=== PATIENT | male | born 1950 | race Caucasian/White ===

== ENCOUNTER 2016-07-26 00:59 | Inpatient (IN) | payer MEDICARE, MEDICAID ==
[~2016-07-26] VITALS: Ht 170.2 cm; Wt 59.5 kg
[~2016-07-26 00:59] MED LIST: COUMADIN2.5 MG PO; LASIX40 MG PO; LISINOPRIL10 MG PO; VALIUM5 MG PO; ZANTAC150 MG PO
[2016-07-26 04:19] VITALS: BMI 18.8
[2016-07-26 08:40] VITALS: BP 116/77
[2016-07-26 12:38] VITALS: BP 106/83
--- NOTE | 2016-07-26 13:19 | NUR ---
RATIONALE FOR SCD'S EXPLAINED. REFUSED SCD'S
--- NOTE | 2016-07-26 13:34 | NUR ---
RESTING QUIETLY. FAMILY AT BEDSIDE.
[2016-07-26 14:22] VITALS: Ht 170.2 cm; Wt 59.5 kg
--- NOTE | 2016-07-26 15:21 | NUR ---
PATEINT SI RESTING QUIETLY WITH EYES CLOSED. FEMALE VISITOR AT THE BEDSIDE. IVF INFUSING PER ORDERS. NO EVIDENCE OF DISTRESS/ NEEDS. CALL LIGHT IS WITHOUT DISTRESS.
[2016-07-26 16:07] VITALS: BP 107/75
--- NOTE | 2016-07-26 19:14 | NUR ---
PATIENT IS UP AD SOLOMON. MEDICATIONS REVIEWED WITH HE AND .
--- NOTE | 2016-07-26 21:18 | NUR ---
PHARMACOMETRICIAN NOTIFIED ME THAT PT HR 151 ST/FLUTTER AT THIS TIME CHECKED TELEMETRY STRIP AND READING WAS ST WENT TO PT ROOM AND ASSESSED RADIL PULSE MANUAL RADIAL PULSE CHECK 96 NOTIFIED TECHNICAL COMMUNICATION TEACHER OF MANUAL PULSE AND VERIFIED BOX NUMBER CORRECT BOX IN PLACE AND TELEMETRY STILL SHOWING 131 ST AT THIS TIME REASSED RADIAL PULSE AND MANUAL PULSE 76 10 MIN LATER CHECKED LEAD PLACEMENT AND NOTIFIED TECHNICAL COMMUNICATION TEACHER WILL MONITOR PT
[2016-07-26 22:30] VITALS: BP 135/89
[2016-07-27 02:50] VITALS: BP 127/99
--- NOTE | 2016-07-27 07:28 | NUR ---
PT SITTING UP IN BED RECEIVING BREATHING TX. DENIES NEEDS AT THIS TIME WILL CONTINUE TO MONITOR.
--- NOTE | 2016-07-27 08:12 | NUR ---
PT IS CURRENTLY IN AFIB 160S. PT FEELS OK BUT DOES FEEL THE PALPITATIONS. OBED ALEMAN CURRENTLY HERE. TALKED WITH HERE SHE IS ORDERING SOMETHING.
[2016-07-27 08:21] VITALS: BP 175/82
[2016-07-27 12:04] VITALS: BP 108/62
--- NOTE | 2016-07-27 12:58 | NUR ---
PT HAS BEEN IN AFIB WITH RVR. NOW HE IS IN FLUTTER. TRIED MULTIPLE TIMES TO GET A HOLD OF CARDIO, WILL KEEP TRYING. PT IS ALERT AND ORIENTED AND FEELS FINE.
--- NOTE | 2016-07-27 13:19 | NUR ---
TALKED WITH OBED SHE SAID SHE WAS OK WITH PT STATUS. IF PT DOESNT IMPROVE THROUGHOUT THE NIGHT AND HIS HEARTRATE GOES ABOVE 130S THEN TO GIVE THEM A CALL WILL PASS ON TO IT HELP DESK MANAGER.
[2016-07-27 15:45] VITALS: BP 120/75
--- NOTE | 2016-07-27 15:48 | NUR ---
PT SITTING UP IN BED WITH AT BEDSIDE. PT HAS BEEN IN SR UNTIL THIS AM WHEN HE CONVERTED TO UNCON AFIB WITH RVR TALKED WITH OBED ALEMAN APN THIS AM AND STARTED ON BETAPACE AND DIG. PT CONVERTED TO AFIV CONTROLLED. PT STAYED THIS WAY UNTIL AROUND 1200 WHEN HE BECAME UNCONTROLLED AGAIN, AGAIN GAVE DIG. RATE CAME BACK DOWN. THEN PT WENT INTO A FLUTTER. BOUNCING FROM 70S-140S. CALLED OBED AND LET HER KNOW ABOUT PT STATUS AND SHE SAID IT WAS OK. PT IS NOW CURRENTLY BACK IN SINUS RHYTHM. PT DENIES NEEDS AT THIS TIME. WILL CONTINUE TO MONITOR.
--- NOTE | 2016-07-27 19:35 | NUR ---
RECEIVED REPORT, CALL LIGHT IN REACH, BED IS LOW, SRX2, LFA-SL, DENIES ANY NEEDS AT THIS TIME
[2016-07-27 20:00] VITALS: BP 128/110
[2016-07-28] VITALS: BP 125/97
--- NOTE | 2016-07-28 00:28 | NUR ---
LADLE PULLER AT BEDSIDE TO OBTAIN VITALS, CALL LIGHT IN REACH. WILL CONTINUE WITH PLAN OF CARE.
--- NOTE | 2016-07-28 02:04 | NUR ---
AWAKE, DENIES ANY NEEDS, FAMILY AT BEDSIDE, CALL LIGHT IN REACH
[2016-07-28 04:00] VITALS: BP 132/101
[2016-07-28 06:18] LABS: BASOPHILS 0.1 % (0.0-2.0); EOSINOPHILS 0 % (0-7); HEMATOCRIT 43.7 % (42.0-54.0); HEMOGLOBIN 14.1 g/dL (13.5-17.5); IMMATURE GRANULOCYTES 0.4 % (0-5); LYMPHOCYTES 6.7 % (15-50); MCH 29.4 pg (26.0-34.0); MCHC 32.3 g/dL (31.0-37.0); MEAN PLATELET VOLUME 11.6 fL (7.4-10.4); NEUTROPHILS 89.8 % (40-80); RDW 15.9 % (11.5-14.5)
[2016-07-28 06:30] LABS: PLATELET COUNT 209 10x3/uL (130-400)
[2016-07-28 06:38] LABS: ANION GAP 11.1 mmol/L (8-16); CALCIUM 9.3 mg/dL (8.5-10.1); CREATININE - SERUM 1.5 mg/dL (0.6-1.3); POTASSIUM - SERUM 4.1 mmol/L (3.5-5.1)
--- NOTE | 2016-07-28 07:09 | NUR ---
PT SITTING UP IN BED SLEEPING EASY TO ARROUSE IN FLOOR ASLEEP. PT DENIES NEEDS AT THIS TIME WILL CONTINUE TO MONITOR.
[2016-07-28 08:05] VITALS: BP 131/90
[2016-07-28 12:19] VITALS: BP 107/77
--- NOTE | 2016-07-28 14:19 | NUR ---
Nutrition Follow Up: Chart reviewed. Diet: AHA PO Intake: 100% x 3 meals I>O No BM since admit Labs noted - BUN, Cr elevated Meds: Lasix, Solumedrol Pt with excellent po intake. Rec continue current diet. RD following.
--- NOTE | 2016-07-28 15:04 | NUR ---
PT PIV IN LEFT FA INFILTRATED. DC WITH CATHETER TIP INTACT. RESITED TO R FA 22G X1 STICK.
[2016-07-28 15:39] VITALS: BP 128/83
--- NOTE | 2016-07-28 18:04 | NUR ---
Patient Name: Mitzi MCCLURE Admission Status: ER Accout number: [id number] Admission Date: 07-26-2016 : 1950 Admission Diagnosis:SHORTNESS OF BREATH Attending: KAYE Current LOS: 2 Anticipated DC Date: Planned Disposition: Home Primary Insurance: [employer]ARE ADV Discharge Planning Comments: * Is the patient Alert and Oriented? Yes 0 * How many steps to enter\exit or inside your home? 2 0 * PCP DR. SALCEDO IN [place] 0 * Pharmacy [facility] IN [place] 0 * Preadmission Environment Home with Family 0 * ADLs Independent 0 * Equipment None 0 * Other Equipment NO MEDICAL EQUIPMENT PROVIDER PREFERENCE 0 * List name and contact numbers for known caregivers / representatives who currently or will assist patient after discharge: RADHA MCCLURE, SPOUSE, 0 * Community resources currently utilized None 0 * Please name any agencies selected above. NONE 0 * Additional services required to return to the preadmission environment? No 0 * Can the patient safely return to the preadmission environment? Yes 0 * Has this patient been hospitalized within the prior 30 days at any hospital? No 0 CM MET WITH PT IN ROOM TO DISCUSS DISCHARGE PLANNING AND NEEDS. PT REPORTS LIVING AT HOME INDEPENDENTLY WITH HIS SPOUSE IN AN APPROXIMATELY [address] [facility] TRAILOR. PT HAS NO MEDICAL EQUIPMENT AND NO OUTSIDE SERVICES ASSISTING IN THE HOME. CM DISCUSSED AVAILABILITY OF HOME HEALTH, REHAB SERVICES AND MEDICAL EQUIPMENT. PT THINKS HE WILL NEED OXYGEN FOR DISCHARGE, REPORTS HIS FAMILY WILL PICK HIM UP FOR DISCHARGE HOME. PT BELIEVES HE WILL NEED OXYGEN FOR DISCHARGE HOME. QUALIFYING OXYGEN TESTING WILL NEED TO BE PERFORMED WITHIN 48 HOURS OF DISCHARGE FOR CM TO ARRANGE ANY HOME OXYGEN, IF PT QUALIFIES. Garden Machinery Mechanic: Froilan Sharma
--- NOTE | 2016-07-28 19:35 | NUR ---
RECEIVED REPORT, UP TO RESTROOM, FAMILY AT BEDSIDE, DENIES ANY NEEDS
[2016-07-28 20:00] VITALS: BP 148/117
[2016-07-29] VITALS: BP 124/88
--- NOTE | 2016-07-29 00:32 | NUR ---
SLEEPING, FAMILY AT BEDSIDE, CALL LIGHT IN REACH
--- NOTE | 2016-07-29 01:12 | NUR ---
PT RESTING SOUNDLY WITHOUT C/O OR DISTRESS NOTED. CALL LIGHT IS WITHIN REACH. NO NEEDS VOICED. WILL MONITOR.
[2016-07-29 04:00] VITALS: BP 140/99
--- NOTE | 2016-07-29 06:58 | NUR ---
RECEIVED REPORT FROM COMMERCIAL GLAZIER NURSE, FRANCISCO WHITE. PT IN BED, REQUESTED A CUP OF ICE WATER, WILL PROVIDED PT WITH ICE WATER. PT DENIES ANY OTHER NEEDS AT THIS TIME. CALL LIGHT IN REACH, FAMILY AT BEDSIDE, SLEEPING. ASSESSMENT DONE AT THIS TIME, NAD NOTED, WILL CONTINUE TO MONITOR.
[2016-07-29 07:34] VITALS: BP 134/91
[2016-07-29 08:30] LABS: BASOPHILS 0.1 % (0.0-2.0); EOSINOPHILS 0.3 % (0-7); HEMATOCRIT 47.9 % (42.0-54.0); HEMOGLOBIN 15.6 g/dL (13.5-17.5); IMMATURE GRANULOCYTES 0.5 % (0-5); LYMPHOCYTES 14.6 % (15-50); MCH 29.5 pg (26.0-34.0); MCHC 32.6 g/dL (31.0-37.0); MCV 90.7 fL (80.0-100.0); MEAN PLATELET VOLUME 11.5 fL (7.4-10.4); NEUTROPHILS 77.5 % (40-80); PLATELET COUNT 203 10x3/uL (130-400); RBC 5.28 10x6/uL (4.20-6.10); RDW 15.8 % (11.5-14.5); WBC 15.4 10x3/uL (4.8-10.8)
[2016-07-29 08:52] LABS: ANION GAP 10.6 mmol/L (8-16); CALCIUM 9.4 mg/dL (8.5-10.1); CARBON DIOXIDE 35.3 mmol/L (21.0-32.0); CREATININE - SERUM 1.6 mg/dL (0.6-1.3); POTASSIUM - SERUM 3.9 mmol/L (3.5-5.1)
--- NOTE | 2016-07-29 09:18 | NUR ---
ADMINISTERED MORNING MEDICATIONS, PT IN BED, DENIES ANY NEEDS AT THIS TIME. CALL LIGHT IN REACH, NAD NOTED, WILL CONTINUE TO MONITOR
[2016-07-29 12:13] VITALS: BP 130/95
[2016-07-29 16:19] VITALS: BP 148/105
--- NOTE | 2016-07-29 19:20 | NUR ---
RECEIVED VERBAL ORDERS FROM DR. JARRETT TO PLACE AN ORDER FOR PT TO GET LOVENOX 40MG BID. ORDER HIM EZPAP WITH HIS BREATHING TREATMENTS. ORDER PUT IN FOR LOVENOX AND NURSING MSG FOR EZPAP.
--- NOTE | 2016-07-29 19:45 | NUR ---
RECEIVED REPORT, PT A&O, [id number], O2-2L, IV-RFA-SL, DENIES ANY NEEDS, CALL LIGHT IN REACH, BED IS LOW, SRX2, FAMILY AT BED SIDE
[2016-07-29 20:49] VITALS: BP 149/108
--- NOTE | 2016-07-30 00:14 | NUR ---
PT RESTING WITH EYES CLOSED. RESP EVEN AND REGULAR. SR UP X2, CALL LIGHT WITHIN REACH.
[2016-07-30 00:36] VITALS: BP 128/80
[2016-07-30 04:39] VITALS: BP 131/90
[2016-07-30 06:51] LABS: BASOPHILS 0.1 % (0.0-2.0); EOSINOPHILS 0 % (0-7); HEMATOCRIT 47.6 % (42.0-54.0); HEMOGLOBIN 15.4 g/dL (13.5-17.5); IMMATURE GRANULOCYTES 0.4 % (0-5); LYMPHOCYTES 10.4 % (15-50); MCH 29.2 pg (26.0-34.0); MCHC 32.4 g/dL (31.0-37.0); MCV 90.2 fL (80.0-100.0); MEAN PLATELET VOLUME 11.2 fL (7.4-10.4); MONOCYTES 4.3 % (2-11); NEUTROPHILS 84.8 % (40-80); PLATELET COUNT 222 10x3/uL (130-400); RBC 5.28 10x6/uL (4.20-6.10); RDW 15.5 % (11.5-14.5); WBC 14.7 10x3/uL (4.8-10.8)
[2016-07-30 07:02] LABS: ANION GAP 7.6 mmol/L (8-16); CALCIUM 8.8 mg/dL (8.5-10.1); CARBON DIOXIDE 35.9 mmol/L (21.0-32.0); CREATININE - SERUM 1.4 mg/dL (0.6-1.3)
[2016-07-30 07:04] LABS: POTASSIUM - SERUM 4.5 mmol/L (3.5-5.1)
--- NOTE | 2016-07-30 07:10 | NUR ---
RECEIVED REPORT FROM SENIOR LABORATORY TECHNICIAN NURSE, PT IN BED, STATES THAT HE FEELS MUCH BETTER TODAY. DENIES ANY NEEDS AT THIS TIME. CALL LIGHT IN REACH, FAMILY AT BEDSIDE, NAD NOTED, WILL CONTINUE TO MONITOR.
--- NOTE | 2016-07-30 09:00 | NUR ---
ADMINISTERED MORNING MEDICATIONS, PT IN BED, ASSESSMENT DONE AT THIS TIME. PT DENIES ANY NEEDS AT THIS TIME. FAMILY AT BEDSIDE, CALL LIGHT IN REACH, NAD NOTED, WILL CONTINUE TO MONITOR.
[2016-07-30 09:31] VITALS: BP 140/96
[2016-07-30 12:55] VITALS: BP 106/78
--- NOTE | 2016-07-30 14:00 | NUR ---
WRAPPED PT'S IV, SO PT COULD GET IN THE SHOWER, LINEN CHANGE WHILE PT WAS IN THE SHOWER. PT DENIES ANY OTHER NEEDS AT THIS TIME. CALL LIGHT IN REACH, NAD NOTED, WILL CONTINUE TO MONITOR.
[2016-07-30 16:59] VITALS: BP 140/93
--- NOTE | 2016-07-30 18:07 | NUR ---
ADMINISTERED 40MG OF LASIX SCHEDULE. PT IN BED, DENIES ANY NEEDS AT THIS TIME. RESP THERAPY AT BEDSIDE TO DO UPDRAFT. PT DENIES ANY NEEDS AT THIS TIME. CALL LIGHT IN REACH, NAD NOTED, WILL CONTINUE TO MONITOR.
[2016-07-30 21:36] VITALS: BP 154/109
--- NOTE | 2016-07-31 01:51 | NUR ---
NURSE ROUNDS 21:00 - PT AWAKE, ALERT, ORIENTED, FAMILY AT BEDSIDE ASKING SEVERAL QUESTIONS ABOUT THEIR FATHERS HEALTH CARE AND TEST RESULTS. I REVIEWED THE PHYSICIANS DOCUMENTATION AND EXPLAINED IN GREAT DETAIL THE PTS DX, THE TX PLAN, AND THE PTS PROGRESS, WELL THE MEDICATIONS AND WHAT THEY ARE FOR. FAMILY STATED THEY WERE SATISFIED AND DENIED ANY MORE QUESTIONS. PTS 2100 MEDICATIONS WERE GIVEN, ALONG WITH HIS REQUESTED PRN VALIUM FOR ANXIETY AND SLEEP. PT STATED HE WAS FEELING BETTER SINCE BEING ADMITTED. CONTINUE TO MONITOR CLOSELY.
[2016-07-31 02:34] VITALS: BP 107/74
[2016-07-31 04:44] VITALS: BP 109/72
--- NOTE | 2016-07-31 06:18 | NUR ---
PT LYING IN BED, EYES CLOSED, RESPIRATIONS EVEN AND UNLABORED. PT IS EASILY ROUSABLE TO VERBAL STIMULI, DENIES ANY NEEDS. PT STATES HE SLEPT BETTER THIS SHIFT. CONTINUE TO MONITOR.
[2016-07-31 06:53] LABS: BASOPHILS 0.1 % (0.0-2.0); EOSINOPHILS 1.1 % (0-7); HEMATOCRIT 47.3 % (42.0-54.0); HEMOGLOBIN 15.1 g/dL (13.5-17.5); IMMATURE GRANULOCYTES 0.9 % (0-5); LYMPHOCYTES 27.7 % (15-50); MCH 29.1 pg (26.0-34.0); MCHC 31.9 g/dL (31.0-37.0); MCV 91.1 fL (80.0-100.0); MEAN PLATELET VOLUME 11.1 fL (7.4-10.4); MONOCYTES 9.2 % (2-11); PLATELET COUNT 221 10x3/uL (130-400); RBC 5.19 10x6/uL (4.20-6.10); RDW 15.5 % (11.5-14.5); WBC 12.7 10x3/uL (4.8-10.8)
[2016-07-31 07:08] LABS: ANION GAP 6.1 mmol/L (8-16); CARBON DIOXIDE 38.6 mmol/L (21.0-32.0); CREATININE - SERUM 1.6 mg/dL (0.6-1.3)
[2016-07-31 07:21] LABS: POTASSIUM - SERUM 3.7 mmol/L (3.5-5.1)
--- NOTE | 2016-07-31 07:30 | NUR ---
RECIEVED REPORT ON PATIENT, PATIENT IS ALERT AND ORIENTED AT THIS TIME. PATIENT HAS A R FA IV THAT IS SL AT THIS TIME. PATIENT IS SB ON MONITOR WITH A RATE OF 55. FAMILY IS AT BEDSIDE. PATIENT DENIES ANY NEEDS OR COMPLAINTS AT THIS TIME. BED LOW AND LOCKED. CALL LIGHT IN REACH. CPOC
[2016-07-31 08:00] VITALS: BP 104/70
--- NOTE | 2016-07-31 09:30 | NUR ---
LEAVING FLOOR, ROQUE WALKER TO RESUME CARE
--- NOTE | 2016-07-31 10:14 | NUR ---
PATIENT AMBULATING IN HALLWAY WITH OUT DISTRESS. RESP WITH EASE.
[2016-07-31 11:08] VITALS: BP 124/88
--- NOTE | 2016-07-31 13:30 | NUR ---
RETURNED TO FLOOR, RESUME CARE OF PATIENT. PATIENT IS SITTING UP IN BED, DENIES ANY NEEDS OR PAIN AT THIS TIME. WILL CONT TO MONITOR PATIENT. CPOC
--- NOTE | 2016-07-31 13:35 | NUR ---
RETURNED TO RESUME CARE, PATIENT IS ALERT AND ORIENTED. FAMILY AT BEDSIDE. PATIENT DENIES ANY NEEDS. CPOC
[2016-07-31 15:09] VITALS: BP 132/87
--- NOTE | 2016-07-31 16:00 | NUR ---
PATIENT AMBULATING AROUND ROOM. DENIES ANY NEEDS AT THIS TIME. WILL CONT TO MONITOR. CPOC
--- NOTE | 2016-07-31 18:00 | NUR ---
PATIENT SITTING UP IN BED EATING DINNER. DENIES ANY NEEDS. CPOC
--- NOTE | 2016-07-31 19:30 | NUR ---
ASSESSMENT COMPLETE, DENIES NEEDS AT THIS TIME. HOB UP SR UP X2, C/L IN REACH. TELEMETRY SHOWING HR SR UP AD SOLOMON W/O DIFF. MULTIPLE VISITORS AT BEDSIDE. CONTINUE TO MONITOR.
[2016-07-31 21:31] VITALS: BP 145/89
--- NOTE | 2016-07-31 23:18 | NUR ---
EYES CLOSED, RESP UNLAB WITH O2 @ 2L NC IN PLACE. NO S/S OF ACUTE DISTRESS NOTED. AT BEDSIDE FOR NIGHT. C/L IN REACH.
[2016-08-01 00:11] VITALS: BP 142/83
[2016-08-01 06:33] VITALS: BP 129/70
[2016-08-01 06:33] LABS: BASOPHILS 0.1 % (0.0-2.0); EOSINOPHILS 0.3 % (0-7); HEMATOCRIT 43.8 % (42.0-54.0); HEMOGLOBIN 14.4 g/dL (13.5-17.5); IMMATURE GRANULOCYTES 0.7 % (0-5); LYMPHOCYTES 17.3 % (15-50); MCH 29.3 pg (26.0-34.0); MCHC 32.9 g/dL (31.0-37.0); MCV 89.2 fL (80.0-100.0); MEAN PLATELET VOLUME 11.3 fL (7.4-10.4); MONOCYTES 7.3 % (2-11); NEUTROPHILS 74.3 % (40-80); PLATELET COUNT 212 10x3/uL (130-400); RBC 4.91 10x6/uL (4.20-6.10); RDW 15.3 % (11.5-14.5); WBC 15.1 10x3/uL (4.8-10.8)
[2016-08-01 06:51] LABS: CALCIUM 8.3 mg/dL (8.5-10.1); CARBON DIOXIDE 37.7 mmol/L (21.0-32.0); CREATININE - SERUM 1.3 mg/dL (0.6-1.3); POTASSIUM - SERUM 3.7 mmol/L (3.5-5.1)
[2016-08-01 07:54] VITALS: BP 138/98
--- NOTE | 2016-08-01 08:20 | NUR ---
PATIENT IS RESTING QUIETLY WITH RESPIRATIONS DEEP AND EVEN. DID NOT AWAKEN HIM
--- NOTE | 2016-08-01 09:45 | NUR ---
PATIENT AWOKE EASILY TO TAKE MEDICATIONS. HE STATES THAT HE TAKES THE VALIUM TO HELP HIM RELAX AT NIGHT. DENIES NEED THIS MORNING. NICOTINE PATCH TO THE RIGHT UPPER ARM. LOVENOX IN THE RIGHT LOQ.
[2016-08-01 12:01] VITALS: BP 114/79
--- NOTE | 2016-08-01 12:47 | NUR ---
PATIENT SITTING UP IN BED, HI FOWLERS.
--- NOTE | 2016-08-01 14:57 | NUR ---
PATIENT UP AMBULATING AROUND ROOM AD SOLOMON.
[2016-08-01 16:01] VITALS: BP 125/87
[2016-08-01 21:39] VITALS: BP 112/80
[2016-08-02 04:00] VITALS: BP 113/57
[2016-08-02 06:15] LABS: BASOPHILS 0.1 % (0.0-2.0); EOSINOPHILS 0.7 % (0-7); HEMATOCRIT 46.6 % (42.0-54.0); HEMOGLOBIN 14.8 g/dL (13.5-17.5); IMMATURE GRANULOCYTES 1.4 % (0-5); LYMPHOCYTES 23.7 % (15-50); MCH 28.8 pg (26.0-34.0); MCHC 31.8 g/dL (31.0-37.0); MCV 90.8 fL (80.0-100.0); NEUTROPHILS 67.1 % (40-80); PLATELET COUNT 210 10x3/uL (130-400); RBC 5.13 10x6/uL (4.20-6.10); RDW 15.4 % (11.5-14.5); WBC 14.1 10x3/uL (4.8-10.8)
[2016-08-02 06:59] LABS: CALCIUM 8.4 mg/dL (8.5-10.1); CREATININE - SERUM 1.3 mg/dL (0.6-1.3); MAGNESIUM - SERUM 2.2 mg/dL (1.8-2.4); PHOSPHOROUS 3.9 mg/dL (2.5-4.9); POTASSIUM - SERUM 3.3 mmol/L (3.5-5.1)
[2016-08-02 07:00] LABS: ANION GAP 6.3 mmol/L (8-16)
[2016-08-02 09:21] VITALS: BP 111/77
--- NOTE | 2016-08-02 10:00 | NUR ---
Lying quietly in bed, alert and oriented, respirations easy. No distress. Call light within reach.
[2016-08-02 12:28] VITALS: BP 102/65
[2016-08-02] MEDS ORDERED: DALIRESP500 MCG PO (14:22)
[2016-08-02] MEDS ORDERED: XOPENEX 0.0.63 MG/3 UPD (14:22)
[2016-08-02] MEDS ORDERED: K-DUR20 MEQ PO (14:22)
[2016-08-02] MEDS ORDERED: MUCINEX600 MG PO (14:22)
[2016-08-02] MEDS ORDERED: ATROVENT 0.02%2.5 ML UPD (14:22)
[2016-08-02] MEDS ORDERED: SINGULAIR10 MG PO (14:22)
[2016-08-02] MEDS ORDERED: SYMBICORT 16010.2 GM INH (14:25)
[2016-08-02] MEDS ORDERED: PREDNISONE20 MG PO (14:30)
--- NOTE | 2016-08-02 15:50 | NUR ---
DISCHARGE INSTRUCTIONS GIVEN TO PATIENT AND FAMILY. WAITING ON O2 T BE DELIVERED.
--- NOTE | 2016-08-02 16:13 | NUR ---
Patient Name: Mitzi MCCLURE Encounter No: [id number] : 1950 Primary Insurance: [employer] MEDICARE ADV Anticipated DC Date: 08-02-2016 Planned Disposition: Home DCP follow-up note: CM RECEIVED CALL FROM [facility], , WHO REPORTED THAT THEY WILL DELIVER THE NEBULIZER BUT WILL HAVE TO GET PREAUTH FROM PT'S INSURANCE FOR PORTABLE OXYGEN. PHILLIP HAS DISCUSSED THIS WITH PT AND WILL DELIVER THE OXYGEN TO PT'S HOME TOMORROW IF PT'S INSURANCE AUTHORIZES IT. DIANE SPOKE TO PT IN ROOM WHO WOULD LIKE TO DISCHARGE HOME TODAY, REPORTS HAVING A HOME OXYGEN UNIT AT HOME THAT BELONGS TO HIS THAT HE WILL USE NEEDED UNTIL THE INSURANCE IS APPROVED. CM ADVISED PT TO FOLLOW UP WITH DR. BARBOZA'S OFFICE IF HIS INSURANCE DENIES PAYING FOR PORTABLE OXYGEN. PT STATED UNDERSTANDING, DENIES FURHTER DISCHARGE NEEDS AND REPORTS HIS WILL PICK HIM UP LATER THIS AFTERNOON. BEDSIDE NURSE NOTIFIED. KRISTIN TO DELIVER NEBULIZER TO PT'S ROOM FOR DISCHARGE HOME TODAY. [facility] WILL DELIVER PORTABLE OXYGEN TO PT'S HOME TOMORROW IF APPROVED BY PT'S INSURANCE. Froilan Sharma, CASE MANAGEMENT
--- NOTE | 2016-08-03 16:23 | EC ---
PATIENT:Mitzi MCCLURE DATE OF SERVICE: 07/26/16 SEX: M MEDICAL RECORD: [id number] DATE OF : [birth year] LOCATION:D.M2 D.214 AGE OF PATIENT: 65 ADMISSION DATE: 07/26/16 REFERRING PHYSICIAN: INTERPRETING PHYSICIAN: AMY LAKE MD ECHOCARDIOGRAM REPORT ECHO CHARGES 4 ECHO COMPLETE CLINICAL DIAGNOSIS: CHF HX OF STENT IN THE LEGS/HTN ECHOCARDIOGRAPHIC MEASUREMENTS (adult normal given) AC root (d.<3.7cm) 3.9 LV Septum d (<1.2 cm> 1.3 Valve Excursion 1.9 LV Septum (systole) 1.4 Left Atria (s.<4.0cm> 4.2 LVPW d(<1.2cm) 1.0 RV (d.<2.3cm) 3.7 LVPW (sytole) 1.3 LV diastole(<5.6CM) 4.9 MV E-F(>70mm/sec) LV systole 3.7 LVOT Diameter 1.5 MV exc.(>10mm) 1.5 Est.ejection fraction (50-75%) Pericardial Effusion N DOPPLER: LVIT A 118 E LA RVSP 26 LVOT 98 AOP1/2T Asc. Ao 143 RVOT 78 RA PA 121 AV Gradient Peak 8.19 AV Mean 5.26 AV Area 1.9 MV Gradient Peak 10.77 MV Mean 2.93 MV Area COMMENTS: Acid Extractor: Dale MOODY Branch Retail Executive:Kathy Lake TAPE# PACS DATE OF SERVICE: 07/27/2016 Echocardiogram FINDINGS: 1. Left ventricular chamber size is within normal limits. Left ventricular systolic function is mild to moderately reduced, overall ejection fraction of 35% to 40%. 2. Left atrium is enlarged at 4.2 cm. Right atrium and right ventricle chamber sizes are as well mildly dilated. ECHOCARDIOGRAM REPORT [id number] Mitzi MCCLURE 3. Valvular structures have normal structure and motion. 4. Doppler interrogation reveals mild mitral regurgitation, mild tricuspid regurgitation. No other valvular insufficiency or stenosis. 5. No evidence of pericardial effusion or left ventricular thrombus. TRANSINT:[id number] Voice Confirmation ID: [id number] DOCUMENT ID: [id number] AMY LAKE MD at 1998 CC: [id number] DICTATION DATE: 07/28/16 1212 FISH AND WILDLIFE TECHNICIAN: 07/28/16 1306 DIS IN 08/02/16 [place] [id number] [place] [id number]
--- NOTE | 2016-08-23 09:12 | CN ---
PATIENT NAME:Mitzi GRIMM MEDICAL RECORD: [id number] : [birth year] LOCATION:Daryl D.2140 ADMIT DATE: 07/26/16 ACCOUNT: [id number] CONSULTING PHYSICIAN: GERONIMO BARBOZA MD REFERRING PHYSICIAN: EDUARDA JARRETT M.D. DATE OF CONSULTATION: 07/26/2016 CONSULT REQUESTING PHYSICIAN: Dr. Eduarda Jarrett. REASON FOR CONSULTATION: Acute exacerbation of chronic obstructive pulmonary disease and shortness of breath. HISTORY OF PRESENT ILLNESS: Mr. Grimm is a 65-year-old gentleman who is a smoker, was admitted to the ER with worsening shortness of breath. According to the patient, for the last 3-4 days, he has shortness of breath with mild exertion. He has orthopnea and PND. Denies any swelling of the leg. There is no chest pain. He has a severe spasmodic cough. His chest wall hurts when he coughs. There is no associated hemoptysis. He did notice white yellowish color sputum production. Denies any sore throat. REVIEW OF SYSTEMS: As in history of present illness. PAST MEDICAL HISTORY: 1. COPD. 2. Peripheral vascular disease. 3. History of pneumonia. 4. Hypertension. 5. History of multiple myeloma. 6. Perforated peptic ulcer. PAST SURGICAL HISTORY: He had a laparotomy for perforated gastric ulcer. ALLERGIES: There are no known drug allergies. MEDICATIONS: He is on ranitidine, furosemide, and diazepam. PERSONAL AND SOCIAL HISTORY: The patient still continues to smoke more than a pack a day for more than 50 years. He is a nondrinker. FAMILY HISTORY: Significant for cardiovascular disease and cancer. PHYSICAL EXAMINATION: GENERAL: Now, the patient is lying comfortably. He is not in acute distress. VITAL SIGNS: The blood pressure is 106/83, pulse is 103, respiration is 22, temperature 98.2, SPO2 is 95% on 2 liters nasal cannula. HEENT: Conjunctivae pink, sclerae nonicteric. NECK: Supple, no JVD. CHEST: The chest excursion is minimal on both sides. There are bilateral crackles, wheeze on forceful expiration. HEART: Rhythm regular, normal sound, no murmur. ABDOMEN: Soft. Bowel sounds present. No hepatosplenomegaly. RECTAL: Deferred. EXTREMITIES: No cyanosis, no clubbing, no pedal edema. CONSULT REPORT [id number] Mitzi GRIMM SKIN: Warm, normal turgor. CENTRAL NERVOUS SYSTEM: The patient is awake and alert. There is no obvious cranial nerve abnormality. The gait was not tested. IMAGING: Chest radiograph, there is hyperinflation, there is increased interstitial markings. OTHER LABORATORY DATA: CBC: WBC 10.3, hemoglobin 13.8, hematocrit 41.6. The platelet count 158. Chemistry: Sodium 139, potassium 5.3, bicarb is 34, BUN is 21, creatinine 1.3, glucose 96. The BNP is 3538. Albumin is 3.3. IMPRESSION: 1. Acute exacerbation of chronic obstructive pulmonary disease. 2. Acute hypoxic respiratory failure. 3. Tracheobronchitis. 4. Pulmonary edema. 5. Congestive heart failure, possible diastolic dysfunction. 6. Peripheral vascular disease. 7. Smoking, nicotine dependence. RECOMMENDATION: 1. Albuterol/ipratropium nebulizer q. 6 hourly, Brovana/budesonide nebulizer b.i.d., methylprednisolone IV. Continue present antibiotic, Zithromax and Rocephin. 2. Consult Dr. Lake for cardiac evaluation. 3. Check a cardiac echo. 4. Follow up chest x-ray and labs in the morning. Dr. Jarrett, once again thanks for involving me in the care of Mr. Grimm. TRANSINT:[id number] Voice Confirmation ID: [id number] DOCUMENT ID: [id number] GERONIMO BARBOZA MD at 0912 CC: [id number] DICTATION DATE: 07/26/161718 RICE FIELD WORKER: 07/26/164 DIS IN 08/02/[address] [place] [facility] [place] [address]
--- NOTE | 2016-10-02 12:39 | DS ---
PATIENT:Mitzi MCCLURE :[birth year] MEDICAL RECORD: [id number] DISCHARGE SUMMARY ADMISSION DATE: 07/26/16 DISCHARGE DATE: 08/02/16 ADMISSION DATE: 07/26/2016 DISCHARGE DATE: 08/02/2016 DISCHARGE DIAGNOSES: 1. Acute exacerbation of chronic obstructive pulmonary disease. 2. Shortness of breath. 3. Acute hypoxic respiratory failure. 4. Pulmonary edema. 5. Congestive heart failure. 6. Peripheral vascular disease. 7. Nicotine dependency. 8. Atrial fibrillation. 9. Pneumonia. CONSULTS: 1. Dr. Miller. 2. Dr. Lake. OPERATIVE PROCEDURES OR TESTS: 2D echo, EF is 35% to 40% with right atrial and ventricular chamber size mildly dilated. There is mild MR, TR, no evidence of effusion or ventricular rupture. HOSPITAL COURSE: The full H&P is listed elsewhere on the chart for this 65-year-old patient, who was admitted with shortness of breath, cough and leukocytosis. He was noted to have pneumonia as well as acute exacerbation of COPD and was admitted to the inpatient setting. The patient was started on antibiotics with Zithromax and Rocephin. Cardiology consult was obtained. The patient underwent a 2D echo, see those findings above. The patient was started on some gentle IV diuretics for mild pulmonary edema. Aggressive pulmonary toilet was instituted with DuoNeb updrafts as well as IV steroids. The patient did have some atrial fibrillation with RVR, digoxin was added for rate control along with sotalol. The repeat echo as above. The patient's clinical condition improved with antibiotics and aggressive pulmonary toilet. The patient's antibiotics were deescalated. The patient did ambulate in the halls without complications and was thought to be stable for discharge, to follow up in the outpatient setting. See med rec. TRANSINT:[id number] Voice Confirmation ID: [id number] DOCUMENT ID: [id number] Dictated By: OBED ALEMAN I have interviewed/examined the above patient and agree with these documented findings. at 0843 at 1238 CC: [id number] DICTATION DATE: 09/27/16 0844 LINING PARTS SEWER: 09/27/16 2231 DIS IN 08/02/16 [facility] [address] [place] [address]
== END 2016-08-02 16:41 | disposition home or self-care (01) | DRG 190 ==
LOC: D.ER 00:59 → D.M2 02:31
PROVIDERS: Internal Medicine Pulmonary Disease; ADMIT Family Medicine
DX: J44.0 Chronic obstructive pulmonary disease with (acute) lower respiratory infection (principal); J18.9 Pneumonia, unspecified organism; J96.01 Acute respiratory failure with hypoxia; I50.23 Acute on chronic systolic (congestive) heart failure; F17.203 Nicotine dependence unspecified, with withdrawal; I13.0 Hypertensive heart and chronic kidney disease with heart failure and stage 1 through stage 4 chronic kidney disease, or unspecified chronic kidney disease; J44.1 Chronic obstructive pulmonary disease with (acute) exacerbation; I73.9 Peripheral vascular disease, unspecified; I48.91 Unspecified atrial fibrillation; J20.9 Acute bronchitis, unspecified; N18.9 Chronic kidney disease, unspecified; I08.1 Rheumatic disorders of both mitral and tricuspid valves

== ENCOUNTER → 2016-08-31 14:27 | Outpatient (CLI) | payer MEDICARE, MEDICAID ==
[2016-07-26 14:22] VITALS: BMI 18.8
[~2016-08-31 14:27] MED LIST changes: +ATROVENT 0.02%2.5 ML UPD; +BAYER CHEWABLE81 MG PO; +BETAPACE 80 MG80 MG PO; +DALIRESP500 MCG PO; +K-DUR20 MEQ PO; +MUCINEX600 MG PO; +PLAVIX75 MG PO; +PREDNISONE20 MG PO; +SINGULAIR10 MG PO; +SYMBICORT 16010.2 GM INH; +XOPENEX 0.0.63 MG/3 UPD
== END | disposition home or self-care (01) ==
LOC: D.RAD 14:27
DX: J44.9 Chronic obstructive pulmonary disease, unspecified (principal)

== ENCOUNTER 2016-08-31 16:40 | Emergency (ER) | payer MEDICARE, MEDICAID ==
[2016-07-26 14:22] VITALS: BMI 18.8
[~2016-08-31 16:40] MED LIST changes: -BAYER CHEWABLE81 MG PO; -BETAPACE 80 MG80 MG PO; -PLAVIX75 MG PO
== END 2016-08-31 18:37 | disposition home or self-care (01) ==
LOC: D.ER 16:40
DX: S93.602A Unspecified sprain of left foot, initial encounter (principal); W19.XXXA Unspecified fall, initial encounter; Y93.89 Activity, other specified; Y92.019 Unspecified place in single-family (private) house as the place of occurrence of the external cause; J44.9 Chronic obstructive pulmonary disease, unspecified

== ENCOUNTER → 2016-10-09 10:13 | Outpatient (CLI) | payer MEDICARE, MEDICAID ==
[2016-07-26 14:22] VITALS: BMI 18.8
[~2016-10-09 10:13] MED LIST changes: +BAYER CHEWABLE81 MG PO; +BETAPACE 80 MG80 MG PO; +PLAVIX75 MG PO
== END | disposition home or self-care (01) ==
LOC: D.RT 10:13
DX: J44.9 Chronic obstructive pulmonary disease, unspecified (principal)

== ENCOUNTER 2016-10-15 20:13 | Observation (INO) | payer MEDICARE, MEDICAID ==
[~2016-10-15] VITALS: Ht 170.2 cm; Wt 61.1 kg
--- NOTE | ~2016-10-15 | HEMODYNAMI ---
PATIENT:YARELY MCCLURE MEDICAL RECORD: [id number] : 46 [id number] ADMISSION DATE: 10/16/16 Generatedon:10/16/201616:44 Patient name: YARELY MCCLURE Patient #: [id number] SSN: : Date of study: 10/16/2016 Page: Of Hemodynamic Procedure Report Patient Data Patient Demographics Procedure consent was obtained First Name: YARELY Gender: Male Last Name: KAMI : 1950 Patient #: [id number] Age: 66 year(s) Race: Unknown Additional ID: [id number] Contact details Address: [place] [address] State: [place] City: [place] Zip code: [address] Past Medical History Allergies: No known allergies Admission Admission Data Admission Date: 10/16/2016 Admission Time: 0:54 Room #: [facility] Procedure Procedure Types Cath Procedure Diagnostic Procedure LHC LHC w/Coronaries FFR/IVUS Intra-Coronary IVUS Initial PCI Procedure Coronary Stent Initial Miscellaneous Procedures Moderate Sedation up to 30 minutes Procedure Description Procedure Date Procedure Date: 10/16/2016 Procedure Start Time: 16:09 Procedure End Time: 16:29 Procedure Staff Name Function Ethan Lake MD Performing Physician Zhao Antonio RT Monitor Rohini Howard RN Nurse Alessandra You RT Scrub Procedure Data Cath Procedure Fluoroscopy Diagnostic fluoroscopy Total fluoroscopy Time: 0 time: 0 min min Diagnostic fluoroscopy Total fluoroscopy dose: 589 dose: 589 mGy mGy Contrast Material Contrast Material Type Amount (ml) Isovue 300 85 Entry Location Entry Primary Successful Side Size Upsize Upsize Entry Closure Succes sful Closure Location (Fr) 1 (Fr) 2 (Fr) Remarks Device Remarks Femoral Left 5 Fr 6 Fr artery Short Diagnostic catheters Device Type Used For End Catheter Placement Cordis 5Fr Pigtail LV Angiography Catheter (MP) Cordis 5Fr JL 4.0 Left Coronary Catheter (MP) Angiography Cordis 5Fr 3DRC Catheter Right Coronary (MP) Angiography Procedure Complications No complications Procedure Medications Medication Administration Route Dosage Oxygen NC 2 l/min Lidocaine 2% added to field 20 Heparin Flush Bag added to field 2 bags (1000units/500ml NS) 0.9% NaCl I.V. 100 ml/hr Versed I.V. 1 mg Fentanyl I.V. 50 mcg Versed I.V. 1 mg Fentanyl I.V. 50 mcg Fentanyl I.V. 50 mcg Versed I.V. 1 mg Heparin Bolus I.V. 4000 units Integrilin (Bolus I.V. 5.6 ml 2mg/ml) Plavix P.O. 600 mg Hemodynamics Rest Heart Rate: 79 (bpm) Snapshots Pre Cath Intra NCS Post Cath Vital Signs Time Heart Resp SPO2 etCO2 [id number] NIBP (mmHg) Rhythm Pain Status Eufemia tion Rate (ipm) (%) (mmHg) (mmHg) Level (bpm) 16:03:10 75 14 99 0 0 120/83(98) NSR 5 (11) , 10(A ) Very distressing 16:07:10 77 15 100 0 0 116/93(101) NSR 5 (11) , 10(A ) Very distressing 16:11:10 74 16 100 0 0 115/84(93) NSR 0 (11) , No 9(A) pain 16:15:09 73 16 99 0 0 114/82(92) NSR 0 (11) , No 9(A) pain 16:19:09 71 17 99 0 0 120/85(94) NSR 0 (11) , No 9(A) pain 16:23:13 72 15 100 0 0 110/76(90) NSR 0 (11) , No 9(A) pain 16:27:12 70 16 100 0 0 106/78(86) NSR 0 (11) , No 9(A) pain 16:33:41 70 16 100 0 0 117/86(104) NSR 0 (11) , No 10(A ) pain Medications Time Medication Route Dose Verified Delivered Reason Notes Effectiveness by by 15:59:48 Oxygen NC 2 Ethan Nova used for l/min Aleksandra Howard slot floorperson 16:00:42 Lidocaine 2% added 20ml Ethan Long for local to vial Aleksandra Lake MD anesthetic field 16:00:47 Heparin Flush added 2 Ethan Long used for Bag to bags Aleksandra Lake MD procedure (1000units/500ml field NS) 16:00:56 0.9% NaCl I.V. 100 Ethan Nova Per physician ml/hr Aleksandra Howard RN 16:04:49 Versed I.V. 1 mg Ethan Nova for sedation Aleksandra Howard RN 16:05:02 Fentanyl I.V. 50 Ethan Nova for sedation mcg Aleksandra Howard RN 16:09:00 Versed I.V. 1 mg Ethan Nova for sedation Aleksandra Howard RN 16:09:04 Fentanyl I.V. 50 Ethan Nova for sedation mcg Aleksandra Howard RN 16:15:16 Fentanyl I.V. 50 Ethan Nova for sedation mcg Aleksandra Howard RN 16:15:28 Versed I.V. 1 mg Ethan Nova for sedation Aleksandra Howard RN 16:16:26 Heparin Bolus I.V. 4000 Ethan Nova for verifi ed units Aleksandra Howard RN anticoagulation with dr lake 16:21:25 Integrilin I.V. 5.6 Ethan Nova for wasted (Bolus 2mg/ml) ml Aleksandra Howard RN antiplatelet 4.4 ml therapy of vial 16:32:02 Plavix P.O. 600 Ethan Nova for mg Aleksandra Howard RN antiplatelet therapy Procedure Log Time Note 15:30:22 Rohini Howard RN sent for patient. Start room use. 15:59:48 Oxygen 2 l/min NC was administered by Rohini Howard RN; used for procedure; 16:00:17 ACC Patient presents with Unstable Angina CCS Anginal Class 3--Marked limitation of physical activity, angina occurs with ordinary activity.. 16:00:19 Diagnostic Cath status Urgent 16:00:37 Time tracking: Regular hours 16:00:42 Lidocaine 2% 20ml vial added to field was administered by Ethan Lake MD; for local anesthetic; 16:00:43 Plan of Care:Hemodynamics will remain stable., Cardiac rhythm will remain stable., Comfort level will be maintained., Respiratory function will remain adequate., Patient/ family verbilizes understanding of procedure., Procedure tolerated without complication., Recovers from procedure without complications.. 16:00:47 Heparin Flush Bag (1000units/500ml NS) 2 bags added to field was administered by Ethan Lake MD; used for procedure; 16:00:50 Patient received from PCU to CCL 1 Alert and oriented. Tansferred to table in Supine position. 16:00:51 Warm blankets applied, and noris hugger turned on for patient comfort. 16:00:51 Correct patient and procedure confirmed by team. 16:00:53 Signed procedure consent form obtained from patient. 16:00:54 Baseline sample Acquired. 16:00:54 ECG and BP/O2 sat monitors applied to patient. 16:00:54 Vital chart was started 16:00:56 0.9% NaCl 100 ml/hr I.V. was administered by Rohini Howard RN; Per physician; 16:00:58 Rhythm: sinus rhythm 16:00:59 Full Disclosure recording started 16:01:05 H&P Date Dictated: 10/15/2016 Within 30 days and on chart.. 16:01:05 Pre-procedure instructions explained to patient. 16:01:06 Pre-op teaching completed and patient verbalized understanding. 16:01:08 Family in patients room. 16:01:09 Patient NPO since Midnight. 16:01:14 Patient allergic to No known allergies 16:01:19 Is the patient allergic to Iodine/contrast media? No. 16:01:26 Is patient on blood thinner?No 16:01:27 Patient diabetic? No. 16:01:28 ----Pre-sedation anethsthesia assessment.---- 16:01:30 Previous problem with sedation/anesthesia? No ? 16:01:31 Snore? Yes 16:01:32 Sleep apnea? No 16:01:34 Deviated septum? No 16:01:36 Opens mouth fully? Yes 16:01:39 Sticks out tongue? Yes 16:01:42 Airway obstruction? No ? 16:01:45 Dentures? No ? 16:01:49 Pre procedure: right dorsailis pedis pulse 1+ Palpable, but thready & weak; easily obliterated 16:01:59 Patient pain scale 5/10 cp. 16:02:05 IV patent on arrival in right antecubital with 0.9% NaCl at 10ml/hr. 16:02:12 Right groin area was prepped with chlora-prep and draped in sterile fashion 16:02:13 Alarms reviewed by RMarta NMarta 16:02:13 Sharps counted by scrub and verified by R.N. 16::42 --------ALL STOP TIME OUT------ 16::42 Final Timeout: patient, procedure, and site verified with staff and physician. All members of the team are in agreement. 16:03:44 Right groin site verified by team. 16:03:48 Physical assessment completed. ASA score P 2 - A patient with mild systemic disease as per Ethan Lake MD. 16:03:52 Sedation plan: IV Moderate Sedation Versed, Fentanyl 16:03:54 Zero performed for pressure channel P1 16:04:49 Versed 1 mg I.V. was administered by Rohini Howard RN; for sedation; 16:05:02 Fentanyl 50 mcg I.V. was administered by Rohini Howard RN; for sedation; 16:08:48 Use device set Femoral Dx 16:08:49 Acist Syringe opened to sterile field. 16:08:49 Bag Decanter opened to sterile field. 16:08:49 Medline Cath Pack opened to sterile field. 16:08:50 Terumo 5Fr Cullom Sheath opened to sterile field. 16:08:50 St Keith 260cm J .035 wire opened to sterile field. 16:08:52 Acist Hand Control opened to sterile field. 16:08:52 Acist Manifold opened to sterile field. 16:08:53 Diagnostic Infinity 5Fr Multipack catheter opened to sterile field. 16:08:55 Tegaderm 4 x 4 opened to sterile field. 16:09:00 Versed 1 mg I.V. was administered by Rohini Howard RN; for sedation; 16:09:04 Procedure started. 16:09:04 Fentanyl 50 mcg I.V. was administered by Rohini Howard RN; for sedation; 16:09:05 LFA WAS PREPPED DO TO STENTS IN THE RFA 16:09:17 Local anesthetic to left femerol artery with Lidocaine 2% by Ethan Lake MD.INITIAL ACCESS ONLY 16:09:18 A 5 Fr sheath was inserted into the Left Femoral artery 16:11:12 A Cordis 5Fr Pigtail Catheter (MP) was advanced over the wire and used for LV Angiography. 16:11:19 LV angiography performed. 16:11:21 LV gram done using CAMERON 16:11:32 EF : 50 % 16:11:34 Catheter removed. 16:11:39 A Cordis 5Fr JL 4.0 Catheter (MP) was advanced over the wire and used for Left Coronary Angiography. 16:11:58 LCA angiography performed. 16:12:13 Catheter removed. 16:13:33 A Cordis 5Fr 3DRC Catheter (MP) was advanced over the wire and used for Right Coronary Angiography. 16:13:36 RCA angiography performed. 16:14:07 Terumo 6Fr Cullom Sheath opened to sterile field. 16:14:08 Walker Whisper J 300cm 0.014 guide wire opened to sterile field. 16:14:08 eKonnektixCompak Inflation Kit opened to sterile field. 16:15:16 Fentanyl 50 mcg I.V. was administered by Rohini Howard RN; for sedation; 16:15:28 Versed 1 mg I.V. was administered by Rohini Howard RN; for sedation; 16:16:26 Heparin Bolus 4000 units I.V. was administered by Rohini Howard RN; for anticoagulation; verified with dr lake 16:16:28 Catheter removed. 16:16:40 Cordis 6FR XBLAD 3.5 guide catheter opened to sterile field. 16:16:53 Paxton [place] Eagleye IVUS Catheter opened to sterile field. 16:17:49 Sheath upsized to a 6 Fr Short. 16:18:00 6 Fr XBLAD 3.5 guide catheter was inserted over the wire 16:18:04 WHISPER wire advanced. 16:18:08 FFR/IVUS 16:18:08 IVUS catheter advanced over wire. 16:18:10 IVUS pass to Circ lesion performed. 16:21:25 Integrilin (Bolus 2mg/ml) 5.6 ml I.V. was administered by Rohini Howard RN; for antiplatelet therapy; wasted 4.4 ml of vial 16:22:30 IVUS catheter removed over wire. 16:22:34 Wire removed. 16:22:44 WHISPER wire advanced. 16:22:58 RAMUS 16:23:43 Inflation Number: 1 A Adhysteriatronic Integrity 3.0 X 15 stent was prepped and advanced across the Lat ramus. The stent was deployed at 17 RACHID for 0:08 (min:sec). 16:24:03 Stent catheter was removed intact over wire. 16:24:20 Procedure type changed to Cath procedure, Diagnostic procedure, LHC, LHC w/Coronaries, FFR/IVUS, Intra-Coronary IVUS Initial, PCI procedure, Coronary Stent Initial, Miscellaneous Procedures, Moderate Sedation up to 30 minutes 16:24:46 ACC PCI Site: Ramus has 80% stenosis. 16:26:01 Inflation Number: 2 A Adhysteriatronic Integrity 2.75 X 12 stent was prepped and advanced across the Lat ramus. The stent was deployed at 13 RACHID for 0:14 (min:sec). 16:26:43 Stent catheter was removed intact over wire. 16::43 Wire removed. 16::44 Guide catheter removed. 16:26:46 ACC Post-intervention DAYSI Flow is 3. 16:26:51 Contrast amount:Isovue 300 85ml. 16:27:33 Vascade 6/7 Fr Closure Device opened to sterile field. 16:27:34 Procedure ended.(Physican Out) 16:27:55 Fluoroscopy time 00.00 minutes. 16:28:15 Fluoroscopy dose: 589 mGy 16:28:15 Flurop Dose total: 589 16:28:17 Sharps counted by scrub and verified by R.N. 16:28:18 Insertion/operative site no bleeding no hematoma. 16:28:20 Post-op/insertion site Left Femoral artery dressed using a 4 x 4 and Tegaderm. 16:28:27 Post left femerol artery:stable 16:28:35 Post procedure rhythm: sinus rhythm 16:28:37 Post procedure instruction explained to patient.Patient verbalizes understanding. 16:29:12 Post Procedure Pulses reassessed and unchanged 16:29:14 Post procedure: left dorsailis pedis pulse 1+ Palpable, but thready & weak; easily obliterated. 16:29:16 Procedure and supply charges have been captured, reviewed, submitted and are correct. 16:29:27 Procedure Complication : No complications 16:29:30 Vital chart was stopped 16:29:30 See physician's report for complete and final results. 16::39 Report given to PCU. 16::43 Patient transfered to PCU with Bed. 16:29:45 Procedure ended. 16:29:45 Full Disclosure recording stopped 16:29:52 ACC-PCI Only Patient was given prescriptions, or instructed by Ethan Lake MD to start/continue the following medications upon discharge: Plavix 16:29:53 End room use (Document Last) 16:32:02 Plavix 600 mg P.O. was administered by Rohini Howard RN; for antiplatelet therapy; Intervention Summary Intervention Notes Time ActionType Lesion and Equipment Action# Pressure Duration Attributes Used 16:23:43 Place stent Lat ramus Medtronic 1 17 00:08 Integrity 3.0 X 15 stent 16:26:01 Place stent Lat ramus Medtronic 2 13 00:14 Integrity 2.75 X 12 stent Device Usage Item Name Manufacture Quantity Catalog Hospital Part Current Minima l Lot# / Number Charge Number Stock Stock Serial# Code Acist Acist 1 62448 308051 668752 328806 20 Syringe Medical Systems Inc Bag Microtek 1 2002S 177680 37758 074200 5 Huan Xiong. Medline Cardinal 1 [id number] 628223 44820 976531 5 Cath Pack Health Terumo 5Fr Terumo 1 BEJ205 974454 682161 466333 [address] Keith 1 680231 008104 526767 312848 30 260cm J .035 wire Acist Hand Acist 1 73616 091265 290342 344578 5 Control Medical Systems Inc Acist Acist 1 32792 594584 468584 872858 5 Somnus Therapeutics Medical Systems Inc Diagnostic Cardinal 1 [id number] 153954 72738 047834 30 Infinity Health 5Fr Multipack catheter Tegaderm 4 3M 1 1626W 800426 143842 009675 5 x 4 Cordis 5Fr Cardinal 1 152042 5 Pigtail Health Catheter (MP) Cordis 5Fr Cardinal 1 220267 5 JL 4.0 Health Catheter (MP) Cordis 5Fr Cardinal 1 478145 5 3DRC Health Catheter (MP) Terumo 6Fr Terumo 1 BEJ312 412313 918338 672938 40 Cullom Sheath Walker Walekr 1 [id number] 466820 440256 281214 5 Whisper J Vascular 300cm 0.014 guide wire Merit Merit 1 HA5837 862824 647127 396030 15 PeerPong Medical Inflation Kit Cordis 6FR Cardinal 1 [id number] 656643 972486 859377 10 XBLAD 3.5 Health guide catheter Sha Dalton 1 [id number] 179883 638103 536224 8 [place] Eagleye IVUS Catheter Medtronic Medtronic 1 [id number] 486835 366775 106275 0 [id number] Integrity 3.0 X 15 stent Medtronic Medtronic 1 [id number] 760732 399305 3 [id number] Integrity 2.75 X 12 stent Vascade 6/7 Cardiva 1 [id number] 989591 051871 516478 5 Fr Closure Medical, Device Inc. Signature Audit [place] Stage Time Signature Unsigned Intra-Procedure 10/16/2016 Zhao Antonio 4:44:38 PM RT(R) Signatures Monitor : Zhao Antonio RT Signature : Date : Time : [place] [id number] [place] [address]
[~2016-10-15 20:13] MED LIST changes: -BAYER CHEWABLE81 MG PO; -BETAPACE 80 MG80 MG PO; -PLAVIX75 MG PO
[2016-10-15 21:35] LABS: BASOPHILS 0.5 % (0.0-2.0); EOSINOPHILS 1.7 % (0-7); HEMATOCRIT 44.2 % (42.0-54.0); HEMOGLOBIN 14.6 g/dL (13.5-17.5); IMMATURE GRANULOCYTES 0.2 % (0-5); LYMPHOCYTES 19.8 % (15-50); MCH 29.1 pg (26.0-34.0); MCV 88.2 fL (80.0-100.0); MEAN PLATELET VOLUME 10.8 fL (7.4-10.4); MONOCYTES 12.9 % (2-11); NEUTROPHILS 64.9 % (40-80); PLATELET COUNT 195 10x3/uL (130-400); RBC 5.01 10x6/uL (4.20-6.10); RDW 16.4 % (11.5-14.5); WBC 10.7 10x3/uL (4.8-10.8)
[2016-10-15 21:52] LABS: ALBUMIN 3.8 g/dL (3.4-5.0); ALKALINE PHOSPHATASE 137 U/L (46-116); ALT (SGPT) 36 U/L (10-68); BILIRUBIN - TOTAL 1.18 mg/dL (0.2-1.3); CALC OSMOLALITY 271 mosm/kg (275-300); CARBON DIOXIDE 30.8 mmol/L (21.0-32.0); CHLORIDE - SERUM 96 mmol/L (98-107); GLUCOSE 136 mg/dL (74-106); SODIUM 132 mmol/L (136-145); UREA NITROGEN 26 mg/dL (7-18); eGFR NON AFRICAN AMERICAN 35 mL/min (90-120)
[2016-10-15 22:01] LABS: CKMB 2.7 U/L (0.0-3.6); CREATINE KINASE 142 UL (21-232)
[2016-10-16 00:58] LABS: PHOSPHOROUS 3.3 mg/dL (2.5-4.9)
--- NOTE | 2016-10-16 02:25 | NUR ---
PT ARRIVED VIA W/C FROM ER AT 0210 HRS. DENIES ANY DISCOMFORT AT THIS TIME. SRER CM HR 74. WILL CONTINUE TO MONITOR.
[2016-10-16 02:36] VITALS: BP 140/83; Ht 170.2 cm; Wt 61.1 kg
--- NOTE | 2016-10-16 03:11 | NUR ---
ADMISSION ASSESSMENT AND HISTORY COMPLETED. PT UNSURE OF MEDS AND DOSAGE. NEED TO CALL THE [facility] IN AM. IV TO LAC WITH NS AT 100CC/HR AND MORPHINE CAR SALTER 1MG Q 10 MINUTES WITH NO LOCKOUT. PT INSTRUCTED IN USE OF CAR SALTER. AND SON AT BEDSIDE. SR UP X2, CALL LIGHT WITHIN REACH.
--- NOTE | 2016-10-16 04:23 | NUR ---
PT RESTING WITH EYES CLOSED. RESP EVEN AND REGULAR. SR UP X2, CALL LIGHT WITHIN REACH.
--- NOTE | 2016-10-16 06:41 | NUR ---
VSS THIS AM. SR PER CM. PT DENIES ANY DISOCMFORT. NEEDS MET;WILL CONTINUE TO MONITOR.
[2016-10-16 06:57] LABS: CKMB 2.8 U/L (0.0-3.6); CREATINE KINASE 115 UL (21-232)
--- NOTE | 2016-10-16 07:53 | NUR ---
RESTING QUIETLY NAD NOTED
[2016-10-16 07:59] VITALS: BP 156/90
--- NOTE | 2016-10-16 11:02 | NUR ---
ASSESSMENT COMPLETED. TELEMERTY SHOWS SR. RIGHT AC IV WITH NS AT 100 JAVA TECH LEAD PUMP WITH MORPHINE AT 1MG Q 1O MIN. FAMILY AT BEDSIDE. DENIES ANY NEEDS
[2016-10-16 11:56] VITALS: BP 149/92
[2016-10-16 12:44] LABS: CKMB 2.1 U/L (0.0-3.6); CREATINE KINASE 113 UL (21-232); TROPONIN-I 0.036 ng/mL (0.000-0.060)
[2016-10-16 13:02] LABS: BASOPHILS 0.8 % (0.0-2.0); HEMOGLOBIN 12.5 g/dL (13.5-17.5); IMMATURE GRANULOCYTES 0.2 % (0-5); LYMPHOCYTES 33.5 % (15-50); MCH 28.5 pg (26.0-34.0); MCHC 32.1 g/dL (31.0-37.0); MEAN PLATELET VOLUME 11.4 fL (7.4-10.4); MONOCYTES 12.9 % (2-11); NEUTROPHILS 49.6 % (40-80); PLATELET COUNT 178 10x3/uL (130-400); RBC 4.38 10x6/uL (4.20-6.10); RDW 16.8 % (11.5-14.5)
[2016-10-16 13:03] LABS: ANION GAP 10.6 mmol/L (8-16); CALCIUM 7.7 mg/dL (8.5-10.1); CARBON DIOXIDE 29.4 mmol/L (21.0-32.0)
[2016-10-16 13:04] LABS: CREATININE - SERUM 1.4 mg/dL (0.6-1.3)
[2016-10-16 16:27] VITALS: BP 171/98
--- NOTE | 2016-10-16 17:04 | NUR ---
BACK FROM STORAGE BATTERY CHARGER. V/S STABLE . RIGHT GROIN SOFT WITH WITH DRSG DRY AND INTACT. PPP. TELEMERTY SHOWS SR. WILL MONITOR
[2016-10-16 18:30] LABS: CREATINE KINASE 114 UL (21-232); TROPONIN-I 0.036 ng/mL (0.000-0.060)
--- NOTE | 2016-10-16 18:33 | NUR ---
LYING QUIETLY. LEFT GROIN SOFT WITH DRSG DRY AND INTACT. DENIES ANY NEEDS.
[2016-10-16 21:40] VITALS: BP 150/102
[2016-10-17 02:00] VITALS: BP 160/89
[2016-10-17 08:07] VITALS: BP 180/109
--- NOTE | 2016-10-17 08:12 | NUR ---
ASSESSMENT COMPLETED. TELEMERTY SHOWS SR. RIGHT AC IV. DRSG TO LEFT GROIN DRY AND INTACT. DENIES ANY NEEDS. CALL LIGHT IN REACH WITH SR UP
--- NOTE | 2016-10-17 10:29 | NUR ---
RESTING QUIETLY NAD NOTED
[2016-10-17] MEDS ORDERED: PLAVIX75 MG PO (10:43)
[2016-10-17] MEDS ORDERED: BAYER CHEWABLE81 MG PO (10:44)
[2016-10-17 12:22] VITALS: BP 165/74
[2016-10-17 13:37] LABS: ANION GAP 12.6 mmol/L (8-16); CALCIUM 7.7 mg/dL (8.5-10.1); CARBON DIOXIDE 26.5 mmol/L (21.0-32.0); CREATININE - SERUM 1.1 mg/dL (0.6-1.3); POTASSIUM - SERUM 4.1 mmol/L (3.5-5.1)
--- NOTE | 2016-10-17 14:32 | NUR ---
NE DISCHARGED. IV DCD WITH TIP INTACT. INSTRUCTIONS GIVEN TO PT AND FAMILY. TO PRIVATE CAR PER WHEEL CHAIR
--- NOTE | 2016-10-24 14:37 | CN ---
PATIENT NAME:YARELY MCCLURE MEDICAL RECORD: [id number] : 46 LOCATION:. D.2125 ADMIT DATE: 10/16/16 ACCOUNT: [id number] CONSULTING PHYSICIAN: AMY BLACK MD REFERRING PHYSICIAN: MIKALA NICK DO DATE OF CONSULTATION: 10/16/2016 Cardiology Consultation ADMITTING DIAGNOSES: 1. Angina, unstable. 2. Peripheral vascular disease. 3. Smoking history. 4. Family history of coronary artery disease. 5. Hypertension. 6. Hyperlipidemia. HISTORY OF PRESENT ILLNESS: This is a gentleman with a past history of peripheral vascular disease and peripheral stents, but no cardiac stents, who began having chest pain, Sunday; his troponin is upper limits of normal, but not quite elevated. His EKG has T-wave inversions anteriorly. He continues to have episodes of chest pain. PHYSICAL EXAMINATION: GENERAL APPEARANCE: Well-nourished, well-developed, appears stated age. Level of distress, comfortable. PSYCHIATRIC: Mental status, alert, normal affect. Orientation, oriented to time, place and person. EYES: Lids and conjunctiva, noninjected. No discharge, no pallor. ENT: Lips, teeth, gums, normal dentition. Oropharynx, no cyanosis, no pallor. NECK: Carotid arteries, bilateral normal upstroke, no bruits, no thrills. JUGULAR VEINS: No jugular venous pressure or distention. CERVICAL LYMPH NODES: Nontender, nonenlarged. THYROID: Not enlarged. Nontender. No nodules. LUNGS: Respiratory effort, unlabored. CHEST: Normal curvature. No thoracic deformity. No chest wall tenderness. Percussion, resonant. Auscultation, clear. No wheezes, no rales, no rhonchi. CARDIOVASCULAR: Precordial exam, nondisplaced. No heaves or pericardial thrills. Rate and rhythm, regular. Heart sounds, normal S1, normal S2. No S3, no gallop, no rub. Systolic murmur, not heard. Diastolic murmur, not heard. EXTREMITIES: No cyanosis, no edema. Peripheral pulses, full and equal in all extremities, except as noted. No bruits appreciated. ABDOMEN: Soft, nondistended. Normal aorta. No bruit. Nontender. No masses. Liver, nontender, no hepatomegaly. Spleen, nontender, no splenomegaly. MUSCULOSKELETAL: No joint tenderness. No joint swelling. No erythema. NEUROLOGICAL: Normal gait, normal strength, normal tone. SKIN: Warm and dry. REVIEW OF SYSTEMS: The patient reports easy bruising but reports no swollen glands. The patient reports no fever, no night sweats, no significant weight gain, no significant weight loss. No significant exercise tolerance. The patient reports no dry eyes, no irritation, no vision change. Patient reports no difficulty hearing and no ear pain. Patient reports no frequent nose bleeds or nose and sinus problems. Patient reports on arm pain on exertion. No shortness of breath while lying down. No history of heart murmur. Patient CONSULT REPORT [id number] [place] reports no cough, no wheezing or coughing up blood. Patient reports no abdominal pain, no vomiting. Normal appetite. No diarrhea and not vomiting blood. No nausea and no constipation. Patient reports no incontinence. No difficulty urinating. No hematuria. No increased frequency. Patient reports no muscle aches. No weakness, no arthralgias, no back pain. No swelling of the extremities. Patient reports no abnormal mole, no jaundice, no rashes. Reports no loss of consciousness. No weakness and no numbness. No seizures, dizziness, or headaches. The patient reports no depression, no sleep disturbance, feeling safe in a relationship and no alcohol abuse. Patient reports on fatigue. Reports no runny nose or sinus pressure. No itching, no hives, and no frequent sneezing. OVERALL IMPRESSIONS: Chest pain, abnormal ECG, mild elevation of his troponin. No doubt he has hemodynamically significant coronary artery disease. We will proceed with coronary angiography. Further care depends upon findings of the angiography. TRANSINT:[id number] Voice Confirmation ID: [id number] DOCUMENT ID: [id number] AMY BLACK MD at 1437 CC: [id number] DICTATION DATE: 10/16/16 1248 ILLUSIONIST: 10/16/16 1639 DIS IN 10/17/16 [place] [id number] [place] [id number]
--- NOTE | 2016-10-24 14:37 | OP ---
PATIENT NAME: YARELY MCCLURE MEDICAL RECORD: [id number] :46 LOCATION:D.M2 D.2125 ADMISSION DATE:10/16/16 SURGEON: AMY BLACK MD DATE OF OPERATION: 10/16/2016 PROCEDURES: 1. PTCA stent of ramus intermedius. 2. Left heart catheterization. 3. Selective coronary angiography. 4. Left ventriculogram. 5. Intravascular ultrasound. INDICATION: Unstable angina and coronary artery disease. PROCEDURE PERFORMED: After informed consent was obtained and after detailed, explanation of risks, benefits as well as alternative therapies, patient elected to proceed with angiogram and angioplasty. The left femoral area was prepped and draped in normal sterile fashion. Left femoral artery was cannulated via modified Seldinger technique with placement of 6-Arabic sheath. All catheters exchanged through this sheath. FINDINGS: A left ventriculogram was performed in standard 30-degree CAMERON view reveals good cardiac wall motion throughout all segments. Overall ejection fraction estimated at 60%. SELECTIVE CORONARY ANGIOGRAPHY: 1. Left main showed no significant angiographic disease. 2. Left anterior descending has moderate irregularities, but no flow-limiting stenosis. 3. The left circumflex shows questionable area of stenosis in the mid vessel; however, this is only superficial calcium, there is no significant stenosis. The ramus intermedius, however, has 75% and 80% stenosis. 4. Right coronary has moderate irregularities, but no flow-limiting stenosis. PTCA STENT OF THE RAMUS INTERMEDIUS: The stent used was a 3.0 x 15 and 2.75 x 12, both Integrity stents. Result was 0% residual stenosis. OVERALL IMPRESSION: Successful percutaneous transluminal coronary angioplasty stent of the left circumflex, ramus intermedius going from 80% initial stenosis to 0% residual. TRANSINT:[id number] Voice Confirmation ID: [id number] DOCUMENT ID: [id number] AMY BLACK MD at 1437 CC: [id number] DICTATION DATE: 10/16/16 163 STRETCHING PRESS OPERATOR: 10/16/162134 DIS IN 10/17/16 [place] [address]
== END 2016-10-17 15:11 | disposition home or self-care (01) ==
LOC: D.M2 → D.ER 20:13 → D.M2 10-16 00:54 → OBSVTIME 10-16 00:54 → D.M2 10-16 00:54
PROVIDERS: Family Medicine; Internal Medicine Interventional Cardiology; Surgery; ADMIT Family Medicine
DX: I25.110 Atherosclerotic heart disease of native coronary artery with unstable angina pectoris (principal); I73.9 Peripheral vascular disease, unspecified; I10 Essential (primary) hypertension; E78.5 Hyperlipidemia, unspecified; D64.9 Anemia, unspecified; N17.9 Acute kidney failure, unspecified; J44.9 Chronic obstructive pulmonary disease, unspecified; R79.89 Other specified abnormal findings of blood chemistry; R94.31 Abnormal electrocardiogram [ECG] [EKG]; Z82.49 Family history of ischemic heart disease and other diseases of the circulatory system; Z87.891 Personal history of nicotine dependence

== ENCOUNTER 2016-10-24 14:10 | Observation (INO) | payer MEDICARE, MEDICAID ==
[~2016-10-24] VITALS: Ht 170.2 cm; Wt 59.1 kg
[~2016-10-24 14:10] MED LIST changes: +BAYER CHEWABLE81 MG PO; +PLAVIX75 MG PO
[2016-10-24 14:56] LABS: BASOPHILS 0.2 % (0.0-2.0); EOSINOPHILS 0.5 % (0-7); HEMATOCRIT 41.6 % (42.0-54.0); HEMOGLOBIN 13.4 g/dL (13.5-17.5); IMMATURE GRANULOCYTES 0.5 % (0-5); LYMPHOCYTES 15.7 % (15-50); MCH 28.6 pg (26.0-34.0); MCHC 32.2 g/dL (31.0-37.0); MCV 88.9 fL (80.0-100.0); MEAN PLATELET VOLUME 10.7 fL (7.4-10.4); MONOCYTES 6.2 % (2-11); NEUTROPHILS 76.9 % (40-80); RBC 4.68 10x6/uL (4.20-6.10); RDW 15.9 % (11.5-14.5); WBC 14.5 10x3/uL (4.8-10.8)
[2016-10-24 15:20] LABS: ALBUMIN 3.1 g/dL (3.4-5.0); ALKALINE PHOSPHATASE 104 U/L (46-116); ALT (SGPT) 21 U/L (10-68); CALC OSMOLALITY 278 mosm/kg (275-300); CARBON DIOXIDE 28.5 mmol/L (21.0-32.0); CHLORIDE - SERUM 98 mmol/L (98-107); CREATININE - SERUM 1.5 mg/dL (0.6-1.3); GLUCOSE 150 mg/dL (74-106); PLATELET COUNT 239 10x3/uL (130-400); POTASSIUM - SERUM 3.7 mmol/L (3.5-5.1); PROTEIN - SERUM 7.3 g/dL (6.4-8.2); SODIUM 136 mmol/L (136-145); UREA NITROGEN 23 mg/dL (7-18); eGFR NON AFRICAN AMERICAN 49 mL/min (90-120)
[2016-10-24 15:32] LABS: CHOL - HDL RATIO 4.8 ratio (2.3-4.9); CHOLESTEROL, TOTAL 159 mg/dL (0-200); CKMB 1.2 U/L (0.0-3.6); CREATINE KINASE 44 UL (21-232); HDL CHOLESTEROL 33 mg/dL (32-96); LDL CHOLESTEROL 114 mg/dL (0-100); LDL-HDL RATIO 3.5 ratio (1.5-3.5); TRIGLYCERIDE 62 mg/dL (30-200)
--- NOTE | 2016-10-24 21:30 | NUR ---
RECEIVED PT TO ROOM 2119, ALERT O X3 WITH FAMILY AT BEDSIDE. ASSESS AND HISTORY COMPLETE. MEDS REVIEWED FROM LAST WEEK WITH NO CHANGES. ORIENTED TO ROOM AND CALL LIGHT. WILL CONT TO MONITOR.
[2016-10-24 23:40] VITALS: Ht 170.2 cm; Wt 59.1 kg
[2016-10-25] VITALS: BP 112/70
[2016-10-25 04:00] VITALS: BP 101/63
[2016-10-25 07:57] VITALS: BP 117/71
[2016-10-25] MEDS ORDERED: BETAPACE 80 MG80 MG PO (09:19)
--- NOTE | 2016-10-25 10:14 | NUR ---
D/C PTS L.FA PIV WITH CATHETER TIP FULLY INTACT. PT BEING DISCHARGED. DISCHARGE INSTRUCTIONS TAUGHT AND PAPERS SIGNED. TELEMETRY RETURNED TO Giving Assistant [facility]. NEW PRESCRIPTION PROVIDED FOR SOTALOL 80MG BID AND MED TEACHING PROVIDED. PT READY TO LEAVE WITH FAMILY NO FURTHER NEEDS.
--- NOTE | 2016-10-26 08:41 | DS ---
PATIENT:YARELY GRIMM :46 MEDICAL RECORD: [id number] DISCHARGE SUMMARY ADMISSION DATE: 10/24/16 DISCHARGE DATE: 10/25/16 DISCHARGE DIAGNOSES: 1. Paroxysmal atrial fibrillation. 2. Coronary artery disease. 3. Recent percutaneous transluminal coronary angioplasty stent. 4. Chronic obstructive pulmonary disease. 5. Smoking history. HOSPITAL COURSE: Mr. Grimm presents with the increasing palpitations, shortness of breath, found to be going in and out of atrial fibrillation and was placed on sotalol, had no further atrial fibrillation, discharged home on sotalol 80 b.i.d., to keep his cardiac followup ____. TRANSINT:[id number] Voice Confirmation ID: [id number] DOCUMENT ID: [id number] AMY BLACK MD at 0841 CC: [id number] DICTATION DATE: 10/25/16 08 PACKAGE CENTER SUPERVISOR: 10/26/16 0049 DIS IN 10/25/16 [address] [place] [address]
--- NOTE | 2016-10-26 08:41 | HP ---
PATIENT: YARELY GRIMM MEDICAL RECORD: [id number] ACCOUNT: [id number] LOCATION:[address] : 46 ADMISSION DATE: 10/24/16 HISTORY AND PHYSICAL EXAMINATION ADMITTING DIAGNOSES: 1. Chest pain. 2. Paroxysmal atrial fibrillation. 3. Coronary artery disease. 4. Recent percutaneous transluminal coronary angioplasty stent. 5. Chronic obstructive pulmonary disease. HISTORY OF PRESENT ILLNESS: Mr. Grimm presents with increasing chest pain, increasing shortness of breath, dyspnea on exertion and found to be in atrial fibrillation. Supposedly, he was in sinus rhythm when he initially presented here, then went into atrial fibrillation. He is status post PTCA stent of the ramus intermedius last week. This is the only significant blockage he had. He does have quite severe COPD and continues to smoke. He is currently in atrial fibrillation, 110 beats per minute. PHYSICAL EXAMINATION: GENERAL APPEARANCE: Well-nourished, well-developed, appears stated age. Level of distress, comfortable. PSYCHIATRIC: Mental status, alert, normal affect. Orientation, oriented to time, place and person. EYES: Lids and conjunctiva, noninjected. No discharge, no pallor. ENT: Lips, teeth, gums, normal dentition. Oropharynx, no cyanosis, no pallor. NECK: Carotid arteries, bilateral normal upstroke, no bruits, no thrills. JUGULAR VEINS: No jugular venous pressure or distention. CERVICAL LYMPH NODES: Nontender, nonenlarged. THYROID: Not enlarged. Nontender. No nodules. LUNGS: Respiratory effort, unlabored. CHEST: Normal curvature. No thoracic deformity. No chest wall tenderness. Percussion, resonant. Auscultation, clear. No wheezes, no rales, no rhonchi. CARDIOVASCULAR: Precordial exam, nondisplaced. No heaves or pericardial thrills. Rate and rhythm, regular. Heart sounds, normal S1, normal S2. No S3, no gallop, no rub. Systolic murmur, not heard. Diastolic murmur, not heard. EXTREMITIES: No cyanosis, no edema. Peripheral pulses, full and equal in all extremities, except as noted. No bruits appreciated. ABDOMEN: Soft, nondistended. Normal aorta. No bruit. Nontender. No masses. Liver, nontender, no hepatomegaly. Spleen, nontender, no splenomegaly. MUSCULOSKELETAL: No joint tenderness. No joint swelling. No erythema. NEUROLOGICAL: Normal gait, normal strength, normal tone. SKIN: Warm and dry. REVIEW OF SYSTEMS: The patient reports easy bruising but reports no swollen glands. The patient reports no fever, no night sweats, no significant weight gain, no significant weight loss. No significant exercise tolerance. The patient reports no dry eyes, no irritation, no vision change. Patient reports no difficulty hearing and no ear pain. Patient reports no frequent nose bleeds or nose and sinus problems. Patient reports on arm pain on exertion. No shortness of breath while lying down. No history of heart murmur. Patient reports no cough, no wheezing or coughing up blood. Patient reports no abdominal pain, no vomiting. Normal appetite. No diarrhea and not vomiting blood. No nausea and no constipation. Patient reports no incontinence. No HISTORY AND PHYSICAL [id number] [place] difficulty urinating. No hematuria. No increased frequency. Patient reports no muscle aches. No weakness, no arthralgias, no back pain. No swelling of the extremities. Patient reports no abnormal mole, no jaundice, no rashes. Reports no loss of consciousness. No weakness and no numbness. No seizures, dizziness, or headaches. The patient reports no depression, no sleep disturbance, feeling safe in a relationship and no alcohol abuse. Patient reports on fatigue. Reports no runny nose or sinus pressure. No itching, no hives, and no frequent sneezing. OVERALL IMPRESSION: Most likely, symptomatology is from the atrial fibrillation, combined with the chronic obstructive pulmonary disease. He does not need repeat cardiac catheterization. He is being compliant with Plavix according to the patient and family and he has no acute changes on EKG. We will start him on sotalol 80 mg b.i.d. Hopefully, this will restore sinus rhythm and keep him in sinus rhythm. TRANSINT:[id number] Voice Confirmation ID: [id number] DOCUMENT ID: [id number] AMY BLACK MD at 0841 CC: [id number] DICTATION DATE: 10/24/161936 SOIL FIELD TECHNICIAN: 10/24/162006 DIS IN 10/25/16 [id number] [place] [address]
== END 2016-10-25 10:16 | disposition home or self-care (01) ==
LOC: D.ER 14:10 → OBSVTIME 18:46 → D.M2 18:46
PROVIDERS: Emergency Medicine; ADMIT Internal Medicine Interventional Cardiology
DX: I48.0 Paroxysmal atrial fibrillation (principal); I25.10 Atherosclerotic heart disease of native coronary artery without angina pectoris; Z95.5 Presence of coronary angioplasty implant and graft; J44.9 Chronic obstructive pulmonary disease, unspecified; Z72.0 Tobacco use

== ENCOUNTER 2017-04-10 18:11 | Inpatient (IN) | payer MEDICARE, MEDICAID ==
[~2017-04-10] VITALS: Ht 170.2 cm; Wt 58.2 kg
[~2017-04-10 18:11] MED LIST changes: +BETAPACE 80 MG80 MG PO
[2017-04-10 18:31] LABS: BASOPHILS 0.3 % (0-2); HEMATOCRIT 44.6 % (42.0-54.0); HEMOGLOBIN 14.6 g/dL (13.5-17.5); IMMATURE GRANULOCYTES 0.2 % (0-5); LYMPHOCYTES 20.2 % (15-50); MCH 29.9 pg (26.0-34.0); MCHC 32.7 g/dL (31.0-37.0); MCV 91.2 fL (80.0-100.0); MEAN PLATELET VOLUME 10.7 fL (7.4-10.4); MONOCYTES 11.6 % (2-11); NEUTROPHILS 66.7 % (40-80); RBC 4.89 10x6/uL (4.20-6.10); RDW 15.9 % (11.5-14.5); WBC 11.5 10x3/uL (4.8-10.8)
[2017-04-10 18:32] LABS: PLATELET COUNT 191 10x3/uL (130-400)
[2017-04-10 18:44] LABS: ALBUMIN 3.7 g/dL (3.4-5.0); ANION GAP 12.5 mmol/L (8-16); BILIRUBIN - TOTAL 0.6 mg/dL (0.2-1.3); CARBON DIOXIDE 30.2 mmol/L (21.0-32.0); CREATININE - SERUM 1.6 mg/dL (0.6-1.3); POTASSIUM - SERUM 4.7 mmol/L (3.5-5.1); PROTEIN - SERUM 8.2 g/dL (6.4-8.2)
[2017-04-10 18:51] LABS: TROPONIN-I 0.023 ng/mL (0.000-0.060)
--- NOTE | 2017-04-10 22:50 | NUR ---
RECIEVED TO ROOM 2122 FROM ER VIA . PT A&O. 02 AT 2 LITER VIA PR. VITALS STABLE. PTS AT BED SIDE. PT ASKING FOR PAIN MEDICATION, INFORMED HIM THAT I WILL HAVE TO CALL HIS DOCOTOR TO OBTAIN AN ORDER.
[2017-04-10] MEDS ORDERED: NORCO 7.5/325 T1 TA1 PO (23:00)
--- NOTE | 2017-04-10 23:11 | NUR ---
PAGE PLACED TO [facility] TO ASK FOR PAIN MEDS.
[2017-04-10 23:19] VITALS: BMI 18.0
--- NOTE | 2017-04-10 23:23 | NUR ---
NORCO 1 TAB GIVEN FOR C/O PAIN TO NECK AND BACK, RATES PAIN AT A 6 ON PAIN SCALE. FAMILY AT BED SIDE, BED LOW, CLIN REACH.
--- NOTE | 2017-04-10 23:30 | NUR ---
ASSESSMENT COMPLETE AT THIS TIME PT DENIES ANY NEEDS OR DISCOMFORT WILL CONTINUE TO MONITOR AT BEDSIDE
[2017-04-11] VITALS: BP 99/56
--- NOTE | 2017-04-11 02:57 | NUR ---
RESTING WITH EYES CLOSED, RESPERATIONS EVEN, NO S/S DISTRESS NOTED.
[2017-04-11 04:37] VITALS: BP 115/78
--- NOTE | 2017-04-11 07:25 | NUR ---
ASSESSMENT DONE. DENIES NEEDS.
[2017-04-11 08:42] VITALS: BP 135/83
[2017-04-11 12:40] VITALS: BP 151/67
[2017-04-11 13:03] VITALS: Ht 170.2 cm; Wt 58.2 kg
--- NOTE | 2017-04-11 16:20 | NUR ---
ALERT AND ORIENTED X4. SITTING UP IN BED. FAMILY AT BEDSIDE. LT HAND INFUSING NS @ 50mL/HR. SINUS RHTHYM ON TELEMETRY. CHRISTOPHER LAKHANI RESUME PLAN OF CARE. SCDs ON. CONTINUE SAFETY PRECAUTIONS.
--- NOTE | 2017-04-11 17:53 | NUR ---
WITHOUT CHANGES OR DISTRESS NOTED AT THIS TIME. DENIES NEEDS.
--- NOTE | 2017-04-11 19:47 | NUR ---
ASSESSMENT COMPLETE, A&O. 02 AT 2 LITER VIA NC. IV TO LEFT FOREARM WITH NS AT 25 CC/HR. SITE CLEAN AND DRY. PT DENIES PAIN AT THIS TIME. LARGE CUP OF FRESH ICE WATER GIVEN AT PT REQUEST. BED LOW, CL IN REACH. WILL CONT TO MONITOR.
[2017-04-11 20:00] VITALS: BP 121/84
--- NOTE | 2017-04-11 20:00 | NUR ---
VITALS OBTAINED BY NURSE, VITALS SIGNS STABLE.
--- NOTE | 2017-04-11 21:06 | NUR ---
HS MEDS GIVEN WITH FRESH ICE WATER, NORCO 1 TAB GIVEN FOR C/O PAIN TO BACK AND NECK. RATES PAIN AT AN 6 ON PAIN SCALE. MULTIPLE FAMILY MEMBERS AT BED SIDE. BED LOW, CL IN REACH.
--- NOTE | 2017-04-11 21:33 | NUR ---
VALIUM 5 MG TAB GIVEN AT PT REQUEST TO ASSIST WITH SLEEP.
--- NOTE | 2017-04-11 21:50 | NUR ---
VITALS OBTAIN BY NURSE, VITAL SIGNS STABLE.
[2017-04-12] VITALS: BP 115/75
--- NOTE | 2017-04-12 00:20 | NUR ---
COIL WINDER STRAP AT BEDSIDE TO OBTAIN VITALS, CALL LIGHT IN REACH. WILL CONTINUE TO MONITOR.
--- NOTE | 2017-04-12 03:23 | NUR ---
RESTING WITH EYES CLOSED, RESPERATIONS EVEN, NO S/S DISTRESS NOTED.
[2017-04-12 04:00] VITALS: BP 155/72
[2017-04-12 06:17] LABS: BASOPHILS 0.1 % (0-2); EOSINOPHILS 0.4 % (0-7); IMMATURE GRANULOCYTES 0.3 % (0-5); LYMPHOCYTES 18.6 % (15-50); MCH 29.9 pg (26.0-34.0); MCHC 32.8 g/dL (31.0-37.0); MCV 91.2 fL (80.0-100.0); MEAN PLATELET VOLUME 10.6 fL (7.4-10.4); MONOCYTES 10.1 % (2-11); NEUTROPHILS 70.5 % (40-80); PLATELET COUNT 177 10x3/uL (130-400); RDW 16.1 % (11.5-14.5); WBC 11.8 10x3/uL (4.8-10.8)
[2017-04-12 06:18] LABS: HEMATOCRIT 35.1 % (42.0-54.0); HEMOGLOBIN 11.5 g/dL (13.5-17.5); RBC 3.85 10x6/uL (4.20-6.10)
[2017-04-12 06:46] LABS: ALKALINE PHOSPHATASE 79 U/L (46-116); ALT (SGPT) 18 U/L (10-68); BILIRUBIN - TOTAL 0.31 mg/dL (0.2-1.3); CALC OSMOLALITY 285 mosm/kg (275-300); CARBON DIOXIDE 31.2 mmol/L (21.0-32.0); CHLORIDE - SERUM 103 mmol/L (98-107); CREATININE - SERUM 1.8 mg/dL (0.6-1.3); GLUCOSE 92 mg/dL (74-106); MAGNESIUM - SERUM 1.7 mg/dL (1.8-2.4); PROTEIN - SERUM 6.4 g/dL (6.4-8.2); SODIUM 139 mmol/L (136-145); UREA NITROGEN 36 mg/dL (7-18); eGFR NON AFRICAN AMERICAN 40 mL/min (90-120)
[2017-04-12 07:00] LABS: ALBUMIN 2.7 g/dL (3.4-5.0); POTASSIUM - SERUM 3.8 mmol/L (3.5-5.1); TROPONIN-I < 0.017 ng/mL (0.000-0.060)
--- NOTE | 2017-04-12 07:20 | NUR ---
ASSESSMENT COMPLETED. DENIES ANY NEEDS. TELEMERTY SHOWS SR. 02 AT 2 L/M PER NC. IV TO LEFT FA WITH NS AT 25. CALL LIGHT IN REACH WITH SR UP. WILL MONITOR
[2017-04-12 07:47] VITALS: BP 120/80
--- NOTE | 2017-04-12 08:12 | NUR ---
EATING BREAFAST DENIES ANY NEEDS AT THIS TIME NAD NOTED
[2017-04-12 11:42] VITALS: BP 101/73
--- NOTE | 2017-04-12 13:10 | NUR ---
Nutrition Consult: Consult received. Full Nutrition Assmt is in Process Intervention. Pt reported that he has not had teeth in 30 years. He said that he can eat everything just fine and [facility]. RD encouraged pt to adrian staff aware should he change his mind. Pt likes Ensure and stated he will drink if ordered. Thank you for the consult. Rec continue current diet. Will send Ensure with meals. RD following.
[2017-04-12 15:15] VITALS: BP 103/70
--- NOTE | 2017-04-12 19:50 | NUR ---
NURSE AT BED SIDE TO OBTAIN VITALS, VITAL SIGNS STABLE.
[2017-04-12 20:12] VITALS: BP 147/77
--- NOTE | 2017-04-12 22:28 | NUR ---
HS MEDS GIVEN WITH FRESH ICE WATER. NORCO 1 TAB GIVEN FOR C/O PAIN, VALIUM 5 MG GIVEN AT PT REQUEST TO ASSIST WITH SLEEP. ASLEEP AT BED SIDE, BED LOW, CL IN REACH.
--- NOTE | 2017-04-13 01:22 | NUR ---
RESTING WITH EYES CLOSED, RESPERATIONS EVEN, NO S/S DISTRESS NOTED.
--- NOTE | 2017-04-13 07:00 | NUR ---
ASSESSMENT COMPLETED. ALERT AND ORIENTED. TELEMERTY SHOWS SR. O2 AT 3 L/M PER NS AT 25CC HR TO LEFT FA. DENIES ANY NEEDS. WILL MONITOR
[2017-04-13 08:57] VITALS: BP 124/86
[2017-04-13 09:16] LABS: IMMUNOGLOBULIN E 266 IU/mL (0-100)
[2017-04-13 12:12] VITALS: BP 113/79
[2017-04-13 19:00] VITALS: BP 116/87
[2017-04-14] VITALS: BP 119/84
[2017-04-14 04:00] VITALS: BP 132/81
--- NOTE | 2017-04-14 05:15 | NUR ---
RESTING WELL THIS SHIFT WITHOUT C/O OR DISTRESS NOTED. NO NEEDS VOICED. RESP EVEN AND UNLABORED. CALL LIGHT WITHIN REACH. WILL CONT TO MONITOR.
--- NOTE | 2017-04-14 07:14 | NUR ---
AM ROUNDS- PT IN BED, A/O DENIES ANY NEEDS AT THIS TIME. RESP EVEN AND UNLABORTED. LT FA INFUSING NS AT 20CC/HR. BED LOW AND WHEEL LOCKED, BEDSIDE RAILS X2, CALL LIGHT IN REACH, FAMILY AT BEDSIDE, NAD NOTED, WILL CONTINUE TO MONITOR.
--- NOTE | 2017-04-14 09:19 | NUR ---
AM MEDS GIVEN AT THIS TIME. THE SCANNER NOT WORKING SO I WAS NOT ABLE TO SCAN MEDS. ALL MEDS DOUBLE CHECKED WITH MAR. PT IN BED, DENIES ANY NEEDS AT THIS TIME. CALL LIGHT IN REACH, NAD NOTED, WILL CONTINUE TO MONITOR.
[2017-04-14 09:48] VITALS: BP 124/82
[2017-04-14] MEDS ORDERED: Levaquin PO (12:12)
[2017-04-14] MEDS ORDERED: PREDNISONE10 MG PO (12:12)
[2017-04-14] MEDS ORDERED: FLORAJEN3 CAPS460 MG PO (12:12)
[2017-04-14] MEDS ORDERED: BENZONATATE200 MG PO (12:12)
[2017-04-14] MEDS ORDERED: MUCINEX DM ER1 EAC1 PO (12:12)
[2017-04-14] MEDS ORDERED: NICODERM C1 PATCH .1 TRANSDERM (12:12)
[2017-04-14 12:29] VITALS: BP 126/83
[2017-04-14] MEDS ORDERED: LEVAQUIN500 MG PO (12:44)
--- NOTE | 2017-04-14 13:13 | NUR ---
PROVIDED VERBAL AND WRITTEN DISCHARGE TEACHING TO PT. PT VERBALIZED UNDERSTANDING REGARDING TEACHING. D/C LT FA IV, TIP INTACT. PT DENIES ANY NEEDS AT THIS TIME. WAITING FOR PRESCRIPTION SCRIPS FROM DOCTOR. NAD NOTED, WILL CONTINUE TO MONITOR.
--- NOTE | 2017-04-14 15:03 | NUR ---
PT LEFT UNIT VIA WHEELCHIAR, ACCOMPANIED BY FAMILY, NAD NOTED.
== END 2017-04-14 15:05 | disposition home or self-care (01) | DRG 191 ==
LOC: D.ER 18:11 → OBSVTIME 21:01 → D.M2 21:01
PROVIDERS: Emergency Medicine; Internal Medicine Pulmonary Disease; ADMIT Family Medicine Adult Medicine
DX: J44.1 Chronic obstructive pulmonary disease with (acute) exacerbation (principal); F17.203 Nicotine dependence unspecified, with withdrawal; I13.0 Hypertensive heart and chronic kidney disease with heart failure and stage 1 through stage 4 chronic kidney disease, or unspecified chronic kidney disease; I50.22 Chronic systolic (congestive) heart failure; N18.3 Chronic kidney disease, stage 3 (moderate); K27.9 Peptic ulcer, site unspecified, unspecified as acute or chronic, without hemorrhage or perforation; K21.9 Gastro-esophageal reflux disease without esophagitis; I25.10 Atherosclerotic heart disease of native coronary artery without angina pectoris; I08.1 Rheumatic disorders of both mitral and tricuspid valves; I48.0 Paroxysmal atrial fibrillation; I73.9 Peripheral vascular disease, unspecified; Z85.79 Personal history of other malignant neoplasms of lymphoid, hematopoietic and related tissues

== ENCOUNTER 2017-04-15 05:57 | Inpatient (IN) | payer MEDICARE, MEDICAID ==
[~2017-04-15 05:57] MED LIST changes: +BENZONATATE200 MG PO; +FLORAJEN3 CAPS460 MG PO; +LEVAQUIN500 MG PO; +Levaquin PO; +MUCINEX DM ER1 EAC1 PO; +NICODERM C1 PATCH .1 TRANSDERM; +NORCO 7.5/325 T1 TA1 PO; +PREDNISONE10 MG PO
[2017-04-15 06:34] LABS: BASOPHILS 0.1 % (0-2); EOSINOPHILS 0 % (0-7); HEMATOCRIT 41.4 % (42.0-54.0); HEMOGLOBIN 13.3 g/dL (13.5-17.5); IMMATURE GRANULOCYTES 0.9 % (0-5); LYMPHOCYTES 10.3 % (15-50); MCH 29.7 pg (26.0-34.0); MCHC 32.1 g/dL (31.0-37.0); MCV 92.4 fL (80.0-100.0); MEAN PLATELET VOLUME 10.3 fL (7.4-10.4); MONOCYTES 5.5 % (2-11); NEUTROPHILS 83.2 % (40-80); PLATELET COUNT 216 10x3/uL (130-400); RBC 4.48 10x6/uL (4.20-6.10); WBC 16.9 10x3/uL (4.8-10.8)
[2017-04-15 06:49] LABS: ALBUMIN 3.2 g/dL (3.4-5.0); ANION GAP 9.4 mmol/L (8-16); BILIRUBIN - TOTAL 0.39 mg/dL (0.2-1.3); CALCIUM 8.6 mg/dL (8.5-10.1); CARBON DIOXIDE 34.5 mmol/L (21.0-32.0); CREATININE - SERUM 1.6 mg/dL (0.6-1.3); PROTEIN - SERUM 7.3 g/dL (6.4-8.2)
[2017-04-15 06:51] LABS: POTASSIUM - SERUM 4.9 mmol/L (3.5-5.1)
[2017-04-15 06:56] LABS: TROPONIN-I 0.034 ng/mL (0.000-0.060)
--- NOTE | 2017-04-15 07:50 | NUR ---
RECEIVED TO FLOOR FROM ER, ORIENTED TO ROOM, BED LOWEST POSITION, CALL LIGHT IN REACH, DENIES NEEDS, NO DISTRESS NOTED, WILL CONTINUE TO MONITOR
[2017-04-15 09:42] VITALS: BP 169/101
[2017-04-15 11:55] VITALS: BP 134/90
[2017-04-15 14:01] VITALS: BP 169/101; BMI 20.1
[2017-04-15 15:53] VITALS: BP 131/91
[2017-04-15 20:00] VITALS: BP 145/86
--- NOTE | 2017-04-15 22:28 | NUR ---
TJ, BODY BUMPER INFORMED OF x2 IV ABX AND IV STEROID FOR PATIENT. AWATING FOR HER TO PULL THEM.
--- NOTE | 2017-04-16 02:07 | NUR ---
PT SLEEPING. RESP EVEN, UNLABORED. NO DISTRESS NOTED. CONTINUE CREWMAN MAIN BATTLE TANK'S PLAN OF CARE.
[2017-04-16 02:16] VITALS: BP 127/100
[2017-04-16 04:00] VITALS: BP 123/81
[2017-04-16 06:00] LABS: BASOPHILS 0.1 % (0-2); EOSINOPHILS 0 % (0-7); HEMATOCRIT 44.5 % (42.0-54.0); HEMOGLOBIN 14.3 g/dL (13.5-17.5); IMMATURE GRANULOCYTES 0.8 % (0-5); LYMPHOCYTES 7.8 % (15-50); MCH 29.4 pg (26.0-34.0); MCHC 32.1 g/dL (31.0-37.0); MCV 91.6 fL (80.0-100.0); MEAN PLATELET VOLUME 10.5 fL (7.4-10.4); NEUTROPHILS 89.3 % (40-80); PLATELET COUNT 237 10x3/uL (130-400); RBC 4.86 10x6/uL (4.20-6.10); WBC 13.7 10x3/uL (4.8-10.8)
[2017-04-16 06:18] LABS: ALBUMIN 3.5 g/dL (3.4-5.0); ANION GAP 6.6 mmol/L (8-16); BILIRUBIN - TOTAL 0.5 mg/dL (0.2-1.3); CALCIUM 8.9 mg/dL (8.5-10.1); CARBON DIOXIDE 33.7 mmol/L (21.0-32.0); CREATININE - SERUM 1.5 mg/dL (0.6-1.3); POTASSIUM - SERUM 4.3 mmol/L (3.5-5.1); PROTEIN - SERUM 7.3 g/dL (6.4-8.2)
--- NOTE | 2017-04-16 07:16 | NUR ---
DEPUTY REGISTER OF DEEDS TJ NOTIFIED MULTIPLE TIMES ABOUT PATIENT NEEDING IV DOXICYCLINE THROUGHOUT THE COMMUTATOR V RING ASSEMBLER. NONE WAS BROUGHT UP FOR THE PATIENT. CHARTED TO START THE NEXT DOSE SINCE FIRST DOSE WAS UNABLE TO BE GIVEN AT ORDERED TIME.
--- NOTE | 2017-04-16 07:20 | NUR ---
REPORT RECEIVED FROM NURSE. CALL LIGHT IN REACH.
--- NOTE | 2017-04-16 07:30 | NUR ---
PATIENT IN BED AT THIS TIME WITH NO COMPLAINTS OR SIGNS OF DISTRESS. IV INTACT. CALL LIGHT WITHIN REACH.
[2017-04-16 08:31] VITALS: BP 137/99
--- NOTE | 2017-04-16 09:52 | NUR ---
ASSESSMENT COMPLETED. AM MEDS ADMINISTERED WITH NORCO PO. EMERGENCY CONTACT INFO OBTAINED AND PLACED IN COMPUTER. IV TUBING TAGGED PER HOSPITAL POLICY. URINAL GIVEN TO PATIENT FOR MEASUREMENT OF URINE. SPUTUM CUP GIVEN TO PATIENT FOR SAMPLE. IN ROOM. SCDs TO BLE. CALL LIGHT IN REACH. WILL CONTINUE WITH PLAN OF CARE.
--- NOTE | 2017-04-16 10:55 | NUR ---
SPUTUM SAMPLE COLLECTED AND SENT TO LAB. TO [facility]IA .
[2017-04-16 11:28] LABS: CKMB 0.7 U/L (0.0-3.6); CREATINE KINASE 34 UL (21-232); TROPONIN-I 0.017 ng/mL (0.000-0.060)
--- NOTE | 2017-04-16 11:37 | NUR ---
VIBRAMYCIN IVPB. ROHIT PO. CALL LIGHT IN REACH.
--- NOTE | 2017-04-16 13:30 | NUR ---
NO NEEDS VOICED AT THIS TIME. CALL LIGHT IN REACH.
--- NOTE | 2017-04-16 15:20 | NUR ---
DENIES NEEDS OR PAIN. CALL LIGHT IN REACH.
[2017-04-16 15:59] LABS: CKMB 0.7 U/L (0.0-3.6); CREATINE KINASE 36 UL (21-232); TROPONIN-I 0.027 ng/mL (0.000-0.060)
[2017-04-16 16:38] VITALS: BP 122/75
--- NOTE | 2017-04-16 17:56 | NUR ---
ARCELIA BOO AND [id number] IV. CALL LIGHT IN REACH.
--- NOTE | 2017-04-16 19:00 | NUR ---
NO CHANGES IN INITIAL ASSESSMENT. CALL LIGHT IN REACH. WILL CONTINUE WITH PLAN OF CARE.
--- NOTE | 2017-04-16 20:14 | NUR ---
ASSESSMENT PER FLOWSHEET. O2 ON 2L/M PER NC. BILATERAL WHEEZES NOTED. IV PATENT LEFT AC SALINE LOCK. SITE CLEAR. IN ROOM.
--- NOTE | 2017-04-16 22:00 | NUR ---
MEDS GIVEN PER MAR.
[2017-04-16 23:06] LABS: CREATINE KINASE 31 UL (21-232); TROPONIN-I 0.031 ng/mL (0.000-0.060)
--- NOTE | 2017-04-17 | NUR ---
RESTING QUIETLY DENIES NEEDS. SR UP X2 CALL LIGHT WITHIN REACH VOIDS WELL IN URINAL.
--- NOTE | 2017-04-17 02:00 | NUR ---
EYES CLOSED RESPIRATIONS WITH EASE AND UNLABORED.
[2017-04-17 04:00] VITALS: BP 123/72
--- NOTE | 2017-04-17 04:25 | NUR ---
NO CJHANGES IN ASSESSMENT.
--- NOTE | 2017-04-17 06:00 | NUR ---
MEDS GIVEN PER MAR.
--- NOTE | 2017-04-17 07:30 | NUR ---
ASSESSMENT COMPLETE. SL TO L AC PATENT. O2 2L NC IN USE. FAMILY AT BEDSIDE. DENIES ANY NEEDS AT THIS TIME.
[2017-04-17 07:39] LABS: BASOPHILS 0.1 % (0-2); EOSINOPHILS 0 % (0-7); HEMATOCRIT 39.5 % (42.0-54.0); HEMOGLOBIN 13.2 g/dL (13.5-17.5); LYMPHOCYTES 8.3 % (15-50); MCH 29.7 pg (26.0-34.0); MCHC 33.4 g/dL (31.0-37.0); MEAN PLATELET VOLUME 10.8 fL (7.4-10.4); MONOCYTES 3.1 % (2-11); NEUTROPHILS 87.5 % (40-80); PLATELET COUNT 241 10x3/uL (130-400); RBC 4.44 10x6/uL (4.20-6.10); RDW 15.7 % (11.5-14.5)
[2017-04-17 07:54] LABS: WBC 18.9 10x3/uL (4.8-10.8)
[2017-04-17 08:11] LABS: ALBUMIN 2.8 g/dL (3.4-5.0); ANION GAP 6.3 mmol/L (8-16); BILIRUBIN - TOTAL 0.5 mg/dL (0.2-1.3); CALCIUM 8.8 mg/dL (8.5-10.1); CARBON DIOXIDE 31.8 mmol/L (21.0-32.0); CREATININE - SERUM 1.4 mg/dL (0.6-1.3); POTASSIUM - SERUM 4.1 mmol/L (3.5-5.1); PROTEIN - SERUM 6.1 g/dL (6.4-8.2)
[2017-04-17 08:50] VITALS: BP 137/101
--- NOTE | 2017-04-17 11:00 | NUR ---
VISITING WITH FAMILY. DENIES ANY NEEDS AT THIS TIME.
[2017-04-17 12:03] VITALS: BP 120/90
--- NOTE | 2017-04-17 13:30 | NUR ---
COMPLAINING OF PAIN UP ARM WHILE DOXYCYCLINE INFUSING. STATES THAT SAME THING HAPPENED LAST NIGHT BUT WENT AWAY WHEN RATE WAS DECREASED. NO SWELLING OR REDNESS NOTED TO IV. OFFERED TO RESITE IV. STATES HE WILL WAIT.
[2017-04-17 16:21] VITALS: BP 118/89
--- NOTE | 2017-04-17 17:30 | NUR ---
COMPLAINING OF NOSE FEELING DRY. HUMIDIFICATION ADDED TO OXYGEN. O2 SAT 93-94% ON 2L NC.
[2017-04-17 19:00] VITALS: BP 121/79
--- NOTE | 2017-04-17 20:00 | NUR ---
ASSESSMENT PER FLOWSHEET. O2 ON 2L/M PER NC. IV PATENT LEFT AC SALINE LOCK. IN ROOM. BILATERAL EXPIRATORY WHEEZES NOTED. NO DISTRESS. HOB UP 40 DEGRESS. SR UP X2 CALL LIGHT WITHIN REACH.
--- NOTE | 2017-04-17 21:15 | NUR ---
MEDS GIVEN PER MAR.
--- NOTE | 2017-04-17 23:30 | NUR ---
IV LEAKING RESITED TO RT WRIST #20G ANGIOCATH X1 ATTEMPT RESUMED IV FLUIDS.
[2017-04-18] VITALS: BP 117/82
--- NOTE | 2017-04-18 | NUR ---
EYES CLOSED RESPIRATIONS WITH EASE AND UNLABORED.
[2017-04-18 04:00] VITALS: BP 128/86
[2017-04-18 05:47] LABS: HEMATOCRIT 39.3 % (42.0-54.0); MCH 29.2 pg (26.0-34.0); MCHC 33.1 g/dL (31.0-37.0); MCV 88.3 fL (80.0-100.0); MEAN PLATELET VOLUME 10.5 fL (7.4-10.4); PLATELET COUNT 231 10x3/uL (130-400); RBC 4.45 10x6/uL (4.20-6.10); RDW 15.8 % (11.5-14.5); WBC 22.7 10x3/uL (4.8-10.8)
[2017-04-18 06:04] LABS: ALBUMIN 2.7 g/dL (3.4-5.0); BILIRUBIN - TOTAL 0.5 mg/dL (0.2-1.3); CALCIUM 8.6 mg/dL (8.5-10.1); CARBON DIOXIDE 29.3 mmol/L (21.0-32.0); CREATININE - SERUM 1.4 mg/dL (0.6-1.3); POTASSIUM - SERUM 4.3 mmol/L (3.5-5.1); PROTEIN - SERUM 5.8 g/dL (6.4-8.2)
[2017-04-18 06:47] LABS: ANISOCYTOSIS OCC; LYMPHOCYTES 9 % (15-50); MONOCYTES 4 % (2-11); NEUTROPHILS 83 % (40-80); PLATELET ESTIMATE NORMAL
--- NOTE | 2017-04-18 07:30 | NUR ---
RECIEVED PT DURING WALKING ROUNDS. PT RESTING IN BED WITH NO COMPLAINTS OF PAIN OR DISCOMFORT AT THIS TIME. ASSESSMENT DONE PER FLOWSHEET. BED IN LOW POSITION AND CALL LIGHT WITHIN REACH. WILL CONTINUE TO MONITOR.
[2017-04-18 08:19] VITALS: BP 109/76
[2017-04-18 10:20] LABS: ANA REFLEX - DIRECT Negative (Negative)
--- NOTE | 2017-04-18 14:35 | NUR ---
Patient Name: YARELY GRIMM Admission Status: ER Accout number: [id number] Admission Date: 04-16-2017 : 1950 Admission Diagnosis:CHRONIC OBSTRUCTIVE PULMONARY DISEASE W (ACUTE) EXACERB Attending: MOI ZAMARRIPA Current LOS: 2 Anticipated DC Date: Planned Disposition: Home with Home Health Primary Insurance: [employer] ADV Discharge Planning Comments: CM met with patient to assess discharge planning needs. Patient lives with his (kassie) where he plans to return at discharge. He states that it is safe to return home too. Patient has Oxygen, nebulizer & cane at home. He would like home health set up when he is discharged and BRE signed with [facility]. CM will send referral over. CM will continue to assist with discharge planning needs. PCP: Dewayne kam [place] [facility] Kassie () Incubator Operator: [place] * Is the patient Alert and Oriented? Yes 0 * How many steps to enter\exit or inside your home? 0 0 * PCP Dewayne in [facility] 0 * Pharmacy [facility] 0 * Preadmission Environment Home with Family 0 * ADLs Independent 0 * Equipment Cane Nebulizer Oxygen 0 * List name and contact numbers for known caregivers / representatives who currently or will assist patient after discharge: Kassie- Yarelis Grimm (daughter) [phone] 0 * Community resources currently utilized None 0 * Additional services required to return to the preadmission environment? Yes 0 * Can the patient safely return to the preadmission environment? Yes 0 * Has this patient been hospitalized within the prior 30 days at any hospital? No 0 Grand Total: 0
[2017-04-18 19:00] VITALS: BP 132/93
--- NOTE | 2017-04-18 20:00 | NUR ---
ASSESSMENT PER FLOWSHEET. IV PATENT RT WRIST SALINE LOCKED. FAMILY MEMBERS AT BEDSIDE. O2 ON 2L/M PER NC. HOB UP 40 DEGREES. NO DISTRESS. BREATH SOUNDS IMPROVING. DENIES NEEDS.
[2017-04-19 04:00] VITALS: BP 149/99
[2017-04-19 05:10] LABS: BASOPHILS 0.2 % (0-2); EOSINOPHILS 0.1 % (0-7); HEMATOCRIT 39.5 % (42.0-54.0); HEMOGLOBIN 13.1 g/dL (13.5-17.5); IMMATURE GRANULOCYTES 5.7 % (0-5); LYMPHOCYTES 6.8 % (15-50); MCH 29.3 pg (26.0-34.0); MCHC 33.2 g/dL (31.0-37.0); MCV 88.4 fL (80.0-100.0); MEAN PLATELET VOLUME 10.4 fL (7.4-10.4); NEUTROPHILS 83.2 % (40-80); PLATELET COUNT 226 10x3/uL (130-400); RBC 4.47 10x6/uL (4.20-6.10); WBC 18.2 10x3/uL (4.8-10.8)
[2017-04-19 05:31] LABS: ALBUMIN 2.8 g/dL (3.4-5.0); ANION GAP 11.7 mmol/L (8-16); BILIRUBIN - TOTAL 0.7 mg/dL (0.2-1.3); CALCIUM 8.6 mg/dL (8.5-10.1); CREATININE - SERUM 1.5 mg/dL (0.6-1.3); POTASSIUM - SERUM 4.7 mmol/L (3.5-5.1)
[2017-04-19 09:46] VITALS: BP 189/99
[2017-04-19] MEDS ORDERED: VIBRAMYCIN 100100 MG PO (10:05)
[2017-04-19] MEDS ORDERED: NICODERM C1 PATCH .3 TRANSDERM (10:05)
[2017-04-19] MEDS ORDERED: ELIQUIS5 MG PO (10:07)
[2017-04-19] MEDS ORDERED: MUCINEX600 MG PO (10:08)
[2017-04-19] MEDS ORDERED: FLORAJEN3 CAPS460 MG PO (10:08)
[2017-04-19] MEDS ORDERED: PREDNISONE10 MG PO (10:08)
[2017-04-19 10:19] LABS: ANTITHROMBIN III ANTIGEN 99 % (72-124)
--- NOTE | 2017-04-19 11:09 | NUR ---
REFERRAL SENT TO [facility] AND SPOKE WITH WM PATIENT BEING DISCHARGED TODAY
--- NOTE | 2017-04-19 11:21 | NUR ---
30 DAY FREE TRIAL CARD FOR ELIQUIS GIVEN TO PT
--- NOTE | 2017-04-19 12:07 | NUR ---
IV REMOVED AND DISCHARGE INSTRUCTIONS GIVEN. PT DISCHARGED TO HOME VIA WHEELCHAIR.
[2017-04-19 13:18] LABS: PROTEIN S - FREE 127 % (57-157); PROTEIN S - FUNCTIONAL 130 % (63-140); PROTEIN S - TOTAL 149 % (60-150)
== END 2017-04-19 12:08 | disposition home health service (06) | DRG 190 ==
LOC: D.ER 05:57 → D.MS 06:48
PROVIDERS: Emergency Medicine; Family Medicine; Internal Medicine Pulmonary Disease; ADMIT Family Medicine Adult Medicine
DX: J44.1 Chronic obstructive pulmonary disease with (acute) exacerbation (principal); I26.99 Other pulmonary embolism without acute cor pulmonale; I13.0 Hypertensive heart and chronic kidney disease with heart failure and stage 1 through stage 4 chronic kidney disease, or unspecified chronic kidney disease; F17.213 Nicotine dependence, cigarettes, with withdrawal; I50.22 Chronic systolic (congestive) heart failure; N17.9 Acute kidney failure, unspecified; F17.203 Nicotine dependence unspecified, with withdrawal; J96.10 Chronic respiratory failure, unspecified whether with hypoxia or hypercapnia; Z99.81 Dependence on supplemental oxygen; N18.3 Chronic kidney disease, stage 3 (moderate); K21.9 Gastro-esophageal reflux disease without esophagitis; I73.9 Peripheral vascular disease, unspecified; I08.1 Rheumatic disorders of both mitral and tricuspid valves; F12.10 Cannabis abuse, uncomplicated; Z85.820 Personal history of malignant melanoma of skin; F41.9 Anxiety disorder, unspecified; D64.9 Anemia, unspecified

== ENCOUNTER 2017-05-07 15:15 | Inpatient (IN) | payer MEDICARE, MEDICAID ==
[~2017-05-07 15:15] MED LIST changes: +ELIQUIS5 MG PO; +NICODERM C1 PATCH .3 TRANSDERM; +VIBRAMYCIN 100100 MG PO
[2017-05-07 19:57] LABS: BASOPHILS 0.2 % (0-2); EOSINOPHILS 0.9 % (0-7); HEMATOCRIT 35.9 % (42.0-54.0); HEMOGLOBIN 11.5 g/dL (13.5-17.5); IMMATURE GRANULOCYTES 0.9 % (0-5); LYMPHOCYTES 15.3 % (15-50); MCH 29.9 pg (26.0-34.0); MCV 93.2 fL (80.0-100.0); MEAN PLATELET VOLUME 9.4 fL (7.4-10.4); MONOCYTES 7.6 % (2-11); NEUTROPHILS 75.1 % (40-80); PLATELET COUNT 181 10x3/uL (130-400); RBC 3.85 10x6/uL (4.20-6.10); RDW 17.1 % (11.5-14.5); WBC 8.6 10x3/uL (4.8-10.8)
--- NOTE | 2017-05-07 20:00 | NUR ---
PT IN BED WITH HOB UP FOR COMFORT. WATCHING TV. 02 @ 2L VIA N/C. LEFT FA SL. CONSUELO ALARM. URINAL. BED IN LOWEST POSITON AND CALL LIGHT WITHIN REACH.
[2017-05-07 20:06] LABS: ANION GAP 9.9 mmol/L (8-16); CALCIUM 7.9 mg/dL (8.5-10.1); CREATININE - SERUM 1.5 mg/dL (0.6-1.3); POTASSIUM - SERUM 3.9 mmol/L (3.5-5.1)
--- NOTE | 2017-05-07 20:48 | NUR ---
NANDO CARRILLO TO DO ASSESSMENT.
--- NOTE | 2017-05-07 23:00 | NUR ---
TO SIGN PAPERWORK.
[2017-05-07 23:06] VITALS: BP 116/92
[2017-05-07 23:27] VITALS: BMI 19.7
--- NOTE | 2017-05-07 23:35 | NUR ---
ADMISSION ASSESSMENT COMPLETE. SLEEPING IN BED WITH PATIENT.
--- NOTE | 2017-05-08 01:45 | NUR ---
WENT INTO PT'S ROOM. PT STATED. "I CAN'T BREATHE." PULSE OX 02 IS 97%. PAGED JEANINE RESPIRATORY THERAPIST. I NOTICED A TISSUE WITH BLOOD ON IT I ASKED WHAT HAPPENED. PT STATED, "I HAD A LITTLE NOSE BLEED. THAT HAPPENS PRETTY OFTEN. I THINK ITS WHEN MY NOSE GETS TOO DRY."
[2017-05-08 05:05] LABS: BASOPHILS 0.1 % (0-2); EOSINOPHILS 0.7 % (0-7); HEMATOCRIT 33.9 % (42.0-54.0); HEMOGLOBIN 10.8 g/dL (13.5-17.5); IMMATURE GRANULOCYTES 0.7 % (0-5); LYMPHOCYTES 14.2 % (15-50); MCH 29.3 pg (26.0-34.0); MCHC 31.9 g/dL (31.0-37.0); MCV 91.9 fL (80.0-100.0); MEAN PLATELET VOLUME 9.1 fL (7.4-10.4); MONOCYTES 7.5 % (2-11); NEUTROPHILS 76.8 % (40-80); PLATELET COUNT 180 10x3/uL (130-400); RBC 3.69 10x6/uL (4.20-6.10); RDW 16.8 % (11.5-14.5); WBC 8.6 10x3/uL (4.8-10.8)
[2017-05-08 05:18] LABS: INR 1.99 (0.85-1.17); PROTIME 22.7 SECONDS (11.6-15.0)
[2017-05-08 05:19] LABS: ANION GAP 12.6 mmol/L (8-16); CALCIUM 7.7 mg/dL (8.5-10.1); CARBON DIOXIDE 28.6 mmol/L (21.0-32.0); CREATININE - SERUM 1.3 mg/dL (0.6-1.3); POTASSIUM - SERUM 4.2 mmol/L (3.5-5.1)
--- NOTE | 2017-05-08 05:45 | NUR ---
PT LYING IN BED WITH . EYES CLOSED. CHEST RISING AND FALLING. BED IN LOWEST POSITION AND CALL LIGHT WITHIN REACH.
--- NOTE | 2017-05-08 07:30 | NUR ---
SITTING UP IN BED WATCHING MORNING NEWS. ALERT AND ORIENTED X3. NO S/SX OF DISTRESS. CONTINUES ON 2L OF O2 VIA NC. CALL LIGHT WITHIN REACH, BED LOW AND ALARM ON. WILL CONTINUE TO MONITOR
[2017-05-08 08:00] VITALS: BP 137/92
--- NOTE | 2017-05-08 08:01 | NUR ---
PT EATING BREAKFAST, DENIES NEEDS. WCTM.
[2017-05-08] MEDS ORDERED: BROVANA15 MCG/2 M INH (10:06)
[2017-05-08] MEDS ORDERED: PULMICORT0.5 MG/21 INH (10:08)
[2017-05-08] MEDS ORDERED: BUMEX 1 MG TAB1 MG PO (10:09)
[2017-05-08] MEDS ORDERED: PEPCID20 MG PO (10:11)
[2017-05-08] MEDS ORDERED: ATROVENT 0.02%2.5 ML UPD (10:12)
[2017-05-08] MEDS ORDERED: XOPENEX 0.0.63 MG/3 UPD (10:13)
[2017-05-08] MEDS ORDERED: LOPRESSOR25 MG PO (10:14)
[2017-05-08] MEDS ORDERED: REMERON30 MG PO (10:15)
[2017-05-08] MEDS ORDERED: FLINTSTONE1 TAB.CHEW PO (10:16)
[2017-05-08] MEDS ORDERED: PROTONIX40 MG PO (10:17)
[2017-05-08] MEDS ORDERED: MIRALAX17 GM PO (10:17)
[2017-05-08] MEDS ORDERED: PROPAFENONE HC225 MG PO (10:18)
[2017-05-08] MEDS ORDERED: CARAFATE1 G PO (10:19)
[2017-05-08] MEDS ORDERED: ULTRAM50 MG PO (10:20)
[2017-05-08] MEDS ORDERED: COUMADIN3 MG PO (10:20)
--- NOTE | 2017-05-08 10:58 | NUR ---
SITTING UP IN WHEELCHAIR IN ROOM. DENIES ANY NEEDS OR PAIN. CALL LIGHT WITHIN REACH. NO S/SX OF ACUTE DISTRESS. WILL CONTINUE TO MONITOR
--- NOTE | 2017-05-08 11:36 | NUR ---
PATIENT ADMITTED TO REHAB FROM ACUTE FLOOR. DR. SALCEDO IS PATIENT PCP, HE USES [facility]. DME AT HOME: CANE, NEBULIZER AND O2. HE IS A CLIENT OF [facility] AND THEY WILL RESUME CARE WHEN DISCHARGED FROM REHAB. WILL CONTINUE TO FOLLOW WITH PATIENT AND WILL ASSIST WITH DISCHARGE NEEDS.
[2017-05-08 13:52] VITALS: BMI 19.7
--- NOTE | 2017-05-08 15:21 | NUR ---
IN THERAPY GYM WITH PHYSICAL THERAPY. DENIES ANY NEEDS OR PAIN. DC LEFT FOREARM SL IV CATHETER INTACT. NO S/SX OF INFECTION. 2X2 GAUZE PRESSURE BANDAGE APPLIED. WILL CONTINUE TO MONITOR
--- NOTE | 2017-05-08 19:45 | NUR ---
EMPTY URINAL 300ML.
--- NOTE | 2017-05-08 20:26 | NUR ---
PT. IN BED WITH HOB UP FOR COMFORT WITH EYES CLOSED AND RESP. EVEN. CALL LIGHT WITHIN REACH.
[2017-05-08 22:53] VITALS: BP 120/77
--- NOTE | 2017-05-09 03:07 | NUR ---
REST IN BED, EYE CLOSE, CALL LIGHT IN REACH.
[2017-05-09 06:03] LABS: BASOPHILS 0.1 % (0-2); EOSINOPHILS 0.8 % (0-7); HEMATOCRIT 33.9 % (42.0-54.0); HEMOGLOBIN 10.8 g/dL (13.5-17.5); IMMATURE GRANULOCYTES 0.6 % (0-5); LYMPHOCYTES 16.7 % (15-50); MCH 29.3 pg (26.0-34.0); MCHC 31.9 g/dL (31.0-37.0); MCV 92.1 fL (80.0-100.0); MEAN PLATELET VOLUME 9.4 fL (7.4-10.4); MONOCYTES 6.9 % (2-11); NEUTROPHILS 74.9 % (40-80); PLATELET COUNT 180 10x3/uL (130-400); RBC 3.68 10x6/uL (4.20-6.10); RDW 16.2 % (11.5-14.5)
[2017-05-09 06:24] LABS: ANION GAP 9.7 mmol/L (8-16); CARBON DIOXIDE 27.3 mmol/L (21.0-32.0); CREATININE - SERUM 1.3 mg/dL (0.6-1.3)
[2017-05-09 06:29] LABS: INR 1.76 (0.85-1.17); PROTIME 20.5 SECONDS (11.6-15.0)
--- NOTE | 2017-05-09 08:10 | NUR ---
PT RESTING IN BED EATING BREAKFAST AT BEDSIDE CALL LIGHT IN REACH WILL MONITER
[2017-05-09 08:24] VITALS: BP 118/70
--- NOTE | 2017-05-09 12:27 | NUR ---
PT RESTING IN BED WITH EYES OPEN EATING LUNCH AT BEDSIDE WILL MONITER
--- NOTE | 2017-05-09 16:08 | NUR ---
PT RESTING IN BED WITH EYES OPEN CALL LIGHT IN REACH WILL MONITER
--- NOTE | 2017-05-09 18:15 | NUR ---
RESTING QUIETLY IN BED.CL IN REACH.
--- NOTE | 2017-05-09 19:35 | NUR ---
PT. IN BED WITH HOB UP FOR COMFORT AND IS WATCHING TV. PRESENT IN ROOM AND WILL BE STAYING THE NIGHT ALSO. ASSESSMENT COMPLETED. CALL LIGHT WITHIN REACH.
[2017-05-09 20:00] VITALS: BP 127/68
--- NOTE | 2017-05-09 23:10 | NUR ---
PT. IN BED WITH HOB UP FOR COMFORT WITH EYES CLOSED AND RESP. EVEN. IN BED ASLEEP ALSO. CALL LIGHT WITHIN REACH.
--- NOTE | 2017-05-10 03:01 | NUR ---
PT. IN BED WITH HOB UP FOR COMFORT. O2 AT 2L/MIN VIA N/C WITHOUT ANY S/S DISTRESS. EYES CLOSED AND RESP. EVEN. IN BED W/PT. AND IS ALSO ASLEEP. CALL LIGHT WITHIN REACH.
[2017-05-10 05:46] LABS: INR 1.7 (0.85-1.17)
[2017-05-10 08:00] VITALS: BP 119/83
--- NOTE | 2017-05-10 08:06 | NUR ---
PT RESTING IN BED WITH EYES OPEN CALL LIGHT IN REACH IN ROOM EATING BREAKFAST CALL LIGHT IN REACH NO PROBLEMS WILL MONITER
--- NOTE | 2017-05-10 14:51 | RHP ---
PATIENT: YARELY MCCLURE MEDICAL RECORD: [id number] ACCOUNT: [id number] LOCATION:[facility]1114 : 46 ADMISSION DATE: 05/07/17 REHABILITATION HISTORY AND PHYSICAL EXAMINATION POST ADMISSION PHYSICIAN EXAMINATION DATE OF ADMISSION TO THE REHAB: 05/07/2017. ADMITTING DIAGNOSIS: Severe exacerbation of chronic obstructive pulmonary disease. HISTORY OF PRESENT ILLNESS: The patient admitted to inpatient rehab for pulmonary reason secondary to severe exacerbation of COPD. This is a 66-year-old gentleman who was discharged from [facility] on 04/19/2017 with COPD and new onset bilateral pulmonary embolism. He got home 6-8 hours later and developed a smothering sensation and presented back to the Emergency Room. He was found to be in atrial fibrillation with rapid ventricular response. He was subsequently admitted, placed on telemetry. Cardiology was consulted. He was placed on propafenone, has gotten back to sinus rhythm. His breathing is somewhat improved and he has continued to be followed by the pulmonary doctor. He had a melanotic stool with guaiac positive stool and has been followed by gastroenterology and treated for stress gastritis. He has transfused 2 units of packed red blood cells for decreases H&H. He is slowly improving. He continues on O2 at 2 liters via nasal cannula. The patient continues on telemetry and will continue it upon admission to the acute rehab and continue to follow his heart rate while participating in therapy. The patient lives at home with his and was independent with ADLs and mobility prior to this recent acute hospitalization. He is currently standby assist to moderate assist with ADLs and standby assist to minimal assist for safety and mobility. Plan is to return home at his prior level of functioning or better. COMORBIDITIES: In this patient include severe COPD, chronic hypoxic respiratory failure, bilateral pulmonary embolism, acute atrial fib, GI bleed, leucocytosis, acute renal failure, atherosclerotic cerebrovascular disease, paroxysmal atrial fibrillation with rapid ventricular response, gastrointestinal bleed, acute blood loss anemia, peripheral arterial disease, chronic kidney disease, history of tobacco use, hyperglycemia, deconditioning, leg pain, and anorexia. PAST MEDICAL HISTORY: Significant for coronary artery disease, hypertension, hyperlipidemia, severe obstructive pulmonary disease, peripheral vascular disease, COPD, chronic hypoxic respiratory failure, and peripheral vascular disease. PAST SURGICAL HISTORY: Includes angioplasty and stent placement. ALLERGIES: No known drug allergies. CURRENT MEDICATIONS: Include Coumadin 3 mg daily, tramadol 50 mg q.6 hours p.r.n., Carafate 1 g q.a.c. and q.h.s., propafenone 225 mg t.i.d., Atrovent updrafts 0.5 mg q.6 hours p.r.n., Daliresp 500 mcg daily, potassium 20 mEq daily, Protonix 40 mg b.i.d., multivitamin daily, Floranex 460 mg daily, Bumex 1 mg daily, polyethylene glycol 17 grams in 8 ounces of water daily. He is on Singulair 10 mg q.h.s., Remeron 30 mg q.h.s., Lopressor 25 mg t.i.d., Xopenex 0.6mg q.i.d. He is on Mucinex 1200 mg b.i.d., Pepcid 20 mg b.i.d., budesonide 0.5 mg b.i.d., Tessalon Perles 200 mg t.i.d., and Brovana 15 mcg b.i.d. HISTORY AND PHYSICAL [id number] YARELY MCCLURE HABITS: Does have a history of tobacco use. FAMILY HISTORY: Noncontributory. SOCIAL HISTORY: The patient hopes to return back home with his . REVIEW OF SYSTEMS: GENERAL: Does complain of weakness and fatigue. HEENT: Does complain of some cold, cough, and congestion. CARDIOVASCULAR: Denies any chest pain. LUNGS: Does complain of shortness of breath. PHYSICAL EXAMINATION: VITAL SIGNS: Stable, afebrile. GENERAL: A thin gentleman in no acute distress, alert upon exam. HEENT: Normocephalic and atraumatic. Mucosa moist. NECK: Supple. No lymphadenopathy. LUNGS: Decreased breath sounds in both bases. CARDIOVASCULAR: Regular rate and rhythm. ABDOMEN: Benign. EXTREMITIES: No clubbing, cyanosis or edema. NEUROLOGIC: Intact. LABORATORY DATA: His white count is 8.6, H&H of 11 and 34, and platelet count is 180. His INR is 1.99. Sodium 141, potassium 4.2, BUN and creatinine of 22 and 1.3, and blood sugar was noted to be 92. ASSESSMENT: This is a 66-year-old gentleman admitted to the rehab with a working diagnosis of severe deconditioning secondary to severe exacerbation of COPD. The patient has potential to make improvement. We instituted the following multidisciplinary therapies including to, but not limited to physical, occupational, respiratory, speech, nutritional services, prosthetics and orthotics. Given his complex condition and risk for more complications, rehabilitation services cannot be provided at a lower level of care such as a penitentiary facility. PLAN: 1. Admit to [facility] rehab for intensive inpatient therapy to include the following disciplines: A. Physical therapy to improve gait, all transfer skills and bed mobility to a modified independent level. B. Occupational therapy to improve activities of daily living to a modified independent level. C. Case management to assist with discharge planning and placement options. D. Nutrition to assist with nutritional needs. E. Rehabilitation nursing to assist in monitoring the patient's underlying medical conditions and to assist with any type of bowel or bladder management. 2. The patient's current medication and medical care will be continued. 3. The patient will be placed on standard fall precautions. 4. The patient's estimated length of stay is approximately 7-10 days. 5. Discuss this patient during care team staff meeting this week. TRANSINT:[id number] Voice Confirmation ID: [id number] DOCUMENT ID: [id number] HISTORY AND PHYSICAL [id number] YARELY MCCLURE notes whether there has been none or any medical/functional change since admission: - ОЛЕГ attests patient continues to be appropriate for IRF: - EVER MERCHANT MD at 1451 CC: [id number] DICTATION DATE: 05/08/17 1245 ENGINEERING PROGRAM ANALYST: 05/08/17 1309 ADM IN [place] [address] [place] [address]
--- NOTE | 2017-05-10 17:00 | NUR ---
RESTING QUIETLY IN BED.
--- NOTE | 2017-05-10 18:23 | NUR ---
PT RESTING IN BED WITH EYES OPEN CALL LIGHT IN REACH WILL MONITER
--- NOTE | 2017-05-10 19:30 | NUR ---
PT IS RESTING IN BED WITH EYES OPEN. ALERT AND ORIENTED X 3. DENIES ACUTE PAIN OR DISCOMFORT AT THIS TIME. VSS. 02 IS ON @ 2LPM PER NC. SPOUSE IS AT BEDSIDE. SR'S ARE UP X 3 IN BED. CALL LIGHT AND BEDSIDE TABLE ARE WITHIN EASY REACH.
--- NOTE | 2017-05-10 21:50 | NUR ---
PT IS RESTING QUIETLY IN BED WITH EYES CLOSED. RESPS ARE EVEN AND UNLABORED. NO ACUTE DISTRESS NOTED.
--- NOTE | 2017-05-11 01:32 | NUR ---
RESTING IN BED WITH EYES CLOSED.
--- NOTE | 2017-05-11 02:50 | NUR ---
RESTING IN BED WITH EYES CLOSED.
--- NOTE | 2017-05-11 06:30 | NUR ---
PT RESTING IN BED WITH EYES CLOSED.
[2017-05-11 07:17] LABS: INR 1.75 (0.85-1.17); PROTIME 20.4 SECONDS (11.6-15.0)
--- NOTE | 2017-05-11 07:37 | NUR ---
SITTING UP IN BED.COMPANY AT BEDSIDE.
--- NOTE | 2017-05-11 08:25 | NUR ---
PT RESTING IN BED WITH EYES OPEN CALL LIGHT IN REACH NO PROBLEMS WILL MONITER
[2017-05-11 09:37] VITALS: BP 123/71
--- NOTE | 2017-05-11 13:20 | NUR ---
PATIENT DISCHARGING HOME WITH FAMILY. [facility] WILL RESUME CARE OF PATIENT. NO NEW DME NEEDED AT THIS TIME. DR. SALCEDO 05/22/17 @ 2:30, DR. WARD 06/27/17 @ 9:30, DR. BARBOZA 07/04/17 @ 4:00, DR. HARRISON OFFICE REQUEST THAT PATIENT PCP DEND REFERRAL FOR FOLLOW UP APPOINTMENT. PATIENT CHOICE FOR HOME HEALTH AND [facility] FORM SIGNED, EXPLAINED AND FILED IN CHART. ORDER HAVE BEEN FAXED WITH CONFORMATION RECIEVED
--- NOTE | 2017-05-11 13:45 | NUR ---
PT DISCHARGED TO HOME VIA WHEELCHAIR PT DISCHARGE MEDS AND SUMMARY REVIEWED WITH PT AND ALL MEDS CALLED TO [facility]
--- NOTE | 2017-05-15 11:25 | NUR ---
LATE ENTRY: DISCHARGE CLINICALS FAXED TO [facility] , AUTH. # [id number] WITH CONFORMATION RECIEVED
== END 2017-05-11 15:09 | disposition home health service (06) | DRG 190 ==
LOC: D.REHAB 15:15
PROVIDERS: ADMIT Emergency Medicine
DX: J44.1 Chronic obstructive pulmonary disease with (acute) exacerbation (principal); I26.99 Other pulmonary embolism without acute cor pulmonale; J96.11 Chronic respiratory failure with hypoxia; D62 Acute posthemorrhagic anemia; K92.2 Gastrointestinal hemorrhage, unspecified; N17.9 Acute kidney failure, unspecified; I12.9 Hypertensive chronic kidney disease with stage 1 through stage 4 chronic kidney disease, or unspecified chronic kidney disease; N18.9 Chronic kidney disease, unspecified; I48.0 Paroxysmal atrial fibrillation; D72.829 Elevated white blood cell count, unspecified; I73.9 Peripheral vascular disease, unspecified; R63.0 Anorexia; R73.9 Hyperglycemia, unspecified; Z87.891 Personal history of nicotine dependence

== ENCOUNTER 2017-05-18 19:16 | Inpatient (IN) | payer MEDICARE, MEDICAID ==
[~2017-05-18 19:16] MED LIST changes: +BROVANA15 MCG/2 M INH; +BUMEX 1 MG TAB1 MG PO; +CARAFATE1 G PO; +COUMADIN3 MG PO; +FLINTSTONE1 TAB.CHEW PO; +LOPRESSOR25 MG PO; +MIRALAX17 GM PO; +PEPCID20 MG PO; +PROPAFENONE HC225 MG PO; +PROTONIX40 MG PO; +PULMICORT0.5 MG/21 INH; +REMERON30 MG PO; +ULTRAM50 MG PO
[2017-05-18 19:51] LABS: BASOPHILS 0.8 % (0-2); EOSINOPHILS 0 % (0-7); HEMATOCRIT 35.1 % (42.0-54.0); HEMOGLOBIN 11.1 g/dL (13.5-17.5); IMMATURE GRANULOCYTES 0.6 % (0-5); LYMPHOCYTES 22.9 % (15-50); MCH 28.7 pg (26.0-34.0); MCHC 31.6 g/dL (31.0-37.0); MCV 90.7 fL (80.0-100.0); MEAN PLATELET VOLUME 9.2 fL (7.4-10.4); MONOCYTES 10.1 % (2-11); NEUTROPHILS 65.6 % (40-80); RBC 3.87 10x6/uL (4.20-6.10); RDW 15.1 % (11.5-14.5); WBC 7.8 10x3/uL (4.8-10.8)
[2017-05-18 20:04] LABS: ALBUMIN 2.6 g/dL (3.4-5.0); ANION GAP 12.8 mmol/L (8-16); BILIRUBIN - TOTAL 0.34 mg/dL (0.2-1.3); CALCIUM 9.1 mg/dL (8.5-10.1); CARBON DIOXIDE 27.3 mmol/L (21.0-32.0); CREATININE - SERUM 1.7 mg/dL (0.6-1.3); POTASSIUM - SERUM 4.1 mmol/L (3.5-5.1); PROTEIN - SERUM 7.5 g/dL (6.4-8.2)
[2017-05-18 20:07] LABS: PLATELET COUNT 314 10x3/uL (130-400)
[2017-05-18 20:48] LABS: APPEARANCE CLEAR (CLEAR); BILIRUBIN NEGATIVE (NEGATIVE); COLOR YELLOW (YELLOW); GLUCOSE NEGATIVE (NEGATIVE); KETONE NEGATIVE (NEGATIVE); NITRITE NEGATIVE (NEGATIVE); PROTEIN NEGATIVE (NEGATIVE); SPECIFIC GRAVITY 1.015 (1.005-1.020); UROBILINOGEN NORMAL (NORMAL)
--- NOTE | 2017-05-19 00:20 | NUR ---
PT ARRIVED ON UNIT VIA STRETCHER ESCORTED BY ER NURSE AND FAMILY MEMBER. POSITIONED IN BED FOR COMFORT. ORIENTED TO ROOM AND CALL LIGHT. WILL MONITOR FOR NEEDS.
--- NOTE | 2017-05-19 00:30 | NUR ---
PROVIDED PT WITH [facility] [employer] SODA AND WATER.
[2017-05-19 00:35] VITALS: BP 90/67; BMI 19.4
--- NOTE | 2017-05-19 00:47 | NUR ---
ADMISSION ASSESSMENT AND HISTORY COMPLETE. HOME MEDICATIONS RECONCILIATION COMPLETE.
--- NOTE | 2017-05-19 08:00 | NUR ---
ASSESSMENT COMPLETE. SL TO L WRIST. O2 2L NC IN USE. DENIES ANY NEEDS AT THIS TIME. DENIES ANY NAUSEA AT THIS TIME. FAMILY AT BEDSIDE.
[2017-05-19 08:11] VITALS: BP 97/61
[2017-05-19 10:55] VITALS: BMI 19.4
[2017-05-19 12:37] VITALS: BP 91/69
--- NOTE | 2017-05-19 13:00 | NUR ---
RESTING QUIETLY IN BED. DENIES ANY NEEDS AT THIS TIME. FAMILY AT BEDSIDE.
[2017-05-19 16:18] VITALS: BP 108/70
--- NOTE | 2017-05-19 19:00 | NUR ---
REPORT RECEIVED AND CARE OF PT ASSUMED. PT LYING IN SUPINE POSITION WATCHING TV. IV IN LEFT FA SALINE LOCKED. BED ALARM IN USE. WILL MONITOR CLOSELY FOR NEEDS.
--- NOTE | 2017-05-19 19:15 | NUR ---
PT OFF FLOOR FOR VQ SCAN.
--- NOTE | 2017-05-19 19:45 | NUR ---
PT RETURNED FROM RADIOLOGY. POSITIONED IN BED FOR COMFORT.
[2017-05-19 20:00] VITALS: BP 126/82
--- NOTE | 2017-05-19 20:34 | NUR ---
HS MEDICAITONS GIVEN. WILL CONTINUE TO MONITOR FOR NEEDS.
--- NOTE | 2017-05-19 20:45 | NUR ---
GAVE CHICKEN BROOTH FOR HS SNACK.
--- NOTE | 2017-05-19 23:25 | NUR ---
SCHEDULED PROTONIX GIVEN. PT RESTING IN SUPINE POSITION WITH UNLABORED BREATHING. FAMILY MEMBER IS AT BEDSIDE.
[2017-05-20] VITALS: BP 114/68
[2017-05-20 05:34] LABS: BASOPHILS 0.4 % (0-2); EOSINOPHILS 0.6 % (0-7); HEMATOCRIT 33.7 % (42.0-54.0); HEMOGLOBIN 10.5 g/dL (13.5-17.5); IMMATURE GRANULOCYTES 0.7 % (0-5); LYMPHOCYTES 24.2 % (15-50); MCH 28.5 pg (26.0-34.0); MCHC 31.2 g/dL (31.0-37.0); MCV 91.6 fL (80.0-100.0); MEAN PLATELET VOLUME 9.3 fL (7.4-10.4); MONOCYTES 10.9 % (2-11); NEUTROPHILS 63.2 % (40-80); PLATELET COUNT 287 10x3/uL (130-400); RBC 3.68 10x6/uL (4.20-6.10); RDW 15.5 % (11.5-14.5); WBC 8.9 10x3/uL (4.8-10.8)
[2017-05-20 05:45] LABS: INR 1.55 (0.85-1.17); PROTIME 18.5 SECONDS (11.6-15.0)
[2017-05-20 06:08] LABS: ALBUMIN 2.2 g/dL (3.4-5.0); ALKALINE PHOSPHATASE 84 U/L (46-116); ALT (SGPT) 29 U/L (10-68); BILIRUBIN - TOTAL 0.28 mg/dL (0.2-1.3); CALC OSMOLALITY 282 mosm/kg (275-300); CALCIUM 7.9 mg/dL (8.5-10.1); CARBON DIOXIDE 28.6 mmol/L (21.0-32.0); CHLORIDE - SERUM 104 mmol/L (98-107); CKMB 0.4 U/L (0.0-3.6); CREATININE - SERUM 1.6 mg/dL (0.6-1.3); GLUCOSE 122 mg/dL (74-106); POTASSIUM - SERUM 3.4 mmol/L (3.5-5.1); PRO BNP 4541 pg/mL (0-125); PROTEIN - SERUM 6.6 g/dL (6.4-8.2); SODIUM 140 mmol/L (136-145); TROPONIN-I < 0.017 ng/mL (0.000-0.060); UREA NITROGEN 22 mg/dL (7-18); eGFR NON AFRICAN AMERICAN 46 mL/min (90-120)
--- NOTE | 2017-05-20 07:55 | NUR ---
ASSESSMENT COMPLETE. SL TO L FA. O2 2L NC IN USE. CONSUELO MAT IN USE. FAMILY AT BEDSIDE. DENIES ANY NEEDS AT THIS TIME.
[2017-05-20 08:43] VITALS: BP 114/82
[2017-05-20 12:10] VITALS: BP 113/67
--- NOTE | 2017-05-20 13:00 | NUR ---
NO CHANGES NOTED AT PRESENT. FAMILY AT BEDSIDE.
--- NOTE | 2017-05-20 14:30 | NUR ---
CALLED TO ROOM BY FAMILY. PATIENT HAD BOWEL MOVEMENT AND WAS CONCERNED THAT STOOL WAS BLOODY. NO NATHAN BLOOD NOTED IN TOILET. NALLELY NOEL ON FLOOR NOTIFIED. ORDER RECIEVED FOR OCCULT BLOOD.
[2017-05-20 16:20] VITALS: BP 122/86
--- NOTE | 2017-05-20 19:00 | NUR ---
REPORT RECEIVED AND CARE OF PT ASSUMED. PT LYING IN SUPINE POSITION WATCHING TV. IV IN ELFT FA SALINE LOCKED. O2 IN USE VIA NC AT 2L. WILL MONITOR FOR NEEDS.
[2017-05-20 19:30] VITALS: BP 139/73
--- NOTE | 2017-05-20 21:05 | NUR ---
HS MEDICATIONS GIVEN. WILL CONTINUE TO MONITOR FOR NEEDS. FAMILY MEMBER IS AT BEDSIDE.
[2017-05-20 23:30] VITALS: BP 125/80
--- NOTE | 2017-05-20 23:49 | NUR ---
PT RESTING IN SUPINE POSITION WITH EYES CLOSED AND UNLABORED BREATHING. WILL CONTINUE TO MONITOR FOR NEEDS.
[2017-05-21 04:00] VITALS: BP 126/83
--- NOTE | 2017-05-21 07:40 | NUR ---
A&O, DENIES NEEDS, BED LOWEST POSITION, NO DISTRESS NOTED, CALL LIGHT IN REACH, WILL CONTINUE TO MONITOR
[2017-05-21 08:48] VITALS: BP 132/76
[2017-05-21 09:59] LABS: BASOPHILS 0.3 % (0-2); EOSINOPHILS 0.3 % (0-7); HEMATOCRIT 32.5 % (42.0-54.0); IMMATURE GRANULOCYTES 0.8 % (0-5); LYMPHOCYTES 23.4 % (15-50); MCH 28.3 pg (26.0-34.0); MCHC 30.8 g/dL (31.0-37.0); MCV 92.1 fL (80.0-100.0); MEAN PLATELET VOLUME 9.1 fL (7.4-10.4); MONOCYTES 9.3 % (2-11); NEUTROPHILS 65.9 % (40-80); PLATELET COUNT 269 10x3/uL (130-400); RBC 3.53 10x6/uL (4.20-6.10); RDW 15.5 % (11.5-14.5); WBC 8.6 10x3/uL (4.8-10.8)
[2017-05-21 10:15] LABS: ANION GAP 9.6 mmol/L (8-16); BILIRUBIN - TOTAL 0.18 mg/dL (0.2-1.3); CALCIUM 8.1 mg/dL (8.5-10.1); CREATININE - SERUM 1.5 mg/dL (0.6-1.3); POTASSIUM - SERUM 3.6 mmol/L (3.5-5.1); PROTEIN - SERUM 6.3 g/dL (6.4-8.2)
[2017-05-21 11:55] VITALS: BP 130/72
--- NOTE | 2017-05-21 19:23 | NUR ---
PT IS LYING ON RT SIDE, EYES ARE CLOSED EVEN RISE AND FALL OF CHEST, NO SIGNS OF DISTRESS. BED IN LOW POSITION, CALL LIGHT IN REACH
--- NOTE | 2017-05-21 21:15 | NUR ---
ADMIN 2100 MEDS, STARTED IV TO RUN ROCEPHIN AND PT STATED IV SITE IS BURNING, TRIED TO FLUSH AND NO BLOOD RETURN, TURNED OFF IV AND ADVISED WILL NEED TO START NEW IV. PT STATED VERY HARD STICK, WILL ASK CO WORKER TO TRY
[2017-05-21 22:08] VITALS: BP 136/75
[2017-05-22] VITALS (7 sets, daily range): BP systolic 112–139; BP diastolic 62–83
--- NOTE | 2017-05-22 02:50 | NUR ---
PT IN BED WITH NO DISTRESS. RESPIRATIONS EVEN AND UNLABORED. VISITOR AT BEDSIDE. SIDE RAILS X 2. BED LOW. CALL LIGHT IN REACH.
[2017-05-22 06:05] LABS: EOSINOPHILS 0.8 % (0-7); HEMATOCRIT 31.4 % (42.0-54.0); HEMOGLOBIN 9.7 g/dL (13.5-17.5); IMMATURE GRANULOCYTES 1.2 % (0-5); LYMPHOCYTES 29.5 % (15-50); MCH 28.4 pg (26.0-34.0); MCHC 30.9 g/dL (31.0-37.0); MCV 91.8 fL (80.0-100.0); MEAN PLATELET VOLUME 9.4 fL (7.4-10.4); MONOCYTES 12.1 % (2-11); NEUTROPHILS 55.4 % (40-80); PLATELET COUNT 273 10x3/uL (130-400); RBC 3.42 10x6/uL (4.20-6.10); RDW 15.4 % (11.5-14.5); WBC 7.3 10x3/uL (4.8-10.8)
[2017-05-22 06:20] LABS: ALBUMIN 1.9 g/dL (3.4-5.0); ANION GAP 10.7 mmol/L (8-16); BILIRUBIN - TOTAL 0.2 mg/dL (0.2-1.3); CALCIUM 8.4 mg/dL (8.5-10.1); CARBON DIOXIDE 27.4 mmol/L (21.0-32.0); CREATININE - SERUM 1.5 mg/dL (0.6-1.3); POTASSIUM - SERUM 4.1 mmol/L (3.5-5.1)
--- NOTE | 2017-05-22 07:40 | NUR ---
SLEEPING, NO DISTRESS NOTED, BREATHING EVEN, AT BEDSIDE, IV RESTARTED TO LFA, CALL LIGHT IN REACH, BED LOWEST POSITION, WILL CONTINEU TO ANDI
--- NOTE | 2017-05-22 11:15 | NUR ---
Patient Name: YARELY MCCLURE Admission Status: ER Accout number: [id number] Admission Date: 05-19-2017 : 1950 Admission Diagnosis:CHRONIC OBSTRUCTIVE PULMONARY DISEASE W (ACUTE) EXACERB Attending: EDUARDA JARRETT Current LOS: 3 Anticipated DC Date: 05-22-2017 Planned Disposition: Home with Home Health Primary Insurance: [employer] ADV Discharge Planning Comments: CM MET WITH PATIENT AND ([facility]) REGARDING D/C NEEDS AND PLANS. PATIENTS STATED SHE OR FAMILY WILL DRIVE PATIENT HOME AT DISCHARGE. PATIENT HAS 1 STEP TO ENTER HOME AND NO STAIRS INSIDE. PATIENTS PCP IS DR. SALCEDO IN [place] AND PHARMACY IS [facility] IN [place]. PATIENT STATED HE IS INDEPENDENT WITH HIS CARE AND HAS A CANE, OXYGEN (2L), PORTABLE O2, AND NEBULIZER AT HOME. PATIENT IS CURRENT WITH [facility]. CM WILL CONTINUE TO FOLLOW PATIENT WITH D/C NEEDS AND PLANS. PCP [facility]- [phone] [facility] () [phone] Telecommunication Engineer: Zandra Leal Is the patient Alert and Oriented? Yes 0 * How many steps to enter\exit or inside your home? 1 0 * PCP DR. SALCEDO IN [place] 0 * Pharmacy [facility] [place] 0 * Preadmission Environment Home with Family 0 * ADLs Partial Dependent 0 * Partial ADLs (Assistance needed) Medication Management 0 * Equipment Cane Nebulizer Oxygen 0 * Other Equipment PORTABLE O2 (2L) 0 * List name and contact numbers for known caregivers / representatives who currently or will assist patient after discharge: [facility] () [phone] 0 * Community resources currently utilized Home Health 0 * Please name any agencies selected above. [facility] [place] 0 * Additional services required to return to the preadmission environment? Yes 0 * Can the patient safely return to the preadmission environment? Yes 0 * Has this patient been hospitalized within the prior 30 days at any hospital? Yes 0 Grand Total: 0
--- NOTE | 2017-05-22 12:32 | EC ---
PATIENT:YARELY MCCLURE DATE OF SERVICE: 05/19/17 SEX: M MEDICAL RECORD: [id number] DATE OF : [birth year] LOCATION:[facility] AGE OF PATIENT: 66 ADMISSION DATE: 05/19/17 REFERRING PHYSICIAN: INTERPRETING PHYSICIAN: FELIX LEE MD ECHOCARDIOGRAM REPORT ECHO CHARGES 5 ECHO LIMITED 1 DOPPLER ECHO COLOR FLOW 2 DOPPLER ECHO PULSE CLINICAL DIAGNOSIS: SOB ECHOCARDIOGRAPHIC MEASUREMENTS (adult normal given) AC root (d.<3.7cm) 0 cm LV Septum d (<1.2 cm> 0 cm Valve Excursion 0 cm LV Septum (systole) 0 cm Left Atria (s.<4.0cm> 0 cm LVPW d(<1.2cm) 0 cm RV (d.<2.3cm) 0 cm LVPW (sytole) 0 cm LV diastole(<5.6CM) 0 cm MV E-F(>70mm/sec) 0 cm LV systole 0 cm LVOT Diameter 0 cm MV exc.(>10mm) 0 cm Est.ejection fraction (50-75%) 0 % Pericardial Effusion N DOPPLER: LVIT 0 cm/sec A 0 cm/sec E 0 cm/sec LA 0 cm/sec RVSP 39.3 mmHg LVOT 0 cm/sec AOP1/2T 0 m/s Asc. Ao 0 cm/sec RVOT 0 cm/sec RA 0 cm/sec PA 0 cm/sec AV Gradient Peak 0 mmHg AV Mean 0 mmHg AV Area 0 cm MV Gradient Peak 0 mmHg MV Mean 0 mmHg MV Area 0 cm COMMENTS: LIMITED STUDY (2-D,COLOR,DOPPLER) COMPLETE ECHO DONE ON 04/21/17 AND A LIMITED ECHO DONE ON 04/29/17 Counter Cutter: 1 BRAVO SINOE Clinical Exercise Physiologist: 3 Dr. Esposito TAPE# PACS DATE OF SERVICE: 05/21/2017 Limited study includes 2D, color flow. LVH present. LV internal dimensions are normal. 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 Aortic valve appears tricuspid with adequate excursion. Left atrium grossly appears normal. Mitral valve shows no prolapse. Moderate MR. Right-sided chambers appear grossly normal. Mild TR. Again, this is a technically limited study. TRANSINT:[id number] Voice Confirmation ID: [id number] DOCUMENT ID: [id number] ECHOCARDIOGRAM REPORT [id number] YARELY MCCLURE GREGORY A MD at 1232 CC: [id number] DICTATION DATE: 05/21/17 111 EXCAVATING SUPERVISOR: 05/21/17 1217 ADM IN [facility] [address] [place] [address]
--- NOTE | 2017-05-22 13:34 | NUR ---
NUTRITION F/U CHART REVIEWED. PT VISIT.PT REPORTS IMPROVED PO INTAKE. NO COMPLAINTS. FAMILY AT BEDSIDE. WILL CONTINUE TO PROVIDE DIET, HONOR FOOD PREFERENCES. RD FOLLOWING
--- NOTE | 2017-05-22 16:01 | NUR ---
PT LAYING IN BED WITH NO VISABLE SIGNS OF PAIN OR DISCOMFORT AT THIS TIME. BED IN LOW POSITION AND CALL LIGHT WITHIN REACH. WILL CONTINUE TO MONITOR.
--- NOTE | 2017-05-22 17:20 | NUR ---
PT SEEN. NO COMPLAINTS AT PRESENT. EATING PIZZA BROUGHT IN FROM FAMILY. CALL LIGHT IN REACH.
--- NOTE | 2017-05-22 19:30 | NUR ---
RECEIVED PT IN BED AAOX4 RESP UNLABORED SKIN W/D COLOR WNL NAD NOTED PT DENIES ANY NEEDS OR DISCOMFORT AT THIS TIME
[2017-05-23 04:00] VITALS: BP 130/84
[2017-05-23 05:55] LABS: BASOPHILS 0.8 % (0-2); EOSINOPHILS 0.7 % (0-7); HEMATOCRIT 30.1 % (42.0-54.0); HEMOGLOBIN 9.3 g/dL (13.5-17.5); IMMATURE GRANULOCYTES 1.6 % (0-5); LYMPHOCYTES 23.3 % (15-50); MCH 28.4 pg (26.0-34.0); MCHC 30.9 g/dL (31.0-37.0); MCV 91.8 fL (80.0-100.0); MEAN PLATELET VOLUME 9.6 fL (7.4-10.4); MONOCYTES 9.4 % (2-11); NEUTROPHILS 64.2 % (40-80); RBC 3.28 10x6/uL (4.20-6.10); RDW 15.3 % (11.5-14.5)
[2017-05-23 05:58] LABS: PLATELET COUNT 329 10x3/uL (130-400); WBC 10.1 10x3/uL (4.8-10.8)
[2017-05-23 06:11] LABS: INR 1.73 (0.85-1.17); PROTIME 20.3 SECONDS (11.6-15.0)
[2017-05-23 06:56] LABS: ANION GAP 12.4 mmol/L (8-16); BILIRUBIN - TOTAL 0.2 mg/dL (0.2-1.3); CALCIUM 8.4 mg/dL (8.5-10.1); CARBON DIOXIDE 27.8 mmol/L (21.0-32.0); CREATININE - SERUM 1.4 mg/dL (0.6-1.3); POTASSIUM - SERUM 4.2 mmol/L (3.5-5.1); PROTEIN - SERUM 6.3 g/dL (6.4-8.2)
--- NOTE | 2017-05-23 07:41 | NUR ---
SLEEPING, AT BEDSIDE, NO DISTRESS NOTED, AT BEDSIDE, CALL LIGHT IN REACH, BED LOWEST POSITION, WILL CONTINUE TO MONITOR
[2017-05-23 07:50] VITALS: BP 137/80
--- NOTE | 2017-05-23 10:36 | NUR ---
1CC OF EPINEPHRENINE INJECTED TO CONTROL BLEEDING AVM.
--- NOTE | 2017-05-23 10:39 | NUR ---
BURNED AVM ON 30 JOULES SOFT COAG ALSO.
--- NOTE | 2017-05-23 11:09 | NUR ---
RECEIVED TO FLOOR FROM D, A&O, DRINKING WATER, DENIES NEEDS, WILL CONTINUE TO MONTITOR
--- NOTE | 2017-05-23 12:25 | NUR ---
SITTING UP IN BED EATING LUNCH, DENIES NEEDS, CALL LIGHT IN REACH, WILL CONTINUE TO MONITOR
--- NOTE | 2017-05-23 13:18 | NUR ---
ALERT AND ORIENTED WITH RESPIRATIONS EVEN AND NON LABORED. DENIES NEEDS AT THIS TIME. CALL LIGHT IN REACH, WILL CONTINUE WITH PLAN OF CARE.
[2017-05-23 19:30] VITALS: BP 103/66
[2017-05-23 23:30] VITALS: BP 123/72
[2017-05-24 04:00] VITALS: BP 108/68
[2017-05-24 05:22] LABS: EOSINOPHILS 0.6 % (0-7); HEMATOCRIT 30.4 % (42.0-54.0); HEMOGLOBIN 9.5 g/dL (13.5-17.5); IMMATURE GRANULOCYTES 2.9 % (0-5); LYMPHOCYTES 23.8 % (15-50); MCH 28.6 pg (26.0-34.0); MCHC 31.3 g/dL (31.0-37.0); MCV 91.6 fL (80.0-100.0); MEAN PLATELET VOLUME 9.4 fL (7.4-10.4); MONOCYTES 11.7 % (2-11); PLATELET COUNT 326 10x3/uL (130-400); RBC 3.32 10x6/uL (4.20-6.10); RDW 15.2 % (11.5-14.5)
[2017-05-24 05:57] LABS: ALBUMIN 1.9 g/dL (3.4-5.0); ANION GAP 11.2 mmol/L (8-16); BILIRUBIN - TOTAL 0.3 mg/dL (0.2-1.3); CALCIUM 8.1 mg/dL (8.5-10.1); CARBON DIOXIDE 26.7 mmol/L (21.0-32.0); CREATININE - SERUM 1.3 mg/dL (0.6-1.3); POTASSIUM - SERUM 3.9 mmol/L (3.5-5.1)
--- NOTE | 2017-05-24 08:00 | NUR ---
REC'D IN BED AWAKE AND ALERT. RESP EVEN AND UNLABORED WITH NO DISTRESS NOTED. CAN EXPRESS NEEDS AND WANTS. HAS O2 IN USE VIA N/S @ 2 L/M. NO C/O NOTED OR VOICED. ASSESSMENT COMPLETED. C/L IN REACH AT BEDSIDE.
[2017-05-24 08:30] VITALS: BP 124/73
[2017-05-24 12:13] VITALS: BP 117/65
[2017-05-24] MEDS ORDERED: KEFLEX500 MG PO (13:07)
--- NOTE | 2017-05-24 14:06 | NUR ---
CM REASSESSMENT NOTE; PATIENT DISCHARGING HOME TODAY/ DRIVING/CURRENT WITH [facility]/HAS HIS PORTABLE O2 HERE FOR DISCHARGE.
--- NOTE | 2017-05-24 14:30 | NUR ---
PT IV WAS DISCONTINUED AT THIS TIME . D/C INSTRUCTION WAS GIVEN TO PT WELL RX. PT VOICED UNDERSTANDING AT THIS TIME. FAMILY AT BEDSIDE. C/L IN REACH AT BEDSIDE.
== END 2017-05-24 14:35 | disposition home health service (06) | DRG 291 ==
LOC: D.ER 19:16 → OBSVTIME 23:32 → D.MS 23:32
PROVIDERS: Emergency Medicine; Family Medicine; Internal Medicine Gastroenterology; ADMIT Family Medicine
PROC: 0D598ZZ Destruction of Duodenum, Via Natural or Artificial Opening Endoscopic (ICD-10-PCS; 2017-05-23)
PROC: 3E0G8GC Introduction of Other Therapeutic Substance into Upper GI, Via Natural or Artificial Opening Endoscopic (ICD-10-PCS; principal; 2017-05-23 10:30)
DX: I50.23 Acute on chronic systolic (congestive) heart failure (principal); K31.811 Angiodysplasia of stomach and duodenum with bleeding; J44.1 Chronic obstructive pulmonary disease with (acute) exacerbation; I13.0 Hypertensive heart and chronic kidney disease with heart failure and stage 1 through stage 4 chronic kidney disease, or unspecified chronic kidney disease; N18.3 Chronic kidney disease, stage 3 (moderate); Z99.81 Dependence on supplemental oxygen; R79.89 Other specified abnormal findings of blood chemistry; I08.1 Rheumatic disorders of both mitral and tricuspid valves; K20.9 Esophagitis, unspecified

== ENCOUNTER 2017-06-28 12:40 | Emergency (ER) | payer MEDICARE, MEDICAID ==
[~2017-06-28 12:40] MED LIST changes: +KEFLEX500 MG PO
[2017-06-28 13:47] LABS: BASOPHILS 0.4 % (0-2); EOSINOPHILS 1.1 % (0-7); HEMATOCRIT 31.8 % (42.0-54.0); HEMOGLOBIN 9.4 g/dL (13.5-17.5); IMMATURE GRANULOCYTES 0.3 % (0-5); LYMPHOCYTES 21.9 % (15-50); MCH 25.8 pg (26.0-34.0); MCHC 29.6 g/dL (31.0-37.0); MCV 87.1 fL (80.0-100.0); MEAN PLATELET VOLUME 9.4 fL (7.4-10.4); MONOCYTES 7.8 % (2-11); NEUTROPHILS 68.5 % (40-80); PLATELET COUNT 288 10x3/uL (130-400); RBC 3.65 10x6/uL (4.20-6.10); RDW 15.4 % (11.5-14.5); WBC 10.8 10x3/uL (4.8-10.8)
[2017-06-28 14:02] LABS: ALBUMIN 3.2 g/dL (3.4-5.0); ANION GAP 11.1 mmol/L (8-16); CALCIUM 8.6 mg/dL (8.5-10.1); CARBON DIOXIDE 26.7 mmol/L (21.0-32.0); CREATININE - SERUM 1.4 mg/dL (0.6-1.3); POTASSIUM - SERUM 3.8 mmol/L (3.5-5.1)
[2017-06-28 14:17] LABS: BILIRUBIN - TOTAL 0.37 mg/dL (0.2-1.3)
[2017-06-28 14:37] LABS: APTT 31.2 SECONDS (22.8-39.4); INR 1.05 (0.85-1.17); PROTIME 13.3 SECONDS (11.6-15.0)
== END 2017-06-28 15:55 | disposition home or self-care (01) ==
LOC: D.ER 12:40
PROVIDERS: Emergency Medicine
DX: I73.9 Peripheral vascular disease, unspecified (principal); M79.662 Pain in left lower leg; J44.9 Chronic obstructive pulmonary disease, unspecified; F17.200 Nicotine dependence, unspecified, uncomplicated

== ENCOUNTER 2017-07-04 06:33 | Inpatient (IN) | payer MEDICARE, MEDICAID ==
[~2017-07-04] VITALS: Ht 170.2 cm; Wt 59.0 kg
[2017-07-04 07:46] LABS: BASOPHILS 0.1 % (0-2); EOSINOPHILS 0.4 % (0-7); HEMATOCRIT 29.6 % (42.0-54.0); HEMOGLOBIN 8.7 g/dL (13.5-17.5); IMMATURE GRANULOCYTES 0.3 % (0-5); LYMPHOCYTES 12.6 % (15-50); MCH 25.1 pg (26.0-34.0); MCHC 29.4 g/dL (31.0-37.0); MCV 85.5 fL (80.0-100.0); MONOCYTES 2.5 % (2-11); NEUTROPHILS 84.1 % (40-80); PLATELET COUNT 253 10x3/uL (130-400); RBC 3.46 10x6/uL (4.20-6.10); RDW 15.8 % (11.5-14.5); WBC 13.9 10x3/uL (4.8-10.8)
[2017-07-04 08:10] LABS: MAGNESIUM - SERUM 2.1 mg/dL (1.8-2.4)
--- NOTE | 2017-07-04 10:16 | NUR ---
PATIENT TO ROOM AT THIS TIME. ADMITTED AND ASSESSED. IV INTACT. O2 ON AT 2 LNC. FAMILY AT BEDSIDE. ASKED TO BRING LIST OF MEDS WHEN SHE COMES BACK FROM HOME. VERBALIZED UNDERSTANDING. PATIENT ORIENTED TO ROOM AND CALL LIGHT. CALL LIGHT WITHIN REACH.
[2017-07-04 10:22] VITALS: BP 163/84; BMI 20.4
[2017-07-04 16:23] VITALS: BP 118/68
[2017-07-04 18:52] LABS: ALBUMIN 2.9 g/dL (3.4-5.0); BILIRUBIN - TOTAL 0.31 mg/dL (0.2-1.3); CALCIUM 8.5 mg/dL (8.5-10.1); CARBON DIOXIDE 31.2 mmol/L (21.0-32.0); CREATININE - SERUM 2.1 mg/dL (0.6-1.3); POTASSIUM - SERUM 5.2 mmol/L (3.5-5.1); PROTEIN - SERUM 6.8 g/dL (6.4-8.2)
--- NOTE | 2017-07-04 18:59 | NUR ---
PATIENT IN BED WITH NO COMPLAINTS AT THIS TIME. IV INTACT. CALL LIGHT WITHIN REACH. FAMILY AT BEDSIDE.
[2017-07-04 19:29] LABS: INR 1.13 (0.85-1.17); PROTIME 14.1 SECONDS (11.6-15.0)
[2017-07-04 20:00] VITALS: BP 109/68
--- NOTE | 2017-07-04 20:25 | NUR ---
UP ON SIDE OF BED. NO DISTRESS NOTED. O2 AT 3 L PER NC ON. NON PRODUCTIVE COUGH NOTED.. NO COMPLAINTS VOICED. CL IN REACH
[2017-07-05] VITALS: BP 117/55
--- NOTE | 2017-07-05 02:00 | NUR ---
PT IN BED WITH NO DISTRESS. RESPIRATIONS EVEN AND UNLABORED. SIDE RAILS X 2. BED LOW. CALL LIGHT IN REACH.
--- NOTE | 2017-07-05 02:10 | NUR ---
RESTING QUIETLY. NO DISTRESS NOTED. CL IN REACH
[2017-07-05 04:00] VITALS: BP 140/69
[2017-07-05 04:31] LABS: BASOPHILS 0.1 % (0-2); EOSINOPHILS 0.1 % (0-7); HEMATOCRIT 27.4 % (42.0-54.0); HEMOGLOBIN 8.1 g/dL (13.5-17.5); IMMATURE GRANULOCYTES 0.3 % (0-5); MCH 25.2 pg (26.0-34.0); MCHC 29.6 g/dL (31.0-37.0); MCV 85.1 fL (80.0-100.0); MEAN PLATELET VOLUME 9.9 fL (7.4-10.4); MONOCYTES 11.7 % (2-11); NEUTROPHILS 69.8 % (40-80); PLATELET COUNT 258 10x3/uL (130-400); RBC 3.22 10x6/uL (4.20-6.10); RDW 15.8 % (11.5-14.5)
[2017-07-05 04:32] LABS: WBC 10.3 10x3/uL (4.8-10.8)
[2017-07-05 04:51] LABS: INR 1.08 (0.85-1.17); PROTIME 13.6 SECONDS (11.6-15.0)
[2017-07-05 04:57] LABS: ALBUMIN 2.7 g/dL (3.4-5.0); ANION GAP 9.6 mmol/L (8-16); BILIRUBIN - TOTAL 0.18 mg/dL (0.2-1.3); CALCIUM 8.4 mg/dL (8.5-10.1); CARBON DIOXIDE 32.1 mmol/L (21.0-32.0); CREATININE - SERUM 1.7 mg/dL (0.6-1.3); MAGNESIUM - SERUM 2.1 mg/dL (1.8-2.4); PHOSPHOROUS 3.8 mg/dL (2.5-4.9); POTASSIUM - SERUM 4.7 mmol/L (3.5-5.1); PROTEIN - SERUM 6.7 g/dL (6.4-8.2); THYROID STIMULATING HORMONE 0.41 uIU/mL (0.36-3.74)
[2017-07-05 05:38] LABS: % SATURATION 4 % (15-55); IRON 15 ug/dl (35-150); TOTAL IRON BIND CAPACITY 356 ug/dl (260-445); UNSAT IRON BIND CAPACITY 341 ug/dl (150-375)
--- NOTE | 2017-07-05 05:50 | NUR ---
RESTING QUIETLY. NO DISTRESS NOTED. CL IN REACH
--- NOTE | 2017-07-05 08:32 | NUR ---
AWAKE AND ALERT. ORIENTED X3. NO C/O AT THIS TIME. LUNGS HAVE CRACKLES AND WHEEZES THROUGOUT. DENIES COUGH. SKIN IS INTACT WITHOUT REDNESS. SL TO RIGHT FOREARM IS PATENT WITHOUT REDNESS AT INSERTION SITE. ATE ALL OF BREAKFAST. DENIES NEEDS.
[2017-07-05 08:38] VITALS: BP 124/63
--- NOTE | 2017-07-05 10:00 | NUR ---
RESTING QUIETLY IN BED. AT BEDSIDE. DENIES NEEDS.
[2017-07-05 11:10] VITALS: Ht 170.2 cm; Wt 59.0 kg
--- NOTE | 2017-07-05 11:22 | NUR ---
Patient Name: YARELY MCCLURE Admission Status: ER Accout number: [id number] Admission Date: 07-04-2017 : 1950 Admission Diagnosis:PNEUMONIA, UNSPECIFIED ORGANISM Attending: Hans Chapa Current LOS: 1 Anticipated DC Date: 07-10-2017 Planned Disposition: Home with Home Health Primary Insurance: [employer]ICARE ADV Discharge Planning Comments: CM MET WITH PATIENT AND ([facility]) REGARDING D/C NEEDS AND PLANS. PATIENTS STATED THERE ARE ABOUT 2 STEPS W/RAILS TO ENTER HOME AND NO STAIRS INSIDE. PATIENT IS INDEPENDENT WITH HIS CARE AND HIS HELPS WITH MEDICATIONS. PATIENT HAS A SHOWER CHAIR, CANE, NEBULIZER, PORTABLE O2 (OUT OF OXYGEN AT HOME) FOR EMERGENCIES. [facility] IS THE SUPPLIER. PATIENT WILL NEED A WALK TEST IF OXYGEN IS NEEDED 19/02. PATIENTS PCP IS DR. SALCEDO IN [place] AND USES [facility] IN [place]. PATIENT IS CURRENT WITH [facility]. CM WILL CONTINUE TO FOLLOE PATIENT WITH D/C NEEDS AND PLANS. PCP DR. SALCEDO [facility] [phone] [facility] () [phone] [facility] [phone] FAX [phone] Grades 1 Through 6 Teacher: Zandra Leal Is the patient Alert and Oriented? Yes 0 * How many steps to enter\exit or inside your home? 2 0 * PCP DR. SALCEDO 0 * Pharmacy [facility] [place] 0 * Preadmission Environment Home with Family 0 * ADLs Independent 0 * Equipment Cane Nebulizer Oxygen Shower Chair 0 * Other Equipment [facility] ([phone]) 0 * List name and contact numbers for known caregivers / representatives who currently or will assist patient after discharge: [facility] () [phone] 0 * Community resources currently utilized Home Health 0 * Please name any agencies selected above. [facility] 0 * Additional services required to return to the preadmission environment? Yes 0 * Can the patient safely return to the preadmission environment? Yes 0 * Has this patient been hospitalized within the prior 30 days at any hospital? No 0 Grand Total: 0
--- NOTE | 2017-07-05 12:58 | NUR ---
ATE ALL OF LUNCH. DENIES NEEDS.
[2017-07-05 12:59] VITALS: BP 113/65
[2017-07-05 15:52] VITALS: BP 116/67
[2017-07-05 21:49] VITALS: BP 154/75
[2017-07-06 01:03] VITALS: BP 149/73
[2017-07-06 04:04] LABS: BASOPHILS 0 % (0-2); EOSINOPHILS 0 % (0-7); HEMATOCRIT 27.2 % (42.0-54.0); IMMATURE GRANULOCYTES 1.2 % (0-5); LYMPHOCYTES 10.5 % (15-50); MCH 25.2 pg (26.0-34.0); MCHC 29.4 g/dL (31.0-37.0); MCV 85.5 fL (80.0-100.0); MEAN PLATELET VOLUME 9.9 fL (7.4-10.4); MONOCYTES 4.6 % (2-11); NEUTROPHILS 83.7 % (40-80); PLATELET COUNT 225 10x3/uL (130-400); RBC 3.18 10x6/uL (4.20-6.10); RDW 15.5 % (11.5-14.5)
[2017-07-06 04:05] LABS: WBC 13.1 10x3/uL (4.8-10.8)
[2017-07-06 04:23] LABS: ALBUMIN 2.7 g/dL (3.4-5.0); ANION GAP 10.8 mmol/L (8-16); BILIRUBIN - TOTAL 0.16 mg/dL (0.2-1.3); CALCIUM 8.1 mg/dL (8.5-10.1); CARBON DIOXIDE 29.8 mmol/L (21.0-32.0); CREATININE - SERUM 1.4 mg/dL (0.6-1.3); MAGNESIUM - SERUM 2.1 mg/dL (1.8-2.4); PHOSPHOROUS 3.2 mg/dL (2.5-4.9); POTASSIUM - SERUM 4.6 mmol/L (3.5-5.1); PROTEIN - SERUM 6.6 g/dL (6.4-8.2)
[2017-07-06 05:24] VITALS: BP 155/77
--- NOTE | 2017-07-06 08:25 | NUR ---
AWAKE AND ALERT. ORIENTED X3. NO C/O VOICED. LUNGS HAVE BOTH INSPIRATORY AND EXPIRATORY WHEEZES THROUGHOUT LUNG MATHIAS. NO COUGH NOTED. SKIN IS INTACT WITHOUT REDNESS. SL TO RIGHT FOREARM IS PATENT WITHOUT REDNESS AT ISNERTION SITE. SCD'S IN PLACE. DENIES NEEDS. SITTING UP IN BED EATING BREAKFAST.
[2017-07-06 08:26] VITALS: BP 144/67
[2017-07-06 09:17] LABS: FOLATE (FOLIC ACID) - SERUM 16.2 ng/mL (>3.0)
[2017-07-06 10:18] LABS: HAPTOGLOBIN 187 mg/dL (34-200)
[2017-07-06 11:17] LABS: ERYTHROPOIETIN 47.9 mIU/mL (2.6-18.5)
--- NOTE | 2017-07-06 12:30 | NUR ---
ATE ALL OF LUNCH DENIES NEEDS.
[2017-07-06 13:03] VITALS: BP 139/83
[2017-07-06 16:05] VITALS: BP 135/72
[2017-07-06 20:00] VITALS: BP 167/79
[2017-07-07] VITALS: BP 141/64
[2017-07-07 04:00] VITALS: BP 153/79
[2017-07-07 04:41] LABS: BASOPHILS 0.1 % (0-2); EOSINOPHILS 0 % (0-7); HEMOGLOBIN 8.1 g/dL (13.5-17.5); IMMATURE GRANULOCYTES 1.2 % (0-5); LYMPHOCYTES 8.3 % (15-50); MCH 24.8 pg (26.0-34.0); MCHC 28.9 g/dL (31.0-37.0); MCV 85.6 fL (80.0-100.0); MEAN PLATELET VOLUME 10.6 fL (7.4-10.4); MONOCYTES 3.2 % (2-11); NEUTROPHILS 87.2 % (40-80); PLATELET COUNT 244 10x3/uL (130-400); RBC 3.27 10x6/uL (4.20-6.10); RDW 15.5 % (11.5-14.5); WBC 16.2 10x3/uL (4.8-10.8)
[2017-07-07 05:08] LABS: ANION GAP 9.1 mmol/L (8-16); CALCIUM 8.4 mg/dL (8.5-10.1); CARBON DIOXIDE 30.1 mmol/L (21.0-32.0); CREATININE - SERUM 1.4 mg/dL (0.6-1.3); POTASSIUM - SERUM 4.2 mmol/L (3.5-5.1)
--- NOTE | 2017-07-07 07:44 | NUR ---
PATIENT RESTING IN BED. PATIENT IS AWAKE, ALERT, AND ORIENTED X4. WATCHING T.V. PATIENT DENIES ANY NEEDS AT PRESENT TIME. CALL LIGHT IN PATIENT'S REACH. WILL MONITOR PATIENT.
[2017-07-07 10:52] VITALS: BP 158/71
[2017-07-07 12:53] VITALS: BP 146/72
[2017-07-07 20:00] VITALS: BP 145/70
--- NOTE | 2017-07-07 20:16 | NUR ---
REST IN BED, CALL LIGHT IN REACH.
[2017-07-08] VITALS: BP 123/75
--- NOTE | 2017-07-08 00:49 | NUR ---
REST IN BED, HOB 30 DEGREE, CALL LIGHT IN REACH.
[2017-07-08 04:00] VITALS: BP 117/76
[2017-07-08 05:45] LABS: ALBUMIN 2.6 g/dL (3.4-5.0); ANION GAP 10.9 mmol/L (8-16); BILIRUBIN - TOTAL 0.2 mg/dL (0.2-1.3); CALCIUM 8.5 mg/dL (8.5-10.1); CREATININE - SERUM 1.5 mg/dL (0.6-1.3); PROTEIN - SERUM 6.3 g/dL (6.4-8.2)
[2017-07-08 05:47] LABS: POTASSIUM - SERUM 4.9 mmol/L (3.5-5.1)
--- NOTE | 2017-07-08 07:16 | NUR ---
PATIENT RESTING IN BED. PATIENT IS AWAKE, ALERT, AND ORIENTED X4. PATIENT RECEIVING A BREATHING TREATMENT. PATIENT DENIES ANY NEEDS AT PRESENT TIME. CALL LIGHT IN PATIENT'S REACH. WILL MONITOR PATIENT.
[2017-07-08 11:04] VITALS: BP 113/77
[2017-07-08] MEDS ORDERED: Levaquin PO (12:25)
[2017-07-08] MEDS ORDERED: PREDNISONE10 MG PO (12:29)
--- NOTE | 2017-07-08 12:41 | NUR ---
PATIENT SITTING UP IN BED AND EATING LUNCH. PATIENT DENIES ANY NEEDS AT PRESENT TIME. CALL LIGHT IN PATIENT'S REACH. WILL MONITOR PATIENT.
[2017-07-08 13:32] VITALS: BP 112/78
--- NOTE | 2017-07-08 14:28 | NUR ---
SALINE LOCK DC'D WITH THE CATHETER TIP STILL INTACT. BANDAID APPLIED. PATIENT TOLERATED WELL. PATIENT TO BE DISCHARGED HOME TODAY.
--- NOTE | 2017-07-08 14:50 | NUR ---
FAMILY HERE TO DRIVE PATIENT HOME. DISCHARGE INSTRUCTIONS VERBALIZED TO PATIENT. PATIENT VERBALIZED UNDERSTANDING AND SIGNED DISCHARGE INSTRUCTIONS. LEVAQUIN PRESCRIPTION GIVEN TO PATIENT.
--- NOTE | 2017-07-08 14:53 | NUR ---
PATIENT DISCHARGED VIA WHEELCHAIR TO PRIVATE VEHICLE.
--- NOTE | 2017-07-09 12:59 | DS ---
PATIENT:YARELY MCCLURE :46 MEDICAL RECORD: [id number] DISCHARGE SUMMARY ADMISSION DATE: 07/04/17 DISCHARGE DATE: 07/08/17 DATE OF ADMISSION: 07/04/2017 DATE OF DISCHARGE: 07/08/2017 ADMISSION DIAGNOSES: Pneumonia, chronic obstructive pulmonary disease exacerbation, anemia of chronic disease, peptic ulcer disease, chronic obstructive pulmonary disease. DISCHARGE DIAGNOSES: Pneumonia, chronic obstructive pulmonary disease exacerbation, peptic ulcer disease, anemia of unclear etiology, chronic. CONSULTS: Pulmonology and Hematology. HOSPITAL COURSE: The patient had an uneventful hospital course. Chest x-ray showed signs of pneumonia. Cultures obtained, started on antibiotics. Significant clearing of infiltrate on plain films. The patient is feeling much better, tolerating a regular diet and feels back to his baseline. He is anxious to go home. He has home O2 at home. He is supplemental oxygen dependent, has all his medications. He will follow up with his primary care physician next week, will follow up with hematology and follow up with pulmonology as well. PHYSICAL EXAMINATION: VITAL SIGNS: On discharge, temperature 98.2, blood pressure 113/77, heart rate 70, respirations 19, O2 saturations 98%. GENERAL: He is alert, oriented, no acute distress. HEART: Regular. LUNGS: Clear. Breathing is nonlabored. ABDOMEN: Soft. EXTREMITIES: Present times 4. NEUROLOGIC: Intact. LABORATORY DATA: Chemistry on discharge, sodium 144, potassium 4.9, chloride 107, bicarbonate 31, BUN 33, creatinine 1.5, glucose 134. Correction on the med rec inadvertently restarted his Coumadin, this will be discontinued. He is to have repeat ultrasounds for his DVT and with his gastrointestinal bleed, will discuss anticoagulant therapy with his television analyzer and his primary care physician this week. See chart for further details. TRANSINT:[id number] Voice Confirmation ID: [id number] DOCUMENT ID: [id number] LEANNA WHITAKER DO at 1259 CC: [id number] DICTATION DATE: 07/08/17 1238 ROVING DEPARTMENT END FINDER: 07/09/17 0838 DIS IN 07/08/17 [place] [address]
[2017-07-09 15:20] LABS: SPE - A/G RATIO 0.9 (0.7-1.7); SPE - ALPHA-1 GLOBULIN 0.3 g/dL (0.0-0.4); SPE - ALPHA-2 GLOBULIN 0.8 g/dL (0.4-1.0); SPE - GAMMA GLOBULIN 1.2 g/dL (0.4-1.8); SPE - M-SPIKE Not Observed g/dL (Not Observed); SPE - TOTAL PROTEIN 6.3 g/dL (6.0-8.5)
[2017-07-09 16:11] LABS: IMMUNOFIXATION Note: (()); IMMUNOGLOBULIN A 306 mg/dL (61-437); IMMUNOGLOBULIN G 1109 mg/dL (700-1600); IMMUNOGLOBULIN M 106 mg/dL (20-172)
== END 2017-07-08 14:53 | disposition home health service (06) | DRG 177 ==
LOC: D.ER 06:33 → D.MS 09:46
PROVIDERS: Emergency Medicine; Family Medicine; Nurse Practitioner Family; ADMIT Family Medicine
DX: J15.6 Pneumonia due to other Gram-negative bacteria (principal); I50.23 Acute on chronic systolic (congestive) heart failure; J44.0 Chronic obstructive pulmonary disease with (acute) lower respiratory infection; J44.1 Chronic obstructive pulmonary disease with (acute) exacerbation; I13.0 Hypertensive heart and chronic kidney disease with heart failure and stage 1 through stage 4 chronic kidney disease, or unspecified chronic kidney disease; J13 Pneumonia due to Streptococcus pneumoniae; N18.9 Chronic kidney disease, unspecified; I08.1 Rheumatic disorders of both mitral and tricuspid valves; I48.0 Paroxysmal atrial fibrillation; D50.9 Iron deficiency anemia, unspecified

== ENCOUNTER 2017-07-18 09:49 | Inpatient (IN) | payer MEDICARE, MEDICAID ==
[~2017-07-18] VITALS: Ht 170.2 cm; Wt 61.4 kg
--- NOTE | ~2017-07-18 | DS ---
PATIENT:YARELY MCCLURE :46 MEDICAL RECORD: [id number] DISCHARGE SUMMARY ADMISSION DATE: 07/18/17 DISCHARGE DATE: 07/25/17 This is a discharge dated 07/25/2017 from the inpatient hospital. DISCHARGE DIAGNOSES: 1. COPD exacerbation. 2. Dmkxr-ib-cdcaklr hypoxic respiratory failure. 3. Byqkk-kw-cnjkekn systolic congestive heart failure. 4. Right lower lobe pneumonia. 5. Guaiac positive stools. 6. Acute kidney injury on chronic kidney disease stage III. 7. Iron deficiency anemia. 8. Hemorrhagic AVM and mild distal esophagitis and mild gastritis. 9. Gastroesophageal reflux disease. 10. Peripheral vascular disease. 11. Hypertension. 12. Coronary artery disease. 13. Atrial fibrillation. 14. Hypokalemia. 15. Depression/anxiety. 16. History of multiple myeloma. 17. History of bilateral pulmonary embolism. 18. Angina. CONSULTS THIS HOSPITALIZATION: 1. Cardiology with Dr. Esposito. 2. Pulmonary with Dr. Sepulveda. 3. Renal with Dr. Hernandez. 4. GI with Dr. Porter. PROCEDURES THIS HOSPITALIZATION: 1. Echocardiogram with an EF of 45% to 50%. 2. EGD on 07/24/[address] Garcia with photocoagulation of hemorrhagic AVM and mild distal esophagitis with mild gastritis. HOSPITAL COURSE: Full H&P is located elsewhere on the chart on this 67-year-old male who was admitted for evaluation of chest pain and shortness of breath. It was felt that he was in COPD exacerbation. Imaging was consistent with right lower lobe pneumonia. He was continued on supplemental oxygen and started updrafts for respiratory support. He was placed on telemetry. Cardiac enzymes were done. He was on IV fluids for hydration. Dr. Esposito was consulted with cardiology who felt that he had some demand ischemia related to anemia. He was transfused. Stool guaiacs were positive. Echocardiogram was done with findings as listed above. Pulmonary was consulted. He was seen by Dr. Sepulveda. He was on Maxipime and vancomycin for antibiotic coverage to continue for 7 days. Nebulized treatments included Xopenex, ipratropium, budesonide, and Brovana. His steroids were tapered from IV to p.o. He was seen by speech therapy without signs and symptoms of aspiration on a bedside swallow study. Electrolytes were managed by protocol. He was seen by physical therapy for strengthening and ambulation. Nephrology was consulted. He was seen by Dr. Hernandez. Renal ultrasound with left renal cyst and medical renal disease of the left kidney. GI was consulted. He was seen by Dr. Porter. Protonix was increased to twice a day, aspirin was on hold. EGD was done to evaluate guaiac positive DISCHARGE SUMMARY REPORT [id number] COGBURN,LD stool. Findings of EGD are listed above. He had significant improvement in symptoms as well as clinical improvement. He completed his 7 days of Maxipime and vancomycin. He was considered stable for discharge on 07/25/2017. DISCHARGE MEDICATIONS: As per discharge medication reconciliation. DISCHARGE DISPOSITION: The patient is discharged home. He will continue his current diet and level of activity. He will follow up with primary care and specialists as directed and will have home health for half-way care. At least 30 minutes was spent in this discharge activity. TRANSINT:[id number] Voice Confirmation ID: [id number] DOCUMENT ID: [id number] Dictated By: BETZAIDA GREEN I have interviewed/examined the above patient and agree with these documented findings. EDNA VERA MD at 1436 at 1437 CC: [id number] DICTATION DATE: 09/02/17 1626 FINANCE CONTROLLER: 09/03/17 1101 DIS IN 07/25/17 [address] [place] [address]
--- NOTE | ~2017-07-18 | EC ---
PATIENT:YARELY MCCLURE DATE OF SERVICE: 07/18/17 SEX: M MEDICAL RECORD: [id number] DATE OF : 46 LOCATION:D.M2 D.213 AGE OF PATIENT: 66 ADMISSION DATE: 07/18/17 REFERRING PHYSICIAN: INTERPRETING PHYSICIAN: FELIX LEE MD ECHOCARDIOGRAM REPORT ECHO CHARGES 4 ECHO COMPLETE CLINICAL DIAGNOSIS: CHF HX OF CAD/STENTS/HTN ECHOCARDIOGRAPHIC MEASUREMENTS (adult normal given) AC root (d.<3.7cm) 3.5 cm LV Septum d (<1.2 cm> 1.1 cm Valve Excursion 1.1 cm LV Septum (systole) 1.3 cm Left Atria (s.<4.0cm> 3.4 cm LVPW d(<1.2cm) 1.1 cm RV (d.<2.3cm) 3.5 cm LVPW (sytole) 1.7 cm LV diastole(<5.6CM) 4.8 cm MV E-F(>70mm/sec) cm LV systole 2.9 cm LVOT Diameter 1.7 cm MV exc.(>10mm) 1.3 cm Est.ejection fraction (50-75%) % Pericardial Effusion N DOPPLER: LVIT cm/sec A 114 cm/sec E cm/sec LA cm/sec RVSP 35 mmHg LVOT 103 cm/sec AOP1/2T m/s Asc. Ao 185 cm/sec RVOT 68 cm/sec RA cm/sec PA 164 cm/sec AV Gradient Peak 13.74mmHg AV Mean 7.41 mmHg AV Area 1.4 cm MV Gradient Peak 10.21mmHg MV Mean 4.06 mmHg MV Area cm COMMENTS: Medical Secretary: 2 JOANNE MOODY Avionics System Engineer: 3 Dr. Esposito TAPE# PACA DATE OF SERVICE: 07/19/2017 Adequate 2D echo, color flow, spectral Doppler, and M-mode. No LVH. LV internal dimensions are normal. LV is mildly globally hypofunction, lower limits of normal reduced to 45% to 50%. Aortic valve sclerosis without stenosis. Doppler interrogation: Left atrium is normal at 3.4 cm. Mitral valve has no prolapse. Mild MR. Right-sided chamber is normal. Mild TR. ECHOCARDIOGRAM REPORT [id number] YARELY MCCLURE TRANSINT:[id number] Voice Confirmation ID: [id number] DOCUMENT ID: [id number] FELIX LEE MD at 1331 CC: [id number] DICTATION DATE: 07/19/17 1337 UAT TESTER: 07/19/17 1400 ADM IN [facility] [address] [id number]
[2017-07-18 10:23] LABS: BASOPHILS 0.1 % (0-2); EOSINOPHILS 0.3 % (0-7); HEMATOCRIT 29.7 % (42.0-54.0); HEMOGLOBIN 8.7 g/dL (13.5-17.5); IMMATURE GRANULOCYTES 1.5 % (0-5); LYMPHOCYTES 8.1 % (15-50); MCH 24.5 pg (26.0-34.0); MCHC 29.3 g/dL (31.0-37.0); MCV 83.7 fL (80.0-100.0); MEAN PLATELET VOLUME 9.1 fL (7.4-10.4); PLATELET COUNT 256 10x3/uL (130-400); RBC 3.55 10x6/uL (4.20-6.10); RDW 16.9 % (11.5-14.5); WBC 19.9 10x3/uL (4.8-10.8)
[2017-07-18 10:45] LABS: ALBUMIN 2.9 g/dL (3.4-5.0); ANION GAP 10.8 mmol/L (8-16); BILIRUBIN - TOTAL 0.58 mg/dL (0.2-1.3); CALCIUM 8.5 mg/dL (8.5-10.1); CARBON DIOXIDE 29.9 mmol/L (21.0-32.0); CREATININE - SERUM 1.5 mg/dL (0.6-1.3); POTASSIUM - SERUM 4.7 mmol/L (3.5-5.1); PROTEIN - SERUM 6.9 g/dL (6.4-8.2)
[2017-07-18 10:52] LABS: TROPONIN-I 0.048 ng/mL (0.000-0.060)
[2017-07-18 17:58] VITALS: BMI 22.6
[2017-07-18 18:00] LABS: CKMB 2.1 U/L (0.0-3.6); CREATINE KINASE 39 UL (21-232); TROPONIN-I 0.029 ng/mL (0.000-0.060)
[2017-07-18] MEDS ORDERED: NORCO 7.5/325 T1 TA1 PO (18:05)
[2017-07-18 23:30] LABS: CREATINE KINASE 35 UL (21-232)
[2017-07-19] VITALS: BP 112/60
[2017-07-19 05:01] LABS: BASOPHILS 0.1 % (0-2); EOSINOPHILS 0 % (0-7); HEMATOCRIT 26.1 % (42.0-54.0); HEMOGLOBIN 7.6 g/dL (13.5-17.5); IMMATURE GRANULOCYTES 1.5 % (0-5); LYMPHOCYTES 9.7 % (15-50); MCH 24.2 pg (26.0-34.0); MCHC 29.1 g/dL (31.0-37.0); MCV 83.1 fL (80.0-100.0); MEAN PLATELET VOLUME 9.3 fL (7.4-10.4); MONOCYTES 9.2 % (2-11); NEUTROPHILS 79.5 % (40-80); PLATELET COUNT 252 10x3/uL (130-400); RBC 3.14 10x6/uL (4.20-6.10)
[2017-07-19 05:17] LABS: WBC 13.6 10x3/uL (4.8-10.8)
[2017-07-19 05:32] LABS: ALBUMIN 2.3 g/dL (3.4-5.0); ALKALINE PHOSPHATASE 93 U/L (46-116); ALT (SGPT) 63 U/L (10-68); BILIRUBIN - TOTAL 0.27 mg/dL (0.2-1.3); CARBON DIOXIDE 32.4 mmol/L (21.0-32.0); CHLORIDE - SERUM 105 mmol/L (98-107); CKMB 1.9 U/L (0.0-3.6); CREATINE KINASE 37 UL (21-232); CREATININE - SERUM 1.8 mg/dL (0.6-1.3); POTASSIUM - SERUM 4.3 mmol/L (3.5-5.1); PROTEIN - SERUM 5.9 g/dL (6.4-8.2); SODIUM 141 mmol/L (136-145); TROPONIN-I 0.027 ng/mL (0.000-0.060); UREA NITROGEN 33 mg/dL (7-18); eGFR NON AFRICAN AMERICAN 40 mL/min (90-120)
[2017-07-19 05:38] LABS: CALC OSMOLALITY 289 mosm/kg (275-300); GLUCOSE 130 mg/dL (74-106)
[2017-07-19 05:55] VITALS: BP 121/81
[2017-07-19 08:51] VITALS: BP 131/86
[2017-07-19 11:28] LABS: UDS - AMPHET NEGATIVE QUAL (NEGATIVE); UDS - BARB NEGATIVE QUAL (NEGATIVE); UDS - BENZO NEGATIVE QUAL (NEGATIVE); UDS - COCAINE NEGATIVE QUAL (NEGATIVE); UDS - OPIATE NEGATIVE QUAL (NEGATIVE); UDS - PCP NEGATIVE QUAL (NEGATIVE); UDS - THC NEGATIVE QUAL (NEGATIVE)
[2017-07-19 11:52] LABS: APPEARANCE CLEAR (CLEAR); BILIRUBIN NEGATIVE (NEGATIVE); COLOR STRAW (YELLOW); GLUCOSE NEGATIVE (NEGATIVE); KETONE NEGATIVE (NEGATIVE); NITRITE NEGATIVE (NEGATIVE); PROTEIN NEGATIVE (NEGATIVE); UROBILINOGEN NORMAL (NORMAL)
[2017-07-19 11:53] LABS: BACTERIA FEW /hpf (NONE SEEN); EPITHELIAL CELLS 0-5 /hpf (0-5); HYALINE CAST RARE /lpf (NONE SEEN); MUCUS >1+ /lpf (NONE SEEN); WHITE CELLS - URINE 0-5 /hpf (0-5)
[2017-07-19 12:30] VITALS: BP 104/74
[2017-07-19 13:05] VITALS: BMI 22.0
[2017-07-19 16:00] VITALS: BP 111/74
[2017-07-19 20:00] VITALS: BP 116/85
[2017-07-20] VITALS: BP 137/94
[2017-07-20 04:00] VITALS: BP 132/81
[2017-07-20 06:03] LABS: BASOPHILS 0.1 % (0-2); EOSINOPHILS 0 % (0-7); HEMATOCRIT 30.7 % (42.0-54.0); HEMOGLOBIN 9.5 g/dL (13.5-17.5); IMMATURE GRANULOCYTES 1.5 % (0-5); LYMPHOCYTES 4.9 % (15-50); MCH 25.6 pg (26.0-34.0); MCHC 30.9 g/dL (31.0-37.0); MCV 82.7 fL (80.0-100.0); MEAN PLATELET VOLUME 9.3 fL (7.4-10.4); MONOCYTES 4.5 % (2-11); PLATELET COUNT 243 10x3/uL (130-400); RBC 3.71 10x6/uL (4.20-6.10); RDW 16.7 % (11.5-14.5); WBC 20.5 10x3/uL (4.8-10.8)
[2017-07-20 06:21] LABS: ALBUMIN 2.5 g/dL (3.4-5.0); ANION GAP 9.2 mmol/L (8-16); BILIRUBIN - TOTAL 0.71 mg/dL (0.2-1.3); CALCIUM 8.4 mg/dL (8.5-10.1); CARBON DIOXIDE 32.2 mmol/L (21.0-32.0); CREATININE - SERUM 1.7 mg/dL (0.6-1.3); POTASSIUM - SERUM 4.4 mmol/L (3.5-5.1); PROTEIN - SERUM 6.2 g/dL (6.4-8.2)
[2017-07-20 08:32] VITALS: BP 127/80
[2017-07-20 12:05] VITALS: BP 115/86
[2017-07-20 20:00] VITALS: BP 140/98
[2017-07-21] VITALS: BP 124/50
[2017-07-21 04:00] VITALS: BP 147/100
[2017-07-21 05:56] LABS: BASOPHILS 0.1 % (0-2); EOSINOPHILS 0 % (0-7); HEMATOCRIT 35.9 % (42.0-54.0); HEMOGLOBIN 10.7 g/dL (13.5-17.5); IMMATURE GRANULOCYTES 0.9 % (0-5); LYMPHOCYTES 5.9 % (15-50); MCH 25.4 pg (26.0-34.0); MCHC 29.8 g/dL (31.0-37.0); MEAN PLATELET VOLUME 9.5 fL (7.4-10.4); MONOCYTES 2.6 % (2-11); NEUTROPHILS 90.5 % (40-80); PLATELET COUNT 275 10x3/uL (130-400); RBC 4.22 10x6/uL (4.20-6.10); RDW 17.3 % (11.5-14.5); WBC 19.9 10x3/uL (4.8-10.8)
[2017-07-21 05:58] LABS: MCV 85.1 fL (80.0-100.0)
[2017-07-21 06:23] LABS: ALBUMIN 2.9 g/dL (3.4-5.0); BILIRUBIN - TOTAL 0.5 mg/dL (0.2-1.3); CARBON DIOXIDE 32.4 mmol/L (21.0-32.0); PROTEIN - SERUM 6.9 g/dL (6.4-8.2)
[2017-07-21 06:25] LABS: ANION GAP 10.8 mmol/L (8-16); CREATININE - SERUM 2.3 mg/dL (0.6-1.3); POTASSIUM - SERUM 5.2 mmol/L (3.5-5.1)
[2017-07-21 07:51] VITALS: BP 138/94
[2017-07-21 11:12] VITALS: BP 126/93
[2017-07-21 15:22] VITALS: Ht 170.2 cm; Wt 61.4 kg
[2017-07-21 15:28] VITALS: BP 121/78
[2017-07-21 19:00] VITALS: BP 145/95
[2017-07-22] VITALS: BP 119/74
[2017-07-22 04:00] VITALS: BP 131/86
[2017-07-22 06:00] LABS: BASOPHILS 0.1 % (0-2); EOSINOPHILS 0 % (0-7); HEMATOCRIT 33.4 % (42.0-54.0); HEMOGLOBIN 9.9 g/dL (13.5-17.5); IMMATURE GRANULOCYTES 0.9 % (0-5); MCH 25.3 pg (26.0-34.0); MCHC 29.6 g/dL (31.0-37.0); MCV 85.4 fL (80.0-100.0); MEAN PLATELET VOLUME 9.5 fL (7.4-10.4); MONOCYTES 2.6 % (2-11); NEUTROPHILS 91.4 % (40-80); PLATELET COUNT 220 10x3/uL (130-400); RBC 3.91 10x6/uL (4.20-6.10); RDW 17.8 % (11.5-14.5); WBC 19.9 10x3/uL (4.8-10.8)
[2017-07-22 06:21] LABS: INR 1.08 (0.85-1.17); PROTIME 13.6 SECONDS (11.6-15.0)
[2017-07-22 06:37] LABS: ALBUMIN 2.6 g/dL (3.4-5.0); ANION GAP 9.4 mmol/L (8-16); BILIRUBIN - TOTAL 0.46 mg/dL (0.2-1.3); CALCIUM 8.5 mg/dL (8.5-10.1); CARBON DIOXIDE 35.4 mmol/L (21.0-32.0); CREATININE - SERUM 2.2 mg/dL (0.6-1.3); POTASSIUM - SERUM 4.8 mmol/L (3.5-5.1); PROTEIN - SERUM 6.4 g/dL (6.4-8.2); VANCOMYCIN - RANDOM 13.9 ug/mL (10.0-20.0)
[2017-07-22 07:35] VITALS: BP 130/75
[2017-07-22 11:55] VITALS: BP 94/61
[2017-07-22 13:24] LABS: APPEARANCE CLEAR (CLEAR); BILIRUBIN NEGATIVE (NEGATIVE); COLOR YELLOW (YELLOW); GLUCOSE NEGATIVE (NEGATIVE); KETONE NEGATIVE (NEGATIVE); NITRITE NEGATIVE (NEGATIVE); PROTEIN NEGATIVE (NEGATIVE); SPECIFIC GRAVITY 1.015 (1.005-1.020); UROBILINOGEN NORMAL (NORMAL)
[2017-07-22 13:50] LABS: PRO/CRE RATIO URINE 0.5 mg/g; PROTEIN - URINE 15.9 mg/dL (0.0-11.9)
[2017-07-22 15:09] VITALS: BP 124/66
[2017-07-22 20:36] VITALS: BP 130/78
[2017-07-23] VITALS (7 sets, daily range): BP systolic 110–141; BP diastolic 57–91
[2017-07-23 06:08] LABS: BASOPHILS 0.1 % (0-2); EOSINOPHILS 0 % (0-7); HEMATOCRIT 32.1 % (42.0-54.0); HEMOGLOBIN 9.4 g/dL (13.5-17.5); IMMATURE GRANULOCYTES 1.1 % (0-5); LYMPHOCYTES 6.2 % (15-50); MCH 24.9 pg (26.0-34.0); MCHC 29.3 g/dL (31.0-37.0); MCV 85.1 fL (80.0-100.0); MEAN PLATELET VOLUME 9.3 fL (7.4-10.4); MONOCYTES 2.4 % (2-11); NEUTROPHILS 90.2 % (40-80); PLATELET COUNT 198 10x3/uL (130-400); RBC 3.77 10x6/uL (4.20-6.10); RDW 17.5 % (11.5-14.5)
[2017-07-23 06:29] LABS: ALBUMIN 2.5 g/dL (3.4-5.0); BILIRUBIN - TOTAL 0.45 mg/dL (0.2-1.3); CALCIUM 8.3 mg/dL (8.5-10.1); CARBON DIOXIDE 37.7 mmol/L (21.0-32.0); CREATININE - SERUM 1.8 mg/dL (0.6-1.3); POTASSIUM - SERUM 4.7 mmol/L (3.5-5.1); PROTEIN - SERUM 5.9 g/dL (6.4-8.2)
[2017-07-24 04:00] VITALS: BP 139/81
[2017-07-24 06:00] LABS: BASOPHILS 0.1 % (0-2); EOSINOPHILS 0 % (0-7); HEMATOCRIT 33.2 % (42.0-54.0); HEMOGLOBIN 9.7 g/dL (13.5-17.5); IMMATURE GRANULOCYTES 0.8 % (0-5); LYMPHOCYTES 6.7 % (15-50); MCH 25.1 pg (26.0-34.0); MCHC 29.2 g/dL (31.0-37.0); MCV 85.8 fL (80.0-100.0); MEAN PLATELET VOLUME 9.8 fL (7.4-10.4); MONOCYTES 1.3 % (2-11); NEUTROPHILS 91.1 % (40-80); PLATELET COUNT 208 10x3/uL (130-400); RBC 3.87 10x6/uL (4.20-6.10); RDW 17.9 % (11.5-14.5); WBC 14.3 10x3/uL (4.8-10.8)
[2017-07-24 06:16] LABS: ALBUMIN 2.6 g/dL (3.4-5.0); BILIRUBIN - DIRECT 0.14 mg/dL (0.00-0.30); BILIRUBIN - INDIRECT 0.35 mg/dL (0.00-1.00); BILIRUBIN - TOTAL 0.49 mg/dL (0.2-1.3); CALCIUM 8.5 mg/dL (8.5-10.1); CARBON DIOXIDE 37.9 mmol/L (21.0-32.0); CREATININE - SERUM 1.8 mg/dL (0.6-1.3); POTASSIUM - SERUM 4.9 mmol/L (3.5-5.1); PROTEIN - SERUM 5.7 g/dL (6.4-8.2); VANCOMYCIN - RANDOM 15.8 ug/mL (10.0-20.0)
[2017-07-24 08:31] VITALS: BP 130/84
[2017-07-24 12:00] VITALS: BP 140/90
[2017-07-24 19:00] VITALS: BP 136/76
[2017-07-25 04:00] VITALS: BP 136/74
[2017-07-25 05:35] LABS: BASOPHILS 0 % (0-2); EOSINOPHILS 0 % (0-7); HEMOGLOBIN 9.9 g/dL (13.5-17.5); LYMPHOCYTES 6.1 % (15-50); MCH 25.6 pg (26.0-34.0); MCV 85.3 fL (80.0-100.0); MEAN PLATELET VOLUME 9.9 fL (7.4-10.4); MONOCYTES 1.7 % (2-11); NEUTROPHILS 91.2 % (40-80); PLATELET COUNT 196 10x3/uL (130-400); RBC 3.87 10x6/uL (4.20-6.10); RDW 17.6 % (11.5-14.5)
[2017-07-25 06:04] LABS: ANION GAP 8.8 mmol/L (8-16); CARBON DIOXIDE 35.5 mmol/L (21.0-32.0); CREATININE - SERUM 1.6 mg/dL (0.6-1.3); POTASSIUM - SERUM 4.3 mmol/L (3.5-5.1)
[2017-07-25 08:11] VITALS: BP 152/96
[2017-07-25 11:13] LABS: SPE - A/G RATIO 1.1 (0.7-1.7); SPE - ALPHA-1 GLOBULIN 0.2 g/dL (0.0-0.4); SPE - ALPHA-2 GLOBULIN 0.8 g/dL (0.4-1.0); SPE - BETA GLOBULIN 0.9 g/dL (0.7-1.3); SPE - GAMMA GLOBULIN 0.7 g/dL (0.4-1.8); SPE - M-SPIKE Not Observed g/dL (Not Observed); SPE - TOTAL PROTEIN 5.7 g/dL (6.0-8.5)
[2017-07-25 12:29] VITALS: BP 159/96
[2017-07-25] MEDS ORDERED: MUCINEX DM ER1 EAC1 PO (14:48)
[2017-07-25] MEDS ORDERED: PREDNISONE10 MG PO (14:55)
[2017-07-25 16:11] VITALS: BP 176/99
== END 2017-07-25 17:09 | disposition home or self-care (01) | DRG 177 ==
LOC: D.ER 09:49 → D.M2 13:58
PROVIDERS: Emergency Medicine; Internal Medicine Gastroenterology; Internal Medicine Nephrology
PROC: 0DB78ZX Excision of Stomach, Pylorus, Via Natural or Artificial Opening Endoscopic, Diagnostic (ICD-10-PCS; 2017-07-24)
PROC: 0DB58ZX Excision of Esophagus, Via Natural or Artificial Opening Endoscopic, Diagnostic (ICD-10-PCS; 2017-07-24)
PROC: 0D568ZZ Destruction of Stomach, Via Natural or Artificial Opening Endoscopic (ICD-10-PCS; 2017-07-24)
PROC: 0DB98ZX Excision of Duodenum, Via Natural or Artificial Opening Endoscopic, Diagnostic (ICD-10-PCS; principal; 2017-07-24 13:00)
DX: J15.6 Pneumonia due to other Gram-negative bacteria (principal); I50.23 Acute on chronic systolic (congestive) heart failure; K55.21 Angiodysplasia of colon with hemorrhage; J44.1 Chronic obstructive pulmonary disease with (acute) exacerbation; J44.0 Chronic obstructive pulmonary disease with (acute) lower respiratory infection; F17.203 Nicotine dependence unspecified, with withdrawal; I13.0 Hypertensive heart and chronic kidney disease with heart failure and stage 1 through stage 4 chronic kidney disease, or unspecified chronic kidney disease; N17.9 Acute kidney failure, unspecified; I24.8 Other forms of acute ischemic heart disease; J15.212 Pneumonia due to Methicillin resistant Staphylococcus aureus; N18.3 Chronic kidney disease, stage 3 (moderate); I25.119 Atherosclerotic heart disease of native coronary artery with unspecified angina pectoris; I48.0 Paroxysmal atrial fibrillation; F41.9 Anxiety disorder, unspecified; F32.9 Major depressive disorder, single episode, unspecified; R94.31 Abnormal electrocardiogram [ECG] [EKG]; Z99.81 Dependence on supplemental oxygen; K20.9 Esophagitis, unspecified; K29.70 Gastritis, unspecified, without bleeding; K29.80 Duodenitis without bleeding; N28.1 Cyst of kidney, acquired; I08.1 Rheumatic disorders of both mitral and tricuspid valves; D50.9 Iron deficiency anemia, unspecified; F12.10 Cannabis abuse, uncomplicated; J30.9 Allergic rhinitis, unspecified; Z95.5 Presence of coronary angioplasty implant and graft

== ENCOUNTER 2017-10-10 22:00 | Inpatient (IN) | payer MEDICARE, MEDICAID ==
[~2017-10-10] VITALS: Ht 170.2 cm; Wt 68.0 kg
[2017-10-10 23:48] LABS: APPEARANCE CLEAR (CLEAR); BILIRUBIN NEGATIVE (NEGATIVE); COLOR YELLOW (YELLOW); GLUCOSE NEGATIVE (NEGATIVE); KETONE NEGATIVE (NEGATIVE); NITRITE NEGATIVE (NEGATIVE); PROTEIN NEGATIVE (NEGATIVE); SPECIFIC GRAVITY 1.015 (1.005-1.020); UROBILINOGEN NORMAL (NORMAL)
[2017-10-11 00:08] LABS: HEMATOCRIT 37.4 % (42.0-54.0); HEMOGLOBIN 11.6 g/dL (13.5-17.5); LYMPHOCYTES 22.6 % (15-50); MCH 26.5 pg (26.0-34.0); MCV 85.4 fL (80.0-100.0); MEAN PLATELET VOLUME 9.9 fL (7.4-10.4); NEUTROPHILS 67.6 % (40-80); PLATELET COUNT 175 10x3/uL (130-400); RBC 4.38 10x6/uL (4.20-6.10); RDW 19.2 % (11.5-14.5); WBC 11.1 10x3/uL (4.8-10.8)
[2017-10-11 00:30] LABS: ALBUMIN 2.8 g/dL (3.4-5.0); ANION GAP 12.5 mmol/L (8-16); BILIRUBIN - TOTAL 0.63 mg/dL (0.2-1.3); CALCIUM 8.8 mg/dL (8.5-10.1); CARBON DIOXIDE 28.3 mmol/L (21.0-32.0); CREATININE - SERUM 2.5 mg/dL (0.6-1.3); POTASSIUM - SERUM 3.8 mmol/L (3.5-5.1); PROTEIN - SERUM 7.2 g/dL (6.4-8.2)
[2017-10-11 02:02] LABS: INR 1.2 (0.85-1.17); PROTIME 14.7 SECONDS (11.6-15.0)
[2017-10-11 08:27] LABS: BASOPHILS 0.3 % (0-2); EOSINOPHILS 1.8 % (0-7); HEMATOCRIT 37.8 % (42.0-54.0); HEMOGLOBIN 11.4 g/dL (13.5-17.5); IMMATURE GRANULOCYTES 0.2 % (0-5); LYMPHOCYTES 26.6 % (15-50); MCH 26.9 pg (26.0-34.0); MCHC 30.2 g/dL (31.0-37.0); MEAN PLATELET VOLUME 10.2 fL (7.4-10.4); MONOCYTES 13.4 % (2-11); NEUTROPHILS 57.7 % (40-80); PLATELET COUNT 189 10x3/uL (130-400); RBC 4.24 10x6/uL (4.20-6.10); WBC 8.9 10x3/uL (4.8-10.8)
[2017-10-11 08:30] LABS: MCV 89.2 fL (80.0-100.0)
[2017-10-11 08:31] LABS: ALBUMIN 2.8 g/dL (3.4-5.0); ANION GAP 10.8 mmol/L (8-16); BILIRUBIN - TOTAL 0.61 mg/dL (0.2-1.3); CALCIUM 8.3 mg/dL (8.5-10.1); CARBON DIOXIDE 30.3 mmol/L (21.0-32.0); CREATININE - SERUM 2.3 mg/dL (0.6-1.3); POTASSIUM - SERUM 4.1 mmol/L (3.5-5.1); PROTEIN - SERUM 6.2 g/dL (6.4-8.2)
[2017-10-11] MEDS ORDERED: VALIUM5 MG PO (20:38)
[2017-10-11] MEDS ORDERED: FERROUS SULFAT140 MG PO (20:38)
[2017-10-11 21:06] VITALS: BP 107/64
[2017-10-12 00:58] VITALS: BP 98/55
[2017-10-12 04:00] VITALS: BP 106/55
[2017-10-12 07:00] LABS: BASOPHILS 0.3 % (0-2); EOSINOPHILS 0.4 % (0-7); HEMATOCRIT 31.9 % (42.0-54.0); HEMOGLOBIN 9.4 g/dL (13.5-17.5); IMMATURE GRANULOCYTES 0.1 % (0-5); LYMPHOCYTES 19.5 % (15-50); MCH 26.2 pg (26.0-34.0); MCHC 29.5 g/dL (31.0-37.0); MCV 88.9 fL (80.0-100.0); MEAN PLATELET VOLUME 10.4 fL (7.4-10.4); MONOCYTES 12.6 % (2-11); NEUTROPHILS 67.1 % (40-80); RBC 3.59 10x6/uL (4.20-6.10); WBC 7.8 10x3/uL (4.8-10.8)
[2017-10-12 07:10] LABS: ANION GAP 13.7 mmol/L (8-16); CALCIUM 7.9 mg/dL (8.5-10.1); CARBON DIOXIDE 24.3 mmol/L (21.0-32.0); CREATININE - SERUM 1.7 mg/dL (0.6-1.3)
[2017-10-12 07:24] LABS: PLATELET COUNT 150 10x3/uL (130-400)
[2017-10-12 08:34] VITALS: BP 111/57
[2017-10-12 11:47] VITALS: BP 113/62
[2017-10-12 12:36] VITALS: Ht 170.2 cm; Wt 68.0 kg
[2017-10-12 16:15] VITALS: BP 120/60
[2017-10-12 20:26] VITALS: BP 112/70
[2017-10-13 00:34] VITALS: BP 117/68
[2017-10-13 04:00] VITALS: BP 110/74
[2017-10-13 04:12] LABS: BASOPHILS 0.2 % (0-2); EOSINOPHILS 1.2 % (0-7); HEMATOCRIT 31.9 % (42.0-54.0); HEMOGLOBIN 9.4 g/dL (13.5-17.5); IMMATURE GRANULOCYTES 0.1 % (0-5); LYMPHOCYTES 22.4 % (15-50); MCH 26.5 pg (26.0-34.0); MCHC 29.5 g/dL (31.0-37.0); MCV 89.9 fL (80.0-100.0); MEAN PLATELET VOLUME 9.6 fL (7.4-10.4); MONOCYTES 9.9 % (2-11); NEUTROPHILS 66.2 % (40-80); PLATELET COUNT 152 10x3/uL (130-400); RBC 3.55 10x6/uL (4.20-6.10); RDW 18.7 % (11.5-14.5); WBC 8.3 10x3/uL (4.8-10.8)
[2017-10-13 04:44] LABS: ANION GAP 15.8 mmol/L (8-16); CALCIUM 8.1 mg/dL (8.5-10.1); CREATININE - SERUM 1.3 mg/dL (0.6-1.3); POTASSIUM - SERUM 3.8 mmol/L (3.5-5.1)
[2017-10-13 08:38] VITALS: BP 140/94
[2017-10-13 10:43] VITALS: BP 136/91
[2017-10-13 15:34] VITALS: BP 132/84
[2017-10-13 20:30] VITALS: BP 145/85
[2017-10-14 00:30] VITALS: BP 148/76
[2017-10-14 04:30] VITALS: BP 143/90
[2017-10-14 06:07] LABS: BASOPHILS 0.2 % (0-2); EOSINOPHILS 0.6 % (0-7); HEMATOCRIT 32.4 % (42.0-54.0); HEMOGLOBIN 9.8 g/dL (13.5-17.5); IMMATURE GRANULOCYTES 0.4 % (0-5); LYMPHOCYTES 16.8 % (15-50); MCH 26.8 pg (26.0-34.0); MCHC 30.2 g/dL (31.0-37.0); MCV 88.5 fL (80.0-100.0); MEAN PLATELET VOLUME 10.2 fL (7.4-10.4); MONOCYTES 7.4 % (2-11); NEUTROPHILS 74.6 % (40-80); PLATELET COUNT 176 10x3/uL (130-400); RBC 3.66 10x6/uL (4.20-6.10); RDW 18.6 % (11.5-14.5)
[2017-10-14 06:26] LABS: ANION GAP 15.2 mmol/L (8-16); CALCIUM 8.2 mg/dL (8.5-10.1); CARBON DIOXIDE 21.3 mmol/L (21.0-32.0); CREATININE - SERUM 1.3 mg/dL (0.6-1.3); POTASSIUM - SERUM 3.5 mmol/L (3.5-5.1)
[2017-10-14 08:22] VITALS: BP 132/68
[2017-10-14 11:55] VITALS: BP 133/81
[2017-10-14] MEDS ORDERED: FLAGYL500 MG PO (13:46)
[2017-10-14 15:42] VITALS: BP 130/73
[2017-10-14 21:53] VITALS: BP 127/80
[2017-10-15 02:40] VITALS: BP 123/85
[2017-10-15 06:27] LABS: BASOPHILS 0.1 % (0-2); EOSINOPHILS 1.1 % (0-7); HEMATOCRIT 31.8 % (42.0-54.0); HEMOGLOBIN 9.6 g/dL (13.5-17.5); IMMATURE GRANULOCYTES 0.4 % (0-5); LYMPHOCYTES 17.2 % (15-50); MCH 26.5 pg (26.0-34.0); MCHC 30.2 g/dL (31.0-37.0); MCV 87.8 fL (80.0-100.0); MEAN PLATELET VOLUME 9.9 fL (7.4-10.4); MONOCYTES 8.9 % (2-11); NEUTROPHILS 72.3 % (40-80); PLATELET COUNT 196 10x3/uL (130-400); RBC 3.62 10x6/uL (4.20-6.10); RDW 18.6 % (11.5-14.5); WBC 9.3 10x3/uL (4.8-10.8)
[2017-10-15 06:42] LABS: ANION GAP 14.3 mmol/L (8-16); CARBON DIOXIDE 22.2 mmol/L (21.0-32.0); CREATININE - SERUM 1.3 mg/dL (0.6-1.3); POTASSIUM - SERUM 3.5 mmol/L (3.5-5.1)
[2017-10-15 06:44] VITALS: BP 136/90
[2017-10-15 10:17] VITALS: BP 140/70
[2017-10-15 12:33] VITALS: BP 137/81
== END 2017-10-15 15:14 | disposition home or self-care (01) | DRG 372 ==
LOC: D.ER 22:00 → D.M2 10-11 03:06 → D.EDHOLD 10-11 03:06 → D.M2 10-11 19:25
PROVIDERS: Family Medicine; Internal Medicine Nephrology
DX: A04.72 Enterocolitis due to Clostridium difficile, not specified as recurrent (principal); K55.9 Vascular disorder of intestine, unspecified; N17.9 Acute kidney failure, unspecified; I13.0 Hypertensive heart and chronic kidney disease with heart failure and stage 1 through stage 4 chronic kidney disease, or unspecified chronic kidney disease; F17.203 Nicotine dependence unspecified, with withdrawal; I42.9 Cardiomyopathy, unspecified; K56.7 Ileus, unspecified; A08.4 Viral intestinal infection, unspecified; I71.4 Abdominal aortic aneurysm, without rupture; N18.3 Chronic kidney disease, stage 3 (moderate); E78.5 Hyperlipidemia, unspecified; I48.91 Unspecified atrial fibrillation; I50.9 Heart failure, unspecified; J44.9 Chronic obstructive pulmonary disease, unspecified; Z79.01 Long term (current) use of anticoagulants; I25.10 Atherosclerotic heart disease of native coronary artery without angina pectoris; N40.0 Benign prostatic hyperplasia without lower urinary tract symptoms; D64.9 Anemia, unspecified; Z86.711 Personal history of pulmonary embolism; Z95.5 Presence of coronary angioplasty implant and graft

== ENCOUNTER → 2018-06-26 06:56 | Outpatient (CLI) | payer MEDICARE, MEDICAID ==
[2017-10-12 12:36] VITALS: BMI 21.9
[~2018-06-26 06:56] MED LIST changes: +FERROUS SULFAT140 MG PO; +FLAGYL500 MG PO
[2018-06-26 07:29] LABS: BASOPHILS 0.6 % (0-2); EOSINOPHILS 2.8 % (0-7); HEMATOCRIT 37.2 % (42.0-54.0); HEMOGLOBIN 11.2 g/dL (13.5-17.5); IMMATURE GRANULOCYTES 0.3 % (0-5); LYMPHOCYTES 35.8 % (15-50); MCH 24.6 pg (26.0-34.0); MCHC 30.1 g/dL (31.0-37.0); MCV 81.8 fL (80.0-100.0); MEAN PLATELET VOLUME 9.8 fL (7.4-10.4); MONOCYTES 8.1 % (2-11); NEUTROPHILS 52.4 % (40-80); PLATELET COUNT 161 10x3/uL (130-400); RBC 4.55 10x6/uL (4.20-6.10); WBC 6.9 10x3/uL (4.8-10.8)
== END | disposition home or self-care (01) ==
LOC: D.LAB 06:56 → D.RAD 08:00
PROVIDERS: Internal Medicine Gastroenterology
DX: R19.5 Other fecal abnormalities (principal)

== ENCOUNTER 2019-05-11 15:08 | Emergency (ER) | payer MEDICARE, MEDICAID ==
[~2019-05-11] VITALS: Ht 170.2 cm; Wt 68.2 kg
[2019-05-11 15:13] VITALS: Ht 170.2 cm; Wt 68.2 kg
[2019-05-11 15:44] LABS: BASOPHILS 0.2 % (0-2); EOSINOPHILS 0.4 % (0-7); HEMATOCRIT 42.8 % (42.0-54.0); HEMOGLOBIN 13.1 g/dL (13.5-17.5); LYMPHOCYTES 28.3 % (15-50); MCHC 30.6 g/dL (31.0-37.0); MCV 81.8 fL (80.0-100.0); MEAN PLATELET VOLUME 9.9 fL (7.4-10.4); MONOCYTES 7.4 % (2-11); NEUTROPHILS 62.7 % (40-80); PLATELET COUNT 251 10x3/uL (130-400); RBC 5.23 10x6/uL (4.20-6.10); RDW 17.7 % (11.5-14.5); WBC 11.4 10x3/uL (4.8-10.8)
[2019-05-11 15:55] LABS: INR 1.06 (0.85-1.17); PROTIME 13.3 SECONDS (11.6-15.0)
[2019-05-11 16:01] LABS: ALKALINE PHOSPHATASE 112 U/L (46-116); ALT (SGPT) 34 U/L (10-68); BILIRUBIN - TOTAL 0.35 mg/dL (0.2-1.3); CALC OSMOLALITY 285 mosm/kg (275-300); CALCIUM 8.9 mg/dL (8.5-10.1); CHLORIDE - SERUM 102 mmol/L (98-107); CREATININE - SERUM 1.6 mg/dL (0.6-1.3); GLUCOSE 91 mg/dL (74-106); POTASSIUM - SERUM 4.3 mmol/L (3.5-5.1); PROTEIN - SERUM 7.4 g/dL (6.4-8.2); SODIUM 139 mmol/L (136-145); UREA NITROGEN 35 mg/dL (7-18); eGFR NON AFRICAN AMERICAN 46 mL/min (90-120)
[2019-05-11 16:13] LABS: CKMB 1.1 U/L (0.0-3.6); CREATINE KINASE 41 UL (21-232); PRO BNP 1775 pg/mL (0-125)
[2019-05-11 16:14] LABS: TROPONIN-I 0.017 ng/mL (0.000-0.060)
[2019-05-11] MEDS ORDERED: PREDNISONE20 MG PO (18:55)
[2019-05-11 19:30] VITALS: BP 137/88
== END 2019-05-11 19:30 | disposition home or self-care (01) ==
LOC: D.ER 15:08
PROVIDERS: Emergency Medicine
DX: J44.1 Chronic obstructive pulmonary disease with (acute) exacerbation (principal); F17.210 Nicotine dependence, cigarettes, uncomplicated; I10 Essential (primary) hypertension

== ENCOUNTER 2019-06-04 12:48 | Inpatient (IN) | payer MEDICARE, MEDICAID ==
[~2019-06-04] VITALS: Ht 170.2 cm; Wt 63.5 kg
[2019-06-04] VITALS (7 sets, daily range): BP systolic 147–210; BP diastolic 85–116; BMI 21.9
[2019-06-04 14:14] LABS: CALC OSMOLALITY 278 mosm/kg (275-300); CALCIUM 9.3 mg/dL (8.5-10.1); CARBON DIOXIDE 23.7 mmol/L (21.0-32.0); CHLORIDE - SERUM 97 mmol/L (98-107); CREATININE - SERUM 1.6 mg/dL (0.6-1.3); GLUCOSE 85 mg/dL (74-106); POTASSIUM - SERUM 4.3 mmol/L (3.5-5.1); SODIUM 136 mmol/L (136-145); UREA NITROGEN 34 mg/dL (7-18); eGFR NON AFRICAN AMERICAN 46 mL/min (90-120)
[2019-06-04 14:22] LABS: BASOPHILS 0.3 % (0-2); EOSINOPHILS 0 % (0-7); HEMATOCRIT 36.1 % (42.0-54.0); HEMOGLOBIN 11.2 g/dL (13.5-17.5); IMMATURE GRANULOCYTES 0.5 % (0-5); LYMPHOCYTES 12.4 % (15-50); MCH 25.9 pg (26.0-34.0); MCV 83.6 fL (80.0-100.0); MEAN PLATELET VOLUME 9.5 fL (7.4-10.4); MONOCYTES 6.8 % (2-11); RBC 4.32 10x6/uL (4.20-6.10); RDW 18.9 % (11.5-14.5); WBC 13.4 10x3/uL (4.8-10.8)
[2019-06-04 14:23] LABS: APTT 37.9 SECONDS (22.8-39.4); INR 1.22 (0.85-1.17); PROTIME 14.8 SECONDS (11.6-15.0)
[2019-06-04 14:26] LABS: PLATELET COUNT 312 10x3/uL (130-400)
[2019-06-04 15:53] LABS: ALBUMIN 2.6 g/dL (3.4-5.0); ALKALINE PHOSPHATASE 120 U/L (46-116); ALT (SGPT) 28 U/L (10-68); BILIRUBIN - TOTAL 0.68 mg/dL (0.2-1.3); CKMB 2.3 U/L (0.0-3.6); CREATINE KINASE 68 UL (21-232); PRO BNP 3414 pg/mL (0-125); PROTEIN - SERUM 7.8 g/dL (6.4-8.2)
[2019-06-04 16:02] LABS: TROPONIN-I 0.067 ng/mL (0.000-0.060)
--- NOTE | 2019-06-04 18:22 | NUR ---
AMB PT WITH 2L NC. PT AMB APPROX 100 FT AND HR ELEVATED TO 119-128 BPM, RESP 24-30, AND SATS 89-92%, BP WHEN BACK IN BED 210/116. RONNI BURCH ND, DR NOTIFIED.
--- NOTE | 2019-06-04 18:45 | NUR ---
I have reviewed this patient and I concur with the Shift Assessment completed by the Licensed Practical Nurse today this shift.
--- NOTE | 2019-06-04 19:28 | NUR ---
BEDSIDE REPORT HANDED OFF VIA SBAR FROM NANDO LUNA.
[2019-06-05 01:18] VITALS: BP 151/80
[2019-06-05 01:53] LABS: CKMB 3.4 U/L (0.0-3.6); CREATINE KINASE 93 UL (21-232); TROPONIN-I 0.028 ng/mL (0.000-0.060)
[2019-06-05 04:22] VITALS: BP 140/76
[2019-06-05 06:54] LABS: BASOPHILS 0.3 % (0-2); EOSINOPHILS 0 % (0-7); HEMATOCRIT 36.2 % (42.0-54.0); HEMOGLOBIN 11.1 g/dL (13.5-17.5); IMMATURE GRANULOCYTES 0.8 % (0-5); LYMPHOCYTES 11.4 % (15-50); MCH 25.3 pg (26.0-34.0); MCHC 30.7 g/dL (31.0-37.0); MCV 82.6 fL (80.0-100.0); MEAN PLATELET VOLUME 9.9 fL (7.4-10.4); MONOCYTES 0.8 % (2-11); NEUTROPHILS 86.7 % (40-80); PLATELET COUNT 311 10x3/uL (130-400); RBC 4.38 10x6/uL (4.20-6.10); RDW 18.9 % (11.5-14.5)
[2019-06-05 06:56] LABS: WBC 6.2 10x3/uL (4.8-10.8)
[2019-06-05 07:30] LABS: CALC OSMOLALITY 288 mosm/kg (275-300); CALCIUM 9.1 mg/dL (8.5-10.1); CARBON DIOXIDE 24.5 mmol/L (21.0-32.0); CHLORIDE - SERUM 102 mmol/L (98-107); CKMB 3.8 U/L (0.0-3.6); CREATINE KINASE 66 UL (21-232); CREATININE - SERUM 1.8 mg/dL (0.6-1.3); MAGNESIUM - SERUM 2.1 mg/dL (1.8-2.4); PHOSPHOROUS 4.7 mg/dL (2.5-4.9); POTASSIUM - SERUM 4.2 mmol/L (3.5-5.1); SODIUM 138 mmol/L (136-145); TROPONIN-I 0.033 ng/mL (0.000-0.060); UREA NITROGEN 42 mg/dL (7-18); eGFR NON AFRICAN AMERICAN 40 mL/min (90-120)
[2019-06-05 07:33] LABS: GLUCOSE 130 mg/dL (74-106)
[2019-06-05 09:22] VITALS: BP 177/94
[2019-06-05 12:28] VITALS: BP 186/99
[2019-06-05 12:44] LABS: CKMB 3.5 U/L (0.0-3.6); CREATINE KINASE 61 UL (21-232)
[2019-06-05 13:34] VITALS: BMI 21.9
[2019-06-05 16:20] VITALS: Ht 170.2 cm; Wt 63.5 kg
--- NOTE | 2019-06-05 18:49 | NUR ---
I have reviewed this patient and I concur with the Shift Assessment completed by the Licensed Practical Nurse today this shift.
--- NOTE | 2019-06-05 20:00 | NUR ---
A/O WITH NO SIGNS OF DISTRESS. IV TO THE RT AC WITH NO REDNESS OR SWELLING. NC @2L. DENIES NO OTHER NEEDS AT THIS TIME. CONTINUE PLAN OF CARE.
[2019-06-05 22:29] LABS: APPEARANCE CLEAR (CLEAR); COLOR YELLOW (YELLOW); GLUCOSE NEGATIVE (NEGATIVE); KETONE NEGATIVE (NEGATIVE); NITRITE NEGATIVE (NEGATIVE); PROTEIN TRACE mg/dL (NEGATIVE)
[2019-06-05 22:30] LABS: BILIRUBIN NEGATIVE (NEGATIVE); UROBILINOGEN NORMAL (NORMAL)
[2019-06-05 22:34] LABS: RED CELLS - URINE NONE SEEN /hpf (0-5); WHITE CELLS - URINE 0-5 /hpf (NEGATIVE)
[2019-06-05 22:35] LABS: BACTERIA FEW /hpf (NEGATIVE); EPITHELIAL CELLS NSEEN /hpf (0-5)
[2019-06-05 22:41] LABS: UDS - AMPHET NEGATIVE QUAL (NEGATIVE); UDS - BARB NEGATIVE QUAL (NEGATIVE); UDS - BENZO POSITIVE QUAL (NEGATIVE); UDS - COCAINE NEGATIVE QUAL (NEGATIVE); UDS - OPIATE NEGATIVE QUAL (NEGATIVE); UDS - PCP NEGATIVE QUAL (NEGATIVE); UDS - THC NEGATIVE QUAL (NEGATIVE)
--- NOTE | 2019-06-06 00:35 | NUR ---
CALLED RODOLFO FOR BP OF 148/100. PRN BP MED ORDERED. WILL CONTINUE TO MONITOR.
[2019-06-06 00:37] VITALS: BP 148/104
[2019-06-06 04:48] VITALS: BP 174/98
[2019-06-06 06:43] LABS: BASOPHILS 0.1 % (0-2); EOSINOPHILS 0 % (0-7); HEMATOCRIT 33.5 % (42.0-54.0); HEMOGLOBIN 10.2 g/dL (13.5-17.5); IMMATURE GRANULOCYTES 1.2 % (0-5); LYMPHOCYTES 5.4 % (15-50); MCH 25.1 pg (26.0-34.0); MCHC 30.4 g/dL (31.0-37.0); MCV 82.5 fL (80.0-100.0); MEAN PLATELET VOLUME 9.9 fL (7.4-10.4); MONOCYTES 2.5 % (2-11); NEUTROPHILS 90.8 % (40-80); PLATELET COUNT 385 10x3/uL (130-400); RBC 4.06 10x6/uL (4.20-6.10); RDW 18.6 % (11.5-14.5); WBC 20.8 10x3/uL (4.8-10.8)
[2019-06-06 06:48] LABS: ANION GAP 13.9 mmol/L (8-16); CALCIUM 8.6 mg/dL (8.5-10.1); CARBON DIOXIDE 26.1 mmol/L (21.0-32.0); MAGNESIUM - SERUM 1.8 mg/dL (1.8-2.4); PHOSPHOROUS 4.5 mg/dL (2.5-4.9)
[2019-06-06 08:25] VITALS: BP 135/75
--- NOTE | 2019-06-06 09:00 | NUR ---
ALERT AND ORIENTED X4 WITH O2 2L N/C. BREATH SOUNDS DIMINISHED X4 ANTERIOR WITH CAP REFILL<3 SEC. TELEMETRY INTACT. IVF INFUSING AT PRESCRIBED RATE. ENCOURAGED TO USE CALL LIGHT FOR ASSIST.
[2019-06-06 12:46] VITALS: BP 151/79
[2019-06-06 15:53] VITALS: BP 116/64
--- NOTE | 2019-06-06 21:30 | NUR ---
AWAKE,ALERT.RESP EVEN AND UNALBORED. NO DISTRESS NOTE. IV TO RAC WIHTOUT REDNESS OR EDEMA NOTED. AT BEDSIDE. CL IN REACH
[2019-06-07 00:46] VITALS: BP 114/81
[2019-06-07 05:31] VITALS: BP 180/84
[2019-06-07 05:31] LABS: HEMATOCRIT 31.3 % (42.0-54.0); HEMOGLOBIN 9.6 g/dL (13.5-17.5); MCH 25.3 pg (26.0-34.0); MCHC 30.7 g/dL (31.0-37.0); MCV 82.4 fL (80.0-100.0); MEAN PLATELET VOLUME 9.4 fL (7.4-10.4); PLATELET COUNT 360 10x3/uL (130-400); RDW 18.6 % (11.5-14.5); WBC 23.7 10x3/uL (4.8-10.8)
[2019-06-07 05:44] LABS: ANION GAP 11.9 mmol/L (8-16); CALCIUM 8.5 mg/dL (8.5-10.1); CARBON DIOXIDE 28.8 mmol/L (21.0-32.0); MAGNESIUM - SERUM 1.6 mg/dL (1.8-2.4); PHOSPHOROUS 3.5 mg/dL (2.5-4.9); POTASSIUM - SERUM 3.7 mmol/L (3.5-5.1)
[2019-06-07 05:57] LABS: LYMPHOCYTES 7 % (15-50); MONOCYTES 6 % (2-11); NEUTROPHILS 81 % (40-80); PLATELET ESTIMATE NORMAL
[2019-06-07 08:20] VITALS: BP 114/80
--- NOTE | 2019-06-07 10:12 | NUR ---
ALERT AND ORIENTED X4 WITH O2 2L N/C. BREATH SOUNDS CLEAR BUT DIMINISHED X4 ANTERIOR WITH NO DYSPNEA NOTED AT THIS TIME. TELEMETRY INTACT AND DENEIS ANY PAIN OR DISCOMFORT AT THIS TIME. ENCOURAGWED TO USE CALL LIGHT FOR ASSIST.
[2019-06-07 12:21] VITALS: BP 103/71
[2019-06-07 17:29] VITALS: BP 127/86
[2019-06-07 20:00] VITALS: BP 113/79
--- NOTE | 2019-06-07 20:10 | NUR ---
RESTING QUEITLY WITH NO DISTRESS NOTED. RESP UNLABORED. O2 AT 2L PER NC ON. IV TO LEFT FOREARM INTACT WITHOUT REDNESS OR EDEMA NOTE. NO COMPLAITNS VOICED. CL IN REACH
[2019-06-08 04:00] VITALS: BP 114/84
--- NOTE | 2019-06-08 04:37 | NUR ---
I have reviewed this patient and I concur with the Shift Assessment completed by the Licensed Practical Nurse today this shift.
[2019-06-08 05:49] LABS: ANION GAP 11.1 mmol/L (8-16); CALCIUM 8.4 mg/dL (8.5-10.1); CARBON DIOXIDE 29.3 mmol/L (21.0-32.0); CREATININE - SERUM 2.2 mg/dL (0.6-1.3); MAGNESIUM - SERUM 1.7 mg/dL (1.8-2.4); PHOSPHOROUS 3.5 mg/dL (2.5-4.9); POTASSIUM - SERUM 3.4 mmol/L (3.5-5.1)
[2019-06-08 05:58] LABS: BASOPHILS 0.8 % (0-2); EOSINOPHILS 0 % (0-7); HEMATOCRIT 29.7 % (42.0-54.0); HEMOGLOBIN 8.9 g/dL (13.5-17.5); IMMATURE GRANULOCYTES 13.5 % (0-5); LYMPHOCYTES 11.5 % (15-50); MCH 24.8 pg (26.0-34.0); MCV 82.7 fL (80.0-100.0); MEAN PLATELET VOLUME 9.6 fL (7.4-10.4); MONOCYTES 7.5 % (2-11); NEUTROPHILS 66.7 % (40-80); PLATELET COUNT 357 10x3/uL (130-400); RBC 3.59 10x6/uL (4.20-6.10); RDW 18.9 % (11.5-14.5); WBC 20.1 10x3/uL (4.8-10.8)
[2019-06-08 08:40] VITALS: BP 114/82
[2019-06-08 13:22] VITALS: BP 126/80
[2019-06-08 16:46] VITALS: BP 110/73
[2019-06-08 20:11] VITALS: BP 119/78
--- NOTE | 2019-06-08 20:45 | NUR ---
WQATCHING TV WITH NO COMPALITNS VOICED. RESP UNALBORED. NO DISTRESS NOTED. O2 @ 2L PER NC ON. IV TO LFA INTACT WITHOUT REDNESS OR EDEMA NOTED. CL IN REACH. AT BEDSIDE.
[2019-06-09 00:52] VITALS: BP 135/79
[2019-06-09 05:19] VITALS: BP 126/84
--- NOTE | 2019-06-09 06:20 | NUR ---
I have reviewed this patient and I concur with the Shift Assessment completed by the Licensed Practical Nurse today this shift.
[2019-06-09 07:59] VITALS: BP 120/80
--- NOTE | 2019-06-09 08:43 | MORECARE ---
CASE MANAGEMENT DISCHARGE SUMMARY PATIENT: YARELY MCCLURE UNIT: [id number] ADM DATE: 06/04/19 AGE: 68 : 48 SEX: M ROOM/BED: D.2235 AUTHOR: DEBORA BAILEY PHYSICIAN: REFERRING PHYSICIAN: FELIX DOE MD DATE OF SERVICE: 06/09/19 Discharge Plan Patient Name: YARELY MCCLURE Facility: [facility]:[place] : 1950 Planned Disposition: Home with Home Health Anticipated Discharge Date: Discharge Date: Expected LOS: Initial Reviewer: [email or web address] Initial Review Date: 06/09/2019 Generated: 06/09/19 9:43 am DCPIA - Discharge Planning Initial Assessment Updated by [email or web address]: Korin Teague on 06/09/19 8:41 am * Is the patient Alert and Oriented? Yes * How many steps to enter\exit or inside your home? 2/2 * PCP Dr. Buchanan * Pharmacy [facility] in [place] * Preadmission Environment Home with Family * ADLs Partial Dependent * Partial ADLs (Assistance needed) Medication Management * Equipment Cane Nebulizer Other Oxygen Shower Chair Walker * Other Equipment Portable oxygen * List name and contact numbers for known caregivers / representatives who currently or will assist patient after discharge: Kassie Sanchez [facility] - [phone] * Verbal permission to speak to the caregivers and representatives has been obtained from the patient. Yes * Community resources currently utilized Home Health * Please name any agencies selected above. [facility] Private [facility] 3 hours a day * Additional services required to return to the preadmission environment? No * Can the patient safely return to the preadmission environment? Yes * Has this patient been hospitalized within the prior 30 days at any hospital? Yes Patient Name: YARELY MCCLURE Page [id number] at 0843 All edits/amendments must be made on the electronic document DICTATION DATE: 06/09/19841 AIRCRAFT ENGINE MECHANIC SUPERVISOR: JOHN 06/09/19841 RPT#: [id number] DC DATE: STATUS: ADM IN [facility] [address] [place] [address] END OF REPORT
--- NOTE | 2019-06-09 08:57 | MORECARE ---
CASE MANAGEMENT DISCHARGE SUMMARY PATIENT: YARELY MCCLURE UNIT: [id number] ADM DATE: 06/04/19 AGE: 68 : 48 SEX: M ROOM/BED: D.2235 AUTHOR: LEODOC PHYSICIAN: REFERRING PHYSICIAN: FELIX DOE MD DATE OF SERVICE: 06/09/19 Discharge Plan Patient Name: YARELY MCCLURE Facility: [facility]:[place] : 1950 Planned Disposition: Home with Home Health Anticipated Discharge Date: Discharge Date: Expected LOS: Initial Reviewer: [email or web address] Initial Review Date: 06/09/2019 Generated: 06/09/19 9:57 am Comments DCP- Discharge Planning Updated by [email or web address]: Korin Teague on 06/09/19 7:[address] Patient Name: YARELY MCCLURE Admission Status: ER Accout number: [id number] Admission Date: 06-04-2019 : 1950 Admission Diagnosis: Attending: FELIX DOE Current LOS: 5 Anticipated DC Date: Planned Disposition: Home with Home Health Primary Insurance: [facility] MEDICARE SOLUTIONS Discharge Planning Comments: CM met with patient to discuss discharge planning/needs, his is present in the room. Verbal permission to discuss discharge planning with present. He lives with his . States his sets up his medication, otherwise he is independent. States he does have an aide that assists him with personal care, she comes for 3 hours a day. States aide is from [facility]. He has oxygen and portable and a nebulizer, DME is [employer]. CM discussed the availability of home health, rehab, SNF and additional DME. States they would like to resume HHS on discharge and feel like they could use a nurse visit. I called [facility] in [place] and spoke with Jenelle, referral sent. CM will continue to follow and assist with discharge planning/needs. Plisse Machine Operator: Korin Teague DCPIA - Discharge Planning Initial Assessment Updated by [email or web address]: Korin Teague on 06/09/19 8:41 am * Is the patient Alert and Oriented? Yes * How many steps to enter\exit or inside your home? 2/2 * PCP Dr. Dewayne * Pharmacy [facility] in [place] * Preadmission Environment Home with Family * ADLs Partial Dependent * Partial ADLs (Assistance needed) Medication Management * Equipment Cane Nebulizer Other Oxygen Shower Chair Walker * Other Equipment Portable oxygen * List name and contact numbers for known caregivers / representatives who currently or will assist patient after discharge: Kassie hayes - [phone] * Verbal permission to speak to the caregivers and representatives has been obtained from the patient. Yes * Community resources currently utilized Home Health * Please name any agencies selected above. [facility] 3 hours a day * Additional services required to return to the preadmission environment? No * Can the patient safely return to the preadmission environment? Yes * Has this patient been hospitalized within the prior 30 days at any hospital? Yes External Providers External Provider: Vignesh [facility] Next Contact Date: Service Request Date: Service Type: Resolution: Reviewer: Comments: Coverage Notice Reviewer: [email or web address] Laura Teague Notice Issued Date-Time: 06/09/2019 8:55 Notice Type: Patient Choice Letter Notice Delivered To: Patient Relationship to Patient: Self Division Chair Name: Delivery Method: HAND - Hand Delivered Laura Days: Prior Verbal Notification: Recipient Understood Notice: Yes Recipient Signature: Yes Med Rec Note Co-signed by Attending: Coverage Notice Comment: [facility] for [facility] in [place] and [facility] in [facility] Last DP export: 06/09/19 7:43 Patient Name: YARELY MCCLURE Page [id number] at 0857 All edits/amendments must be made on the electronic document DICTATION DATE: 06/09/19856 RESIDENTIAL MORTGAGE MANAGER: JOHN 06/09/19 08 RPT#: [id number] DC DATE: STATUS: ADM IN [facility] [address] [place] [address] END OF REPORT
--- NOTE | 2019-06-09 09:00 | NUR ---
PT SITTING UP IN BED. RESP EVEN AND UNLABORED. O2 @ 2L NC IN PLACE. DENIES PAIN AT THIS TIME. IV TO LEFT FOREARM WITH NS @ KVO INFUSING VIA PUMP. SITE WITHOUT REDNESS OR EDEMA. DENIES FURTHER NEEDS AT THIS TIME. CL WITHIN REACH. ENCOURAGED TO CALL WITH NEEDS. CONTINUE POC
[2019-06-09 11:36] LABS: BASOPHILS 1.1 % (0-2); EOSINOPHILS 0.2 % (0-7); HEMATOCRIT 30.9 % (42.0-54.0); HEMOGLOBIN 9.2 g/dL (13.5-17.5); IMMATURE GRANULOCYTES 16.7 % (0-5); MCH 24.9 pg (26.0-34.0); MCHC 29.8 g/dL (31.0-37.0); MCV 83.7 fL (80.0-100.0); MEAN PLATELET VOLUME 9.3 fL (7.4-10.4); MONOCYTES 4.9 % (2-11); NEUTROPHILS 65.1 % (40-80); PLATELET COUNT 307 10x3/uL (130-400); RBC 3.69 10x6/uL (4.20-6.10); RDW 19.1 % (11.5-14.5); WBC 15.9 10x3/uL (4.8-10.8)
[2019-06-09 12:14] LABS: ALBUMIN 2.4 g/dL (3.4-5.0); ANION GAP 11.4 mmol/L (8-16); BILIRUBIN - TOTAL 0.34 mg/dL (0.2-1.3); CALCIUM 8.6 mg/dL (8.5-10.1); CARBON DIOXIDE 30.5 mmol/L (21.0-32.0); POTASSIUM - SERUM 3.9 mmol/L (3.5-5.1); PROTEIN - SERUM 6.8 g/dL (6.4-8.2)
[2019-06-09 12:17] LABS: CREATININE - SERUM 1.6 mg/dL (0.6-1.3)
[2019-06-09] MEDS ORDERED: NICODERM C1 PATCH .1 TRANSDERM (16:01)
[2019-06-09] MEDS ORDERED: ISOSORBIDE MONO30 M1 PO (16:02)
[2019-06-09] MEDS ORDERED: METOPROLOL TART50 MG PO (16:02)
[2019-06-09] MEDS ORDERED: CATAPRES0.1 MG PO (16:03)
[2019-06-09] MEDS ORDERED: FLORAJEN3 CAPS460 MG PO (16:04)
[2019-06-09] MEDS ORDERED: PREDNISONE10 MG PO (16:06)
[2019-06-09] MEDS ORDERED: OMNICEF300 MG PO (16:06)
[2019-06-09] MEDS ORDERED: Tessalon Perle PO (16:06)
--- NOTE | 2019-06-09 16:40 | MORECARE ---
CASE MANAGEMENT DISCHARGE SUMMARY PATIENT: YARELY MCCLURE UNIT: [id number] ADM DATE: 06/04/19 AGE: 68 : 48 SEX: M ROOM/BED: D.2235 AUTHOR: DEBORA BAILEY PHYSICIAN: REFERRING PHYSICIAN: FELIX DOE MD DATE OF SERVICE: 06/09/19 Discharge Plan Patient Name: YARELY MCCLURE Facility: [facility]:[place] : 1950 Planned Disposition: Home with Home Health Anticipated Discharge Date: Discharge Date: Expected LOS: Initial Reviewer: [email or web address] Initial Review Date: 06/09/2019 Generated: 06/09/19 5:40 pm Comments DCP- Discharge Planning Updated by [email or web address]: Korin Teague on 06/09/19 3:[address] Received discharge orders. I spoke with Jenelle with [facility] in [place] and they will see him tomorrow or Sunday. Patient and in agreement to plan. I also notified [facility] personal care that he was going home today and spoke to Barbie. Home today with [facility] DCP- Discharge Planning Updated by [email or web address]: Korin Teague on 06/09/19 7:[address] Patient Name: YARELY MCCLURE Admission Status: ER Accout number: [id number] Admission Date: 06-04-2019 : 1950 Admission Diagnosis: Attending: FELIX DOE Current LOS: 5 Anticipated DC Date: Planned Disposition: Home with Home Health Primary Insurance: [facility] MEDICARE SOLUTIONS Discharge Planning Comments: CM met with patient to discuss discharge planning/needs, his is present in the room. Verbal permission to discuss discharge planning with present. He lives with his . States his sets up his medication, otherwise he is independent. States he does have an aide that assists him with personal care, she comes for 3 hours a day. States aide is from [facility]. He has oxygen and portable and a nebulizer, DME is [employer]. CM discussed the availability of home health, rehab, SNF and additional DME. States they would like to resume HHS on discharge and feel like they could use a nurse visit. I called [facility] in [place] and spoke with Jeenlle, referral sent. CM will continue to follow and assist with discharge planning/needs. Cad Technician: Korin Teague DCPIA - Discharge Planning Initial Assessment Updated by [id number]: Korin Teague on 06/09/19 8:41 am * Is the patient Alert and Oriented? Yes * How many steps to enter\exit or inside your home? 2/2 * PCP Dr. Buchanan * Pharmacy [facility] in [place] * Preadmission Environment Home with Family * ADLs Partial Dependent * Partial ADLs (Assistance needed) Medication Management * Equipment Cane Nebulizer Other Oxygen Shower Chair Walker * Other Equipment Portable oxygen * List name and contact numbers for known caregivers / representatives who currently or will assist patient after discharge: Kassie hayes - [phone] * Verbal permission to speak to the caregivers and representatives has been obtained from the patient. Yes * Community resources currently utilized Home Health * Please name any agencies selected above. [facility] 3 hours a day * Additional services required to return to the preadmission environment? No * Can the patient safely return to the preadmission environment? Yes * Has this patient been hospitalized within the prior 30 days at any hospital? Yes Coverage Notice Reviewer: [email or web address] Laura Teague Notice Issued Date-Time: 06/09/2019 8:55 Notice Type: Patient Choice Letter Notice Delivered To: Patient Relationship to Patient: Self Aws Architect Name: Delivery Method: HAND - Hand Delivered Laura Days: Prior Verbal Notification: Recipient Understood Notice: Yes Recipient Signature: Yes Med Rec Note Co-signed by Attending: Coverage Notice Comment: [facility] for [facility] in [place] and [facility] in [facility] Reviewer: [email or web address] Laura Teague Notice Issued Date-Time: 06/09/2019 16:37 Notice Type: IM Discharge Notice Notice Delivered To: Patient Relationship to Patient: Self Aws Architect Name: Delivery Method: HAND - Hand Delivered Laura Days: Prior Verbal Notification: Recipient Understood Notice: Yes Recipient Signature: Yes Med Rec Note Co-signed by Attending: Coverage Notice Comment: IMM explained, signed, given, copy placed in Mr Last DP export: 06/09/19 7:57 Patient Name: YARELY MCCLURE Page [id number] at 1640 All edits/amendments must be made on the electronic document DICTATION DATE: 06/09/19 1640 NURSE TRANSITION: DM 06/09/19 1640 RPT#: [id number] DC DATE: STATUS: ADM IN [facility] [address] [place] [address] END OF REPORT
--- NOTE | 2019-06-11 10:41 | EC ---
PATIENT:YARELY MCCLURE DATE OF SERVICE: 06/04/19 SEX: M MEDICAL RECORD: [id number] DATE OF : [birth year] LOCATION:D.MS [place] AGE OF PATIENT: 68 ADMISSION DATE: 06/04/19 REFERRING PHYSICIAN: INTERPRETING PHYSICIAN: AMY LAKE MD ECHOCARDIOGRAM REPORT ECHO CHARGES 4 ECHO COMPLETE Date: 06/05/19 CLINICAL DIAGNOSIS: CHF ECHOCARDIOGRAPHIC MEASUREMENTS (adult normal given) AC root (d.<3.7cm) 3.5 cm LV Septum d (<1.2 cm> 1.4 cm Valve Excursion 1.5 cm LV Septum (systole) 1.6 cm Left Atria (s.<4.0cm> 3.1 cm LVPW d(<1.2cm) 1.2 cm RV (d.<2.3cm) 1.8 cm LVPW (sytole) 1.8 cm LV diastole(<5.6CM) 5.3 cm MV E-F(>70mm/sec) cm LV systole 3.8 cm LVOT Diameter cm MV exc.(>10mm) cm Est.ejection fraction (50-75%) % DOPPLER: LVIT cm/sec A 77.0 cm/sec E 54.0 cm/sec LA cm/sec RVSP mmHg LVOT cm/sec AOP1/2T m/s Asc. Ao cm/sec RVOT 76.0 cm/sec RA cm/sec PA 86.0 cm/sec AV Gradient Peak mmHg AV Mean mmHg AV Area cm MV Gradient Peak 4.5 mmHg MV Mean 1.3 mmHg MV Area cm COMMENTS: Radio Artist: 1 BRAVO SINOE Pre Sales Technical Engineer: 1 Dr. Lake TAPE# PACS Pericardial Effusion N DATE OF SERVICE: FINDINGS: 1. Left ventricular chamber size is upper limits of normal. Left ventricular systolic function is moderately reduced at 30%. 2. Left atrium, right atrium, and right ventricular chamber sizes are within normal limits. 3. Valvular structures have normal structure and motion. 4. Doppler interrogation reveals trace mitral regurgitation. No other valvular insufficiency or stenosis. ECHOCARDIOGRAM REPORT [id number] YARELY MCCLURE 5. No evidence of pericardial effusion or left ventricular thrombus. TRANSINT:[id number] Voice Confirmation ID: [id number] DOCUMENT ID: [id number] AMY LAKE MD at 1041 CC: [id number] DICTATION DATE: 06/06/19810 DIRECTOR DATA: 06/06/19820 DIS IN 06/09/19 [id number] [place] [address]
--- NOTE | 2019-06-11 11:42 | MORECARE ---
CASE MANAGEMENT DISCHARGE SUMMARY PATIENT: YARELY MCCLURE UNIT: [id number] ADM DATE: 06/04/19 AGE: 68 : 48 SEX: M ROOM/BED: D.2235 AUTHOR: DEBORA BAILEY PHYSICIAN: REFERRING PHYSICIAN: FELIX DOE MD DATE OF SERVICE: 06/11/19 Discharge Plan Patient Name: YARELY MCCLURE Facility: [facility]:[place] : 1950 Planned Disposition: Home with Home Health Anticipated Discharge Date: Discharge Date: 06/09/2019 Expected LOS: 0 Initial Reviewer: [email or web address] Initial Review Date: 06/09/2019 Generated: 06/11/19 12:41 pm Comments DCP- Discharge Planning Updated by [id number]: Korin Teague on 06/09/19 3:[address] Received discharge orders. I spoke with Jenelle with [facility] in [place] and they will see him tomorrow or Sunday. Patient and in agreement to plan. I also notified [facility] personal care that he was going home today and spoke to Home today with [facility] DCP- Discharge Planning Updated by [id number]: Korin Teague on 06/09/19 7:[address] Patient Name: YARELY MCCLURE Admission Status: ER Accout number: [id number] Admission Date: 06-04-2019 : 1950 Admission Diagnosis: Attending: FELIX DOE Current LOS: 5 Anticipated DC Date: Planned Disposition: Home with Home Health Primary Insurance: [facility] MEDICARE SOLUTIONS Discharge Planning Comments: CM met with patient to discuss discharge planning/needs, his is present in the room. Verbal permission to discuss discharge planning with present. He lives with his . States his sets up his medication, otherwise he is independent. States he does have an aide that assists him with personal care, she comes for 3 hours a day. States aide is from [facility]. He has oxygen and portable and a nebulizer, DME is [employer]. CM discussed the availability of home health, rehab, SNF and additional DME. States they would like to resume HHS on discharge and feel like they could use a nurse visit. I called [facility] in [place] and spoke with Jenelle, referral sent. CM will continue to follow and assist with discharge planning/needs. Fringing Machine Operator: Korin Teague ARPIA - Discharge Planning Initial Assessment Updated by [email or web address]: Korin Teague on 06/09/19 8:41 am * Is the patient Alert and Oriented? Yes * How many steps to enter\exit or inside your home? 2/2 * PCP Dr. Buchanan * Pharmacy [facility] in [place] * Preadmission Environment Home with Family * ADLs Partial Dependent * Partial ADLs (Assistance needed) Medication Management * Equipment Cane Nebulizer Other Oxygen Shower Chair Walker * Other Equipment Portable oxygen * List name and contact numbers for known caregivers / representatives who currently or will assist patient after discharge: Kassie Sanchez spouse - [phone] * Verbal permission to speak to the caregivers and representatives has been obtained from the patient. Yes * Community resources currently utilized Home Health * Please name any agencies selected above. [facility] Private [facility] 3 hours a day * Additional services required to return to the preadmission environment? No * Can the patient safely return to the preadmission environment? Yes * Has this patient been hospitalized within the prior 30 days at any hospital? Yes Coverage Notice Reviewer: [id number] Laura Teague Notice Issued Date-Time: 06/09/2019 8:55 Notice Type: Patient Choice Letter Notice Delivered To: Patient Relationship to Patient: Self Commercial Real Estate Assistant Name: Delivery Method: HAND - Hand Delivered Laura Days: Prior Verbal Notification: Recipient Understood Notice: Yes Recipient Signature: Yes Med Rec Note Co-signed by Attending: Coverage Notice Comment: BRE for [facility] in [place] and [facility] in [facility] Reviewer: [id number] Laura Teague Notice Issued Date-Time: 06/09/2019 16:37 Notice Type: IM Discharge Notice Notice Delivered To: Patient Relationship to Patient: Self Commercial Real Estate Assistant Name: Delivery Method: HAND - Hand Delivered Laura Days: Prior Verbal Notification: Recipient Understood Notice: Yes Recipient Signature: Yes Med Rec Note Co-signed by Attending: Coverage Notice Comment: IMM explained, signed, given, copy placed in Mr Last DP export: 06/09/19 3:40 Patient Name: YARELY MCCLURE Page [id number] at 1142 All edits/amendments must be made on the electronic document DICTATION DATE: 06/11/19 1141 EARLY CHILDHOOD SPECIALIST: JOHN 06/11/19 1141 RPT#: [id number] DC DATE:06/09/19 STATUS: DIS IN [facility] [address] [place] [address] END OF REPORT
== END 2019-06-09 17:55 | disposition home health service (06) | DRG 291 ==
LOC: D.ER 12:48 → D.MS 19:14
PROVIDERS: Emergency Medicine; ADMIT Internal Medicine Nephrology; ATTEND Internal Medicine Nephrology
DX: I13.0 Hypertensive heart and chronic kidney disease with heart failure and stage 1 through stage 4 chronic kidney disease, or unspecified chronic kidney disease (principal); J96.01 Acute respiratory failure with hypoxia; J18.9 Pneumonia, unspecified organism; I50.23 Acute on chronic systolic (congestive) heart failure; F17.213 Nicotine dependence, cigarettes, with withdrawal; N17.9 Acute kidney failure, unspecified; J43.9 Emphysema, unspecified; D64.9 Anemia, unspecified; K21.9 Gastro-esophageal reflux disease without esophagitis; I25.10 Atherosclerotic heart disease of native coronary artery without angina pectoris; M19.90 Unspecified osteoarthritis, unspecified site; G89.29 Other chronic pain; G47.33 Obstructive sleep apnea (adult) (pediatric); Z99.81 Dependence on supplemental oxygen; N18.9 Chronic kidney disease, unspecified; F41.8 Other specified anxiety disorders; E78.5 Hyperlipidemia, unspecified; I48.0 Paroxysmal atrial fibrillation; I73.9 Peripheral vascular disease, unspecified; I25.5 Ischemic cardiomyopathy

== ENCOUNTER 2019-06-28 21:27 | Inpatient (IN) | payer MEDICARE, MEDICAID ==
[~2019-06-28] VITALS: Ht 170.2 cm; Wt 64.6 kg
--- NOTE | ~2019-06-28 | HEMODYNAMI ---
PATIENT:YARELY MCCLURE MEDICAL RECORD: [id number] : 46 [facility] AD[facility]ION DATE: 06/28/19 Generatedon:07/10/201913:59 Patient name: YARELY MCCLURE Patient #: [id number] SSN: : Date of study: 07/10/2019 Page: Of Hemodynamic Procedure Report Patient Data Patient Demographics Procedure consent was obtained First Name: YARELY Gender: Male Last Name: KAMI : 1950 Middle Initial: D Age: 68 year(s) Patient #: [id number] Race: Additional ID: [id number] Contact details Address: [address] [place] [address] State: [place] City: [place] Zip code: [address] Admission Admission Data Admission Date: 06/28/2019 Admission Time: 23:23 Admit Source: Other Room #: D.1211 Procedure Procedure Types Cath Procedure Diagnostic Procedure SOPHIE Procedure Description Procedure Date Procedure Date: 07/10/2019 Procedure Start Time: 12:49 Procedure Staff Name Function Jose Angel Mejias MD Performing Physician Leroy Antonio RT Monitor Rohini Howard RN Nurse Martinez Welch Jr, CRNA Additional personnel Chaim Calvin Family Medicine Resident Procedure Data Procedure Complications No complications Procedure Medications Medication Administration Route Dosage Oxygen etCO2 Nasal cannula 2 l/min Hurricaine [place] P.O. 1 Sprays Refer to Anesthesia Notes for Sedation Medications Hemodynamics Rest Heart Rate: 84 (bpm) Snapshots Pre Cath Intra NCS Post Cath Vital Signs Time Heart Resp SPO2 etCO2 NIBP (mmHg) Rhythm Pain Sedation Rate (ipm) (%) (mmHg) Status Level (bpm) 13:13:54 99 14 99 0 154/113(144) A-Fib 0 (11) 10(A) , No pain 13:18:10 95 21 99 0 166/106(142) A-Fib 0 (11) 10(A) , No pain 13:22:32 96 16 99 0 152/108(128) A-Fib 0 (11) 10(A) , No pain 13:26:48 105 19 98 0 161/110(145) A-Fib 0 (11) 10(A) , No pain 13:30:56 89 14 99 0 153/105(131) A-Fib 0 (11) 10(A) , No pain 13:35:10 92 13 99 0 141/110(133) A-Fib 0 (11) 10(A) , No pain 13:39:20 93 18 99 0 155/118(136) A-Fib 0 (11) 10(A) , No pain 13:43:42 98 16 98 0 153/89(109) A-Fib 0 (11) 10(A) , No pain 13:48:00 112 24 99 0 164/124(136) A-Fib 0 (11) 9(A) , No pain 13:52:23 108 18 99 0 135/90(106) A-Fib 0 (11) 10(A) , No pain Medications Time Medication Route Dose Verified Delivered Reason Notes Effecti veness by by 13:31:27 Oxygen etCO2 2 Jose Angel Nova used for Nasal l/min St Emerson Howard computer game tester cannula 13:31:46 Hurricaine P.O. 1 Jose Angel Nova for local [place] Sprays St Emerson Howard RN anesthetic 13:31:50 Refer to Jose Angel Nova Anesthesia St Emerson Howard RN Notes for MD Sedation Medications Procedure Log Time Note 13:11:26 Admit Source: Other 13:12:09 Procedure Status SOPHIE. 13:12:11 Leroy Antonio RT(R) sent for patient. Start room use. 13:12:13 Time tracking: Regular hours (M-F 7:00 - 5:00) 13:12:19 Plan of Care:Hemodynamics will remain stable., Cardiac rhythm will remain stable., Comfort level will be maintained., Respiratory function will remain adequate., Patient/ family verbilizes understanding of procedure., Procedure tolerated without complication., Recovers from procedure without complications.. 13:12:38 Patient arrived from Other to CCL 1. Patient remains on bed/stretcher for procedure. 13:12:41 Signed procedure consent form obtained from patient. 13:12:42 Warm blankets applied, and noris hugger turned on for patient comfort. 13:12:42 Correct patient and procedure confirmed by team. 13:12:43 ECG and BP/O2 sat monitors applied to patient. 13:12:44 Vital chart was started 13:12:45 Baseline sample Acquired. 13:12:52 Rhythm: atrial fibrillation 13:12:54 Full Disclosure recording started 13:13:11 H&P Date Dictated: 07/09/2019 Within 30 days and on chart.. 13:13:12 Pre-procedure instructions explained to patient. 13:13:13 Pre-op teaching completed and patient verbalized understanding. 13:13:15 Family in patients room. 13:13:17 Patient NPO since Midnight. 13:13:42 Is the patient allergic to Iodine/contrast media? No. 13:15:14 Patient diabetic? No. 13:15:16 Is patient on blood thinner?No 13:15:20 ----Pre-sedation anethsthesia assessment.---- 13:15:22 Previous problem with sedation/anesthesia? No ? 13:15:24 Snore? Yes 13:15:26 Sleep apnea? No 13:15:27 Deviated septum? No 13:15:29 Opens mouth fully? Yes 13:15:30 Sticks out tongue? Yes 13:15:34 Airway obstruction? Yes COPD 13:15:48 Dentures? N/A MISSING TEETH 13:15:52 Pre procedure: right dorsailis pedis pulse 1+ Palpable, but thready & weak; easily obliterated 13:16:09 IV patent on arrival in left IJ with 0.9% NaCl at KVO. 13:16:14 Lab results completed and on chart. 13:16:18 Alarms reviewed by R. N. 13:16:19 Sharps counted by scrub and verified by R.N. 13:29:52 Martinez Welch Jr RECOVERY OPERATOR HELPER present and monitoring patient for TIVA. 13:30:31 Chaim Calvin Environmental Health And Safety Manager present for SOPHIE. 13:31:27 Oxygen 2 l/min etCO2 Nasal cannula was administered by Rohini Howard RN; used for procedure; Verbal order read back and verified. 13:31:46 Hurricaine [place] 1 Sprays P.O. was administered by Rohini Howard RN; for local anesthetic; Verbal order read back and verified. 13:31:50 Refer to Anesthesia Notes for Sedation Medications was administered by Rohini Howard RN; ; Verbal order read back and verified. 13:43:02 Physician arrived 13:43:03 --------ALL STOP TIME OUT------ 13:43:04 Final Timeout: patient, procedure, and site verified with staff and physician. All members of the team are in agreement. 13:43:50 Fire Safety Assessment: A--An alcohol-based skin anteseptic being used preoperatively., C--Open oxygen or nitrous oxide is being used., D--An ESU, laser, or fiber-optic light is being used. 13:43:55 Physical assessment completed. ASA score P 2 - A patient with mild systemic disease as per Jose Angel Mejias MD. 13:44:40 Sedation plan: TIVA Medication:Propofol 13:44:56 SOPHIE started. 13:54:09 SOPHIE completed. 13:54:13 Procedure ended.(Physican Out) 13:55:00 Post Procedure Pulses reassessed and unchanged 13:55:04 Post procedure rhythm: unchanged. 13:55:06 Post procedure instruction explained to patient.Patient verbalizes understanding. 13:55:12 Procedure and supply charges have been captured, reviewed, submitted and are correct. 13:55:16 Procedure Complication : No complications 13:55:18 Vital chart was stopped 13:55:22 Operative report dictated upon procedure completion. 13:55:23 See physician's report for complete and final results. 13:55:27 Report given to Other. 13:55:31 Patient transfered to Other with Bed. 13:55:36 End room use (Document Last) 13:56:44 End room use (Document Last) 13:57:19 End room use (Document Last) Signature Audit [place] Stage Time Signature Unsigned Intra-Procedure 07/10/2019 Rohini Howard RN 1:56:44 PM Intra-Procedure 07/10/2019 Leroy Antonio RT(R) 1:57:19 PM Intra-Procedure 07/10/2019 Jose Angel Fraga 1:59:56 PM Emerson [id number] [place] [address]
[~2019-06-28 21:27] MED LIST changes: +CATAPRES0.1 MG PO; +ISOSORBIDE MONO30 M1 PO; +METOPROLOL TART50 MG PO; +OMNICEF300 MG PO; +Tessalon Perle PO
--- NOTE | 2019-06-28 21:37 | NUR ---
PT 99% ON 4L. LOWERED O2 TO 2L AT THIS TIME. PT 97% ON 2L. WILL CONTINUE TO MONITOR. PT REPORTS HOME O2 IS 2L.
[2019-06-28 22:01] LABS: BASOPHILS 0.1 % (0-2); EOSINOPHILS 0.5 % (0-7); HEMATOCRIT 28.8 % (42.0-54.0); HEMOGLOBIN 8.4 g/dL (13.5-17.5); IMMATURE GRANULOCYTES 0.3 % (0-5); LYMPHOCYTES 5.3 % (15-50); MCH 25.5 pg (26.0-34.0); MCHC 29.2 g/dL (31.0-37.0); MCV 87.3 fL (80.0-100.0); MEAN PLATELET VOLUME 9.4 fL (7.4-10.4); MONOCYTES 2.7 % (2-11); NEUTROPHILS 91.1 % (40-80); RDW 20.6 % (11.5-14.5)
[2019-06-28 22:02] LABS: PLATELET COUNT 177 10x3/uL (130-400)
[2019-06-28 22:10] LABS: APTT 36.3 SECONDS (22.8-39.4); INR 1.14 (0.85-1.17); PROTIME 14.1 SECONDS (11.6-15.0)
[2019-06-28 22:11] LABS: CALC OSMOLALITY 281 mosm/kg (275-300); CALCIUM 8.5 mg/dL (8.5-10.1); CARBON DIOXIDE 24.4 mmol/L (21.0-32.0); CHLORIDE - SERUM 108 mmol/L (98-107); CREATININE - SERUM 1.7 mg/dL (0.6-1.3); GLUCOSE 93 mg/dL (74-106); POTASSIUM - SERUM 4.7 mmol/L (3.5-5.1); SODIUM 140 mmol/L (136-145); UREA NITROGEN 22 mg/dL (7-18); eGFR NON AFRICAN AMERICAN 43 mL/min (90-120)
[2019-06-28 22:32] LABS: ALBUMIN 2.4 g/dL (3.4-5.0); ALKALINE PHOSPHATASE 97 U/L (46-116); ALT (SGPT) 35 U/L (10-68); BILIRUBIN - TOTAL 0.71 mg/dL (0.2-1.3); CKMB 0.8 U/L (0.0-3.6); CREATINE KINASE 68 UL (21-232); PRO BNP 10104 pg/mL (0-125); PROTEIN - SERUM 6.8 g/dL (6.4-8.2)
[2019-06-28 23:01] VITALS: BP 139/83
--- NOTE | 2019-06-28 23:50 | NUR ---
PT ARRIVED TO FLOOR FROM ER VIA STRETCHER. FAMILY AT BEDSIDE. SPOUSE ANSWERS QUESTIONS FOR PT, BUT DOES NOT KNOW EXACLTY WHAT HIS HOME MEDS ARE.
[2019-06-29 02:05] VITALS: BP 120/70
--- NOTE | 2019-06-29 02:32 | NUR ---
PT RESTING QUIETLY. AT BEDSIDE. NO NEEDS EXPRESSED. WILL CTM.
[2019-06-29] MEDS ORDERED: LASIX40 MG PO (03:29)
[2019-06-29 04:46] VITALS: BP 131/74
[2019-06-29 08:00] VITALS: BP 159/83
[2019-06-29 12:00] VITALS: BP 168/88
[2019-06-29 15:36] LABS: CKMB 1.6 U/L (0.0-3.6); CREATINE KINASE 76 UL (21-232)
[2019-06-29 15:37] LABS: TROPONIN-I 0.101 ng/mL (0.000-0.060)
[2019-06-29 16:00] VITALS: BP 133/75
[2019-06-29 16:00] LABS: % SATURATION 6 % (15-55); IRON 18 ug/dl (35-150); TOTAL IRON BIND CAPACITY 262 ug/dl (260-445); UNSAT IRON BIND CAPACITY 244 ug/dl (150-375)
--- NOTE | 2019-06-29 19:33 | NUR ---
REPORT RECEIVED. PT UP IN BED WATCHING TV. RR EVEN AND UNALBORED. NO S/S OF DISTRESS NOTED AT THIS TIME. PT DENIES NEEDS. SPOUSE AT BEDSIDE. SRX2, CALL LIGHT IN REACH. WILL CTM.
[2019-06-29 20:30] VITALS: BP 133/70
--- NOTE | 2019-06-29 20:59 | NUR ---
IV TO RIGHT AC PULLED OUT. CATHETER TIP INTACT. 22G RESTARTED TO RIGHT RA. PT TOLERATED WELL. WILL CTM.
[2019-06-29 22:28] LABS: CKMB 1.7 U/L (0.0-3.6); CREATINE KINASE 69 UL (21-232)
[2019-06-29 22:33] LABS: TROPONIN-I 0.103 ng/mL (0.000-0.060)
[2019-06-30] VITALS (8 sets, daily range): BP systolic 97–179; BP diastolic 73–132; BMI 23.3
[2019-06-30 02:09] LABS: APPEARANCE CLEAR (CLEAR); COLOR YELLOW (YELLOW); SPECIFIC GRAVITY 1.015 (1.005-1.020)
[2019-06-30 02:10] LABS: BILIRUBIN NEGATIVE (NEGATIVE); GLUCOSE 100 mg/dL (NEGATIVE); KETONE NEGATIVE (NEGATIVE); NITRITE NEGATIVE (NEGATIVE); PROTEIN 1+ mg/dL (NEGATIVE); UROBILINOGEN NORMAL (NORMAL)
[2019-06-30 02:12] LABS: BACTERIA FEW /hpf (NEGATIVE); EPITHELIAL CELLS 0-5 /hpf (0-5); RED CELLS - URINE 0-5 /hpf (0-5)
[2019-06-30 04:23] LABS: BASOPHILS 0 % (0-2); EOSINOPHILS 0 % (0-7); HEMATOCRIT 27.9 % (42.0-54.0); HEMOGLOBIN 8.1 g/dL (13.5-17.5); IMMATURE GRANULOCYTES 0.4 % (0-5); LYMPHOCYTES 5.9 % (15-50); MCH 25.3 pg (26.0-34.0); MCV 87.2 fL (80.0-100.0); MONOCYTES 2.1 % (2-11); NEUTROPHILS 91.6 % (40-80); RDW 20.5 % (11.5-14.5)
[2019-06-30 04:44] LABS: PLATELET COUNT 229 10x3/uL (130-400); WBC 11.9 10x3/uL (4.8-10.8)
[2019-06-30 05:09] LABS: ALBUMIN 2.3 g/dL (3.4-5.0); ALKALINE PHOSPHATASE 91 U/L (46-116); ALT (SGPT) 33 U/L (10-68); BILIRUBIN - TOTAL 0.27 mg/dL (0.2-1.3); CALCIUM 8.9 mg/dL (8.5-10.1); CARBON DIOXIDE 28.7 mmol/L (21.0-32.0); CHLORIDE - SERUM 110 mmol/L (98-107); CKMB 1.8 U/L (0.0-3.6); CREATINE KINASE 60 UL (21-232); CREATININE - SERUM 1.7 mg/dL (0.6-1.3); POTASSIUM - SERUM 4.6 mmol/L (3.5-5.1); PROTEIN - SERUM 6.7 g/dL (6.4-8.2); SODIUM 143 mmol/L (136-145); eGFR NON AFRICAN AMERICAN 43 mL/min (90-120)
[2019-06-30 05:13] LABS: CALC OSMOLALITY 294 mosm/kg (275-300); GLUCOSE 156 mg/dL (74-106); TROPONIN-I 0.084 ng/mL (0.000-0.060); UREA NITROGEN 33 mg/dL (7-18)
--- NOTE | 2019-06-30 07:10 | NUR ---
PT RESTING IN BED. NO SIGNS OF DISTRESS. IV TO RIGHT FORARM PATENT NO REDNESS OR TENDERNESS. ON 2L NC. DENIES ANY FURTHER NEED AT THIS TIME. CALL LIGHT IN REACH. BED LOW POSITION. FAMILY AT BEDSIDE AT THIS TIME.
--- NOTE | 2019-06-30 12:35 | NUR ---
I have reviewed this patient and I concur with the Shift Assessment completed by the Licensed Practical Nurse today this shift.
--- NOTE | 2019-06-30 20:00 | NUR ---
REC'D PT FROM FLOOR, ASSISTED PT INTO ICU BED, MONITORS HOOKED UP. PT HAVING DIFFICULTY BREATHING, RT AT BEDSIDE, PT ON BIPAP. CALL LIGHT WITHIN REACH, WILL CONTINUE TO OBSERVE.
--- NOTE | 2019-06-30 20:30 | NUR ---
FAMILY AT BEDSIDE, CHARGE NURSE GIVING FAMILY UPDATE ON PT, SAND BOBBER HERE DISCUSSING THE PT AT THIS TIME WELL. MONITORS ON AND WORKING, PT TOLERATING BIPAP WELL. WILL CONTINUE TO OBSERVE.
--- NOTE | 2019-06-30 20:53 | NUR ---
OT NOTE: PT COMPLETED SUPINE TO SIT WITH SBA. PT COMPLETED EOB SITTING WITH SBA. PT COMPLETED FACE WASH WITH SET UP. THANK YOU, ADAMA KRAUSE
--- NOTE | 2019-06-30 21:21 | NUR ---
UPDATE GIVEN TO HETAL [place], NEW ORDERS RECIEVED,
--- NOTE | 2019-06-30 22:00 | NUR ---
ANESTHESIA AT BEDSIDE, PT INTUBATED AT THIS TIME, PT TOLERATED WELL. MONITORS ON AND WORKING, FAMILY IN WAITING AREA, UPDATES GIVEN TO FAMILY OFTEN, FAMILY AWARE AND STATES UNDERSTANDING OF SITUATION. WILL CONTINUE TO OBSERVE.
--- NOTE | 2019-06-30 23:00 | NUR ---
A LINE AND CENTRAL LINE PLACED, CHEST X RAY ORDERED. NO FURTHER CHANGES AT THIS TIME, RT TO RECHECK ABGS AT 2300. MONITORS ON AND WORKING, SEE FLOW SHEET FOR FURTHER DETAILS. WILL CONTINUE TO OBSERVE.
[2019-07-01] VITALS (20 sets, daily range): BP systolic 95–142; BP diastolic 66–91
--- NOTE | 2019-07-01 01:00 | NUR ---
PT SEDATED, INTUBATED, SALEH STAT LOCKED IN PLACE, MONITORS ON AND WORKING, VITALS STABLE. FAMILY UPDATED. WILL CONTINUE TO OBSERVE.
--- NOTE | 2019-07-01 03:00 | NUR ---
PT TURNED AND REPOSITIONED FOR COMFORT, MONITORS ON AND WORKING, VITALS STABLE. SEE FLOW SHEET FOR FURTHER DETIALS. WILL CONTINUE TO OBSERVE.
--- NOTE | 2019-07-01 05:00 | NUR ---
NO FURTHER CHANGES AT THIS TIME, FAMILY AT BEDSIDE, UPDATE PROVIDED. WILL CONTINUE TO OBSERVE.
[2019-07-01 12:14] LABS: BILIRUBIN - TOTAL 0.4 mg/dL (0.2-1.3); PROTEIN - SERUM 5.3 g/dL (6.4-8.2)
[2019-07-01 12:29] LABS: ALBUMIN 1.8 g/dL (3.4-5.0); ANION GAP 13.2 mmol/L (8-16); BASOPHILS 0 % (0-2); CARBON DIOXIDE 22.6 mmol/L (21.0-32.0); CREATININE - SERUM 2.1 mg/dL (0.6-1.3); EOSINOPHILS 0 % (0-7); HEMATOCRIT 24.9 % (42.0-54.0); IMMATURE GRANULOCYTES 0.8 % (0-5); LYMPHOCYTES 5.8 % (15-50); MCH 24.6 pg (26.0-34.0); MCHC 28.1 g/dL (31.0-37.0); MCV 87.4 fL (80.0-100.0); MEAN PLATELET VOLUME 10.3 fL (7.4-10.4); MONOCYTES 1.7 % (2-11); NEUTROPHILS 91.7 % (40-80); POTASSIUM - SERUM 3.8 mmol/L (3.5-5.1); RBC 2.85 10x6/uL (4.20-6.10); RDW 20.6 % (11.5-14.5)
[2019-07-01 13:15] LABS: PLATELET COUNT 232 10x3/uL (130-400)
[2019-07-01 13:21] LABS: MAGNESIUM - SERUM 1.6 mg/dL (1.8-2.4)
--- NOTE | 2019-07-01 13:36 | NUR ---
spoke with dr gabriel regarding hgb of 7
--- NOTE | 2019-07-01 14:12 | NUR ---
LAB HAS NOT CALLED THAT BLOOD IS READY YET.
--- NOTE | 2019-07-01 15:24 | NUR ---
BHAVANA RN SPOKE WITH LAB ABOUT UNIT OF BLOOD
[2019-07-01 16:49] LABS: EOS BF 1 %; MACROPHAGES BF 13 %; MESOTHELIALS BF 2 %; NEUT - BF 62 %
--- NOTE | 2019-07-01 17:21 | NUR ---
unit of blood bugun
--- NOTE | 2019-07-01 18:02 | NUR ---
TELEPHONE ORDER REGARDING LOW MAGNESIUM.
--- NOTE | 2019-07-01 19:25 | NUR ---
REPORT RECIEVED, SHIFT ASSESSMENT COMPLETE, PT IS SEDATED ON VENT, ON 80% FIO2 WITH 99% O2 SAT, ALL PPP, VSS, REPOSITIONED FOR COMFORT, ORAL CARE PROVIDED,
--- NOTE | 2019-07-01 20:29 | MORECARE ---
CASE MANAGEMENT DISCHARGE SUMMARY PATIENT: YARELY HERNANDEZ UNIT: [id number] ADM DATE: 06/28/19 AGE: 68 : 48 SEX: M ROOM/BED: D.2308 AUTHOR: DEBORA BAILEY PHYSICIAN: REFERRING PHYSICIAN: HORACE AGUIRRE MD DATE OF SERVICE: 07/01/19 Discharge Plan Patient Name: YARELY HERNANDEZ Facility: [facility]:[place] : 1950 Planned Disposition: Anticipated Discharge Date: Discharge Date: Expected LOS: Initial Reviewer: [email or web address] Initial Review Date: 07/01/2019 Generated: 07/01/19 9:28 pm Coverage Notice Reviewer: [email or web address] Laura Tan Notice Issued Date-Time: 07/01/2019 14:45 Notice Type: Patient Choice Letter Notice Delivered To: Family Member Relationship to Patient: Spouse Adult Nurse Practitioner Name: torrey hernandez Delivery Method: HAND - Hand Delivered Laura Days: Prior Verbal Notification: Recipient Understood Notice: Yes Recipient Signature: Yes Med Rec Note Co-signed by Attending: Coverage Notice Comment: [facility] Patient Name: YARELY HERNANDEZ Page [id number] at 2028 All edits/amendments must be made on the electronic document DICTATION DATE: 07/01/192027 CASE MANAGER: JOHN 07/01/192027 RPT#: [id number] DC DATE: STATUS: ADM IN [id number] [place] [address] END OF REPORT
--- NOTE | 2019-07-01 20:35 | MORECARE ---
CASE MANAGEMENT DISCHARGE SUMMARY PATIENT: YARELY HERNANDEZ UNIT: [id number] ADM DATE: 06/28/19 AGE: 68 : 48 SEX: M ROOM/BED: D.2308 AUTHOR: DEBORA BAILEY PHYSICIAN: REFERRING PHYSICIAN: HORACE AGUIRRE MD DATE OF SERVICE: 07/01/19 Discharge Plan Patient Name: YARELY HERNANDEZ Facility: [facility]:[place] : 1950 Planned Disposition: Anticipated Discharge Date: Discharge Date: Expected LOS: Initial Reviewer: [email or web address] Initial Review Date: 07/01/2019 Generated: 07/01/19 9:35 pm DCPIA - Discharge Planning Initial Assessment Updated by PADMINI: Shanta Tan on 07/01/19 8:29 pm * How many steps to enter\exit or inside your home? * PCP LOLIS SALCEDO * Pharm[facility] * Preadmission Environment Home with Family * ADLs Independent * Other Equipment HOME 02, TRILOGY, NEBULIZER, WALKER, SC, W/C, CANE * List name and contact numbers for known caregivers / representatives who currently or will assist patient after discharge: TORREY HERNANDEZ - SPOUSE- [phone] * Verbal permission to speak to the caregivers and representatives has been obtained from the patient. N/A * Community resources currently utilized Home Health * Please name any agencies selected above. [facility] * Additional services required to return to the preadmission environment? No * Can the patient safely return to the preadmission environment? Yes * Has this patient been hospitalized within the prior 30 days at any hospital? Yes Coverage Notice Reviewer: [id number] Laura Tan Notice Issued Date-Time: 07/01/2019 14:45 Notice Type: Patient Choice Letter Notice Delivered To: Family Member Relationship to Patient: Spouse Automotive Diagnostic Technician Name: torrey hernandez Delivery Method: HAND - Hand Delivered Laura Days: Prior Verbal Notification: Recipient Understood Notice: Yes Recipient Signature: Yes Med Rec Note Co-signed by Attending: Coverage Notice Comment: [facility] Last DP export: 07/01/19 7:29 p Patient Name: YARELY HERNANDEZ Page [id number] at 2034 All edits/amendments must be made on the electronic document DICTATION DATE: 07/01/192034 SCRAPPER: JOHN 07/01/192034 RPT#: [id number] DC DATE: STATUS: ADM IN [facility] [address] [place] [address] END OF REPORT
--- NOTE | 2019-07-01 20:42 | MORECARE ---
CASE MANAGEMENT DISCHARGE SUMMARY PATIENT: YARELY HERNANDEZ UNIT: [id number] ADM DATE: 06/28/19 AGE: 68 : 48 SEX: M ROOM/BED: D.2308 AUTHOR: LEO,DOC PHYSICIAN: REFERRING PHYSICIAN: HORACE AGUIRRE MD DATE OF SERVICE: 07/01/19 Discharge Plan Patient Name: YARELY HERNANDEZ Facility: [facility]:[place] : 1950 Planned Disposition: Anticipated Discharge Date: Discharge Date: Expected LOS: Initial Reviewer: [email or web address] Initial Review Date: 07/01/2019 Generated: 07/01/19 9:41 pm Comments DCP- Discharge Planning Updated by [id number]: Shanta Tan on 07/01/19 7:[address] Patient Name: YARELY HERNANDEZ Admission Status: ER Accout number: [id number] Admission Date: 06-28-2019 : 1950 Admission Diagnosis: Attending: ROBIN Current LOS: 3 Anticipated DC Date: Planned Disposition: Primary Insurance: [facility] MEDICARE SOLUTIONS Discharge Planning Comments: CM met with patient's Kassie at bedside after explaining CM role and obtaining verbal consent. Patient is currently sedated on Vent . Patient lives at home with his where he is independent with his care and plans to return there upon discharge. Patient feels this would be a safe discharge. CM discussed availability / needs of home health and medical equipment. Patient has home 02, trilogy and nebulizer with [facility]. [facility] also has [facility] and [facility] signed to resume care. Kassie denies any discharge needs at this time. Kassie states he will have his family drive him home upon discharge. CM will continue to follow and assist as needed with discharge planning / needs. Wind Operations Manager: Shanta Tan DCPIA - Discharge Planning Initial Assessment Updated by [id number]: Shanta Tan on 07/01/19 8:29 pm * How many steps to enter\exit or inside your home? * PCP LOLIS SALCEDO * Pharmacy [facility] * Preadmission Environment Home with Family * ADLs Independent * Other Equipment HOME 02, TRILOGY, NEBULIZER, WALKER, SC, W/C, CANE * List name and contact numbers for known caregivers / representatives who currently or will assist patient after discharge: KASSIE HERNANDEZ - SPOUSE- [phone] * Verbal permission to speak to the caregivers and representatives has been obtained from the patient. N/A * Community resources currently utilized Home Health * Please name any agencies selected above. [facility] * Additional services required to return to the preadmission environment? No * Can the patient safely return to the preadmission environment? Yes * Has this patient been hospitalized within the prior 30 days at any hospital? Yes Coverage Notice Reviewer: [id number] Laura Tan Notice Issued Date-Time: 07/01/2019 14:45 Notice Type: Patient Choice Letter Notice Delivered To: Family Member Relationship to Patient: Spouse Accident Investigator Name: kassie hernandez Delivery Method: HAND - Hand Delivered Laura Days: Prior Verbal Notification: Recipient Understood Notice: Yes Recipient Signature: Yes Med Rec Note Co-signed by Attending: Coverage Notice Comment: resume emmanuelle cast Last DP export: 07/01/19 7:35 p Patient Name: YARELY HERNANDEZ Page [id number] at 2042 All edits/amendments must be made on the electronic document DICTATION DATE: 07/01/192040 COVERING MACHINE OPERATOR: JOHN 07/01/192040 RPT#: [id number] DC DATE: STATUS: ADM IN [facility] [address] [place] [address] END OF REPORT
--- NOTE | 2019-07-01 23:27 | NUR ---
REASSESSMENT COMPLETE, NO CHANGES NOTED, PT REPOSITIONED FOR COMFORT, ORAL CARE PROVIDED
[2019-07-02] VITALS (23 sets, daily range): BP systolic 100–208; BP diastolic 65–102
--- NOTE | 2019-07-02 01:30 | NUR ---
REPOSITIONED FOR COMFORT, ORAL CARE PROVIDED
--- NOTE | 2019-07-02 03:30 | NUR ---
REASSESSMENT COMPLETE, NO CHANGES NOTED, REPOSITIONED FOR COMFORT, ORAL CARE PROVIDED
--- NOTE | 2019-07-02 05:30 | NUR ---
FAMILY AT BEDSIDE, UPDATE GIVEN
[2019-07-02 05:56] LABS: BASOPHILS 0 % (0-2); EOSINOPHILS 0 % (0-7); HEMATOCRIT 29.3 % (42.0-54.0); IMMATURE GRANULOCYTES 1.2 % (0-5); LYMPHOCYTES 5.9 % (15-50); MCH 24.9 pg (26.0-34.0); MCHC 29.4 g/dL (31.0-37.0); MONOCYTES 1.8 % (2-11); NEUTROPHILS 91.1 % (40-80); PLATELET COUNT 248 10x3/uL (130-400); RDW 19.9 % (11.5-14.5); WBC 7.7 10x3/uL (4.8-10.8)
[2019-07-02 06:09] LABS: ALBUMIN 2.2 g/dL (3.4-5.0); BILIRUBIN - TOTAL 0.51 mg/dL (0.2-1.3); CALCIUM 7.8 mg/dL (8.5-10.1); CARBON DIOXIDE 28.2 mmol/L (21.0-32.0); POTASSIUM - SERUM 4.2 mmol/L (3.5-5.1); PROTEIN - SERUM 6.1 g/dL (6.4-8.2)
[2019-07-02 06:12] LABS: MAGNESIUM - SERUM 2.8 mg/dL (1.8-2.4)
[2019-07-02 06:42] LABS: HEMOGLOBIN 8.6 g/dL (13.5-17.5); MCV 84.9 fL (80.0-100.0); RBC 3.45 10x6/uL (4.20-6.10)
--- NOTE | 2019-07-02 07:00 | NUR ---
REC'D REPORT AND RESUMED CARE, PATIENT ON VENT WITH 80% FIO2, SAT 98%, OTHER VSS, AROUSES TO VOICE, FOLLOWS SIMPLE DIRECTIONS, ETT SECURED, OGT TO LIWS WITH BROWN DRAINAGE TO CANISTER, RIGHT IJ WITH FLUIDS INFUSING PER MAR FLOWSHEET, RIGHT HAND PIV SL, LEFT WRIST KASSI FLUSHED AND ZEROED, SALEH TO GRAVITY WITH DARK DRAINAGE TO BAG, SCD'S B/L, ASSESSMENT COMPLETED PER FLOWSHEET, REPOSITIONED TO RIGHT SIDE WITH WEDGES, ORAL CARE AND SUCTION COMPLETED
--- NOTE | 2019-07-02 08:00 | NUR ---
FAMILY AT BEDSIDE, STATUS UPDATED, VOICES NO NEEDS AT THIS TIME
--- NOTE | 2019-07-02 09:45 | NUR ---
Nutrition follow-up: Pt is now intubated, sedated on propofol NPO Labs reviewed; BUN,Cr elevated Wt: 143# Recommend TF start. Suplena @ 20 ml/hr with gradual increase to goal rate of 40 ml/hr with 100 ml H2O flush q [address] following.
--- NOTE | 2019-07-02 11:00 | NUR ---
EXTUBATED BY RT TO 6L HF NC, TOLERATED WITHOUT DIFFICULTY, VSS, DENIES PAIN, ORAL CARE ANND SUCTION COMPLETED
--- NOTE | 2019-07-02 12:00 | NUR ---
FAMILY AT BEDSIDE, STATUS UPDATED, NO NEEDS AT THIS TIME
[2019-07-02 13:10] LABS: FUNGUS STAIN Final report (())
--- NOTE | 2019-07-02 13:30 | NUR ---
ICE CHIPS TO BEDSIDE, TOLERATED WITHOUT DIFFICULTY, RESTING WATCHING TV, CALL LIGHT IN REACH, NO NEEDS AT THIS TIME, VSS
[2019-07-02 18:08] LABS: ACID FAST SMEAR Negative (()); AFB SPECIMEN PROCESSING Concentration (())
--- NOTE | 2019-07-02 19:00 | NUR ---
ASSESSMENT COMPLETED. DENIES ANY NEEDS. FAMILY AT BEDSIDE.
--- NOTE | 2019-07-02 21:00 | NUR ---
FAMILY STILL AT BEDSIDE. TOLERATED MEDICATIONS WITHOUT DIFFICULTY. DISOLVED CARAFATE, DIDN'T ATTEMPT TO TAKE WHOLE. DENIES ANY NEEDS AT THIS TIME.
--- NOTE | 2019-07-02 23:00 | NUR ---
RE-ASSESSMENT COMPLETED. NO CHANGES SINCE LAST ASSESSMENT. TOOK PIV TO RIGHT WRIST OUT WITH TIP INTACT. HAS TRIPLE LUMEN IJ
[2019-07-03] VITALS (14 sets, daily range): BP systolic 109–138; BP diastolic 67–95
--- NOTE | 2019-07-03 01:00 | NUR ---
LAYING IN BED. EYES CLOSED. EASILY WAKES. CALL LIGHT IN REACH
--- NOTE | 2019-07-03 03:00 | NUR ---
RE-ASSESSMENT COMPLETED. NO CHANGES SINCE LAST ASSESSMENT. CALL LIGHT IN REACH. DENIES ANY NEEDS.
--- NOTE | 2019-07-03 05:00 | NUR ---
CHG BATH GIVEN WITH COMPLETED LINEN CHANGE. ORAL CARE PROVIDED WELL. PATIENT HELPED WITH MOST OF BATH.
[2019-07-03 06:16] LABS: ALBUMIN 2.3 g/dL (3.4-5.0); ANION GAP 13.2 mmol/L (8-16); BILIRUBIN - TOTAL 0.51 mg/dL (0.2-1.3); CALCIUM 7.5 mg/dL (8.5-10.1); CARBON DIOXIDE 29.5 mmol/L (21.0-32.0); MAGNESIUM - SERUM 2.6 mg/dL (1.8-2.4); PHOSPHOROUS 5.7 mg/dL (2.5-4.9); POTASSIUM - SERUM 3.7 mmol/L (3.5-5.1); PROTEIN - SERUM 6.3 g/dL (6.4-8.2)
[2019-07-03 06:33] LABS: HEMOGLOBIN 9.3 g/dL (13.5-17.5); LYMPHOCYTES 6.8 % (15-50); MCH 25.8 pg (26.0-34.0); MCV 83.3 fL (80.0-100.0); NEUTROPHILS 89.8 % (40-80); PLATELET COUNT 234 10x3/uL (130-400); WBC 7.9 10x3/uL (4.8-10.8)
--- NOTE | 2019-07-03 11:00 | NUR ---
O2 DECREASED TO 3L AT THIS TIME.
--- NOTE | 2019-07-03 11:16 | NUR ---
BED CURRY PROVIDED. MODERATE AMOUNT OF BROWN, SOFT STOOL NOTED. PERICARE PROVIDED. NO FURTHER NEEDS AT THIS TIME.
--- NOTE | 2019-07-03 14:55 | NUR ---
ASSISTED PT OUT OF BED WITH PHYSICAL THERAPY. SOB ON EXERTION NOTED. O2 SAT 95%. HR 102 WITH PVC'S AND PAC'S NOTED. PT IS ON 3L OF O2 VIA NC. WILL CONTINUE TO MONITOR.
--- NOTE | 2019-07-03 15:16 | NUR ---
REPORT GIVEN TO KATHERIN ON MED 3. PT WILL BE TRANSFERRED TO ROOM 1211.
--- NOTE | 2019-07-03 15:38 | NUR ---
ATTEMPTED TO CALL RADHA MCCLURE TO NOTIFY THAT PT IS BEING TRANSFERRED TO ROOM 1211. UNABLE TO REACH HER.
--- NOTE | 2019-07-03 16:18 | NUR ---
TRANSFERRED TO ROOM 1211. NO PERSONAL BELONGINGS. RECEIVING NURSE AWARE OF PT ARRIVAL. CHART DELIVERED TO RACK PUSHER.
--- NOTE | 2019-07-03 16:24 | NUR ---
PT REC'D FROM ICU. PT IS ALERT AND ORIENTED. FAMILY AT BEDSIDE. SALEH CATH IN PLACE AND YELLOW URINE NOTED. PT IS ON 3LPM HIGH FLOW NC. PT DENIES NEEDS AT THIS TIME. \
--- NOTE | 2019-07-03 19:24 | NUR ---
REPORT RECEIVED, WILL CONTINUE POC. PATIENT IS AAOX4, UP WITH ASSIST. IV PUMP WAS BEEPING UPON ENTERING ROOM. IRON WAS COMLETE, LINE FLUSHED, SWAB CAP APPLIED, SL. PATIENT WANTED CPAP REMOVED AND OXYGEN APPLIED, 3L HI-WILLIAM. NO S/S OF DISTRESS OBSERVED, RR EVEN AND UNLABORED. PATIENT DENIES FURTHER NEEDS AT THIS TIME. FAMILY AT BEDSIDE. CL IN REACH, BED LOCKED AND LOWERED. WILL CTM.
--- NOTE | 2019-07-03 20:16 | NUR ---
PT C/O SOB, ASKED FOR A BREATHING TX. SAMANTHA FROM RT SAID SHE'D BE HERE SHORTLY. WITHIN A FEW MINUTES BOTH FAMILY MEMBERS CAME OUT AND DEMANDED I CALL RT AGAIN BC PATIENT WAS APPEARING TO EXHIBIT SIMILAR BEHAVIOR THAT LED HIM TO BE TRANSFERED TO ICU SEVERAL DAYS AGO. CALLED SAMANTHA FROM RT AND SHE SAID SHE WAS IN THE ER AND WAS ON HER WAY. OFFERED TO PUT PATIENT BACK ON BIPAP WHILE HE WAITED, AT FIRST HE REFUSED BUT THEN AGREED. PATIENT VSS. SAMANTHA ARRIVED ON FLOOR TO ADMINISTER TX. PATIENT O2 SAT 98% PRIOR TO TX.
--- NOTE | 2019-07-03 23:02 | NUR ---
PT C/O SOB, REMOVED PATIENTS CPAP SAID HE CAN'T STAND IT. INSTRUCTED PATIENT THAT IF THE O2 VIA NC ISN'T HELPING THEN THE CPAP NEEDS TO GO BACK ON. PT SAYS THE CPAP MAKES HIM FEEL LIKE HE'S "SMOTHERING". CALLED RUBÉN FONG ORDERS RECEIVED. WITHIN A FEW MINTUES HE STARTED YELLING OUT, "I CAN'T BREATHE" PATIENT O2 SAT IS 95% ON 3L VIA NC. RR 24, LABORED, BP 198/127 HR 80
--- NOTE | 2019-07-03 23:18 | NUR ---
ADMINISTERED 9MG OF MELATONIN AND CONVINCED PATIENT TO PUT HIS BIPAP BACK ON. RR MORE EVEN AND UNLABORED NOW.
[2019-07-04 00:38] VITALS: BP 198/127
--- NOTE | 2019-07-04 03:41 | NUR ---
PT C/O SOB, SAY'S HE CAN'T BREATHE. O2 SAT 99% ON BIPAP, HR 81, RR 24, BP 153/87 PT REQUESTING BREATHING TX, SAYS HE ALSO TAKE VALIUM AT HOME AND ASKING WHY HE CAN'T HAVE THAT HERE. RUBÉN DOMÍNGUEZ PAGED. PT ALSO HAD MED LOOSE/LIQUID BM, PAGED CLEANED, LINENS CHANGED.
--- NOTE | 2019-07-04 04:43 | NUR ---
PAGETeja DOMÍNGUEZ APN FUNDS DEVELOPMENT DIRECTOR AGAIN FOR PATIENT NEEDING ANXIETY MEDS.
--- NOTE | 2019-07-04 05:14 | NUR ---
I have reviewed this patient and I concur with the Shift Assessment completed by the Licensed Practical Nurse today this shift.
--- NOTE | 2019-07-04 05:26 | NUR ---
DAVID FONG APN, ORDERS RECEIVED FOR VALIUM 5MG PO TID.
[2019-07-04 06:40] LABS: ALBUMIN 2.6 g/dL (3.4-5.0); ANION GAP 11.1 mmol/L (8-16); BILIRUBIN - TOTAL 0.56 mg/dL (0.2-1.3); CALCIUM 8.1 mg/dL (8.5-10.1); CARBON DIOXIDE 30.7 mmol/L (21.0-32.0); CREATININE - SERUM 2.5 mg/dL (0.6-1.3); POTASSIUM - SERUM 3.8 mmol/L (3.5-5.1); PROTEIN - SERUM 6.9 g/dL (6.4-8.2); VANCOMYCIN - RANDOM 15.7 ug/mL (10.0-20.0)
[2019-07-04 06:46] LABS: BASOPHILS 0.1 % (0-2); EOSINOPHILS 0 % (0-7); IMMATURE GRANULOCYTES 4.8 % (0-5); LYMPHOCYTES 4.6 % (15-50); MCH 25.3 pg (26.0-34.0); MCHC 29.5 g/dL (31.0-37.0); MEAN PLATELET VOLUME 10.2 fL (7.4-10.4); MONOCYTES 3.6 % (2-11); NEUTROPHILS 86.9 % (40-80); PLATELET COUNT 251 10x3/uL (130-400); RDW 20.4 % (11.5-14.5)
[2019-07-04 06:57] LABS: HEMOGLOBIN 11.5 g/dL (13.5-17.5); MCV 85.9 fL (80.0-100.0); RBC 4.54 10x6/uL (4.20-6.10)
--- NOTE | 2019-07-04 07:13 | NUR ---
REPORT RECEIVED. WILL CONTINUE WITH POC. PT CURRENTLY LYING HIGH FOWLERS. CALL LIGHT W/I REACH. FAMILY AT BEDSIDE. RR EVEN AND UNLABORED ON 3L HIGH FLOW NC. L.IJ CVL IS SALINE LOCKED. SALEH IN PLACE AND DRAINING URINE. PT IS ASLEEP WITH EYES CLOSED AT THIS TIME. NO S/S OF DISTRESS NOTED. WILL CTM.
[2019-07-04 08:00] VITALS: BP 137/90
--- NOTE | 2019-07-04 11:37 | MORECARE ---
CASE MANAGEMENT DISCHARGE SUMMARY PATIENT: YARELY HERNANDEZ UNIT: [id number] ADM DATE: 06/28/19 AGE: 68 : 48 SEX: M ROOM/BED: D.1211 AUTHOR: LEO,DOC PHYSICIAN: REFERRING PHYSICIAN: HORACE AGUIRRE MD DATE OF SERVICE: 07/04/19 Discharge Plan Patient Name: YARELY HERNANDEZ Facility: [facility]:[place] : 1950 Planned Disposition: Anticipated Discharge Date: Discharge Date: Expected LOS: Initial Reviewer: [email or web address] Initial Review Date: 07/01/2019 Generated: 07/04/19 12:36 pm Comments DCP- Discharge Planning Updated by [email or web address]: Danette Montes on 07/04/19 10:[address] Patient Name: YARELY HERNANDEZ Admission Status: ER Accout number: [id number] Admission Date: 06-28-2019 : 1950 Admission Diagnosis: Attending: ROBIN Current LOS: 6 Anticipated DC Date: Planned Disposition: Primary Insurance: [facility] MEDICARE SOLUTIONS Discharge Planning Comments: CM MET WITH PATIENT AND ABOUT DC PLANNING. STATES WOULD LIKE TO GO TO [facility] HERE AT [facility] WHEN MEDICALLY STABLE. BRE SIGNED AND CONSULT ORDERED. IMM SIGNED. CM TO FOLLOW AND ASSIST NEEDED. Electricians Top Helper: Danette Montes DCP- Discharge Planning Updated by [id number]: Shanta Tan on 07/01/19 7:[address] Patient Name: YARELY HERNANDEZ Admission Status: ER Accout number: [id number] Admission Date: 06-28-2019 : 1950 Admission Diagnosis: Attending: ROBIN Current LOS: 3 Anticipated DC Date: Planned Disposition: Primary Insurance: [facility] MEDICARE SOLUTIONS Discharge Planning Comments: CM met with patient's Kassie at bedside after explaining CM role and obtaining verbal consent. Patient is currently sedated on Vent . Patient lives at home with his where he is independent with his care and plans to return there upon discharge. Patient feels this would be a safe discharge. CM discussed availability / needs of home health and medical equipment. Patient has home 02, trilogy and nebulizer with [facility]. Patient also has [facility] and BRE signed to resume care. Kassie denies any discharge needs at this time. Kassie states he will have his family drive him home upon discharge. CM will continue to follow and assist as needed with discharge planning / needs. Electricians Top Helper: Shanta PEÑA - Discharge Planning Initial Assessment Updated by [email or web address]: Shanta Tan on 07/01/19 8:29 pm * How many steps to enter\exit or inside your home? * PCP LOLIS SALCEDO * [facility] * Preadmission Environment Home with Family * ADLs Independent * Other Equipment HOME 02, TRILOGY, NEBULIZER, WALKER, SC, W/C, CANE * List name and contact numbers for known caregivers / representatives who currently or will assist patient after discharge: KASSIE HERNANDEZ - SPOUSE- [phone] * Verbal permission to speak to the caregivers and representatives has been obtained from the patient. N/A * Community resources currently utilized Home Health * Please name any agencies selected above. [facility] * Additional services required to return to the preadmission environment? No * Can the patient safely return to the preadmission environment? Yes * Has this patient been hospitalized within the prior 30 days at any hospital? Yes Coverage Notice Reviewer: [id number] - Shanta Tan Notice Issued Date-Time: 07/01/2019 14:45 Notice Type: Patient Choice Letter Notice Delivered To: Family Member Relationship to Patient: Spouse Faucets Assembler Name: kassie hernandez Delivery Method: HAND - Hand Delivered Laura Days: Prior Verbal Notification: Recipient Understood Notice: Yes Recipient Signature: Yes Med Rec Note Co-signed by Attending: Coverage Notice Comment: resume elite Reviewer: [id number] Laura Montes Notice Issued Date-Time: 07/04/2019 11:35 Notice Type: IM Discharge Notice Notice Delivered To: Family Member Relationship to Patient: Faucets Assembler Name: Delivery Method: HAND - Hand Delivered Laura Days: Prior Verbal Notification: Recipient Understood Notice: Yes Recipient Signature: Yes Med Rec Note Co-signed by Attending: Coverage Notice Comment: Reviewer: [email or web address] Laura Montes Notice Issued Date-Time: 07/04/2019 11:35 Notice Type: Patient Choice Letter Notice Delivered To: Family Member Relationship to Patient: Faucets Assembler Name: Delivery Method: HAND - Hand Delivered Laura Days: Prior Verbal Notification: Recipient Understood Notice: Yes Recipient Signature: Yes Med Rec Note Co-signed by Attending: Coverage Notice Comment: [facility] Last DP export: 07/01/19 7:42 p Patient Name: YARELY HERNANDEZ Page [id number] at 1137 All edits/amendments must be made on the electronic document DICTATION DATE: 07/04/191136 SPARES SCHEDULER: JOHN 07/04/191136 RPT#: [id number] DC DATE: STATUS: ADM IN [facility] [address] [place] [address] END OF REPORT
--- NOTE | 2019-07-04 12:05 | NUR ---
Rehab Prescreening Consult recieved and the chart has been reviewed. He is [facility] managed Medicare and will require a preauth for inpatient rehab. All information and therapy notes will be sent to [facility] for their review. Cydney Stover RN Clinical Liaison, Rehab
--- NOTE | 2019-07-04 14:46 | NUR ---
Nutrition Follow-up: Pt reports appetite improving. Ate ~50% of breakfast this AM. No N/V. Agreed to 1 Ensure daily. Diet: Cardiac Wt: 142# (149# on 06/29) Last BM: 07/04 Labs noted: GFR 27, Glu 122, Mg 3.0, Ca 8.1, Alb 2.6 Meds noted: Solumedrol -Continue current diet as tolerated. -+Ensure 1x/day per pt request. -RD following.
[2019-07-04 16:08] LABS: AEROBE ID Final report (())
--- NOTE | 2019-07-04 17:35 | NUR ---
I have reviewed this patient and I concur with the Shift Assessment completed by the Licensed Practical Nurse today this shift.
--- NOTE | 2019-07-04 17:54 | NUR ---
PT SITTING UP IN BED. CALL LIGHT W/I REACH. FAMILY AT BEDSIDE. L.IJ CVL SALINE LOCKED. PT DENIES ANY NEEDS. NO S/S OF DISTRESS NOTED. PT CURRENTLY EATING DINNER. SALEH EMPTIED WITH A TOTAL OF 600ML URINE RECORDED. RR EVEN AND UNLABORED ON 3L HIGH FLOW NC. WILL CTM.
--- NOTE | 2019-07-04 18:19 | NUR ---
PT ASSISTED TO AND FROM TOILET WITH STANDBY ASSIST. PT TOLERATED WELL. RR EVEN AND UNLABORED. WILL CTM.
--- NOTE | 2019-07-04 19:10 | NUR ---
BEDSIDE REPORT RECEIVED FROM DAY SHIFT, PT CARE ASSUMED. INTRODUCED SELF AND WROTE NAME ON BOARD. PT SITTING UP IN BED, AAOX4, VISITING WITH FAMILY AT BEDSIDE. DENIES PAIN OR ANY OTHER NEEDS AT THIS TIME. BED IN LOWEST POSITION, SR X1, CALL LIGHT WITHIN REACH. WILL CONTINUE TO MONITOR.
[2019-07-04 20:00] VITALS: BP 159/107
--- NOTE | 2019-07-05 01:28 | NUR ---
PT REFUSED TO WEAR BILEVEL
[2019-07-05 04:00] VITALS: BP 148/99
[2019-07-05 06:39] LABS: BASOPHILS 0.2 % (0-2); EOSINOPHILS 0 % (0-7); HEMATOCRIT 32.5 % (42.0-54.0); HEMOGLOBIN 9.5 g/dL (13.5-17.5); IMMATURE GRANULOCYTES 4.6 % (0-5); LYMPHOCYTES 4.3 % (15-50); MCH 25.3 pg (26.0-34.0); MCHC 29.2 g/dL (31.0-37.0); MCV 86.4 fL (80.0-100.0); MEAN PLATELET VOLUME 9.9 fL (7.4-10.4); MONOCYTES 3.9 % (2-11); PLATELET COUNT 280 10x3/uL (130-400); RBC 3.76 10x6/uL (4.20-6.10); RDW 20.5 % (11.5-14.5)
[2019-07-05 06:41] LABS: WBC 13.1 10x3/uL (4.8-10.8)
[2019-07-05 08:00] VITALS: BP 142/93
[2019-07-05 08:04] LABS: ANION GAP 11.7 mmol/L (8-16); CALCIUM 7.8 mg/dL (8.5-10.1); CARBON DIOXIDE 30.1 mmol/L (21.0-32.0); CREATININE - SERUM 2.3 mg/dL (0.6-1.3); POTASSIUM - SERUM 3.8 mmol/L (3.5-5.1); VANCOMYCIN - RANDOM 16.2 ug/mL (10.0-20.0)
--- NOTE | 2019-07-05 09:52 | NUR ---
PT ALERT X 4. COURSE WHEEZES TO ALL MATHIAS, 3L O2 PER NC. ABDOMEN DISTENDED. CENTRAL LINE TO LEFT IJ, PATENT, DRESSING REINFORCED. FAMILY AT BEDSIDE. BED LOW, CALL LIGHT IN REACH. NO OTHER NEEDS AT THIS TIME.
[2019-07-05 12:00] VITALS: BP 177/96
--- NOTE | 2019-07-05 19:30 | NUR ---
PT IS RESTING IN BED VISITING WITH 4 VISITORS. ALERT AND ORIENTED X3. DENIES ACUTE DISCOMFORT AT THIS TIME. NO NEEDS VOICED. SALEH CATH IS PATENT AND DRAINING TO A GRAVITY BAG. LEFT CHEST IJ SALINE LOCK NOTED. FLUSHES EASILY WITH NS. SR'S ARE UP X 2 IN BED. CALL LIGHT AND BEDSIDE TABLE ARE WITHIN EASY REACH.
[2019-07-05 19:56] VITALS: BP 142/99
--- NOTE | 2019-07-05 21:22 | NUR ---
PT RESTING IN BED WATCHING TV. NO NEEDS VOICED.
[2019-07-06 00:05] VITALS: BP 142/99
--- NOTE | 2019-07-06 00:09 | NUR ---
PT RESTING IN BED WITH EYES CLOSED. BIPAP ON. AWOKE EASILY TO VERBAL STIMULI. VSS.
[2019-07-06 04:00] VITALS: BP 121/84
--- NOTE | 2019-07-06 04:55 | NUR ---
PT IS RESTING QUIETLY IN BED WITH EYES CLOSED. RESPS ARE EVEN AND UNLABORED. NO ACUTE DISTRESS NOTED.
[2019-07-06 06:52] LABS: ANION GAP 11.5 mmol/L (8-16); BASOPHILS 0.2 % (0-2); EOSINOPHILS 0 % (0-7); HEMATOCRIT 31.8 % (42.0-54.0); HEMOGLOBIN 9.4 g/dL (13.5-17.5); IMMATURE GRANULOCYTES 4.8 % (0-5); LYMPHOCYTES 3.1 % (15-50); MCH 25.5 pg (26.0-34.0); MCHC 29.6 g/dL (31.0-37.0); MCV 86.4 fL (80.0-100.0); MONOCYTES 4.9 % (2-11); PLATELET COUNT 238 10x3/uL (130-400); POTASSIUM - SERUM 3.5 mmol/L (3.5-5.1); RBC 3.68 10x6/uL (4.20-6.10); RDW 20.6 % (11.5-14.5); VANCOMYCIN - RANDOM 10.6 ug/mL (10.0-20.0); WBC 13.8 10x3/uL (4.8-10.8)
--- NOTE | 2019-07-06 09:35 | NUR ---
PT ALERT X 4. EXPIRATORY WHEEZES TO ALL MATHIAS, 3.5L O2 PER NC. PT REPORTING COUGH THIS MORNING. CENTRAL LINE TO LEFT IJ, PATENT, DRESSING REINFORCED. FAMILY AT BEDSIDE. BED LOW, CALL LIGHT IN REACH. NO OTHER NEEDS AT THIS TIME.
[2019-07-06 17:43] VITALS: BP 131/89
--- NOTE | 2019-07-06 19:26 | NUR ---
PT IS RESTING IN BED WITH BIPAP ON. AROUSES EASILY TO VERBAL STIMULI. ALERT AND ORIENTED X 3. DENIES ACUTE DISCOMFORT AT THIS TIME. NO NEEDS VOICED. VSS. SR'S ARE UP X 3 IN BED. CALL LIGHT AND BEDSIDE TABLE ARE WITHIN EASY REACH.
[2019-07-06 19:33] VITALS: BP 121/67
[2019-07-07] VITALS (15 sets, daily range): BP systolic 95–204; BP diastolic 70–145
--- NOTE | 2019-07-07 01:00 | NUR ---
RESTING IN BED WITH EYES CLOSED.
[2019-07-07 03:38] LABS: BASOPHILS 0.2 % (0-2); EOSINOPHILS 0 % (0-7); HEMATOCRIT 31.9 % (42.0-54.0); HEMOGLOBIN 9.3 g/dL (13.5-17.5); LYMPHOCYTES 3.6 % (15-50); MCH 25.6 pg (26.0-34.0); MCHC 29.2 g/dL (31.0-37.0); MCV 87.9 fL (80.0-100.0); MEAN PLATELET VOLUME 9.9 fL (7.4-10.4); MONOCYTES 2.5 % (2-11); NEUTROPHILS 87.7 % (40-80); PLATELET COUNT 192 10x3/uL (130-400); RBC 3.63 10x6/uL (4.20-6.10); RDW 20.8 % (11.5-14.5); WBC 13.7 10x3/uL (4.8-10.8)
[2019-07-07 03:51] LABS: ANION GAP 6.5 mmol/L (8-16); CALCIUM 8.1 mg/dL (8.5-10.1); CARBON DIOXIDE 32.4 mmol/L (21.0-32.0); CREATININE - SERUM 1.8 mg/dL (0.6-1.3); POTASSIUM - SERUM 3.9 mmol/L (3.5-5.1); VANCOMYCIN - RANDOM 7.6 ug/mL (10.0-20.0)
--- NOTE | 2019-07-07 05:04 | NUR ---
I have reviewed this patient and I concur with the Shift Assessment completed by the Licensed Practical Nurse today this shift.
--- NOTE | 2019-07-07 09:17 | NUR ---
PATIENT RESTING WITH BIPAP ON PRODUCTIVE COUGH NOTED WITH THICK GREYISH SPUTUM. AT BEDSIDE. CL IN REACH
--- NOTE | 2019-07-07 10:10 | NUR ---
Recieved a call from Cydney at [facility]. The medical artist has denied this patient for inpatient rehab. If the physician disagrees a peer to peer can be done by calling Cydney at [phone]. Discussed with the CM Shanta Tan RN. Cydney Stover RN Clinical Liaison, Rehab
[2019-07-07 14:09] LABS: FUNGUS MYCOLOGY CULTURE Preliminary report (())
--- NOTE | 2019-07-07 18:34 | NUR ---
PATIENT RESTING WITH NO NEEDS VOICED. CL IN REACH, FAMILY AT SIDE
--- NOTE | 2019-07-07 19:29 | NUR ---
PT RESTING IN BED WITH EYES OPEN. VOICED COMPLAINT OF NOT GETTING ENOUGH AIR, AND REQUESTED HIS BIPAP BE PLACED ON WHILE HE WAS WAITING TO RESPIRATORY TO HELP HIM WITH HIS TRIOLOGY SETUP. VSS. LEFT IJ TRIPLE LUMEN CENTRAL LINE IS INTACT, IS HIS RIGHT CHEST HEMISPLIT CATHETER. SALEH CATH IS PATENT AND DRAINING TO A GRAVITY BAG. SR'S ARE UP X 2 IN BED. CALL LIGHT AND BEDSIDE TABLE ARE WITHIN EASY REACH. SPOUSE IS AT BEDSIDE.
--- NOTE | 2019-07-07 20:45 | NUR ---
PT VOICING COMPLAINT OF SOB, ELEVATED ANXIETY. FAMILY MEMBERS ARE BECOMING INCREASINGLY MORE AND MORE AGITATED, AND DEMANDING SOMETHING BE DONE NOW. NEUROBIOLOGIST TALKED TO PT. RAPID RESPONSE CALLED. TELEMETRY UNIT PLACED ON PT SHOWING 159 ST. BP IS 204/145. SEE RAPID RESPONSE SHEET.
--- NOTE | 2019-07-07 21:00 | NUR ---
NEW ORDERS RECIEVED TO LET PT RELAX, AND RECHECK BP IN 1 HR. DOSE OF IV BENEDRYL GIVEN.
--- NOTE | 2019-07-07 23:26 | NUR ---
PT RESTING IN BED WITH EYES CLOSED. BIPAP ON. SPOUSE AT BEDSIDE.
--- NOTE | 2019-07-07 23:53 | NUR ---
I have reviewed this patient and I concur with the Shift Assessment completed by the Licensed Practical Nurse today this shift.
[2019-07-08] VITALS (7 sets, daily range): BP systolic 117–181; BP diastolic 86–100
--- NOTE | 2019-07-08 00:44 | NUR ---
HETAL AVALOS APN CALLED AND ORDERED CATAPRES 0.1 MG PO NOW.
--- NOTE | 2019-07-08 02:52 | NUR ---
PT RESTING IN BED WITH EYES CLOSED. NO ACUTE DISTRESS NOTED. BIPAP ON.
[2019-07-08 04:19] LABS: ANION GAP 4.8 mmol/L (8-16); CALCIUM 8.5 mg/dL (8.5-10.1); CARBON DIOXIDE 33.5 mmol/L (21.0-32.0); POTASSIUM - SERUM 4.3 mmol/L (3.5-5.1)
[2019-07-08 04:54] LABS: HEMATOCRIT 32.2 % (42.0-54.0); HEMOGLOBIN 9.5 g/dL (13.5-17.5); MCH 25.7 pg (26.0-34.0); MCHC 29.5 g/dL (31.0-37.0); MCV 87.3 fL (80.0-100.0); PLATELET COUNT 167 10x3/uL (130-400); RBC 3.69 10x6/uL (4.20-6.10); RDW 21.3 % (11.5-14.5); WBC 12.6 10x3/uL (4.8-10.8)
--- NOTE | 2019-07-08 07:04 | NUR ---
REPORT RECEIVED. WILL CONTINUE WITH POC. PT CURRENTLY LYING SEMI FOWLERS. CALL LIGHT W/I REACH. FAMILY AT BEDSIDE. PT CURRENTLY ASLEEP WITH EYES CLOSED AT THIS TIME. RR EVEN AND UNLABORED ON BIPAP. L.IJ CVL SALINE LOCKED. SALEH IN PLACE AND DRAINING URINE. NO S/S OF DISTRESS NOTED. WILL CTM.
[2019-07-08 07:36] LABS: LYMPHOCYTES 6 % (15-50); MONOCYTES 2 % (2-11); NEUTROPHILS 84 % (40-80); PLATELET ESTIMATE NORMAL
--- NOTE | 2019-07-08 10:15 | NUR ---
I have reviewed this patient and I concur with the Shift Assessment completed by the Licensed Practical Nurse today this shift.
--- NOTE | 2019-07-08 15:12 | NUR ---
Nutrition Follow-up: Diet: Cardiac PO intake: ~72% average x last 9 meals as recorded in flowsheet. Patient on BiPAP at time of RD visit. Spoke with pt's who tells me that pt is eating very little. States that she has been eating foods off of his tray when he declines it. She states that the doctor is starting him on a medication to help with his appetite. Last BM: 07/07/19. WT: 142# (07/03/19); Admit wt: 143# (06/28/19) Significant meds: megace (started 07/08/19), solumedrol. Labs noted, glucose slightly elevated but on steriod. Continue current nutrition regimen. Encouraged intake of Ensure. Hopefully appetite/PO intake with improve with appetite stimulant. RD following.
--- NOTE | 2019-07-08 19:23 | NUR ---
PT LYING IN BED IN ROOM. DENIES NEEDS AT THIS TIME. BED IN LOW SIDE RAILS X2. A/O X4. CL IN REACH. RESP EVEN AND UNLABORED. TRILEGY ON AT THIS TIME. BOWEL ACTIVE X4. SALEH INTACT, URINE COLOR WNL, NO ODOR PRESENT. WILL CONTINUE TO MONITOR.
[2019-07-09 00:12] VITALS: BP 133/89
--- NOTE | 2019-07-09 01:12 | NUR ---
I have reviewed this patient and I concur with the Shift Assessment completed by the Licensed Practical Nurse today this shift.
[2019-07-09 04:36] VITALS: BP 126/97
[2019-07-09 05:56] LABS: BASOPHILS 0.3 % (0-2); EOSINOPHILS 0 % (0-7); HEMATOCRIT 31.5 % (42.0-54.0); HEMOGLOBIN 9.3 g/dL (13.5-17.5); IMMATURE GRANULOCYTES 4.9 % (0-5); LYMPHOCYTES 5.6 % (15-50); MCH 25.6 pg (26.0-34.0); MCHC 29.5 g/dL (31.0-37.0); MCV 86.8 fL (80.0-100.0); MEAN PLATELET VOLUME 10.7 fL (7.4-10.4); MONOCYTES 3.4 % (2-11); NEUTROPHILS 85.8 % (40-80); PLATELET COUNT 154 10x3/uL (130-400); RBC 3.63 10x6/uL (4.20-6.10); RDW 21.3 % (11.5-14.5); WBC 10.4 10x3/uL (4.8-10.8)
[2019-07-09 06:11] LABS: ANION GAP 9.6 mmol/L (8-16); C-REACTIVE PROTEIN 9.7 mg/dL (0.0-0.9); CALCIUM 8.7 mg/dL (8.5-10.1); CARBON DIOXIDE 30.4 mmol/L (21.0-32.0); CREATININE - SERUM 1.9 mg/dL (0.6-1.3)
[2019-07-09 07:40] VITALS: BP 123/87
[2019-07-09 07:42] VITALS: BP 97/46
[2019-07-09 08:28] LABS: ERYTHROCYTE SEDIMENTATION RATE 58 mm/hr (0-20)
--- NOTE | 2019-07-09 09:23 | NUR ---
FAMILY AT BS. PATIENT RESTING WITH BIPAP ON. NO C/O PAIN. CL IN REACH.
--- NOTE | 2019-07-09 09:40 | NUR ---
DR BLACK CONSULTED. HIS WOOL CLEANER ROUNDED AND WILL ORDER ECHO.
[2019-07-09 13:01] VITALS: Ht 170.2 cm; Wt 64.6 kg
--- NOTE | 2019-07-09 13:26 | NUR ---
NO CHANGE IN ASSESSMENT. RESTING WO DISTRESS. CL IN REACH.
[2019-07-09 15:24] VITALS: BP 116/78
--- NOTE | 2019-07-09 15:55 | NUR ---
NO CHANGE IN ASSESSMENT. FAMILY IN ROOM. ALERT AND ORIENTED AND AWAKES WO DIFFICULTY. NO C/O PAIN. CL IN REACH.
--- NOTE | 2019-07-09 16:33 | NUR ---
OT NOTE: PT COMPLETED BED MOB TASKS WITH CGA. PT COMPLETED EOB SITTING WITH SBA. PT COMPLETED SIMPLE FACE WASH WITH SET UP. THANK YOU,ADAMA KRAUSE
--- NOTE | 2019-07-09 18:14 | NUR ---
RESTING WITH EYES CLOSED. BIPAP ON. CL IN REACH. NO DISTRESS NOTED.
--- NOTE | 2019-07-09 19:30 | NUR ---
PT LYING IN BED CL IN REACH. A/O X4. RESTING QUIETLY. RESP EVEN AND UNLABORED. BED IN LOW SIDE RAILS X2. BOWEL ACTIVE X4. SALEH INTACT, URINE WNL, NO ODOR PRESENT. PT ON TRILEGY. DENIES NEEDS AT THIS TIME. WILL CONTINUE TO MONITOR.
[2019-07-09 19:45] VITALS: BP 144/105
[2019-07-10] VITALS (8 sets, daily range): BP systolic 124–153; BP diastolic 89–104
--- NOTE | 2019-07-10 03:33 | NUR ---
I have reviewed this patient and I concur with the Shift Assessment completed by the Licensed Practical Nurse today this shift.
[2019-07-10 06:03] LABS: BASOPHILS 0.2 % (0-2); EOSINOPHILS 0 % (0-7); HEMATOCRIT 31.3 % (42.0-54.0); HEMOGLOBIN 9.3 g/dL (13.5-17.5); IMMATURE GRANULOCYTES 5.2 % (0-5); LYMPHOCYTES 6.9 % (15-50); MCH 25.5 pg (26.0-34.0); MCHC 29.7 g/dL (31.0-37.0); MCV 85.8 fL (80.0-100.0); MEAN PLATELET VOLUME 10.5 fL (7.4-10.4); MONOCYTES 3.9 % (2-11); NEUTROPHILS 83.8 % (40-80); PLATELET COUNT 147 10x3/uL (130-400); RBC 3.65 10x6/uL (4.20-6.10); RDW 21.1 % (11.5-14.5)
[2019-07-10 06:39] LABS: ALBUMIN 1.8 g/dL (3.4-5.0); ANION GAP 7.9 mmol/L (8-16); BILIRUBIN - TOTAL 0.38 mg/dL (0.2-1.3); CALCIUM 8.6 mg/dL (8.5-10.1); CREATININE - SERUM 1.8 mg/dL (0.6-1.3); POTASSIUM - SERUM 3.9 mmol/L (3.5-5.1); PROTEIN - SERUM 5.7 g/dL (6.4-8.2)
--- NOTE | 2019-07-10 06:54 | NUR ---
CHG BATH GIVEN BEFORE PROCEDURE AND CENTRAL LINE DRESSING CHANGED.
--- NOTE | 2019-07-10 07:42 | NUR ---
PT IS RESTING IN BED WITH EYES CLOSED. RESPIRATIONS ARE EVEN AND UNLABORED. BIPAP MACHINE IS ON AND WORKING. PT IS EASILY AROUSED WITH VERBAL STIMULATION. PT IS AAO X 4 UPON AROUSAL. IS AT BEDSIDE. COARSE LUNG SUNDS BILATERALLY THROUGHOUT LOBES UPON EXPIRATION. BS ACTIVE X 4. PT AND PT SPOUSE EDUCATED ABOUT NPO STATUS. PT AND PT SPOUSE VERBALIZE UNDERSTANING. CONSENTS FOR SOLAR ELECTRIC INSTALLER PROCEDURE SIGNED BY PT SPOUSE AND PT REQUEST. PT DENIES PRESENCE OF NUMBNESS/TINGLING. PT DENIES PRESENCE OF PAIN/N/V. BED IS IN THE LOWEST POSITION. CALL LIGHT AND BEDSIDE TABLE ARE WITHIN REACH. SIDE RAILS X 2. PT DNIES UFRTHER NEEDS. WILL CONT TO MONITOR.
--- NOTE | 2019-07-10 09:44 | NUR ---
MEDICATIONS PO GIVEN WITH SMALL SIPS OF WATER.
--- NOTE | 2019-07-10 10:39 | EC ---
PATIENT:YARELY MCCLURE DATE OF SERVICE: 06/28/19 SEX: M MEDICAL RECORD: [id number] DATE OF : [birth year] LOCATION:D.M3 D.121 AGE OF PATIENT: 68 ADMISSION DATE: 06/28/19 REFERRING PHYSICIAN: INTERPRETING PHYSICIAN: AMY LAKE MD ECHOCARDIOGRAM REPORT ECHO CHARGES 5 ECHO LIMITED Date: 06/29/19 CLINICAL DIAGNOSIS: CHF ECHOCARDIOGRAPHIC MEASUREMENTS (adult normal given) AC root (d.<3.7cm) 0 cm LV Septum d (<1.2 cm> 0 cm Valve Excursion 0 cm LV Septum (systole) 0 cm Left Atria (s.<4.0cm> 0 cm LVPW d(<1.2cm) 0 cm RV (d.<2.3cm) 0 cm LVPW (sytole) 0 cm LV diastole(<5.6CM) 0 cm MV E-F(>70mm/sec) 0 cm LV systole 0 cm LVOT Diameter 0 cm MV exc.(>10mm) 0 cm Est.ejection fraction (50-75%) 0 % DOPPLER: LVIT 0 cm/sec A 0 cm/sec E 0 cm/sec LA 0 cm/sec RVSP 0 mmHg LVOT 0 cm/sec AOP1/2T 0 m/s Asc. Ao 0 cm/sec RVOT 0 cm/sec RA 0 cm/sec PA 0 cm/sec AV Gradient Peak 0 mmHg AV Mean 0 mmHg AV Area 0 cm MV Gradient Peak 0 mmHg MV Mean 0 mmHg MV Area 0 cm COMMENTS: LIMITED (2-D ONLY FOR EF) COMPLETE ECHO DONE ON 06/05/19 Reservations Agent: Kathy SINOE Picc Nurse: 1 Dr. [address] TAPE# PACS Pericardial Effusion N DATE OF SERVICE: 06/29/2019 Limited Echo For Ejection Fraction FINDINGS: Left ventricular chamber size is within normal limits. Left ventricular systolic function is mildly reduced, overall ejection fraction estimated at 40%. TRANSINT:[id number] Voice Confirmation ID: [id number] DOCUMENT ID: [id number] ECHOCARDIOGRAM REPORT [id number] KAMIAMY SHAW MD at 1039 CC: [id number] DICTATION DATE: 06/29/19 1341 VALVE ASSEMBLER: 06/29/191924 ADM IN [facility] [address] [id number]
--- NOTE | 2019-07-10 11:44 | NUR ---
ATTEMPT PHONE CALL PLACED TO DR MITCHELL TO NOTIFY OF PT HTN. NO ANSWER.
--- NOTE | 2019-07-10 12:30 | NUR ---
CALL RECD FROM TECHNOLOGY COORDINATOR TO PRE OP PT.
--- NOTE | 2019-07-10 12:59 | NUR ---
PT TRANSPORTED OFF FLOOR VIA BED FOR YARN DUMPER PROCEDURE.
--- NOTE | 2019-07-10 14:14 | NUR ---
PT RETURNS TO ROOM VIA BED ESCORTED BY GRAIN OILSEED OR PASTURE FARM WORKER STAFF. PT IS AAO X 4. PT DENIES PRESENCE OF PAIN/N/V AT THIS TIME. SEE VITALS FLOWSHEET. DAUGHTER IN LAW AT BEDSIDE. PT INFORMED OF NPO STATUS FOR 1 HOUR POST PROCEDURE. PT AND PT FAMILY VERBALIZE UNDERSTANDING. BED IS IN THE LOWEST POSITION. CALL LIGHT AND BEDSIDE TABLE ARE WITHIN REACH. SIDE RAILS X 2.WILL CONT TO MONITOR.
--- NOTE | 2019-07-10 17:25 | NUR ---
SPOKE WITH [facility]. OK TO ADMINISTER CEFEPIME WITH CREATININE LEVEL. SEE EMAR.
--- NOTE | 2019-07-10 19:31 | NUR ---
PT SITTING UP IN BED. FAMILY IN ROOM. TRILEGY ON AT THIS TIME. BED IN LOW SIDE RAILS X2. CL IN REACH. A/O X4. DENIES NEEDS AT THIS TIME. RESP EVEN. LUNGS COURSE AND BOWEL ACTIVE X4. SALEH INTACT. WILL CONTINUE TO MONITOR.
[2019-07-11 00:05] VITALS: BP 144/100
--- NOTE | 2019-07-11 01:08 | NUR ---
I have reviewed this patient and I concur with the Shift Assessment completed by the Licensed Practical Nurse today this shift.
[2019-07-11 04:00] VITALS: BP 137/105
[2019-07-11 06:17] LABS: BASOPHILS 0.3 % (0-2); EOSINOPHILS 0 % (0-7); HEMATOCRIT 30.7 % (42.0-54.0); HEMOGLOBIN 9.1 g/dL (13.5-17.5); IMMATURE GRANULOCYTES 4.9 % (0-5); LYMPHOCYTES 8.3 % (15-50); MCH 25.6 pg (26.0-34.0); MCHC 29.6 g/dL (31.0-37.0); MCV 86.2 fL (80.0-100.0); MEAN PLATELET VOLUME 10.4 fL (7.4-10.4); MONOCYTES 4.6 % (2-11); NEUTROPHILS 81.9 % (40-80); PLATELET COUNT 156 10x3/uL (130-400); RBC 3.56 10x6/uL (4.20-6.10); RDW 21.7 % (11.5-14.5); WBC 9.2 10x3/uL (4.8-10.8)
[2019-07-11 06:35] LABS: ANION GAP 11.2 mmol/L (8-16); BILIRUBIN - TOTAL 0.36 mg/dL (0.2-1.3); CALCIUM 8.2 mg/dL (8.5-10.1); CARBON DIOXIDE 29.7 mmol/L (21.0-32.0); POTASSIUM - SERUM 3.9 mmol/L (3.5-5.1); PROTEIN - SERUM 5.8 g/dL (6.4-8.2)
[2019-07-11 08:30] VITALS: BP 129/96
--- NOTE | 2019-07-11 12:33 | NUR ---
Nutrition Follow-up: Diet: Cardiac PO intake: ~58% average x last 6 meals recorded. Attempted to speak with patient but he was asleep with BiPAP on. was not in room. I know from talking to previously that she is eating some of the foods from his tray. Last BM: 07/09/19 x 3. WT: 142# (07/03/19), no new wt. Significant meds: Megace (started 07/08/19), solumedrol, lasix. Labs noted. Continue megace as medically feasible. Hopefully appetite will improve. Encourage PO intake. Recommend weights x2/week on patient. Will continue to monitor PO intake. RD following.
--- NOTE | 2019-07-11 13:04 | TEE ---
PATIENT:YARELY MCCLURE MEDICAL RECORD: [id number] LOCATION:D. D.121 AGE OF PATIENT: 68 ADMISSION DATE: 06/28/19 SEX: M REFERRING PHYSICIAN: INTERPRETING PHYSICIAN: FELIX LEE MD TRANSESOPHAGEAL ECHOCARDIOGRAM Date: 07/10/19 SOPHIE CHARGE Y INDICATIONS: ASSESS FOR ENDOCARDITIS PREMEDICATIONS: PATIENT'S RESPONSE PROCEDURE DOPPLER MEASUREMENTS: LVIT 0 LA 0 PA 0 RA 0 LVOT 0 RVOT 0 Asc. Ao 0 AV Gradient Peak 0 AV Mean 0 AV Area 0 MV Gradient Peak 0 MV Mean 0 MV Area 0 INTERPRETATION: Doppler: 2-D: COLOR FLOW DOPPLER NORMAL SALINE STUDY: MISCELLANOUS: DIAGNOSIS: PLAN: Procedure Manager:3 Dr. Esposito Stevedore Hold: Dale MOODY COMMENTS: LIMITED (2-D ONLY FOR EF) COMPLETE ECHO DONE ON 06/05/19 DATE OF SERVICE: 07/10/2019 DESCRIPTION OF PROCEDURE: After general sedation via TIVA via anesthesia, transesophageal Omniplane probe was placed in to the esophagus and proximal stomach without difficulty. FINDINGS: As follows, LVH is present. LV internal dimensions are normal. Wall motion is normal. EF is greater than or equal to 55%. Aortic valve is well visualized, tricuspid with a slightly sclerotic, but good valve excursion. No TRANSESOPHAGEAL ECHOCARDIOGRAM REPORT [id number] YARELY MCCLURE evidence of vegetation. Left atrium appendage appears normal. The left atrial appendage is well visualized. No evidence of thrombus. Good contractility of left atrial appendage. Mitral valve is well visualized. No evidence of vegetation. Good valve excursion, mild MR. Right-sided chamber is well visualized. Tricuspid valve shows no evidence of vegetation. Trivial TR only. At the end of procedure, the transesophageal Omniplane probe was turned posteriorly and this showed mild atherosclerotic debris in the descending aorta. IMPRESSION: No evidence of vegetation. Left ventricular function is normal. TRANSINT:[id number] Voice Confirmation ID: [id number] DOCUMENT ID: [id number] at 1304 CC: [id number] DICTATION DATE: 07/10/19 1356 STOPE MINER: 07/11/19 0324 ADM IN [id number] [place] [address]
--- NOTE | 2019-07-11 19:12 | NUR ---
OT NOTE: PT COMPLETED SUPINE TO SIT WITH SBA. PT COMPLETED EOB SITTING WITH O2 STATS STABLE IN THE LOW 90S. PT COMPLETED SIT TO STAND WITH CGA. PT COMPLETED FACE AND HAND HYGIENE WITH SET UP. THANK YOU, ADAMA KRAUSE
[2019-07-11 19:30] VITALS: BP 144/87
[2019-07-12 00:30] VITALS: BP 150/78
[2019-07-12 04:57] VITALS: BP 142/94
[2019-07-12 06:31] LABS: BASOPHILS 0.2 % (0-2); EOSINOPHILS 0 % (0-7); HEMATOCRIT 30.4 % (42.0-54.0); IMMATURE GRANULOCYTES 5.8 % (0-5); LYMPHOCYTES 6.7 % (15-50); MCH 25.3 pg (26.0-34.0); MCHC 29.6 g/dL (31.0-37.0); MCV 85.4 fL (80.0-100.0); MEAN PLATELET VOLUME 10.4 fL (7.4-10.4); MONOCYTES 3.5 % (2-11); NEUTROPHILS 83.8 % (40-80); PLATELET COUNT 171 10x3/uL (130-400); RBC 3.56 10x6/uL (4.20-6.10); RDW 21.7 % (11.5-14.5)
[2019-07-12 06:32] LABS: WBC 12.6 10x3/uL (4.8-10.8)
[2019-07-12 06:55] LABS: ANION GAP 8.9 mmol/L (8-16); BILIRUBIN - TOTAL 0.36 mg/dL (0.2-1.3); CALCIUM 8.4 mg/dL (8.5-10.1); CARBON DIOXIDE 30.8 mmol/L (21.0-32.0); CREATININE - SERUM 1.9 mg/dL (0.6-1.3); POTASSIUM - SERUM 3.7 mmol/L (3.5-5.1); PROTEIN - SERUM 5.7 g/dL (6.4-8.2)
[2019-07-12 09:12] VITALS: BP 177/105
--- NOTE | 2019-07-12 09:20 | NUR ---
RESTNG IN BED, NO DISTRESS NOTED, IN ROOM, 02 AT 3L, TELE IN PLACE, SALEH TO GRAVITY, CONT TO MONITOR
[2019-07-12 13:04] VITALS: BP 162/93
[2019-07-12 16:36] VITALS: BP 139/81
[2019-07-12 20:00] VITALS: BP 139/90
--- NOTE | 2019-07-12 20:40 | NUR ---
LYING IN BED. VISITOR AT BEDSIDE. RESP LABORED. CPAP IN USE. ALERT AND ORIENTED X4. SALEH CATH PATENT AND DRAINING YELLOW URINE. TELEMETRY SHOWS AFIB WITH UNCONTROLLED RATE OF 112. NS @ KVO INFUSING IN LT I.J. DENIES NEEDS. SR ELEVATED X2. CL IN REACH.
--- NOTE | 2019-07-12 22:45 | NUR ---
HAS BEEN CALM UNTIL NOW. AND ANOTHER FAMILY MEMBER AT BEDSIDE. PT C/O SOB AND HAS HAD CPAP OFF. PUT CPAP BACK ON PT AND ENCOURAGED TO WEAR. FAMILY MEMBERS HOVERING OVER PT AND ADVISORY APPLICATION DEVELOPER FEELS THIS IS THE CAUSE OF HIS ANXIETY. ENCOURAGED PT TO TRY TO REST, TURN OFF LIGHTS.
--- NOTE | 2019-07-12 23:40 | NUR ---
CALLS STAFF TO ROOM AND STATES, "HE NEEDS A VALIUM. HE'S NERVOUS." PT DOESNT SAY ANYTHING TO STAFF. LIGHTS ARE STILL ON AND 2 FEMALES ARE SITTING NEXT TO PTS BED. MEDICATED WITH VALIUM ORDERED. CL IN REACH.
[2019-07-13] VITALS: BP 139/93
[2019-07-13 04:00] VITALS: BP 164/100
[2019-07-13 05:46] LABS: BASOPHILS 0.1 % (0-2); EOSINOPHILS 0 % (0-7); HEMATOCRIT 30.8 % (42.0-54.0); HEMOGLOBIN 9.2 g/dL (13.5-17.5); LYMPHOCYTES 5.5 % (15-50); MCH 25.4 pg (26.0-34.0); MCHC 29.9 g/dL (31.0-37.0); MCV 85.1 fL (80.0-100.0); MEAN PLATELET VOLUME 9.9 fL (7.4-10.4); MONOCYTES 1.8 % (2-11); NEUTROPHILS 87.6 % (40-80); PLATELET COUNT 168 10x3/uL (130-400); RBC 3.62 10x6/uL (4.20-6.10); RDW 21.7 % (11.5-14.5)
[2019-07-13 05:55] LABS: ANION GAP 7.1 mmol/L (8-16); BILIRUBIN - TOTAL 0.44 mg/dL (0.2-1.3); CALCIUM 8.8 mg/dL (8.5-10.1); CARBON DIOXIDE 31.7 mmol/L (21.0-32.0); CREATININE - SERUM 1.7 mg/dL (0.6-1.3); POTASSIUM - SERUM 3.8 mmol/L (3.5-5.1); PROTEIN - SERUM 5.9 g/dL (6.4-8.2)
--- NOTE | 2019-07-13 08:28 | NUR ---
RESTING IN BED, IN ROOM, NO DISTRESS NOTED, CONT TO MONITOR RESP STATUS
[2019-07-13 08:36] VITALS: BP 145/97
[2019-07-13 11:58] VITALS: BP 152/106
[2019-07-13 15:30] VITALS: BP 145/93
--- NOTE | 2019-07-13 19:25 | NUR ---
CALLED STAFF TO ROOM. PT ANXIOUS, SOB AND REQEUSTING VALIUM. MEDICATED WITH VALIUM FOR ANXIETY. RT IN ROOM FOR UD. ENCOURAGED TO RELAX, TURN LIGHTS OFF AND DECREASE STIMULI. CPAP IN USE. TELEMETRY SHOWING UNCONTROLLED AFIB WITH RATE OF 130-150. WILL CONT TO MONITOR.
--- NOTE | 2019-07-13 20:30 | NUR ---
COLLIN. TELMETRY SHOWS UNCONTROLLED AFIB WITH RATE OF 112. CPAP IN USE. CL IN REACH. AT BEDSIDE.
[2019-07-13 20:54] VITALS: BP 170/100
--- NOTE | 2019-07-14 00:04 | NUR ---
HAS BEEN RESTING QUIETLY. NO DISTRESS. CPAP IN USE. AT BEDSIDE. CL IN REACH.
[2019-07-14 00:27] VITALS: BP 141/90
--- NOTE | 2019-07-14 02:43 | NUR ---
RESTING QUIETLY WITH EYES CLOSED. BIPAP IN USE. AT BEDSIDE. CL IN REACH. NO DISTRESS.
[2019-07-14 04:27] VITALS: BP 166/99
[2019-07-14 05:06] LABS: BASOPHILS 0.1 % (0-2); EOSINOPHILS 0 % (0-7); HEMATOCRIT 30.8 % (42.0-54.0); HEMOGLOBIN 9.3 g/dL (13.5-17.5); IMMATURE GRANULOCYTES 4.1 % (0-5); LYMPHOCYTES 9.4 % (15-50); MCH 26.1 pg (26.0-34.0); MCHC 30.2 g/dL (31.0-37.0); MCV 86.3 fL (80.0-100.0); MEAN PLATELET VOLUME 10.2 fL (7.4-10.4); MONOCYTES 5.4 % (2-11); PLATELET COUNT 168 10x3/uL (130-400); RBC 3.57 10x6/uL (4.20-6.10); RDW 22.3 % (11.5-14.5); WBC 11.9 10x3/uL (4.8-10.8)
[2019-07-14 05:42] LABS: ALBUMIN 2.2 g/dL (3.4-5.0); ANION GAP 10.6 mmol/L (8-16); BILIRUBIN - TOTAL 0.72 mg/dL (0.2-1.3); CALCIUM 8.6 mg/dL (8.5-10.1); CARBON DIOXIDE 29.2 mmol/L (21.0-32.0); CREATININE - SERUM 1.7 mg/dL (0.6-1.3); POTASSIUM - SERUM 3.8 mmol/L (3.5-5.1); PROTEIN - SERUM 5.9 g/dL (6.4-8.2)
[2019-07-14 08:36] VITALS: BP 152/97
--- NOTE | 2019-07-14 08:45 | NUR ---
PATIENT STATING HAVING TROUBLE BREATHING STILL AFTER TREATMENT. GAVE MORNING MEDS AND VALIUM TO HELP WITH ANXIETY. FAMILY AT BEDSIDE. CALL LIGHT WITHIN REACH.
--- NOTE | 2019-07-14 11:15 | NUR ---
PATIENT STATED HE IS FEELING BETTER AND RESTING BETTER AT THIS TIME. IV NTACT. CALL LIGHT WITHIN REACH.
[2019-07-14 13:24] VITALS: BP 139/91
--- NOTE | 2019-07-14 15:00 | NUR ---
PATIENT STATED HE NEEDED MORE ANXIETY MEDS. VALIUM GIVEN. CALL LIGHT WITHIN REACH.
[2019-07-14 16:56] VITALS: BP 131/83
--- NOTE | 2019-07-14 17:40 | NUR ---
PATIENT WANTING TRELOGY BACK ON. STATED HE HAD BEEN OFF FOR MORE THAN AN HOUR. PATIENT FINALLY AT SOME DINNER AND FEELING A LITTLE BETTER. TRIOLGY REPLACED. CALL LIGHT WITHIN REACH.
--- NOTE | 2019-07-14 20:00 | NUR ---
ASSESSMENT PER FLOWSHEET. IV PATENT LEFT IJ WITH NS AT 30CC'S/HR. SALEH TO BEDSIDE DRAINAGE WITH YELLOW URINE. FAMILY MEMBERS AT BEDSIDE. TELM. SHOWS UCAF WITH HR 117. SR UP X2 CALL LIGHT WITHIN REACH. TRILIOGY CPAP ON.
[2019-07-14 20:50] VITALS: BP 130/90
--- NOTE | 2019-07-14 21:00 | NUR ---
MEDS GIVEN PER MAR.
--- NOTE | 2019-07-14 23:08 | NUR ---
EYES CLOSED RESPIRATIONS WITH EASE AND UNLABORED.
--- NOTE | 2019-07-15 00:13 | NUR ---
REQUESTING NERVE PILL. VALIUM 2MG PO GIVEN FOR ANXIETY.
[2019-07-15 00:59] VITALS: BP 139/72
[2019-07-15 04:06] VITALS: BP 150/92
[2019-07-15 06:45] LABS: HEMATOCRIT 31.9 % (42.0-54.0); HEMOGLOBIN 9.5 g/dL (13.5-17.5); MCH 25.8 pg (26.0-34.0); MCHC 29.8 g/dL (31.0-37.0); MCV 86.7 fL (80.0-100.0); MEAN PLATELET VOLUME 9.9 fL (7.4-10.4); PLATELET COUNT 178 10x3/uL (130-400); RBC 3.68 10x6/uL (4.20-6.10); RDW 22.5 % (11.5-14.5); WBC 12.1 10x3/uL (4.8-10.8)
[2019-07-15 07:04] LABS: ALBUMIN 2.3 g/dL (3.4-5.0); ANION GAP 9.9 mmol/L (8-16); BILIRUBIN - TOTAL 0.64 mg/dL (0.2-1.3); CALCIUM 8.5 mg/dL (8.5-10.1); CARBON DIOXIDE 29.5 mmol/L (21.0-32.0); CREATININE - SERUM 1.8 mg/dL (0.6-1.3); POTASSIUM - SERUM 3.4 mmol/L (3.5-5.1)
--- NOTE | 2019-07-15 07:52 | NUR ---
PATIENT IN BED WITH IV INTACT. NO COMPLAINTS OR SIGNS OF DISTRESS. TRILOGY ON. EYES CLOSED RESTING QUIETLY. CALL LIGHT WITHIN REACH.
[2019-07-15 08:43] LABS: LYMPHOCYTES 11 % (15-50); MONOCYTES 10 % (2-11); NEUTROPHILS 79 % (40-80); PLATELET ESTIMATE NORMAL
[2019-07-15 08:44] LABS: ANISOCYTOSIS OCC; HYPOCHROMASIA OCC
[2019-07-15 09:24] VITALS: BP 155/99
--- NOTE | 2019-07-15 10:55 | NUR ---
CALLED DR. BLACK TO LET HIM KNOW THAT PATIENT WANTS TO TALK TO HIM.
--- NOTE | 2019-07-15 11:32 | NUR ---
NOTIFIED [facility] THAT PATIENT WANTS TO GO TO [facility].
--- NOTE | 2019-07-15 12:01 | MORECARE ---
CASE MANAGEMENT DISCHARGE SUMMARY PATIENT: YARELY HERNANDEZ UNIT: [id number] ADM DATE: 06/28/19 AGE: 68 : 48 SEX: M ROOM/BED: D.2230 AUTHOR: DEBORA BAILEY PHYSICIAN: REFERRING PHYSICIAN: HORACE AGUIRRE MD DATE OF SERVICE: 07/15/19 Discharge Plan Patient Name: YARELY HERNANDEZ Facility: [facility]:[place] : 1950 Planned Disposition: Anticipated Discharge Date: Discharge Date: Expected LOS: Initial Reviewer: [id number] Initial Review Date: 07/01/2019 Generated: 07/15/19 1:00 pm Comments DCP- Discharge Planning Updated by [id number]: Korin Teague on 07/15/19 10:[address] Patient's daughter in law (Yarelis Hernandez) called me to the [facility] and states she would like her father in law transferred to [facility] in [place]. She states he has been there before. She did not know the name of the doctor he has seen there. I informed her for a lateral transfer, insurance would not pay for the transportation and he would need an accepting physician before he could be transferred, she voiced understanding. I spoke with Alexa Swenson APN and she spoke to the patient and DIL in the room. Alexa states to hold on transfer at this time. His CXR and ABG's are improving and reassurance given. CM will continue to follow and assist with discharge planning/needs. Yarelis Hernandze - DIL - [phone] DCP- Discharge Planning Updated by [id number]: Danette Montes on 07/04/19 10:[address] Patient Name: YARELY HERNANDEZ Admission Status: ER Accout number: [id number] Admission Date: 06-28-2019 : 1950 Admission Diagnosis: Attending: ROBIN Current LOS: 6 Anticipated DC Date: Planned Disposition: Primary Insurance: [facility] MEDICARE SOLUTIONS Discharge Planning Comments: CM MET WITH PATIENT AND ABOUT DC PLANNING. STATES WOULD LIKE TO GO TO [facility] WHEN MEDICALLY STABLE. BRE SIGNED AND CONSULT ORDERED. IMM SIGNED. CM TO FOLLOW AND ASSIST NEEDED. Champagne Maker: Dnaette Montes DCP- Discharge Planning Updated by [email or web address]: Shanta Tan on 07/01/19 7:[address] Patient Name: YARELY HERNANDEZ Admission Status: ER Accout number: [id number] Admission Date: 06-28-2019 : 1950 Admission Diagnosis: Attending: ROBIN Current LOS: 3 Anticipated DC Date: Planned Disposition: Primary Insurance: [facility] MEDICARE SOLUTIONS Discharge Planning Comments: CM met with patient's Torrey at bedside after explaining CM role and obtaining verbal consent. Patient is currently sedated on Vent . Patient lives at home with his where he is independent with his care and plans to return there upon discharge. Patient feels this would be a safe discharge. CM discussed availability / needs of home health and medical equipment. Patient has home 02, trilogy and nebulizer with [facility]. [facility] also [facility] and BRE signed to resume care. Torrey denies any discharge needs at this time. Torrey states he will have his family drive him home upon discharge. CM will continue to follow and assist as needed with discharge planning / needs. Champagne Maker: Shanta Tan DCPIA - Discharge Planning Initial Assessment Updated by [email or web address]: Shanta Tan on 07/01/19 8:29 pm * How many steps to enter\exit or inside your home? * PCP LOLIS SALCEDO * [facility] * Preadmission Environment Home with Family * ADLs Independent * Other Equipment HOME 02, TRILOGY, NEBULIZER, WALKER, SC, W/C, CANE * List name and contact numbers for known caregivers / representatives who currently or will assist patient after discharge: TORREY HERNANDEZ - SPOUSE- [phone] * Verbal permission to speak to the caregivers and representatives has been obtained from the patient. N/A * Community resources currently utilized Home Health * Please name any agencies selected above. [facility] * Additional services required to return to the preadmission environment? No * Can the patient safely return to the preadmission environment? Yes * Has this patient been hospitalized within the prior 30 days at any hospital? Yes Coverage Notice Reviewer: [id number] - Shanta Tan Notice Issued Date-Time: 07/01/2019 14:45 Notice Type: Patient Choice Letter Notice Delivered To: Family Member Relationship to Patient: Spouse Senior Teller Name: torrey hernandez Delivery Method: HAND - Hand Delivered Laura Days: Prior Verbal Notification: Recipient Understood Notice: Yes Recipient Signature: Yes Med Rec Note Co-signed by Attending: Coverage Notice Comment: janiya cast Reviewer: [id number] Laura Montes Notice Issued Date-Time: 07/04/2019 11:35 Notice Type: IM Discharge Notice Notice Delivered To: Family Member Relationship to Patient: Senior Teller Name: Delivery Method: HAND - Hand Delivered Laura Days: Prior Verbal Notification: Recipient Understood Notice: Yes Recipient Signature: Yes Med Rec Note Co-signed by Attending: Coverage Notice Comment: Reviewer: [id number] Montes Notice Issued Date-Time: 07/04/2019 11:35 Notice Type: Patient Choice Letter Notice Delivered To: Family Member Relationship to Patient: Senior Teller Name: Delivery Method: HAND - Hand Delivered Laura Days: Prior Verbal Notification: Recipient Understood Notice: Yes Recipient Signature: Yes Med Rec Note Co-signed by Attending: Coverage Notice Comment: [facility] Last DP export: 07/04/19 10:37 a Patient Name: YARELY HERNANDEZ Page [phone] at 1201 All edits/amendments must be made on the electronic document DICTATION DATE: 07/15/19 1200 SUPERVISOR MACHINE WORKERS: JOHN 07/15/19 1200 RPT#: [id number] DC DATE: STATUS: ADM IN [facility] [address] [place] [address] END OF REPORT
[2019-07-15 13:14] VITALS: BP 136/85
--- NOTE | 2019-07-15 13:27 | MORECARE ---
CASE MANAGEMENT DISCHARGE SUMMARY PATIENT: YARELY HERNANDEZ UNIT: [id number] ADM DATE: 06/28/19 AGE: 68 : 48 SEX: M ROOM/BED: D.2230 AUTHOR: DEBORA BAILEY PHYSICIAN: REFERRING PHYSICIAN: HORACE AGUIRRE MD DATE OF SERVICE: 07/15/19 Discharge Plan Patient Name: YARELY HERNANDEZ Facility: [facility]:[place] : 1950 Planned Disposition: Anticipated Discharge Date: Discharge Date: Expected LOS: Initial Reviewer: [email or web address] Initial Review Date: 07/01/2019 Generated: 07/15/19 2:27 pm Comments DCP- Discharge Planning Updated by [id number]: Korin Teague on 07/15/19 10:[address] Patient's daughter in law (Yarelis Hernandez) called me to the [facility] and states she would like her father in law transferred to [facility] in [place]. She states he has been there before. She did not know the name of the doctor he has seen there. I informed her for a lateral transfer, insurance would not pay for the transportation and he would need an accepting physician before he could be transferred, she voiced understanding. I spoke with Alexa Swenson APN and she spoke to the patient and DIL in the room. Alexa states to hold on transfer at this time. His CXR and ABG's are improving and reassurance given. CM will continue to follow and assist with discharge planning/needs. Yarelis Hernandez - DIL - [phone] DCP- Discharge Planning Updated by [email or web address]: Danette Montes on 07/04/19 10:[address] Patient Name: YARELY HERNANDEZ Admission Status: ER Accout number: [id number] Admission Date: 06-28-2019 : 1950 Admission Diagnosis: Attending: ROBIN Current LOS: 6 Anticipated DC Date: Planned Disposition: Primary Insurance: [facility] MEDICARE SOLUTIONS Discharge Planning Comments: CM MET WITH PATIENT AND ABOUT DC PLANNING. STATES WOULD LIKE TO GO TO [facility] HERE AT [facility] WHEN MEDICALLY STABLE. BRE SIGNED AND CONSULT ORDERED. IMM SIGNED. CM TO FOLLOW AND ASSIST NEEDED. Breastfeeding Educator: Danette Jyoti DCP- Discharge Planning Updated by [id number]: Shanta Tan on 07/01/19 7:[address] Patient Name: YARELY HERNANDEZ Admission Status: ER Accout number: [id number] Admission Date: 06-28-2019 : 1950 Admission Diagnosis: Attending: ROBIN Current LOS: 3 Anticipated DC Date: Planned Disposition: Primary Insurance: [facility] MEDICARE SOLUTIONS Discharge Planning Comments: CM met with patient's Torrey at bedside after explaining CM role and obtaining verbal consent. Patient is currently sedated on Vent . Patient lives at home with his where he is independent with his care and plans to return there upon discharge. Patient feels this would be a safe discharge. CM discussed availability / needs of home health and medical equipment. Patient has home 02, trilogy and nebulizer with [facility]. [facility] also [facility] and [facility] signed to resume care. Torrey denies any discharge needs at this time. Torrey states he will have his family drive him home upon discharge. CM will continue to follow and assist as needed with discharge planning / needs. Breastfeeding Educator: Shanta Tan DCPIA - Discharge Planning Initial Assessment Updated by [email or web address]: Shanta Tan on 07/01/19 8:29 pm * How many steps to enter\exit or inside your home? * PCP LOLIS SALCEDO * [facility] * Preadmission Environment Home with Family * ADLs Independent * Other Equipment HOME 02, TRILOGY, NEBULIZER, WALKER, SC, W/C, CANE * List name and contact numbers for known caregivers / representatives who currently or will assist patient after discharge: TORREY HERNANDEZ - SPOUSE- [phone] * Verbal permission to speak to the caregivers and representatives has been obtained from the patient. N/A * Community resources currently utilized Home Health * Please name any agencies selected above. [facility] * Additional services required to return to the preadmission environment? No * Can the patient safely return to the preadmission environment? Yes * Has this patient been hospitalized within the prior 30 days at any hospital? Yes External Providers External Provider: Vikash Walker [place] Next Contact Date: Service Request Date: Service Type: Resolution: Reviewer: Comments: Coverage Notice Reviewer: [id number] - Shanta Tan Notice Issued Date-Time: 07/01/2019 14:45 Notice Type: Patient Choice Letter Notice Delivered To: Family Member Relationship to Patient: Spouse Hand Tennis Ball Coverer Name: torrey hernandez Delivery Method: HAND - Hand Delivered Laura Days: Prior Verbal Notification: Recipient Understood Notice: Yes Recipient Signature: Yes Med Rec Note Co-signed by Attending: Coverage Notice Comment: janiya cast Reviewer: [id number] Montes Notice Issued Date-Time: 07/04/2019 11:35 Notice Type: IM Discharge Notice Notice Delivered To: Family Member Relationship to Patient: Hand Tennis Ball Coverer Name: Delivery Method: HAND - Hand Delivered Laura Days: Prior Verbal Notification: Recipient Understood Notice: Yes Recipient Signature: Yes Med Rec Note Co-signed by Attending: Coverage Notice Comment: Reviewer: [id number] Montes Notice Issued Date-Time: 07/04/2019 11:35 Notice Type: Patient Choice Letter Notice Delivered To: Family Member Relationship to Patient: Hand Tennis Ball Coverer Name: Delivery Method: HAND - Hand Delivered Laura Days: Prior Verbal Notification: Recipient Understood Notice: Yes Recipient Signature: Yes Med Rec Note Co-signed by Attending: Coverage Notice Comment: [facility] Last DP export: 07/15/19 11:01 Patient Name: YARELY HERNANDEZ Page [phone] at 1327 All edits/amendments must be made on the electronic document DICTATION DATE: 07/15/19 1326 MASTER CONTROL SUPERVISOR: JOHN 07/15/19 1326 RPT#: [id number] DC DATE: STATUS: ADM IN [facility] [address] [place] [address] END OF REPORT
--- NOTE | 2019-07-15 13:30 | NUR ---
PATIENT HAVING ANXIETY AGAIN. WANTING TO GO TO [facility]. EXPLAINED TO PATIENT HE HAD TO WAIT UNTIL THE PHYSICIAN SPOKE WITH HIM ABOUT TRANSPORTING. FAMILY AT BEDSIDE. VERBALIZED UNDERSTANDING. IV INTACT. SALEH INTACT. CALL LIGHT WITHIN REACH.
--- NOTE | 2019-07-15 13:35 | MORECARE ---
CASE MANAGEMENT DISCHARGE SUMMARY PATIENT: YARELY HERNANDEZ UNIT: [id number] ADM DATE: 06/28/19 AGE: 68 : 48 SEX: M ROOM/BED: D.2230 AUTHOR: LEO,DOC PHYSICIAN: REFERRING PHYSICIAN: HORACE AGUIRRE MD DATE OF SERVICE: 07/15/19 Discharge Plan Patient Name: YARELY HERNANDEZ Facility: [facility]:[place] : 1950 Planned Disposition: Anticipated Discharge Date: Discharge Date: Expected LOS: Initial Reviewer: [id number] Initial Review Date: 07/01/2019 Generated: 07/15/19 2:35 pm Comments DCP- Discharge Planning Updated by [email or web address]: Korin Teague on 07/15/19 12:[address] Alexa Swenson APN states Dr. Ryan would like a referral made to [facility]. I spoke with the patient and his DIL and they would like to stay in [place]. BRE given and he would like to wait until his comes to have her sign the BRE. CM will continue to follow and assist with discharge planning/needs. DCP- Discharge Planning Updated by [email or web address]: Korin Teague on 07/15/19 10:[address] Patient's daughter in law (Yarelis Hernandez) called me to the [facility] and states she would like her father in law transferred to [facility] in [place]. She states he has been there before. She did not know the name of the doctor he has seen there. I informed her for a lateral transfer, insurance would not pay for the transportation and he would need an accepting physician before he could be transferred, she voiced understanding. I spoke with Alexa Swenson APN and she spoke to the patient and DIL in the room. Alexa states to hold on transfer at this time. His CXR and ABG's are improving and reassurance given. CM will continue to follow and assist with discharge planning/needs. Yarelis Hernandez - DIL - [phone] DCP- Discharge Planning Updated by [email or web address]: Danette Montes on 07/04/19 10:[address] Patient Name: YARELY HERNANDEZ Admission Status: ER Accout number: [id number] Admission Date: 06-28-2019 : 1950 Admission Diagnosis: Attending: ROBIN Current LOS: 6 Anticipated DC Date: Planned Disposition: Primary Insurance: [facility] MEDICARE SOLUTIONS Discharge Planning Comments: CM MET WITH PATIENT AND ABOUT DC PLANNING. STATES WOULD LIKE TO GO TO [facility] HERE [facility] WHEN MEDICALLY STABLE. BRE SIGNED AND CONSULT ORDERED. IMM SIGNED. CM TO FOLLOW AND ASSIST NEEDED. Airline Pilot/First Officer: Danette Montes DCP- Discharge Planning Updated by [email or web address]: Shanta Tan on 07/01/19 7:[address] Patient Name: YARELY HERNANDEZ Admission Status: ER Accout number: [id number] Admission Date: 06-28-2019 : 1950 Admission Diagnosis: Attending: ROBIN Current LOS: 3 Anticipated DC Date: Planned Disposition: Primary Insurance: [facility] MEDICARE SOLUTIONS Discharge Planning Comments: CM met with patient's Torrey at bedside after explaining CM role and obtaining verbal consent. Patient is currently sedated on Vent . Patient lives at home with his where he is independent with his care and plans to return there upon discharge. Patient feels this would be a safe discharge. CM discussed availability / needs of home health and medical equipment. Patient has home 02, trilogy and nebulizer with [facility]. [facility] also [facility] and BRE signed to resume care. Torrey denies any discharge needs at this time. Torrey states he will have his family drive him home upon discharge. CM will continue to follow and assist as needed with discharge planning / needs. Airline Pilot/First Officer: Shanta Tan DCPIA - Discharge Planning Initial Assessment Updated by [email or web address]: Shanta Tan on 07/01/19 8:29 pm * How many steps to enter\exit or inside your home? * PCP LOLIS SALCEDO * [facility] * Preadmission Environment Home with Family * ADLs Independent * Other Equipment HOME 02, TRILOGY, NEBULIZER, WALKER, SC, W/C, CANE * List name and contact numbers for known caregivers / representatives who currently or will assist patient after discharge: TORREY HERNANDEZ - SPOUSE- [phone] * Verbal permission to speak to the caregivers and representatives has been obtained from the patient. N/A * Community resources currently utilized Home Health * Please name any agencies selected above. [facility] * Additional services required to return to the preadmission environment? No * Can the patient safely return to the preadmission environment? Yes * Has this patient been hospitalized within the prior 30 days at any hospital? Yes Coverage Notice Reviewer: [id number] Laura Montes Notice Issued Date-Time: 07/04/2019 11:35 Notice Type: IM Discharge Notice Notice Delivered To: Family Member Relationship to Patient: Butcher'S Assistant Name: Delivery Method: HAND - Hand Delivered Laura Days: Prior Verbal Notification: Recipient Understood Notice: Yes Recipient Signature: Yes Med Rec Note Co-signed by Attending: Coverage Notice Comment: Reviewer: [id number] Laura Montes Notice Issued Date-Time: 07/04/2019 11:35 Notice Type: Patient Choice Letter Notice Delivered To: Family Member Relationship to Patient: Butcher'S Assistant Name: Delivery Method: HAND - Hand Delivered Laura Days: Prior Verbal Notification: Recipient Understood Notice: Yes Recipient Signature: Yes Med Rec Note Co-signed by Attending: Coverage Notice Comment: [facility] Reviewer: [id number] Laura Tan Notice Issued Date-Time: 07/01/2019 14:45 Notice Type: Patient Choice Letter Notice Delivered To: Family Member Relationship to Patient: Spouse Butcher'S Assistant Name: torrey hernandez Delivery Method: HAND - Hand Delivered Laura Days: Prior Verbal Notification: Recipient Understood Notice: Yes Recipient Signature: Yes Med Rec Note Co-signed by Attending: Coverage Notice Comment: janiya cast Last DP export: 07/15/19 12:27 Patient Name: YARELY HERNANDEZ Page [id number] at 1335 All edits/amendments must be made on the electronic document DICTATION DATE: 07/15/19 1335 SPRUE KNOCKER: JOHN 07/15/19 1335 RPT#: [id number] DC DATE: STATUS: ADM IN [facility] [address] [place] [address] END OF REPORT
--- NOTE | 2019-07-15 13:49 | NUR ---
NUTRITION F/U PT WEARING BIPAP. NO INTAKE BREAKFAST OR LUNCH TODAY. PT MAY BENEFIT FROM PEG TUBE PLACEMENT FOR NUTRITION SUPPORT IF PO INTAKE DOES NOT IMPROVE. RD FOLLOWING
[2019-07-15 16:27] VITALS: BP 129/88
--- NOTE | 2019-07-15 18:55 | NUR ---
PATIENT AND FAMILY MORE COMFORTABLE KNOWING PLAN TO DC TO [facility]. NEW MEDS ORDERED FOR ANXIETY. PATIENT WAS OFF TRILOGY TODAY MAYBE 1 HOUR. EVERYTIME HE GETS OFF HE HAS A PANIC ATTACK. FAMILY AT BEDSIDE ALL DAY. PATIENT ONLY RESTED SMALL AMOUNT. IV INTACT. CALLL IGHT WITHIN REACH.
--- NOTE | 2019-07-15 20:00 | NUR ---
ASSESSMENT PER FLOWSHEET. IV PATENT LEFT IJ WITH NS AT 30CC'S/HR. SALEH TO BEDSIDE DRAINAGE WITH YELLOW URINE. O2 ON 4L/M PER NC. TELM. SHOWS CAF WITH HR 86.
[2019-07-15 20:40] VITALS: BP 160/87
--- NOTE | 2019-07-15 21:30 | NUR ---
MEDS GIVEN PER SEP. COMPLETE BED BATH DONE WITH LINENS CHANGED.
[2019-07-16 01:00] VITALS: BP 150/90
[2019-07-16 04:47] VITALS: BP 130/80
[2019-07-16 06:51] LABS: ALBUMIN 2.2 g/dL (3.4-5.0); ANION GAP 9.4 mmol/L (8-16); BILIRUBIN - TOTAL 0.53 mg/dL (0.2-1.3); CALCIUM 8.4 mg/dL (8.5-10.1); CARBON DIOXIDE 30.5 mmol/L (21.0-32.0); CREATININE - SERUM 1.7 mg/dL (0.6-1.3); POTASSIUM - SERUM 3.9 mmol/L (3.5-5.1); PROTEIN - SERUM 5.5 g/dL (6.4-8.2)
--- NOTE | 2019-07-16 07:51 | NUR ---
ALERT AND ORIENTED. LUNGS WITH BILATERAL WHEEZES THROUGHOUT. O2 IN PLACE AT 4L NC. HEART SOUNDS S1 AND S2 HEARD IN ALL MATHIAS. TELEMETRY IN PLACE SHOWING 100 CONTROLLED AFIB ON MONITOR. SKIN INTACT WITHOUT REDNESS. LEFT IJ PATENT WITHOUT REDNESS. BED LOW. CALL DEJESUS AND PERSONAL ITEMS IN REACH. WILL CONTINUE TO MONITOR.
[2019-07-16 08:15] LABS: BASOPHILS 0.1 % (0-2); EOSINOPHILS 0 % (0-7); HEMATOCRIT 33.6 % (42.0-54.0); HEMOGLOBIN 10.1 g/dL (13.5-17.5); IMMATURE GRANULOCYTES 1.6 % (0-5); LYMPHOCYTES 14.2 % (15-50); MCH 26.3 pg (26.0-34.0); MCHC 30.1 g/dL (31.0-37.0); MCV 87.5 fL (80.0-100.0); MEAN PLATELET VOLUME 10.6 fL (7.4-10.4); MONOCYTES 4.9 % (2-11); NEUTROPHILS 79.2 % (40-80); PLATELET COUNT 164 10x3/uL (130-400); RBC 3.84 10x6/uL (4.20-6.10); RDW 22.3 % (11.5-14.5); WBC 9.7 10x3/uL (4.8-10.8)
[2019-07-16 09:02] VITALS: BP 163/91
--- NOTE | 2019-07-16 10:12 | CN ---
PATIENT NAME:YARELY MCCLURE MEDICAL RECORD: [id number] : [birth year] LOCATION:D.MS [facility] ADMIT DATE: 06/28/19 ACCOUNT: [id number] CONSULTING PHYSICIAN: CHUYITA RICO MD REFERRING PHYSICIAN: HORACE AGUIRRE MD DATE OF CONSULTATION: 07/15/2019 IDENTIFYING DATA: The patient is 68 years old and he is admitted to the hospital secondary to exacerbation of his COPD. CHIEF COMPLAINT: Anxiety. HISTORY OF PRESENT ILLNESS: The patient has no thoughts of harming himself or others. He has anxiety, largely related to his medical condition and circumstances. He has some evidence of impairment, but he has also been hospitalized for 2 weeks and quite ill. There are no premorbid concerns about cognitive impairment. There are no psychotic symptoms and no thoughts of dangerousness. ASSESSMENT: Adjustment disorder with mixed emotional features. PLAN: The patient is currently taking prednisone, which may be making him anxious. He also is having some depressive symptoms, which would be understandable given the circumstances. At this point, I am going to start him on a low dose of an antidepressant and we will treat him with a scheduled dose of a benzodiazepine. I think his prognosis is guarded. There is no evidence of dangerousness and unless symptoms persist or worsen, I do not think he has to necessarily see a psychiatrist on an outpatient basis. TRANSINT:[id number] Voice Confirmation ID: [id number] DOCUMENT ID: [id number] CHUYITA RICO MD at 1012 CC: [id number] DICTATION DATE: 07/15/19 1526 MANAGER RECRUITMENT: 07/15/19 1755 ADM IN [facility] [address] [place] [address]
--- NOTE | 2019-07-16 11:00 | NUR ---
DRSG CHANGED TO LEFT IJ WITH STERILE PROCEDURE BY CHRISTOPHER DONNELLY. SUPERVISED BY NANDO LAW.
[2019-07-16 12:55] VITALS: BP 125/87
--- NOTE | 2019-07-16 14:55 | MORECARE ---
CASE MANAGEMENT DISCHARGE SUMMARY PATIENT: YARELY HERNANDEZ UNIT: [id number] ADM DATE: 06/28/19 AGE: 68 : 48 SEX: M ROOM/BED: D.2230 AUTHOR: LEO,DOC PHYSICIAN: REFERRING PHYSICIAN: HORACE AGUIRRE MD DATE OF SERVICE: 07/16/19 Discharge Plan Patient Name: YARELY HERNANDEZ Facility: [facility]:[place] : 1950 Planned Disposition: Anticipated Discharge Date: Discharge Date: Expected LOS: Initial Reviewer: [email or web address] Initial Review Date: 07/01/2019 Generated: 07/16/19 3:55 pm Comments DCP- Discharge Planning Updated by [id number]: Korin Teague on 07/16/19 1:[address] I spoke with Lula Davila at [facility] in [place] concerning referral. Lula states they are still awaiting authorization from [facility] for approval. Lula states he will most likely be denied admission since he is not on IV antibiotics and has trilogy at home. Additional clinical faxed. CM will continue to follow and assist with discharge planning/needs. DCP- Discharge Planning Updated by [email or web address]: Korin Teague on 07/15/19 12:[address] Alexa Swenson APN states Dr. Ryan would like a referral made to [facility]. I spoke with the patient and his DIL and they would like to stay in [place]. BRE given and he would like to wait until his comes to have her sign the BRE. CM will continue to follow and assist with discharge planning/needs. DCP- Discharge Planning Updated by [id number]: Korin Teague on 07/15/19 10:[address] Patient's daughter in law (Yarelis Hernandez) called [facility] and states she would like her father in law transferred to [facility] in [place]. She states he has been there before. She did not know the name of the doctor he has seen there. I informed her for a lateral transfer, insurance would not pay for the transportation and he would need an accepting physician before he could be transferred, she voiced understanding. I spoke with Alexa Swenson APN and she spoke to the patient and DIL in the room. Cliffmarceladarci states to hold on transfer at this time. His CXR and ABG's are improving and reassurance given. CM will continue to follow and assist with discharge planning/needs. Yarelis Hernandez - DIL - [phone] DCP- Discharge Planning Updated by [id number]: Danette Montes on 07/04/19 10:[address] Patient Name: YARELY HERNANDEZ Admission Status: ER Accout number: [id number] Admission Date: 06-28-2019 : 1950 Admission Diagnosis: Attending: ROBIN Current LOS: 6 Anticipated DC Date: Planned Disposition: Primary Insurance: [facility] MEDICARE SOLUTIONS Discharge Planning Comments: CM MET WITH PATIENT AND ABOUT DC PLANNING. STATES WOULD LIKE TO GO TO [facility] HERE AT [facility] WHEN MEDICALLY STABLE. BRE SIGNED AND CONSULT ORDERED. IMM SIGNED. CM TO FOLLOW AND ASSIST NEEDED. Front End Application Developer: Danette Montes DCP- Discharge Planning Updated by [id number]: Shanta Tan on 07/01/19 7:[address] Patient Name: YARELY HERNANDEZ Admission Status: ER Accout number: [id number] Admission Date: 06-28-2019 : 1950 Admission Diagnosis: Attending: ROBIN Current LOS: 3 Anticipated DC Date: Planned Disposition: Primary Insurance: [facility] MEDICARE SOLUTIONS Discharge Planning Comments: CM met with patient's Torrey at bedside after explaining CM role and obtaining verbal consent. Patient is currently sedated on Vent . Patient lives at home with his where he is independent with his care and plans to return there upon discharge. Patient feels this would be a safe discharge. CM discussed availability / needs of home health and medical equipment. Patient has home 02, trilogy and nebulizer with [facility]. [facility] also has [facility] and BRE signed to resume care. Torrey denies any discharge needs at this time. Torrey states he will have his family drive him home upon discharge. CM will continue to follow and assist as needed with discharge planning / needs. Front End Application Developer: Shanta Tan DCPIA - Discharge Planning Initial Assessment Updated by [email or web address]: Shanta Tan on 07/01/19 8:29 pm * How many steps to enter\exit or inside your home? * PCP LOLIS SALCEDO * [facility] * Preadmission Environment Home with Family * ADLs Independent * Other Equipment HOME 02, TRILOGY, NEBULIZER, WALKER, SC, W/C, CANE * List name and contact numbers for known caregivers / representatives who currently or will assist patient after discharge: TORREY HERNANDEZ - SPOUSE- [phone] * Verbal permission to speak to the caregivers and representatives has been obtained from the patient. N/A * Community resources currently utilized Home Health * Please name any agencies selected above. [facility] * Additional services required to return to the preadmission environment? No * Can the patient safely return to the preadmission environment? Yes * Has this patient been hospitalized within the prior 30 days at any hospital? Yes Coverage Notice Reviewer: [id number] Laura Tan Notice Issued Date-Time: 07/01/2019 14:45 Notice Type: Patient Choice Letter Notice Delivered To: Family Member Relationship to Patient: Spouse Manager Financial Name: torrey hernandez Delivery Method: HAND - Hand Delivered Laura Days: Prior Verbal Notification: Recipient Understood Notice: Yes Recipient Signature: Yes Med Rec Note Co-signed by Attending: Coverage Notice Comment: resume emmanuelle Reviewer: [id number] Laura Montes Notice Issued Date-Time: 07/04/2019 11:35 Notice Type: IM Discharge Notice Notice Delivered To: Family Member Relationship to Patient: Manager Financial Name: Delivery Method: HAND - Hand Delivered Laura Days: Prior Verbal Notification: Recipient Understood Notice: Yes Recipient Signature: Yes Med Rec Note Co-signed by Attending: Coverage Notice Comment: Reviewer: [id number] Laura Montes Notice Issued Date-Time: 07/04/2019 11:35 Notice Type: Patient Choice Letter Notice Delivered To: Family Member Relationship to Patient: Manager Financial Name: Delivery Method: HAND - Hand Delivered Laura Days: Prior Verbal Notification: Recipient Understood Notice: Yes Recipient Signature: Yes Med Rec Note Co-signed by Attending: Coverage Notice Comment: [facility] Reviewer: [id number] Laura Teague Notice Issued Date-Time: 07/15/2019 14:28 Notice Type: Patient Choice Letter Notice Delivered To: Family Member Relationship to Patient: Spouse Manager Financial Name: Torrey Hernandez Delivery Method: HAND - Hand Delivered Laura Days: Prior Verbal Notification: Recipient Understood Notice: Yes Recipient Signature: Yes Med Rec Note Co-signed by Attending: Coverage Notice Comment: BRE for [facility] in [place] Last DP export: 07/15/19 12:35 Patient Name: YARELY HERNANDEZ Page [id number] at 1459 All edits/amendments must be made on the electronic document DICTATION DATE: 07/16/191454 DIP LUBE OPERATOR: JOHN 07/16/191454 RPT#: [id number] DC DATE: STATUS: ADM IN [facility] [address] [place] [address] END OF REPORT
--- NOTE | 2019-07-16 15:13 | MORECARE ---
CASE MANAGEMENT DISCHARGE SUMMARY PATIENT: YARELY HERNANDEZ UNIT: [id number] ADM DATE: 06/28/19 AGE: 68 : 48 SEX: M ROOM/BED: D.2230 AUTHOR: LEO,DOC PHYSICIAN: REFERRING PHYSICIAN: HORACE AGUIRRE MD DATE OF SERVICE: 07/16/19 Discharge Plan Patient Name: YARELY HERNANDEZ Facility: [facility]:[place] : 1950 Planned Disposition: Anticipated Discharge Date: Discharge Date: Expected LOS: Initial Reviewer: [email or web address] Initial Review Date: 07/01/2019 Generated: 07/16/19 4:12 pm Comments DCP- Discharge Planning Updated by [id number]: Korin Teague on 07/16/19 2:[address] I spoke with patient, and DIL and informed them that if he is not authorized for LTACH, he has the option of a skilled facility. He and family refuse skilled facility at this time. I left them a list of skilled facilities in the area. He is sitting up in the chair today. CM will continue to follow and assist with discharge planning/needs. DCP- Discharge Planning Updated by [id number]: Korin Teague on 07/16/19 1:[address] I spoke with Lula Giovanni at [facility] in [place] concerning referral. Lula states they are still awaiting authorization from [facility] for approval. Lula states he will most likely be denied admission since he is not on IV antibiotics and has trilogy at home. Additional clinical faxed. CM will continue to follow and assist with discharge planning/needs. DCP- Discharge Planning Updated by [id number]: Korin Teague on 07/15/19 12:[address] Alexa Swenson APN states Dr. Ryan would like a referral made to LTACH. I spoke with the patient and his DIL and they would like to stay in [place]. BRE given and he would like to wait until his comes to have her sign the BRE. CM will continue to follow and assist with discharge planning/needs. DCP- Discharge Planning Updated by [id number]: Korin Teague on 07/15/19 10:[address] Patient's daughter in law (Yarelis Cogburn) called me to the [place] and states she would like her father in law transferred to [facility] in [place]. She states he has been there before. She did not know the name of the doctor he has seen there. I informed her for a lateral transfer, insurance would not pay for the transportation and he would need an accepting physician before he could be transferred, she voiced understanding. I spoke with Alexa Swenson APN and she spoke to the patient and DIL in the room. Alexa states to hold on transfer at this time. His CXR and ABG's are improving and reassurance given. CM will continue to follow and assist with discharge planning/needs. Yarelis Hernandez - DIL - [phone] DCP- Discharge Planning Updated by [id number]: aDnette Montes on 07/04/19 10:[address] Patient Name: YARELY HERNANDEZ Admission Status: ER Accout number: [id number] Admission Date: 06-28-2019 : 1950 Admission Diagnosis: Attending: ROBIN Current LOS: 6 Anticipated DC Date: Planned Disposition: Primary Insurance: [facility] MEDICARE SOLUTIONS Discharge Planning Comments: CM MET WITH PATIENT AND ABOUT DC PLANNING. STATES WOULD LIKE TO GO TO [facility] HERE AT [facility] WHEN MEDICALLY STABLE. BRE SIGNED AND CONSULT ORDERED. IMM SIGNED. CM TO FOLLOW AND ASSIST NEEDED. Stratigraphy Teacher: Danette Montes DCP- Discharge Planning Updated by [email or web address]: Shanta Tan on 07/01/19 7:[address] Patient Name: YARELY HERNANDEZ Admission Status: ER Accout number: [id number] Admission Date: 06-28-2019 : 1950 Admission Diagnosis: Attending: ROBIN Current LOS: 3 Anticipated DC Date: Planned Disposition: Primary Insurance: [facility] MEDIC[employer] SOLUTIONS Discharge Planning Comments: CM met with patient's Torrey at bedside after explaining CM role and obtaining verbal consent. Patient is currently sedated on Vent . Patient lives at home with his where he is independent with his care and plans to return there upon discharge. Patient feels this would be a safe discharge. CM discussed availability / needs of home health and medical equipment. [facility] and BRE signed to resume care. Torrey denies any discharge needs at this time. Torrey states he will have his family drive him home upon discharge. CM will continue to follow and assist as needed with discharge planning / needs. Stratigraphy Teacher: Shanta PEÑA - Discharge Planning Initial Assessment Updated by [id number]: Shanta Tan on 07/01/19 8:29 pm * How many steps to enter\exit or inside your home? * PCP LOLIS SALCEDO * [facility] * Preadmission Environment Home with Family * ADLs Independent * Other Equipment HOME 02, TRILOGY, NEBULIZER, WALKER, SC, W/C, CANE * List name and contact numbers for known caregivers / representatives who currently or will assist patient after discharge: TORREY HERNANDEZ - SPOUSE- [phone] * Verbal permission to speak to the caregivers and representatives has been obtained from the patient. N/A * Community resources currently utilized Home Health * Please name any agencies selected above. [facility] * Additional services required to return to the preadmission environment? No * Can the patient safely return to the preadmission environment? Yes * Has this patient been hospitalized within the prior 30 days at any hospital? Yes Coverage Notice Reviewer: [id number] - Shanta Tan Notice Issued Date-Time: 07/01/2019 14:45 Notice Type: Patient Choice Letter Notice Delivered To: Family Member Relationship to Patient: Spouse In Flight Crew Member Name: torrey hernandez Delivery Method: HAND - Hand Delivered Laura Days: Prior Verbal Notification: Recipient Understood Notice: Yes Recipient Signature: Yes Med Rec Note Co-signed by Attending: Coverage Notice Comment: resume elite serene Reviewer: [id number] Laura Montes Notice Issued Date-Time: 07/04/2019 11:35 Notice Type: IM Discharge Notice Notice Delivered To: Family Member Relationship to Patient: In Flight Crew Member Name: Delivery Method: HAND - Hand Delivered Laura Days: Prior Verbal Notification: Recipient Understood Notice: Yes Recipient Signature: Yes Med Rec Note Co-signed by Attending: Coverage Notice Comment: Reviewer: [id number] Laura Montes Notice Issued Date-Time: 07/04/2019 11:35 Notice Type: Patient Choice Letter Notice Delivered To: Family Member Relationship to Patient: In Flight Crew Member Name: Delivery Method: HAND - Hand Delivered Laura Days: Prior Verbal Notification: Recipient Understood Notice: Yes Recipient Signature: Yes Med Rec Note Co-signed by Attending: Coverage Notice Comment: [facility] Reviewer: [id number] - Korin Teague Notice Issued Date-Time: 07/15/2019 14:28 Notice Type: Patient Choice Letter Notice Delivered To: Family Member Relationship to Patient: Spouse In Flight Crew Member Name: Torrey Hernandez Delivery Method: HAND - Hand Delivered Laura Days: Prior Verbal Notification: Recipient Understood Notice: Yes Recipient Signature: Yes Med Rec Note Co-signed by Attending: Coverage Notice Comment: BRE for [facility] in [place] Last DP export: 07/16/19 1:55 Patient Name: YARELY HERNANDEZ Page [id number] at 1513 All edits/amendments must be made on the electronic document DICTATION DATE: 07/16/191511 IMPROVEMENT SPEC: JOHN 07/16/191511 RPT#: [id number] DC DATE: STATUS: ADM IN [facility] [address] [place] [address] END OF REPORT
[2019-07-16 16:38] VITALS: BP 119/72
--- NOTE | 2019-07-16 20:00 | NUR ---
ASSESSMENT PER FLOWSHEET. IV PATENT LEFT IJ OF NS AT 30CC'S/HR SITE CLEAR. SALEH TO BS DRAINAGE WITH YELLOW UA. TEL. SHOWS CAF WITH HR 88-94. O2 ON 4L/M PER NC. FAMILY MEMBERS AT BEDSIDE. LUNG SOUNDS SHOW BILATERAL WHEEZES NOTED.
--- NOTE | 2019-07-16 20:30 | NUR ---
AMBULATED WITH WALKER AND HELP FOR 2 FAMILY MEMBERS AND DISTRICT OPERATIONS MANAGER. WALKED SHORT DISTANCE AND BECAME SOB. RETURNED BACK TO ROOM SITTING ON BEDSIDE. MEDS GIVEN PER SEP. RESTINGIN BED SR UP X2 CALL LIGHT WITHIN REACH.
[2019-07-16 20:35] VITALS: BP 136/80
[2019-07-17] VITALS (7 sets, daily range): BP systolic 100–164; BP diastolic 73–98
--- NOTE | 2019-07-17 | NUR ---
EYES CLOSED RESPIRATIONS WITH EASE AND UNLABORED.
--- NOTE | 2019-07-17 01:42 | NUR ---
RESTING QUIETLY DENIES NEEDS SR UP X2 CALL LIGHT WITHIN REACH FAMILY AT BEDSIDE.
[2019-07-17 07:07] LABS: BASOPHILS 0 % (0-2); EOSINOPHILS 0 % (0-7); HEMATOCRIT 29.4 % (42.0-54.0); HEMOGLOBIN 8.6 g/dL (13.5-17.5); IMMATURE GRANULOCYTES 1.3 % (0-5); LYMPHOCYTES 8.9 % (15-50); MCH 25.7 pg (26.0-34.0); MCHC 29.3 g/dL (31.0-37.0); MEAN PLATELET VOLUME 10.1 fL (7.4-10.4); MONOCYTES 4.7 % (2-11); NEUTROPHILS 85.1 % (40-80); PLATELET COUNT 174 10x3/uL (130-400); RBC 3.34 10x6/uL (4.20-6.10); RDW 22.5 % (11.5-14.5); WBC 11.2 10x3/uL (4.8-10.8)
--- NOTE | 2019-07-17 07:07 | MORECARE ---
CASE MANAGEMENT DISCHARGE SUMMARY PATIENT: YARELY HERNANDEZ UNIT: [id number] ADM DATE: 06/28/19 AGE: 68 : 48 SEX: M ROOM/BED: D.2230 AUTHOR: LEO,DOC PHYSICIAN: REFERRING PHYSICIAN: HORACE AGUIRRE MD DATE OF SERVICE: 07/17/19 Discharge Plan Patient Name: YARELY HERNANDEZ Facility: [facility]:[place] : 1950 Planned Disposition: Anticipated Discharge Date: Discharge Date: Expected LOS: Initial Reviewer: [email or web address] Initial Review Date: 07/01/2019 Generated: 07/17/19 8:07 am Comments DCP- Discharge Planning Updated by [id number]: Korin Teague on 07/16/19 2:[address] I spoke with patient, and DIL and informed them that if he is not authorized for LTACH, he has the option of a skilled facility. He and family refuse skilled facility at this time. I left them a list of skilled facilities in the area. He is sitting up in the chair today. CM will continue to follow and assist with discharge planning/needs. DCP- Discharge Planning Updated by [id number]: Korin Teague on 07/16/19 1:[address] I spoke with Lula Giovanni at [facility] in [place] concerning referral. Lula states they are still awaiting authorization from [facility] for approval. Lula states he will most likely be denied admission since he is not on IV antibiotics and has trilogy at home. Additional clinical faxed. CM will continue to follow and assist with discharge planning/needs. DCP- Discharge Planning Updated by [id number]: Korin Teague on 07/15/19 12:[address] Alexa Swenson APN states Dr. Rayn would like a referral made to LTACH. I spoke with the patient and his DIL and they would like to stay in [place]. BRE given and he would like to wait until his comes to have her sign the BRE. CM will continue to follow and assist with discharge planning/needs. DCP- Discharge Planning Updated by [id number]: Korin Teague on 07/15/19 10:[address] Patient's daughter in law (Yarelis Cogburn) called me to the [facility] and states she would like her father in law transferred to [facility] in [place]. She states he has been there before. She did not know the name of the doctor he has seen there. I informed her for a lateral transfer, insurance would not pay for the transportation and he would need an accepting physician before he could be transferred, she voiced understanding. I spoke with Alexa Swenson APN and she spoke to the patient and DIL in the room. Alexa states to hold on transfer at this time. His CXR and ABG's are improving and reassurance given. CM will continue to follow and assist with discharge planning/needs. Yarelis Hernandez - DIL - [phone] DCP- Discharge Planning Updated by [email or web address]: Danette Montes on 07/04/19 10:[address] Patient Name: YARELY HERNANDEZ Admission Status: ER Accout number: [id number] Admission Date: 06-28-2019 : 1950 Admission Diagnosis: Attending: ROBIN Current LOS: 6 Anticipated DC Date: Planned Disposition: Primary Insurance: [facility] MEDICARE SOLUTIONS Discharge Planning Comments: CM MET WITH PATIENT AND ABOUT DC PLANNING. STATES WOULD LIKE TO GO TO [facility] HERE AT [facility] WHEN MEDICALLY STABLE. BRE SIGNED AND CONSULT ORDERED. IMM SIGNED. CM TO FOLLOW AND ASSIST NEEDED. Automotive Power Electronics Engineer: Danette Montes DCP- Discharge Planning Updated by [id number]: Shanta Tan on 07/01/19 7:[address] Patient Name: YARELY HERNANDEZ Admission Status: ER Accout number: [id number] Admission Date: 06-28-2019 : 1950 Admission Diagnosis: Attending: ROBNI Current LOS: 3 Anticipated DC Date: Planned Disposition: Primary Insurance: [facility] MEDICARE SOLUTIONS Discharge Planning Comments: CM met with patient's Torrey at bedside after explaining CM role and obtaining verbal consent. Patient is currently sedated on Vent . Patient lives at home with his where he is independent with his care and plans to return there upon discharge. Patient feels this would be a safe discharge. CM discussed availability / needs of home health and medical equipment. [facility] 02, [facility] and BRE signed to resume care. Torrey denies any discharge needs at this time. Torrey states he will have his family drive him home upon discharge. CM will continue to follow and assist as needed with discharge planning / needs. Automotive Power Electronics Engineer: Shanta PEÑA - Discharge Planning Initial Assessment Updated by [id number]: Shanta Tan on 07/01/19 8:29 pm * How many steps to enter\exit or inside your home? * PCP LOLIS SALCEDO * [facility] * Preadmission Environment Home with Family * ADLs Independent * Other Equipment HOME 02, TRILOGY, NEBULIZER, WALKER, SC, W/C, CANE * List name and contact numbers for known caregivers / representatives who currently or will assist patient after discharge: TORREY HERNANDEZ - SPOUSE- [phone] * Verbal permission to speak to the caregivers and representatives has been obtained from the patient. N/A * Community resources currently utilized Home Health * Please name any agencies selected above. [facility] * Additional services required to return to the preadmission environment? No * Can the patient safely return to the preadmission environment? Yes * Has this patient been hospitalized within the prior 30 days at any hospital? Yes Coverage Notice Reviewer: [id number] - Shanta Tan Notice Issued Date-Time: 07/01/2019 14:45 Notice Type: Patient Choice Letter Notice Delivered To: Family Member Relationship to Patient: Spouse Coal Sample Tester Name: torrey hernandez Delivery Method: HAND - Hand Delivered Laura Days: Prior Verbal Notification: Recipient Understood Notice: Yes Recipient Signature: Yes Med Rec Note Co-signed by Attending: Coverage Notice Comment: resume elite serene Reviewer: [id number] Laura Montes Notice Issued Date-Time: 07/04/2019 11:35 Notice Type: IM Discharge Notice Notice Delivered To: Family Member Relationship to Patient: Coal Sample Tester Name: Delivery Method: HAND - Hand Delivered Laura Days: Prior Verbal Notification: Recipient Understood Notice: Yes Recipient Signature: Yes Med Rec Note Co-signed by Attending: Coverage Notice Comment: Reviewer: [id number] Laura Montes Notice Issued Date-Time: 07/04/2019 11:35 Notice Type: Patient Choice Letter Notice Delivered To: Family Member Relationship to Patient: Coal Sample Tester Name: Delivery Method: HAND - Hand Delivered Laura Days: Prior Verbal Notification: Recipient Understood Notice: Yes Recipient Signature: Yes Med Rec Note Co-signed by Attending: Coverage Notice Comment: [facility] Reviewer: [id number] - Korin Teague Notice Issued Date-Time: 07/15/2019 14:28 Notice Type: Patient Choice Letter Notice Delivered To: Family Member Relationship to Patient: Spouse Coal Sample Tester Name: Torrey Hernandez Delivery Method: HAND - Hand Delivered Laura Days: Prior Verbal Notification: Recipient Understood Notice: Yes Recipient Signature: Yes Med Rec Note Co-signed by Attending: Coverage Notice Comment: BRE for [facility] in [place] Last DP export: 07/16/19 2:13 Patient Name: YARELY HERNANDEZ Page [id number] at 0707 All edits/amendments must be made on the electronic document DICTATION DATE: 07/17/19706 STUDIO CONTROL OPERATOR: JOHN 07/17/19706 RPT#: [id number] DC DATE: STATUS: ADM IN [facility] [address] [place] [address] END OF REPORT
[2019-07-17 07:16] LABS: ALBUMIN 2.2 g/dL (3.4-5.0); ANION GAP 10.1 mmol/L (8-16); BILIRUBIN - TOTAL 0.35 mg/dL (0.2-1.3); CALCIUM 7.9 mg/dL (8.5-10.1); CARBON DIOXIDE 28.8 mmol/L (21.0-32.0); CREATININE - SERUM 1.8 mg/dL (0.6-1.3); POTASSIUM - SERUM 3.9 mmol/L (3.5-5.1); PROTEIN - SERUM 5.1 g/dL (6.4-8.2)
--- NOTE | 2019-07-17 08:21 | NUR ---
AWAKE AND ALERT. ORIENTED X3. NO C/O AT THIS TIME. SITTING UP IN BED EATING BREAKFAST WHICH HE HAS REFUSED. ALSO REFUSED OFFER OF ALTERNATIVE FOODS. STATED HE ISN'T MUCH OF A BREAKFAST PERSON. LUNGS ARE CLEAR BUT DIMINISHED THROUGHOUT LUNG MATHIAS. OCCASSIONAL DRY COUGH NOTED. SKIN IS INTACT WITHOUT REDNESS. LEFT IJ IS PATENT WITHOUT REDNESS AT INSERTION SITE. DENIES NEEDS. SALEH PATENT WTIH CLEAR YELLOW URINE.
--- NOTE | 2019-07-17 10:00 | NUR ---
RESTING QUIETLY IN BED. DENIES NEEDS. FAMILY HERE.
--- NOTE | 2019-07-17 15:22 | NUR ---
OT NOTE: PT PERORMED BED MOB WITH SBA; SIT TO STAND WITH MIN ASSIST; TOLERATED STANDING X 2 TRIALS FOR APPROX 1-2 MIN..02 SATS WERE WNLS, HOWEVER, HEART RATE RANGED FROM 105-118...BP FOLLOWING STANDING WAS 130/105. SIMPLE ADLS WITH MIN ASSIST. LESVIA REID, OTR/L
--- NOTE | 2019-07-17 18:27 | NUR ---
SITTING UP IN BED TRYING TO EAT SOME SUPPER. REQUESTED UD AT THIS TIME. RT NOTIFIED OF SAME. NO CHANGES NOTED. DENIES NEEDS.
--- NOTE | 2019-07-17 19:00 | NUR ---
BEDSIDE REPORT RECEIVED AND CARE OF PT ASSUMED. PT LYING IN LOW HENDRICKSON'S POSITION VISITING WITH FAMILY MEMBER. LEFT IJ PATENT WITH NS INFUSING AT 30 ML/HR. TELEMETRY IN PLACE PER ORDER. O2 IN USE VIA NC AT 4L. WILL MONITOR FOR NEEDS.
--- NOTE | 2019-07-17 20:42 | NUR ---
HS MEDICATIONS GIVEN. BIPAP REPLACED AND PT RESTING QUIETLY AT THIS TIME. FAMILY MEMBERS ARE AT BEDSIDE.
--- NOTE | 2019-07-18 04:45 | NUR ---
ZARA BLOOD FROM CENTRAL LINE FOR AM LABS. DELIVERED TO SPACE CONTROL SUPERVISOR.
--- NOTE | 2019-07-18 05:00 | NUR ---
CHANGED DRESSING TO LEFT IJ CENTRAL LINE USING STERILE TECHNIQUE.
[2019-07-18 05:54] VITALS: BP 159/97
[2019-07-18 06:17] LABS: BASOPHILS 0 % (0-2); EOSINOPHILS 0 % (0-7); HEMATOCRIT 28.9 % (42.0-54.0); HEMOGLOBIN 8.4 g/dL (13.5-17.5); IMMATURE GRANULOCYTES 1.6 % (0-5); MCH 25.8 pg (26.0-34.0); MCHC 29.1 g/dL (31.0-37.0); MCV 88.9 fL (80.0-100.0); MEAN PLATELET VOLUME 10.1 fL (7.4-10.4); MONOCYTES 4.3 % (2-11); NEUTROPHILS 81.1 % (40-80); PLATELET COUNT 179 10x3/uL (130-400); RBC 3.25 10x6/uL (4.20-6.10)
[2019-07-18 06:21] LABS: ALBUMIN 2.2 g/dL (3.4-5.0); ANION GAP 7.8 mmol/L (8-16); BILIRUBIN - TOTAL 0.34 mg/dL (0.2-1.3); CALCIUM 7.9 mg/dL (8.5-10.1); CREATININE - SERUM 1.6 mg/dL (0.6-1.3); POTASSIUM - SERUM 3.8 mmol/L (3.5-5.1)
[2019-07-18 06:37] LABS: WBC 8.2 10x3/uL (4.8-10.8)
--- NOTE | 2019-07-18 07:49 | NUR ---
AWAKE AND ALERT. ORIENTED X3. NO C/O AT THIS TIME. LUNGS ARE DIMINISHED THROUGHOUT LUNG MATHIAS, WHEEZES NOTED TO RIGHT UPPER LOBE, OCCASSIONAL DRY COUGH NOTED.SKIN IS INTACT WITHOUT REDNESS. LEFT IJ IS PATENT WITHOUT REDNESS AT INSERTION SITE. SALEH PATENT WITH CLEAR YELLOW URINE. DENIES NEEDS. FAMILY AT BEDSIDE.
[2019-07-18 09:47] VITALS: BP 132/85
--- NOTE | 2019-07-18 10:00 | NUR ---
ATE ONLY A FEW BITES OF BREAKFAST. TOOK AM MEDS WITHOUT DIFFICULTY. AMBULATED IN HALLWAY WITH PT. SITTING UP IN CHAIR AT THIS TIME.
--- NOTE | 2019-07-18 11:10 | NUR ---
ASSISTED BACK TO BED PER STAFF. POSITIONED IN BED FOR COMFORT.
[2019-07-18] MEDS ORDERED: VIBRAMYCIN 100100 MG PO (13:00)
[2019-07-18] MEDS ORDERED: LEXAPRO10 MG PO (13:02)
[2019-07-18] MEDS ORDERED: XANAX0.5 MG PO (13:03)
[2019-07-18] MEDS ORDERED: METOPROLOL TART50 MG PO (13:07)
[2019-07-18] MEDS ORDERED: PREDNISONE10 MG PO (13:07)
--- NOTE | 2019-07-18 13:10 | NUR ---
OT NOTE: PT EXHIBITED INCREASED O2 STABILITY WITH ACTIVITIES. PT COMPLETED SUPINE TO SIT WITH SBA. PT COMPLETED ADL MOB WITH RW WITH CGA. PT COMPLETED BUE AROM EX NOT EXCEEDING 90 DEGREES OF FLEXION . PT COMPLETED FACE WASH WITH SET UP AT EOB . PT PUT FORTH GOOD EFFORT. PT REQUIRED REST BREAKS. [phone] THANK YOU, ADAMA KRAUSE
[2019-07-18 13:36] VITALS: BP 156/92
--- NOTE | 2019-07-18 13:36 | MORECARE ---
CASE MANAGEMENT DISCHARGE SUMMARY PATIENT: YARELY HERNANDEZ UNIT: [id number] ADM DATE: 06/28/19 AGE: 68 : 48 SEX: M ROOM/BED: D.2230 AUTHOR: LEO,DOC PHYSICIAN: REFERRING PHYSICIAN: HORACE AGUIRRE MD DATE OF SERVICE: 07/18/19 Discharge Plan Patient Name: YARELY HERNANDEZ Facility: [facility]:[place] : 1950 Planned Disposition: Anticipated Discharge Date: Discharge Date: Expected LOS: Initial Reviewer: [id number] Initial Review Date: 07/01/2019 Generated: 07/18/19 2:36 pm Comments DCP- Discharge Planning Updated by [id number]: Korin Teague on 07/18/19 12:[address] He was denied LTACH per his insurance, I informed Dr. Ryan. He states patient may go home with home health. I spoke with patient and DIL, they are in agreement to discharge home with [facility]. Patient does not want to go to a skilled facility. I called [facility] in [place] and spoke with Velvet and informed her patient would be going home today with [facility]. Velvet states he is current with them and on hospital hold, so they will take him off hold, clinical faxed. CM will continue to follow and assist with discharge planning/needs. DCP- Discharge Planning Updated by [id number]: Korin Zahida on 07/16/19 2:[address] I spoke with patient, and DIL and informed them that if he is not authorized for LTACH, he has the option of a skilled facility. He and family refuse skilled facility at this time. I left them a list of skilled facilities in the area. He is sitting up in the chair today. CM will continue to follow and assist with discharge planning/needs. DCP- Discharge Planning Updated by [id number]: Korin Teague on 07/16/19 1:[address] I spoke with Lula Davila at [facility] in [place] concerning referral. Lula states they are still awaiting authorization from [facility] for approval. Lula states he will most likely be denied admission since he is not on IV antibiotics and has trilogy at home. Additional clinical faxed. CM will continue to follow and assist with discharge planning/needs. DCP- Discharge Planning Updated by [id number]: Korin Teague on 07/15/19 12:[address] Alexa Swenson APN states Dr. Ryan would like a referral made to [facility]. I spoke with the patient and his DIL and they would like to stay in [place]. BRE given and he would like to wait until his comes to have her sign the BRE. CM will continue to follow and assist with discharge planning/needs. DCP- Discharge Planning Updated by [id number]: Korin Teague on 07/15/19 10:[address] Patient's daughter in law (Yarelis Hernandez) called me to the [facility] and states she would like her father in law transferred to [facility] in [place]. She states he has been there before. She did not know the name of the doctor he has seen there. I informed her for a lateral transfer, insurance would not pay for the transportation and he would need an accepting physician before he could be transferred, she voiced understanding. I spoke with Alexa Swenson APN and she spoke to the patient and DIL in the room. Alexa states to hold on transfer at this time. His CXR and ABG's are improving and reassurance given. CM will continue to follow and assist with discharge planning/needs. Yarelis Hernandez - DIL - [phone] DCP- Discharge Planning Updated by [id number]: Danette Montes on 07/04/19 10:[address] Patient Name: YARELY HERNANDEZ Admission Status: ER Accout number: [id number] Admission Date: 06-28-2019 : 1950 Admission Diagnosis: Attending: ROBIN Current LOS: 6 Anticipated DC Date: Planned Disposition: Primary Insurance: [facility] MEDICARE SOLUTIONS Discharge Planning Comments: CM MET WITH PATIENT AND ABOUT DC PLANNING. STATES WOULD LIKE TO GO TO [facility] HERE AT [facility] WHEN MEDICALLY STABLE. BRE SIGNED AND CONSULT ORDERED. IMM SIGNED. CM TO FOLLOW AND ASSIST NEEDED. Machinery Rigger: Danette Montes DCP- Discharge Planning Updated by [id number]: Shanta Tan on 07/01/19 7:[address] Patient Name: YARELY HERNANDEZ Admission Status: ER Accout number: [id number] Admission Date: 06-28-2019 : 1950 Admission Diagnosis: Attending: ROBIN Current LOS: 3 Anticipated DC Date: Planned Disposition: Primary Insurance: [facility] MEDICARE SOLUTIONS Discharge Planning Comments: CM met with patient's Torrey at bedside after explaining CM role and obtaining verbal consent. Patient is currently sedated on Vent . Patient lives at home with his where he is independent with his care and plans to return there upon discharge. Patient feels this would be a safe discharge. CM discussed availability / needs of home health and medical equipment. Patient has home 02, trilogy and nebulizer with [facility]. Patient also has [facility] and BRE signed to resume care. Torrey denies any discharge needs at this time. Torrey states he will have his family drive him home upon discharge. CM will continue to follow and assist as needed with discharge planning / needs. Machinery Rigger: Shanta Tan DCPIA - Discharge Planning Initial Assessment Updated by [id number]: Shanta Tan on 07/01/19 8:29 pm * How many steps to enter\exit or inside your home? * PCP LOLIS SALCEDO * [facility] * Preadmission Environment Home with Family * ADLs Independent * Other Equipment HOME 02, TRILOGY, NEBULIZER, WALKER, SC, W/C, CANE * List name and contact numbers for known caregivers / representatives who currently or will assist patient after discharge: TORREY HERNANDEZ - SPOUSE- [phone] * Verbal permission to speak to the caregivers and representatives has been obtained from the patient. N/A * Community resources currently utilized Home Health * Please name any agencies selected above. [facility] * Additional services required to return to the preadmission environment? No * Can the patient safely return to the preadmission environment? Yes * Has this patient been hospitalized within the prior 30 days at any hospital? Yes External Providers External Provider: [facility] Laura Ramos Next Contact Date: Service Request Date: Service Type: Resolution: Reviewer: Comments: Coverage Notice Reviewer: [id number] Laura Tan Notice Issued Date-Time: 07/01/2019 14:45 Notice Type: Patient Choice Letter Notice Delivered To: Family Member Relationship to Patient: Spouse Gravel Machine Operator Name: torrey hernandez Delivery Method: HAND - Hand Delivered Laura Days: Prior Verbal Notification: Recipient Understood Notice: Yes Recipient Signature: Yes Med Rec Note Co-signed by Attending: Coverage Notice Comment: resume maria g Reviewer: [id number] Laura Montes Notice Issued Date-Time: 07/04/2019 11:35 Notice Type: IM Discharge Notice Notice Delivered To: Family Member Relationship to Patient: Gravel Machine Operator Name: Delivery Method: HAND - Hand Delivered Laura Days: Prior Verbal Notification: Recipient Understood Notice: Yes Recipient Signature: Yes Med Rec Note Co-signed by Attending: Coverage Notice Comment: Reviewer: [id number] Montes Notice Issued Date-Time: 07/04/2019 11:35 Notice Type: Patient Choice Letter Notice Delivered To: Family Member Relationship to Patient: Gravel Machine Operator Name: Delivery Method: HAND - Hand Delivered Laura Days: Prior Verbal Notification: Recipient Understood Notice: Yes Recipient Signature: Yes Med Rec Note Co-signed by Attending: Coverage Notice Comment: [facility] Reviewer: [id number] Laura Teague Notice Issued Date-Time: 07/15/2019 14:28 Notice Type: Patient Choice Letter Notice Delivered To: Family Member Relationship to Patient: Spouse Gravel Machine Operator Name: Torrey Hernandez Delivery Method: HAND - Hand Delivered Laura Days: Prior Verbal Notification: Recipient Understood Notice: Yes Recipient Signature: Yes Med Rec Note Co-signed by Attending: Coverage Notice Comment: [facility] for [facility] in [place] Reviewer: [id number] Teague Notice Issued Date-Time: 07/18/2019 13:23 Notice Type: IM Discharge Notice Notice Delivered To: Patient Relationship to Patient: Self Gravel Machine Operator Name: Delivery Method: - Laura Days: Prior Verbal Notification: Recipient Understood Notice: Recipient Signature: Med Rec Note Co-signed by Attending: Coverage Notice Comment: Last DP export: 07/17/19 6:07 Patient Name: YARELY HERNANDEZ Page 19641 at 1336 All edits/amendments must be made on the electronic document DICTATION DATE: 07/18/19 1336 SUPERVISORY EXAMINER: JOHN 07/18/19 1336 RPT#: [id number] DC DATE: STATUS: ADM IN [facility] [address] [place] [address] END OF REPORT
--- NOTE | 2019-07-18 16:30 | NUR ---
DISCHARGED TO HOME WITH FAMILY [facility]ORY. DISCHARGE INSTRUCTIONS GIVEN BOTH VERBALLY AND WRITTEN. ALL QUESTIONS ANSWERED. PATIENT VERBALILZED UNDERSTANDING OF SAME. NEEDED PRESCRIPTIONS ESCRIBED TO PHARMACY OF CHOICE. ALL BELONGINGS WITH PATIENT.
--- NOTE | 2019-07-22 11:27 | MORECARE ---
CASE MANAGEMENT DISCHARGE SUMMARY PATIENT: YARELY HERNANDEZ UNIT: [id number] ADM DATE: 06/28/19 AGE: 68 : 48 SEX: M ROOM/BED: D.2230 AUTHOR: LEO,DOC PHYSICIAN: REFERRING PHYSICIAN: HORACE AGUIRRE MD DATE OF SERVICE: 07/22/19 Discharge Plan Patient Name: YARELY HERNANDEZ Facility: [facility]:[place] : 1950 Planned Disposition: Anticipated Discharge Date: Discharge Date: 07/18/2019 Expected LOS: Initial Reviewer: [id number] Initial Review Date: 07/01/2019 Generated: 07/22/19 12:27 pm Comments DCP- Discharge Planning Updated by [id number]: Korin Teague on 07/18/19 12:[address] He was denied LTACH per his insurance, I informed Dr. Ryan. He states patient may go home with home health. I spoke with patient and DIL, they are in agreement to discharge home with [facility]. Patient does not want to go to a skilled facility. I called [facility] in [place] and spoke with Velvet and informed her patient would be going home today with [facility]. Velvet states he is current with them and on hospital hold, so they will take him off hold, clinical faxed. CM will continue to follow and assist with discharge planning/needs. DCP- Discharge Planning Updated by [id number]: Korin Teague on 07/16/19 2:[address] I spoke with patient, and DIL and informed them that if he is not authorized for LTACH, he has the option of a skilled facility. He and family refuse skilled facility at this time. I left them a list of skilled facilities in the area. He is sitting up in the chair today. CM will continue to follow and assist with discharge planning/needs. DCP- Discharge Planning Updated by [id number]: Korin Teague on 07/16/19 1:[address] I spoke with Lula Davila at [facility] in [place] concerning referral. Lula states they are still awaiting authorization from [facility] for approval. Lula states he will most likely be denied admission since he is not on IV antibiotics and has trilogy at home. Additional clinical faxed. CM will continue to follow and assist with discharge planning/needs. DCP- Discharge Planning Updated by [id number]: Korin Teague on 07/15/19 12:[address] Alexa Swenson APN states Dr. Ryan would like a referral made to [facility]. I spoke with the patient and his DIL and they would like to stay in [place]. BRE given and he would like to wait until his comes to have her sign the BRE. CM will continue to follow and assist with discharge planning/needs. DCP- Discharge Planning Updated by [id number]: Korin Teague on 07/15/19 10:[address] Patient's daughter in law (Yarleis Hernandez) called me to the [facility] and states she would like her father in law transferred to [facility] in [place]. She states he has been there before. She did not know the name of the doctor he has seen there. I informed her for a lateral transfer, insurance would not pay for the transportation and he would need an accepting physician before he could be transferred, she voiced understanding. I spoke with Alexa Swenson APN and she spoke to the patient and DIL in the room. Alexa states to hold on transfer at this time. His CXR and ABG's are improving and reassurance given. CM will continue to follow and assist with discharge planning/needs. Yarelis Hernandez - DIL - [phone] DCP- Discharge Planning Updated by [id number]: Danette Montes on 07/04/19 10:[address] Patient Name: YARELY HERNANDEZ Admission Status: ER Accout number: [id number] Admission Date: 06-28-2019 : 1950 Admission Diagnosis: Attending: ROBIN Current LOS: 6 Anticipated DC Date: Planned Disposition: Primary Insurance: [facility] MEDICARE SOLUTIONS Discharge Planning Comments: CM MET WITH PATIENT AND ABOUT DC PLANNING. STATES WOULD LIKE TO GO TO [facility] HERE AT [facility] WHEN MEDICALLY STABLE. BRE SIGNED AND CONSULT ORDERED. IMM SIGNED. CM TO FOLLOW AND ASSIST NEEDED. Mold Making Supervisor: Danette Montes DCP- Discharge Planning Updated by [id number]: Shanta Tan on 07/01/19 7:[address] Patient Name: YARELY HERNANDEZ Admission Status: ER Accout number: [id number] Admission Date: 06-28-2019 : 1950 Admission Diagnosis: Attending: ROBIN Current LOS: 3 Anticipated DC Date: Planned Disposition: Primary Insurance: [facility] MEDICARE SOLUTIONS Discharge Planning Comments: CM met with patient's Torrey at bedside after explaining CM role and obtaining verbal consent. Patient is currently sedated on Vent . Patient lives at home with his where he is independent with his care and plans to return there upon discharge. Patient feels this would be a safe discharge. CM discussed availability / needs of home health and medical equipment. Patient has home 02, trilogy and nebulizer with [facility]. Patient also has [facility] and BRE signed to resume care. Torrey denies any discharge needs at this time. Torrey states he will have his family drive him home upon discharge. CM will continue to follow and assist as needed with discharge planning / needs. Mold Making Supervisor: Shanta Tan DCPIA - Discharge Planning Initial Assessment Updated by [id number]: Shanta Tan on 07/01/19 8:29 pm * How many steps to enter\exit or inside your home? * PCP LOLIS SALCEDO * [facility] * Preadmission Environment Home with Family * ADLs Independent * Other Equipment HOME 02, TRILOGY, NEBULIZER, WALKER, SC, W/C, CANE * List name and contact numbers for known caregivers / representatives who currently or will assist patient after discharge: TORREY HERNANDEZ - SPOUSE- [phone] * Verbal permission to speak to the caregivers and representatives has been obtained from the patient. N/A * Community resources currently utilized Home Health * Please name any agencies selected above. [facility] * Additional services required to return to the preadmission environment? No * Can the patient safely return to the preadmission environment? Yes * Has this patient been hospitalized within the prior 30 days at any hospital? Yes Coverage Notice Reviewer: [id number] - Shanta Tan Notice Issued Date-Time: 07/01/2019 14:45 Notice Type: Patient Choice Letter Notice Delivered To: Family Member Relationship to Patient: Spouse Heavy Antiarmor Weapons Infantryman Name: torrey hernandez Delivery Method: HAND - Hand Delivered Laura Days: Prior Verbal Notification: Recipient Understood Notice: Yes Recipient Signature: Yes Med Rec Note Co-signed by Attending: Coverage Notice Comment: resume [facility] Reviewer: [id number] Laura Montes Notice Issued Date-Time: 07/04/2019 11:35 Notice Type: IM Discharge Notice Notice Delivered To: Family Member Relationship to Patient: Heavy Antiarmor Weapons Infantryman Name: Delivery Method: HAND - Hand Delivered Lauar Days: Prior Verbal Notification: Recipient Understood Notice: Yes Recipient Signature: Yes Med Rec Note Co-signed by Attending: Coverage Notice Comment: Reviewer: [id number] Laura Montes Notice Issued Date-Time: 07/04/2019 11:35 Notice Type: Patient Choice Letter Notice Delivered To: Family Member Relationship to Patient: Heavy Antiarmor Weapons Infantryman Name: Delivery Method: HAND - Hand Delivered Laura Days: Prior Verbal Notification: Recipient Understood Notice: Yes Recipient Signature: Yes Med Rec Note Co-signed by Attending: Coverage Notice Comment: [facility] Reviewer: [id number] Laura Teague Notice Issued Date-Time: 07/15/2019 14:28 Notice Type: Patient Choice Letter Notice Delivered To: Family Member Relationship to Patient: Spouse Heavy Antiarmor Weapons Infantryman Name: Torrey Hernandez Delivery Method: HAND - Hand Delivered Laura Days: Prior Verbal Notification: Recipient Understood Notice: Yes Recipient Signature: Yes Med Rec Note Co-signed by Attending: Coverage Notice Comment: [facility] for Loi Guadalupe in [place] Reviewer: [id number] Laura Teague Notice Issued Date-Time: 07/18/2019 13:23 Notice Type: IM Discharge Notice Notice Delivered To: Patient Relationship to Patient: Self Heavy Antiarmor Weapons Infantryman Name: Delivery Method: - Laura Days: Prior Verbal Notification: Recipient Understood Notice: Recipient Signature: Med Rec Note Co-signed by Attending: Coverage Notice Comment: Last DP export: 07/18/19 12:36 Patient Name: YARELY HERNANDEZ Page [id number] at 1127 All edits/amendments must be made on the electronic document DICTATION DATE: 07/22/191126 MANUFACTURING CONTROLLER: JOHN 07/22/19 112 RPT#: [id number] DC DATE:07/18/19 STATUS: DIS IN [facility] [address] [place] [address] END OF REPORT
== END 2019-07-18 16:30 | disposition home health service (06) | DRG 208 ==
LOC: D.ER 21:27 → D.M2 23:23 → D.MS 23:23 → D.ICU 23:23 → D.M3 23:23 → D.ICU 06-30 20:03 → D.M3 07-03 16:19 → D.SDCHOLD 07-08 11:22 → D.MS 07-11 16:39
PROVIDERS: Emergency Medicine; Family Medicine; Internal Medicine Nephrology; Internal Medicine Pulmonary Disease; ADMIT Family Medicine; ATTEND Family Medicine
PROC: 5A1945Z Respiratory Ventilation, 24-96 Consecutive Hours (ICD-10-PCS; 2019-06-30)
PROC: 05HN33Z Insertion of Infusion Device into Left Internal Jugular Vein, Percutaneous Approach (ICD-10-PCS; 2019-06-30)
PROC: 4A133B1 Monitoring of Arterial Pressure, Peripheral, Percutaneous Approach (ICD-10-PCS; 2019-06-30)
PROC: 4A133J1 Monitoring of Arterial Pulse, Peripheral, Percutaneous Approach (ICD-10-PCS; 2019-06-30)
PROC: 03HY32Z Insertion of Monitoring Device into Upper Artery, Percutaneous Approach (ICD-10-PCS; 2019-06-30)
PROC: 0BH17EZ Insertion of Endotracheal Airway into Trachea, Via Natural or Artificial Opening (ICD-10-PCS; 2019-06-30)
PROC: 0B9F8ZX Drainage of Right Lower Lung Lobe, Via Natural or Artificial Opening Endoscopic, Diagnostic (ICD-10-PCS; principal; 2019-07-01)
PROC: 0B9G8ZX Drainage of Left Upper Lung Lobe, Via Natural or Artificial Opening Endoscopic, Diagnostic (ICD-10-PCS; 2019-07-01)
DX: J44.1 Chronic obstructive pulmonary disease with (acute) exacerbation (principal); I50.23 Acute on chronic systolic (congestive) heart failure; J96.21 Acute and chronic respiratory failure with hypoxia; E43 Unspecified severe protein-calorie malnutrition; J15.4 Pneumonia due to other streptococci; N17.9 Acute kidney failure, unspecified; F17.203 Nicotine dependence unspecified, with withdrawal; I48.20 Chronic atrial fibrillation, unspecified; I10 Essential (primary) hypertension; I25.10 Atherosclerotic heart disease of native coronary artery without angina pectoris; K21.9 Gastro-esophageal reflux disease without esophagitis; M19.90 Unspecified osteoarthritis, unspecified site; G89.29 Other chronic pain; D64.9 Anemia, unspecified; E78.5 Hyperlipidemia, unspecified; R53.81 Other malaise; F41.9 Anxiety disorder, unspecified; R53.83 Other fatigue